=== PATIENT | male | born 1960 | race Caucasian/White ===

== ENCOUNTER 2021-04-06 05:40 | Outpatient (CLI) | payer BC ==
[~2021-04-06] VITALS: Ht 177.8 cm; Wt 104.5 kg
[~2021-04-06 05:40] MED LIST: CTRZ10T PO; FISH OIL OMEGA1 EACH PO; LISI20TA PO; ONDA4TAB11 PO
== END 2021-04-09 14:38 | disposition home or self-care (01) ==
LOC: PREOP 05:40
PROVIDERS: ATTEND Specialist
DX: Z01.818 Encounter for other preprocedural examination (principal)

== ENCOUNTER 2021-04-13 06:51 | Day surgery (SDC) | payer BC ==
[~2021-04-13] VITALS: Ht 177.8 cm; Wt 104.5 kg
[2021-04-13] MEDS: TETRACAINE 0.5% OPHTH SOLN 4 ML BTL (SINGLE DOSE ONLY) OU PRN ×4 (07:12→07:28)
[2021-04-13 07:15] VITALS: BP 146/90
[2021-04-13] MEDS ORDERED: POVIDONE (BETADINE) OPHTH SOLN 5% 30 ML OP ONE (07:15)
[2021-04-13] MEDS ORDERED: LIDOCAINE PF 1% 2 ML VIAL IR PRN (07:15)
[2021-04-13] MEDS ORDERED: MOXIFLOXACIN OPHTH SOLN 5 MG/ML 0.3 ML SYRINGE OP ONE (07:15)
[2021-04-13] MEDS ORDERED: TIMOLOL MALEATE 0.5% 5 ML (TIMOPTIC) BTL OU PRN (07:15)
[2021-04-13] MEDS: TROPICAMIDE 1% OPH SOLN (MYDRIACYL) 15 ML BTL OP SCH ×3 (07:18→07:28)
[2021-04-13] MEDS: PHENYLEPHRINE 10% OPHTH (NEO-SYN) 5 ML BTL OU SCH ×3 (07:18→07:28)
[2021-04-13] MEDS ORDERED: MIDAZOLAM 2 MG/2 ML (VERSED) VIAL ONE (08:01)
--- NOTE | 2021-04-13 08:06 | Ophthalmologist Pre-Op Note ---
Pre-Operative Progress Note H&P Reviewed The H&P was reviewed, patient examined and no changes noted. Date H&P Reviewed: Apr 13, 2021 Time H&P Reviewed: 08:06 Pre-Op Dx Cataract, Left Eye EDIE RHODES MD Apr 13, 2021 08:06
--- NOTE | 2021-04-13 08:29 | Ophthalmology Operative Report ---
Cataract removal/placement IOL PREOPERATIVE DIAGNOSIS: Cataract Left Eye POSTOPERATIVE DIAGNOSIS: Cataract Left Eye PROCEDURE: Cataract removal and placement of posterior chamber implant, left eye SURGEON: Franklin Rhodes ANESTHESIA: Topical with sedation COMPLICATIONS: None ESTIMATED BLOOD LOSS: Minimal DESCRIPTION OF PROCEDURE: After proper informed consent was obtained, the patient, a 60 male, was taken to the Operating Room and the left eye was anesthetized with tetracaine. The left eye was then prepped and draped in the usual manner. A wire lid speculum was placed. A paracentesis was made at the left hand position. Preservative free lidocaine was injected into the anterior chamber followed by viscoelastic. A clear corneal incision was made in the temporal position. A capsulorrhexis was preformed and the central nuclear and cortical material were removed. The posterior capsule was polished and an Mansoor 15.5 [id number] was placed into the capsular bag. The residual viscoelastic was aspirated and balanced saline solution was injected into the anterior chamber. Moxifloxacin was injected into the anterior chamber. The wound was checked and found to be water tight. The patient tolerated the procedure well without complications. FRANKLIN RHODES MD Apr 13, 2021 08:28
[2021-04-13 08:39] VITALS: BP 145/92
[2021-04-13] MEDS ORDERED: acetaZOLAMIDE ER 500 MG CAP (DIAMOX SEQUELS) PO ONE (10:00)
--- NOTE | 2021-04-13 12:47 | Anesthesia-General Post-Op ---
MAC Patient Condition Mental Status/LOC: Same as Preop Cardiovascular: Satisfactory Nausea/Vomiting: Absent Respiratory: Satisfactory Pain: Controlled Complications: Absent Post Op Complications Complications None Follow Up Care/Instructions Patient Instructions None needed. Anesthesiology Discharge Order Discharge Order Patient was doing well this morning after the procedure, no complaints, stable vital signs, no apparent adverse anesthesia problems. OLIMPIA ESTES DO Apr 13, 2021 12:47
== END 2021-04-13 08:42 | disposition home or self-care (01) ==
LOC: SDC 06:51
PROVIDERS: ATTEND Specialist
DX: H25.12 Age-related nuclear cataract, left eye (principal); I10 Essential (primary) hypertension; Z79.899 Other long term (current) drug therapy
CPT/HCPCS: 66984; V2632

== ENCOUNTER 2021-05-01 08:27 | Day surgery (SDC) | payer BC ==
[~2021-05-01] VITALS: Ht 177.8 cm; Wt 104.5 kg
[2021-05-01] MEDS ORDERED: LIDOCAINE PF 1% 2 ML VIAL IR PRN (08:30)
[2021-05-01] MEDS ORDERED: MOXIFLOXACIN OPHTH SOLN 5 MG/ML 0.3 ML SYRINGE OP ONE (08:30)
[2021-05-01] MEDS ORDERED: POVIDONE (BETADINE) OPHTH SOLN 5% 30 ML OP ONE (08:30)
[2021-05-01] MEDS ORDERED: TIMOLOL MALEATE 0.5% 5 ML (TIMOPTIC) BTL OU PRN (08:30)
[2021-05-01] MEDS: TETRACAINE 0.5% OPHTH SOLN 4 ML BTL (SINGLE DOSE ONLY) OU PRN ×4 (08:34→08:50)
[2021-05-01] MEDS: TROPICAMIDE 1% OPH SOLN (MYDRIACYL) 15 ML BTL OP SCH ×3 (08:40→08:50)
[2021-05-01] MEDS ORDERED: MIDAZOLAM 2 MG/2 ML (VERSED) VIAL ONE (08:40)
[2021-05-01] MEDS: PHENYLEPHRINE 10% OPHTH (NEO-SYN) 5 ML BTL OU SCH ×3 (08:40→08:50)
[2021-05-01 08:42] VITALS: BP 162/100
--- NOTE | 2021-05-01 09:14 | Ophthalmologist Pre-Op Note ---
Pre-Operative Progress Note H&P Reviewed The H&P was reviewed, patient examined and no changes noted. Date H&P Reviewed: May 01, 2021 Time H&P Reviewed: 09:14 Pre-Op Dx Cataract, Right Eye EDIE RHODES MD May 01, 2021 09:14
--- NOTE | 2021-05-01 09:37 | Ophthalmology Operative Report ---
Cataract removal/placement IOL PREOPERATIVE DIAGNOSIS: Cataract Right Eye POSTOPERATIVE DIAGNOSIS: Cataract Right Eye PROCEDURE: Cataract removal and placement of posterior chamber implant, right eye SURGEON: Franklin Rhodes ANESTHESIA: Topical with sedation COMPLICATIONS: None ESTIMATED BLOOD LOSS: Minimal DESCRIPTION OF PROCEDURE: After proper informed consent was obtained, the patient, a 60 male, was taken to the Operating Room and the right eye was anesthetized with tetracaine. The right eye was then prepped and draped in the usual manner. A wire lid speculum was placed. A paracentesis was made at the left hand position. Preservative free lidocaine was injected into the anterior chamber followed by viscoelastic. A clear corneal incision was made in the temporal position. A capsulorrhexis was preformed and the central nuclear and cortical material were removed. The posterior capsule was polished and Mansoor 16.0 AU00T0 IOL was placed into the capsular bag. The residual viscoelastic was aspirated and balanced saline solution was injected into the anterior chamber. Moxifloxacin was injected into the anterior chamber. The wound was checked and found to be water tight. The patient tolerated the procedure well without complications. FRANKLNI RHODES MD May 01, 2021 09:37
[2021-05-01 09:39] VITALS: BP 193/114
--- NOTE | 2021-05-01 10:46 | Anesthesia-General Post-Op ---
MAC Patient Condition Mental Status/LOC: Same as Preop Cardiovascular: Satisfactory Nausea/Vomiting: Absent Respiratory: Satisfactory Pain: Controlled Complications: Absent Post Op Complications Complications None Follow Up Care/Instructions Patient Instructions None needed. Anesthesiology Discharge Order Discharge Order Patient is doing well, no complaints, stable vital signs, no apparent adverse anesthesia problems. No complications reported per nursing. DANITZA MOLINA CRNA May 01, 2021 10:46
[2021-05-01] MEDS ORDERED: acetaZOLAMIDE ER 500 MG CAP (DIAMOX SEQUELS) PO ONE (11:00)
== END 2021-05-01 09:41 | disposition home or self-care (01) ==
LOC: SDC 08:27
PROVIDERS: ATTEND Specialist
DX: H25.9 Unspecified age-related cataract (principal); I10 Essential (primary) hypertension; Z79.899 Other long term (current) drug therapy
CPT/HCPCS: 66984; V2632

== ENCOUNTER 2022-01-08 11:51 | Outpatient (CLI) | payer BC ==
[~2022-01-08] VITALS: Ht 177.8 cm; Wt 104.5 kg
== END 2022-01-13 18:25 | disposition home or self-care (01) ==
LOC: PREOP 11:51
PROVIDERS: ATTEND Specialist
DX: Z01.818 Encounter for other preprocedural examination (principal)

== ENCOUNTER 2022-01-15 08:36 | Day surgery (SDC) | payer BC ==
[~2022-01-15] VITALS: Ht 177.8 cm; Wt 104.5 kg
[2022-01-15] MEDS ORDERED: TROPICAMIDE 1% OPH SOLN (MYDRIACYL) 15 ML BTL OU PRN (08:45)
[2022-01-15] MEDS ORDERED: PHENYLEPHRINE 10% OPHTH (NEO-SYN) 5 ML BTL OU PRN (08:45)
[2022-01-15] MEDS: TETRACAINE 0.5% OPHTH SOLN 4 ML BTL (SINGLE DOSE ONLY) OU PRN ×3 (08:50→08:57)
[2022-01-15 08:55] VITALS: BP 142/90
--- NOTE | 2022-01-15 09:14 | Ophthalmologist Pre-Op Note ---
Pre-Operative Progress Note H&P Reviewed The H&P was reviewed, patient examined and no changes noted. Date H&P Reviewed: Jan 15, 2022 Time H&P Reviewed: 09:14 Pre-Op Dx Secondary Cataract, Bilateral Eyes EDIE RHODES MD Jan 15, 2022 09:14
--- NOTE | 2022-01-15 09:29 | Ophthalmology Operative Report ---
YAG Capsulotomy PREOPERATIVE DIAGNOSIS: Secondary Cataract Bilateral POSTOPERATIVE DIAGNOSIS: Secondary Cataract Bilateral PROCEDURE: YAG Capsulotomy, Bilateral SURGEON: Franklin Rhodes ANESTHESIA: Topical anesthesia COMPLICATIONS: None ESTIMATED BLOOD LOSS: Minimal DESCRIPTION OF PROCEDURE: After proper informed consent was obtained, the patient's, a 61 male , received one drop of Tropicamide and one drop of Tetracaine in each eye. The patient was then placed at the YAG laser and using a power of [ 3.5] millijoules and bursts [ 16] right eye and [ 19] left eye were used to fashion a central capsulotomy. The patient tolerated the procedure well without complications. FRANKLIN RHODES MD Jan 15, 2022 09:29
== END 2022-01-15 09:22 | disposition home or self-care (01) ==
LOC: SDC 08:36 → EDSTATUS 11:15
PROVIDERS: ATTEND Specialist
DX: H26.40 Unspecified secondary cataract (principal)

== ENCOUNTER 2022-02-17 05:38 | Outpatient (CLI) | payer BC ==
[~2022-02-17] VITALS: Ht 177.8 cm; Wt 99.5 kg
[2022-02-18] MEDS ORDERED: LISI40TA9 PO (10:16)
[2022-02-18] MEDS ORDERED: AMLO-250 PO (10:16)
== END 2022-02-18 10:32 | disposition home or self-care (01) ==
LOC: PREOP 05:38
PROVIDERS: ATTEND Surgery
DX: Z01.818 Encounter for other preprocedural examination (principal)

== ENCOUNTER 2022-02-24 11:05 | Day surgery (SDC) | payer BC ==
[~2022-02-24] VITALS: Ht 177 cm; Wt 99.5 kg
[~2022-02-24 11:05] MED LIST changes: +AMLO-250 PO; +LISI40TA9 PO
[2022-02-24] MEDS ORDERED: LACTATED RINGERS 1,000 ML IV STA (11:10)
[2022-02-24] MEDS ORDERED: LIDOCAINE JELLY 2% 6 ML SYRINGE MM PRN (11:15)
[2022-02-24 11:25] VITALS: BP 145/93
--- NOTE | 2022-02-24 11:56 | Progress Note-Pre Operative ---
Pre-Operative Progress Note Date of Available H&P: Feb 24, 2022 Date H&P Reviewed: Feb 24, 2022 Time H&P Reviewed: 11:30 History & Physical: No changes noted Pre-Operative Diagnosis: screening, family hx colon cancer SYDNI RIOS MD Feb 24, 2022 11:56
--- NOTE | 2022-02-24 11:58 | Discharge Inst-Surgical ---
D/C Lap Instructions-BLANCA Follow Up Activity as tolerated High Fiber Diet 25g or more per day Avoid Alcohol, Caffeine, Spicy [place] and Acid foods. Drink 64 fluid oz or more of fluids per day. Symptoms to Report: Fever over 101 degree F, Nausea/Vomiting If any problems/questions: Contact your physician or go to Emergency Room SYDNI RIOS MD Feb 24, 2022 11:58
[2022-02-24] MEDS ORDERED: MIDAZOLAM 2 MG/2 ML (VERSED) VIAL ONE (11:59)
[2022-02-24] MEDS ORDERED: PROPOFOL INJECTION 50 ML IV ONE (11:59)
[2022-02-24] MEDS ORDERED: ONDANSETRON 4 MG/2 ML (SDV) Z0FRAN IVP PRN (12:00)
[2022-02-24] MEDS ORDERED: ONDANSETRON 4 MG (ZOFRAN) ORAL DISSOLVE TAB PO PRN (12:00)
[2022-02-24 12:30] VITALS: BP 104/66
[2022-02-24 12:35] VITALS: BP 109/62
--- NOTE | 2022-02-24 12:38 | Progress Note-Post Operative ---
Post-Operative Progess Note Surgeon (s)/Legal Records Clerk (s) Surgeon SYDNI RIOS MD Legal Records Clerk: none Pre-Operative Diagnosis screening, family hx colon cancer Post-Operative Diagnosis chronic stage 2 ext and int hemorrhoids. Procedure & Operative Findings Date of Procedure 02/24/22 Procedure Performed/Findings colonoscopy Anesthesia Type mac Estimated Blood Loss Estimated blood loss (mL): minimal Specimens/Packing Specimens Removed none SYDNI RIOS MD Feb 24, 2022 12:38
--- NOTE | 2022-02-24 12:42 | Anesthesia-General Post-Op ---
MAC Patient Condition Mental Status/LOC: Same as Preop Cardiovascular: Satisfactory Nausea/Vomiting: Absent Respiratory: Satisfactory Pain: Controlled Complications: Absent Post Op Complications Complications None Follow Up Care/Instructions Patient Instructions None needed. Anesthesiology Discharge Order Discharge Order Patient is doing well, no complaints, stable vital signs, no apparent adverse anesthesia problems. No complications reported per nursing. OLIMPIA ESTES DO Feb 24, 2022 12:42
[2022-02-24 12:56] VITALS: BP 109/62
--- NOTE | 2022-02-24 21:04 | OPERATIVE REPORT ---
DATE OF SERVICE: 02/24/2022 ATTENDING PRIMARY CARE PHYSICIAN: Zabrina King DO PREOPERATIVE DIAGNOSES: Screening colonoscopy with family history of colon cancer. POSTOPERATIVE DIAGNOSIS: Chronic stage II external and internal hemorrhoids. PROCEDURE: Colonoscopy. SURGEON:. Sydni Rios MD ANESTHESIA: Monitored anesthesia care. ESTIMATED BLOOD LOSS: Minimal. FINDINGS: Chronic stage II external and internal hemorrhoids. DISPOSITION: The patient tolerated the procedure well. INDICATIONS: The patient is a 61-year-old male known to us. We had seen him in October of 2011 for a colonoscopy. Two small polyps of the rectum were identified, both biopsies with one being a hyperplastic polyp and the other being a tubular adenoma. He is otherwise doing well. Does not report any major issues with diarrhea or constipation as well as no red blood per rectum, nor any dark tarry stools. He does have a significant family history of colon cancer with both his mother and father having the disease. DESCRIPTION OF PROCEDURE: The patient was brought to the endoscopy suite and laid in the left lateral decubitus position. After adequate IV pain and sedative medications and monitored anesthesia care, a digital rectal examination was performed. Chronic stage II, external, internal hemorrhoids were identified with some mild edema, likely secondary to colonic prep. Normal sphincter tone was felt and there were no palpable masses. Prostate gland was palpable and appeared to be normal. The endoscope was then intubated into the anus and rectum gently insufflated. The endoscope was then advanced through the valves of Liu of the rectum with no polyps or any neoplasms identified. The endoscope was then advanced through the sigmoid colon were no diverticulosis was identified. The endoscope was then advanced through the remainder of the descending, transverse and ascending colon to the cecum, which were normal. There were no polyps or neoplasms identified. The endoscope was then slowly withdrawn, while taking a second look and suctioning of residual air with no additional findings. The patient tolerated the procedure well. PLAN: We will recommend continued medical management with a high fiber diet with addition of fiber supplement, which is equal or exceed 30 grams daily as well as significant amounts of water with endpoint being soft consistency stools on a daily basis. Due to his family history of colon cancer, we will recommend a followup colonoscopy in 5 years. Job ID: [id number] DocumentID: [id number] Dictated Date: 02/24/2022 12:33:32 Shower Screen Installer Date: 02/24/2022 21:02:00 Dictated By: SYDNI RIOS MD
== END 2022-02-24 13:08 | disposition home or self-care (01) ==
LOC: ENDO 11:05
PROVIDERS: ATTEND Surgery
DX: Z12.11 Encounter for screening for malignant neoplasm of colon (principal); K64.1 Second degree hemorrhoids; K64.4 Residual hemorrhoidal skin tags; Z80.0 Family history of malignant neoplasm of digestive organs; Z86.010 Personal history of colon polyps; Z87.19 Personal history of other diseases of the digestive system

== ENCOUNTER 2022-08-30 17:22 | Inpatient (IN) | payer BC ==
[~2022-08-30] VITALS: Ht 177 cm; Wt 92.0 kg
--- NOTE | 2022-08-30 17:49 | ED Neurological Problem ---
General Chief Complaint: Neuro-Stroke Like Symptoms Stated Complaint: STROKE LIKE SYMPTOMS Nursing Triage Note: PT ARRIVES TO ER VIA POV. PT HAD HIS PROSTATE REMOVED ON TUESDAY, ARRIVES WITH [facility] CATHETER IN PLACE. REPORTS L SIDED FACIAL DROOP, REPORTS NOTICED YESTERDAY. PT WAS ALSO SEEN AT [facility] YESTERDAY FOR SOB, NO DX MADE. REPORTS FACIAL DROOP NOT PRESENT WHEN HE WAS AT [facility]. PT REPORTS FEELS LIKE HIS SPEECH IS OFF. Source: patient, family Exam Limitations: no limitations (SUDHA REESE MD) History of Present Illness Date Seen by Provider: Aug 30, 2022 Time Seen by Provider: 17:24 Initial Comments 62-year-old male with past medical history most notable for hypertension and recently diagnosed prostate cancer that had a prostatectomy done at [facility] roughly week ago coming in due to concerns for stroke. Last night, at 8 PM his noticed that his left side of his face was drooping. This morning around 8 AM she noticed that he was slurring his speech somewhat, and his left arm he felt like was heavier. They thought it was the medications he was put on recently, and they thought it would get better, so they did not come in right away. He was on chlorpromazine for hiccups, and took a dose of that last night which made him feel "drunk". Denies any prior history of stroke. Denies any prior history of DVT or PE, no cardiac history, no history of A-fib, does not take any blood thinners. Has not taken aspirin since he was 4 years old because of nosebleeds. Otherwise denying any other acute complaints. (SUDHA REESE MD) Allergies and Home Medications Allergies Coded Allergies: aspirin (Unverified Allergy, Unknown, NOSE BLEEDS, 04/09/21) Patient Home Medication List Home Medication List Reviewed: Yes (SUDHA REESE MD) Amlodipine Besylate (Amlodipine Besylate) 5 Mg Tablet, 5 MG PO DAILY, (Reported) Entered as Reported by: VÍCTOR WIN on 02/18/22 1016 Last Action: Reviewed Docusate Sodium (Docusate Sodium) 100 Mg Capsule, 100 MG PO BID, (Reported) Entered as Reported by: VÍCTOR PRITCHETT on 08/31/22 0019 Last Action: Reviewed Lisinopril (Lisinopril) 40 Mg Tablet, 40 MG PO DAILY, (Reported) Entered as Reported by: VÍCTOR WIN on 02/18/22 1016 Last Action: Reviewed Loratadine (Loratadine) 10 Mg Tab.rapdis, 10 MG PO DAILY, (Reported) Entered as Reported by: VÍCTOR PRITCHETT on 08/31/2218 Last Action: Reviewed Multivitamin (Multi-Vitamin Daily) 1 Each Tablet, 1 EACH PO DAILY, (Reported) Entered as Reported by: VÍCTOR PRITCHETT on 08/31/2218 Last Action: Reviewed Oxybutynin Chloride (Oxybutynin Chloride) 5 Mg Tablet, 5 MG PO TID, (Reported) Entered as Reported by: VÍCTOR PRITCHETT on 08/31/2216 Last Action: Reviewed Tramadol HCl (Tramadol HCl) 50 Mg Tablet, 1-2 TAB PO Q6H PRN for PAIN, (Reported) Entered as Reported by: VÍCTOR PRITCHETT on 08/31/2214 Last Action: Reviewed Review of Systems Review of Systems Constitutional: No fever Eyes: No Symptoms Reported Ears, Nose, Mouth, Throat: see HPI Respiratory: no symptoms reported Cardiovascular: no symptoms reported Gastrointestinal: no symptoms reported Genitourinary: no symptoms reported Musculoskeletal: no symptoms reported Skin: no symptoms reported Psychiatric/Neurological: See HPI Endocrine: No Symptoms Reported (SUDHA REESE MD) Past Zruldjl-Lnymop-Kwhkto Hx Patient Social History Tobacco Use?: No Substance use?: No Alcohol Use?: No Pt feels they are or have been: No (SUDHA REESE MD) Immunizations Up To Date First/Initial COVID19 Vaccinat: RECEIVED, UNK WHEN Second COVID19 Vaccination Phan: RECEIVED, UNK WHEN Third COVID19 Vaccination Date: RECEIVED, UNK WHEN COVID19 Vaccine Lapidary Apprentice: PRADIPK (SUDHA REESE MD) Seasonal Allergies Seasonal Allergies: No (SUDHA REESE MD) Past Medical History Surgeries: Yes (L KNEE, L HYDROCELECTOMY, WISDOM TEETH) Adenoidectomy, Orthopedic, Prostatectomy, Tonsillectomy Respiratory: No Cardiac: Yes Hypertension Neurological: No Genitourinary: No Gastrointestinal: No Musculoskeletal: No Endocrine: No HEENT: No Psychosocial: No Integumentary: No Blood Disorders: No (SUDHA REESE MD) Physical Exam Vital Signs Vital Signs - First Documented 08/30/22 17:26 Temp 36.7 Pulse 82 Resp 18 B/P (MAP) 128/78 (95) Pulse Ox 96 O2 Delivery Room Air ([facility]) Vital Signs Capillary Refill : (SUDHA REESE MD) Height, Weight, BMI Height: 5'11.00" Weight: 220lbs. oz. 99.866364wq; 29.00 BMI Method:Stated General Appearance: WD/WN, no apparent distress HEENT: PERRL/EOMI, normal ENT inspection, pharynx normal Neck: non-tender, full range of motion, supple, normal inspection Respiratory: chest non-tender, lungs clear, normal breath sounds, no respiratory distress, no accessory muscle use Cardiovascular: regular rate, rhythm, no edema Gastrointestinal: normal bowel sounds, non tender, soft; No distended, No guarding, No rebound Back: normal inspection, no CVA tenderness, no vertebral tenderness Extremities: normal range of motion, non-tender, normal inspection, no pedal edema, no calf tenderness, normal capillary refill Neurologic/Psychiatric: other (Left-sided facial droop, normal visual patricio and visual acuity, normal lfneab-ne-xypw, normal jrgm-tb-htvf, left arm pronator drift, mild dysarthria) Crainal Nerves: normal hearing, PERRL Coordination/Gait: normal finger to nose, normal gait Motor/Sensory: no sensory deficit Skin: normal color, warm/dry (SUDHA REESE MD) Stroke Onset of Symptoms Date of Onset of Symptoms: Aug 29, 2022 Time of Symptom Onset: 20:00 Onset of Symptoms: Yes (SUDHA REESE MD) NIH Stroke Scale Assessment Level of Consciousness: 0=Alert (0), Level of Consciousness-Questions: 0=Answers both month/age (0), LOC Commands: 0=Performs both tasks (0), Visual Patricio: 0=No visual loss (0), Facial Movement (Facial Paresis): 3=Complete paralysis (3), Motor Function-Arms Right: 0=No drift (0), Motor Function-Arms Left: 1=Drift (1), Motor Function-Legs Right: 0=No drift (0), Motor Function- Legs Left: 0=No drift (0), Limb Ataxia: 0=Absent (0), Sensory: 0=Normal:no loss (0), Best Language: 0=No aphasia (0), Dysarthria: 1=Mild to moderate loss (1), Extinction & Inattention: 0=No abnormality (0), Total: 5 Stroke Thrombolytic Exclusion TPA Contraindication: Yes (more than 4.5 hours) (SUDHA REESE MD) IV - TPa Received IV - TPa Procedure Performed?: No (SUDHA REESE MD) Progress/Results/Core Measures Results/Orders Lab Results Laboratory Tests Test 08/30/22 17:28 08/30/22 18:08 08/30/22 18:10 Range/Units White Blood Count 10.1 4.3-11.0 10^3/uL Red Blood Count 4.97 4.30-5.52 10^6/uL Hemoglobin 14.9 13.3-17.7 g/dL Hematocrit 45 40-54 % Mean Corpuscular Volume 90 80-99 fL Mean Corpuscular Hemoglobin 30 25-34 pg Mean Corpuscular Hemoglobin Concent 33 32-36 g/dL Red Cell Distribution Width 13.2 10.0-14.5 % Platelet Count 229 130-400 10^3/uL Mean Platelet Volume 10.3 9.0-12.2 fL Immature Granulocyte % (Auto) 0 % Neutrophils (%) (Auto) 71 42-75 % Lymphocytes (%) (Auto) 13 12-44 % Monocytes (%) (Auto) 8 0-12 % Eosinophils (%) (Auto) 7 0-10 % Basophils (%) (Auto) 1 0-10 % Neutrophils # (Auto) 7.2 1.8-7.8 10^3/uL Lymphocytes # (Auto) 1.3 1.0-4.0 10^3/uL Monocytes # (Auto) 0.8 0.0-1.0 10^3/uL Eosinophils # (Auto) 0.7 H 0.0-0.3 10^3/uL Basophils # (Auto) 0.1 0.0-0.1 10^3/uL Immature Granulocyte # (Auto) 0.0 0.0-0.1 10^3/uL Prothrombin Time 13.6 12.2-14.7 SEC INR Comment 1.0 0.8-1.4 Activated Partial Thromboplast Time 32 24-35 SEC D-Dimer 1.28 H 0.00-0.49 UG/ML Sodium Level 136 135-145 MMOL/L Potassium Level 3.9 3.6-5.0 MMOL/L Chloride Level 104 98-107 MMOL/L Carbon Dioxide Level 26 21-32 MMOL/L Anion Gap 6 5-14 MMOL/L Blood Urea Nitrogen 13 7-18 MG/DL Creatinine 0.88 0.60-1.30 MG/DL Estimat Glomerular Filtration Rate 97 BUN/Creatinine Ratio 15 Glucose Level 130 H 70-105 MG/DL Calcium Level 9.0 8.5-10.1 MG/DL Corrected Calcium 9.2 8.5-10.1 MG/DL Total Bilirubin 0.8 0.1-1.0 MG/DL Aspartate Amino Transf (AST/SGOT) 11 5-34 U/L Alanine Aminotransferase (ALT/SGPT) 18 0-55 U/L Alkaline Phosphatase 72 40-136 U/L Troponin I < 0.028 <0.028 NG/ML Total Protein 6.4 6.4-8.2 GM/DL Albumin 3.7 3.2-4.5 GM/DL Glucometer 124 H 70-110 MG/DL Urine Color YELLOW Urine Clarity CLEAR Urine pH 8.5 5-9 Urine Specific [place] <=1.005 1.016-1.022 Urine Protein 2+ H NEGATIVE Urine Glucose (UA) NEGATIVE NEGATIVE Urine Ketones NEGATIVE NEGATIVE Urine Nitrite POSITIVE H NEGATIVE Urine Bilirubin 1+ H NEGATIVE Urine Urobilinogen 1.0 < = 1.0 MG/DL Urine Leukocyte Esterase 3+ H NEGATIVE Urine RBC (Auto) 3+ H NEGATIVE Urine RBC 5-10 H /HPF Urine WBC 5-10 H /HPF Urine Squamous Epithelial Cells NONE /HPF Urine Crystals PRESENT H /LPF Urine Triple Phosphate Crystals FEW H /LPF Urine Amorphous Sediment MOD REBA PHOSPHATE H /LPF Urine Bacteria LARGE H /HPF Urine Casts NONE /LPF Urine Mucus NEGATIVE /LPF Urine Culture Indicated YES (KEYONA HILL DO) My Orders Orders - KEYONA HILL DO Ct Angio Head/Neck (08/30/22 18:20) Iohexol Injection (Omnipaque 350 Mg/Ml 1 (08/30/22 18:45) Ns (Ivpb) (Sodium Chloride 0.9% Ivpb Bag (08/30/22 18:45) Ed Admission (Communication) (08/30/22 19:55) (KEYONA HILL DO) Medications Given in ED Current Medications Medications Dose Ordered Sig/Regina Route Start Time Stop Time Status Last Admin Dose Admin Iohexol 100 ml ONCE ONCE IV 08/30/22 18:45 08/30/22 18:46 DC 08/30/22 18:59 100 ML Sodium Chloride 100 ml ONCE ONCE IV 08/30/22 18:45 08/30/22 18:46 DC 08/30/22 18:59 100 ML (KEYONA HILL DO) Vital Signs/I&O 08/30/22 08/30/22 17:26 20:53 Temp 36.7 Pulse 82 80 Resp 18 B/P (MAP) 128/78 (95) 115/74 Pulse Ox 96 96 O2 Delivery Room Air Room Air 08/31/22 00:00 Intake Total 25 ml Balance 25 ml (KEYONA HILL DO) Blood Pressure Mean: 95 Progress Progress Note : Progress Note 62-year-old male with above history coming in due to strokelike symptoms. ABCs were intact and vitals were stable on presentation. Physical exam with left- sided facial droop, left arm pronator drift, and mild dysarthria. NIH is 5 on arrival. Unfortunately, onset of symptoms over 21 hours ago prior to arrival and is not a candidate for tPA. Stroke alert called, patient sent to CT scanner. An IV was placed in typical stroke work-up has been started. Patient will be transitioned over to the oncoming physician for further evaluation. (SUDHA REESE MD) Diagnostic Imaging Diagonstic Imaging: Xray (chest), CT (head) Comments [facility], [place] NAME: MELINDA DORAN Jason [facility] REC#: [id number] PT STATUS: REG ER : 1960 PHYSICIAN: SUDHA REESE MD ADMIT DATE: 08/30/22/ER Signed Date of Exam:08/30/22 CT HEAD WO-R/O STROKE EXAMINATION: CT head without contrast. TECHNIQUE: Multiple contiguous axial images were obtained through the brain without the use of intravenous contrast. All CT scans use one or more of the following dose optimizing techniques: automated exposure control, MA and/or KvP adjustment based on patient size and exam type or iterative reconstruction. HISTORY: Left-sided facial droop. Recent prostatectomy. COMPARISON: None available. FINDINGS: No large acute territorial ischemia, mass, or hemorrhage. No midline shift or mass effect. Decreased attenuation is seen in the periventricular and subcortical white matter. The ventricles and cortical sulci are prominent. The basilar cisterns are patent and unremarkable. The orbits are normal. Paranasal sinuses are normal. Mastoid air cells are clear. No soft tissue abnormality is seen. No osseus lesions or fractures are seen. IMPRESSION: 1. No large acute territorial ischemia, mass, or hemorrhage. 2. Chronic microvascular disease. 3. Generalized parenchymal volume loss. Dictated by: Dictated on workstation # [id number] Dict: 08/30/22 175 Trans: 08/30/221807 [facility] [id number] Interpreted by: WERNER HERNANDEZ DO Electronically signed by: WERNER HERNANDEZ DO 08/30/221807 (SUDHA REESE MD) Critical Care Note Critical Care Total Time (minutes) 60 (KEYONA HILL DO) Departure Communication (Admissions) 1825: Spoke to ANDRIY Mayorga. States go ahead and get CTA head/neck as they can sometimes be candidate for intervention after 24h. Pending at this time. Patient with no evidence of large vessel occlusion. His symptoms have remained stable during his evaluation in the emergency department. He will be admitted to the hospitalist in stable condition. (KEYONA HILL DO) Impression Primary Impression: Stroke Qualified Codes: I63.9 - Cerebral infarction, unspecified Disposition: ADMITTED INPATIENT Condition: Stable Departure-Patient Inst. Referrals: LORRAINE MCDERMOTT DO (PCP/Family) Primary Care Physician SUDHA REESE MD Aug 30, 2022 17:49 KEYONA HILL DO Aug 30, 2022 18:30
[2022-08-30 17:54] LABS: ALBUMIN 3.7 GM/DL (3.2-4.5)
[2022-08-30 17:55] LABS: CHLORIDE 104 MMOL/L (98-107); POTASSIUM 3.9 MMOL/L (3.6-5.0); SODIUM 136 MMOL/L (135-145)
[2022-08-30 17:57] LABS: GLUCOSE 130 MG/DL (70-105); TOTAL PROTEIN 6.4 GM/DL (6.4-8.2)
[2022-08-30 17:58] LABS: BASOPHILS # (AUTO) 0.1 10^3/uL (0.0-0.1); BASOPHILS % (AUTO) 1 % (0-10); CARBON DIOXIDE 26 MMOL/L (21-32); EOSINOPHILS # (AUTO) 0.7 10^3/uL (0.0-0.3); EOSINOPHILS % (AUTO) 7 % (0-10); HEMATOCRIT 45 % (40-54); HEMOGLOBIN 14.9 g/dL (13.3-17.7); LYMPHOCYTES # (AUTO) 1.3 10^3/uL (1.0-4.0); LYMPHOCYTES % (AUTO) 13 % (12-44); MEAN CORPUSCULAR HEMOGLOBIN 30 pg (25-34); MEAN CORPUSCULAR HGB CONC 33 g/dL (32-36); MEAN CORPUSCULAR VOLUME 90 fL (80-99); MEAN PLATELET VOLUME 10.3 fL (9.0-12.2); MONOCYTES # (AUTO) 0.8 10^3/uL (0.0-1.0); MONOCYTES % (AUTO) 8 % (0-12); NEUTROPHILS # (AUTO) 7.2 10^3/uL (1.8-7.8); NEUTROPHILS % (AUTO) 71 % (42-75); PLATELET COUNT 229 10^3/uL (130-400); WHITE BLOOD COUNT 10.1 10^3/uL (4.3-11.0)
[2022-08-30 17:59] LABS: BILIRUBIN,TOTAL 0.8 MG/DL (0.1-1.0); PROTHROMBIN TIME PATIENT 13.6 SEC (12.2-14.7)
[2022-08-30 18:01] LABS: ALKALINE PHOSPHATASE 72 U/L (40-136); CREATININE SERUM 0.88 MG/DL (0.60-1.30); GFR ESTIMATED 97
[2022-08-30 18:02] LABS: BUN/CREATININE RATIO 15; FIBRIN DEGRADATION PRODUCTS 1.28 UG/ML (0.00-0.49)
--- NOTE | 2022-08-30 18:02 | Diagnostic Imaging Report ---
EXAMINATION: CT head without contrast. TECHNIQUE: Multiple contiguous axial images were obtained through the brain without the use of intravenous contrast. All CT scans use one or more of the following dose optimizing techniques: automated exposure control, MA and/or KvP adjustment based on patient size and exam type or iterative reconstruction. HISTORY: Left-sided facial droop. Recent prostatectomy. COMPARISON: None available. FINDINGS: No large acute territorial ischemia, mass, or hemorrhage. No midline shift or mass effect. Decreased attenuation is seen in the periventricular and subcortical white matter. The ventricles and cortical sulci are prominent. The basilar cisterns are patent and unremarkable. The orbits are normal. Paranasal sinuses are normal. Mastoid air cells are clear. No soft tissue abnormality is seen. No osseus lesions or fractures are seen. IMPRESSION: 1. No large acute territorial ischemia, mass, or hemorrhage. 2. Chronic microvascular disease. 3. Generalized parenchymal volume loss. Dictated by: Dictated on workstation # [id number]
[2022-08-30 18:04] LABS: ALANINE AMINOTRANSFERASE 18 U/L (0-55)
--- NOTE | 2022-08-30 18:06 | Diagnostic Imaging Report ---
EXAMINATION: Chest 1 view HISTORY: Left-sided facial droop. Shortness of breath. COMPARISON: None available. FINDINGS: The lung volumes are low. Hazy opacities are seen in the right lung base. No large pleural effusion or pneumothorax is seen. The cardiomediastinal silhouette is normal in size and contour. No acute osseous abnormality is seen. IMPRESSION: 1. Low lung volumes with hazy opacities in the right lung base. Findings may represent atelectasis or infection and follow-up is recommended. Dictated by: Dictated on workstation # [id number]
[2022-08-30 18:21] LABS: CLARITY,URINE CLEAR; COLOR,URINE YELLOW; GLUCOSE, URINE (UA) NEGATIVE (NEGATIVE); KETONES,URINE NEGATIVE (NEGATIVE); LEUKOCYTE ESTERASE ,URINE 3+ (NEGATIVE); NITRITE,URINE POSITIVE (NEGATIVE); PH,URINE 8.5 (5-9); PROTEIN,URINE 2+ (NEGATIVE)
[2022-08-30 18:32] LABS: BILIRUBIN,URINE 1+ (NEGATIVE)
[2022-08-30 18:33] LABS: AMORPHOUS SEDIMENT,UR MOD AMOR PHOSPHATE /LPF; BACTERIA,URINE LARGE /HPF; TRIPLE PHOSPHATE CRYSTAL,UR FEW /LPF
[2022-08-30] MEDS ORDERED: NS 100 ML (IVPB) BAG IV ONE (18:45)
[2022-08-30] MEDS ORDERED: IOHEXOL 350 MG/ML 100 ML (OMNIPAQUE 350) VIAL IV ONE (18:45)
--- NOTE | 2022-08-30 19:06 | Diagnostic Imaging Report ---
PROCEDURE: CT angiography of the head and CT angiography of the neck with and without contrast. TECHNIQUE: Contiguous noncontrast images were obtained from the skull base through the vertex. After intravenous contrast administration, helical CT angiography of the neck was performed. Source data was reformatted into 3D MIP projections. Delayed post contrast acquisition was also obtained. Auto Exposure Controls were utilized during the CT exam to meet ALARA standards for radiation dose reduction. INDICATION: Left-sided weakness. Speech difficulties. Comparison: CT head performed earlier this same date. FINDINGS: CTA Neck: The visualized portions of the aortic arch demonstrate no evidence of aneurysm or dissection. There is conventional branching pattern of the great vessels of the aorta. The brachiocephalic artery is normal in course and caliber. The right and left common carotid origins are unremarkable. The origin of the left subclavian artery is patent. The common carotid arteries and internal carotid arteries demonstrate a normal course. There is calcified atherosclerotic plaque in the bilateral carotid bulbs and proximal internal carotid arteries without flow-limiting stenosis. No evidence of dissection in the carotid systems. The external carotid arteries are patent and unremarkable. The left vertebral artery is dominant. The origin of the right vertebral artery is seen and is unremarkable. The origin of the left vertebral artery is seen and is unremarkable. There is no focal stenosis seen within the neck. There is no dissection. The vertebral arteries are well visualized to up to the level of the basilar artery. The osseous structures of the cervical spine are unremarkable. Included views through the lung apices demonstrate no focal consolidation. CTA brain: Atherosclerotic plaque is seen in the zamarripa of the bilateral terminal internal carotid arteries without significant stenosis. No stenosis is seen in the bilateral anterior, middle, and posterior cerebral arteries. No evidence of aneurysm the [place]. In the posterior circulation, both of the vertebral arteries demonstrate normal opacification. Both the right and left PICA arteries are identified. The basilar artery is normal in course and caliber. The terminal branch vessels including the superior cerebellar arteries unremarkable. IMPRESSION: 1. No stenosis or aneurysm in the [place]. No large vessel occlusion. 2. No stenosis or dissection the bilateral carotid and vertebral arteries. Dictated by: Dictated on workstation # [id number]
[2022-08-30 21:05] VITALS: BP 125/78
[2022-08-30] MEDS ORDERED: MILK OF MAGNESIA 400 MG/5 ML 30 ML UDC PO PRN (21:30)
[2022-08-30] MEDS ORDERED: ALPRAZolam 0.5 MG (XANAX) TAB PO PRN (21:30)
[2022-08-30] MEDS ORDERED: ACETAMINOPHEN 325 MG TABLET PO PRN (21:30)
[2022-08-30] MEDS ORDERED: ONDANSETRON 4 MG (ZOFRAN) ORAL DISSOLVE TAB PO PRN (21:30)
[2022-08-30] MEDS ORDERED: LACTULOSE SYRUP 10GM/15ML (ENULOSE) 30ML UDC PO PRN (21:30)
[2022-08-30] MEDS ORDERED: ONDANSETRON 4 MG/2 ML (SDV) Z0FRAN IV PRN (21:30)
[2022-08-30] MEDS ORDERED: MELATONIN 3 MG TABLET PO PRN (21:30)
[2022-08-30] MEDS ORDERED: diphenhydrAMINE 50 MG/ML INJ (BENADRYL) IVP PRN (21:30)
[2022-08-30] MEDS ORDERED: BISACODYL 10 MG SUPP (DULCOLAX) PR PRN (21:30)
[2022-08-30] MEDS ORDERED: HYDROmorphone 2 MG/ML VIAL (DILAUDID) IV PRN (21:30)
[2022-08-30] MEDS ORDERED: polyethylene glycoL POWDER 17 GM (MIRALAX) PACK PO PRN (21:30)
[2022-08-30] MEDS ORDERED: ANTACID SUSP 30 ML UDC (MYLANTA) PO PRN (21:30)
[2022-08-30] MEDS ORDERED: CALCIUM CARBONATE 500 MG (TUMS) TAB.CHEW PO PRN (21:30)
[2022-08-30] MEDS ORDERED: diphenhydrAMINE 25 MG TAB (BENADRYL) PO PRN (21:30)
[2022-08-30] MEDS ORDERED: NS IV 1000 ML 1,000 ML ONE (21:33)
[2022-08-30] MEDS: NS IV 1000 ML 1,000 ML IV SCH (21:39)
[2022-08-30] MEDS ORDERED: RT-ALBUTEROL SULF 2.5 MG/3 ML PRE-MIX VIAL INH PRN (22:30)
[2022-08-30 23:17] VITALS: BP 129/78
[2022-08-31] MEDS ORDERED: TRAM50TA3 PO (00:15)
[2022-08-31] MEDS ORDERED: OXYB5TAB13 PO (00:17)
[2022-08-31] MEDS ORDERED: MULT-974 PO (00:19)
[2022-08-31] MEDS ORDERED: DOCU100C37 PO (00:19)
[2022-08-31] MEDS ORDERED: LORA-1389 PO (00:19)
[2022-08-31 03:48] VITALS: BP 135/83
[2022-08-31 05:08] LABS: BASOPHILS # (AUTO) 0.1 10^3/uL (0.0-0.1); BASOPHILS % (AUTO) 1 % (0-10); EOSINOPHILS # (AUTO) 0.7 10^3/uL (0.0-0.3); EOSINOPHILS % (AUTO) 6 % (0-10); HEMATOCRIT 41 % (40-54); HEMOGLOBIN 13.7 g/dL (13.3-17.7); LYMPHOCYTES # (AUTO) 1.3 10^3/uL (1.0-4.0); LYMPHOCYTES % (AUTO) 12 % (12-44); MEAN CORPUSCULAR HEMOGLOBIN 30 pg (25-34); MEAN CORPUSCULAR HGB CONC 34 g/dL (32-36); MEAN CORPUSCULAR VOLUME 89 fL (80-99); MEAN PLATELET VOLUME 9.9 fL (9.0-12.2); MONOCYTES # (AUTO) 0.9 10^3/uL (0.0-1.0); MONOCYTES % (AUTO) 8 % (0-12); NEUTROPHILS # (AUTO) 8.1 10^3/uL (1.8-7.8); NEUTROPHILS % (AUTO) 73 % (42-75); PLATELET COUNT 197 10^3/uL (130-400)
[2022-08-31 05:24] LABS: ALBUMIN 3.3 GM/DL (3.2-4.5); POTASSIUM 3.9 MMOL/L (3.6-5.0)
[2022-08-31 05:25] LABS: CALCIUM 8.2 MG/DL (8.5-10.1)
[2022-08-31 05:27] LABS: TOTAL PROTEIN 5.9 GM/DL (6.4-8.2)
[2022-08-31 05:29] LABS: BILIRUBIN,TOTAL 0.6 MG/DL (0.1-1.0)
[2022-08-31 05:30] LABS: CREATININE SERUM 0.78 MG/DL (0.60-1.30)
[2022-08-31 07:23] VITALS: BP 132/80
--- NOTE | 2022-08-31 08:55 | Diagnostic Imaging Report ---
CLINICAL INDICATION: Patient is with recent prostate surgery for prostate cancer. Patient has left-sided weakness and uncontrollable hiccups. EXAM: MRI of the brain performed without IV contrast. Sequences include axial DWI, ADC map, axial T1, axial T2, axial FLAIR, axial gradient echo, and sagittal T1. COMPARISON: CT angiogram of the head/neck dated 08/30/2022. FINDINGS: There is a 6 mm x 11 mm area of diffusion restriction involving the posterior limb of the right internal capsule, consistent with an acute cerebral infarct. There is a small amount of increased T2 signal in the region. There is no intracranial hemorrhage, brain herniation, or midline shift. There are numerous focal areas of low gradient echo signal seen throughout both cerebral hemispheres and brainstem. The brain parenchymal volume appears appropriate for patient's age. There is diffuse focal, patchy, and confluent areas of high T2 signal white matter changes seen throughout both cerebral hemispheres. There is no hydrocephalus. The basal cisterns are unremarkable. The visualized [place] vascular structures are unremarkable. The extracranial soft tissue and skull are unremarkable. There are postop changes to both globes which may be related to lens implants. There is mild mucosal thickening involving the ethmoid sinus, sphenoid sinus, and left maxillary sinus. The mastoid air cells are clear. IMPRESSION: 1: There is a small acute infarct involving the posterior limb of the right internal capsule. There is high T2 signal in the region with no evidence of intra-parenchymal hemorrhage or brain herniation. 2: There are diffuse focal and patchy areas of low-attenuation white matter changes seen throughout both cerebral hemispheres which may be related to chronic small vessel ischemic disease or leukoaraiosis. 3: There are numerous focal areas of low gradient echo signal involving both cerebral hemispheres and blas. These findings may be seen with cerebral amyloid angiopathy or multiple hereditary cavernous malformations. There is no evidence of an acute intraparenchymal hemorrhage. Dictated by: Dictated on workstation # [id number]
--- NOTE | 2022-08-31 09:22 | History & Physical ---
History of Present Illness HPI/Chief Complaint Chief complaint: CVA HPI this is a 62-year-old male clinic patient of Dr. King who presented to the ER after 24 hours of left facial droop and left hand numbness. Patient was assessed to have an NIH score of 5. No tPA given since outside the window. To note patient had a complete prostatectomy robotic assisted treatment by Dr. Barron 1 week ago and still has a catheter in. He has had a complication of severe hiccups following surgery in past. He was taken Thorazine for symptoms he presented with to the ER was from the Thorazine. MRI confirmed CVA right internal capsule. I did update the patient on the results. Echo being performed but patient was assessed to have gallbladder sludge on Echo so we will order the abdominal ultrasound. PT and OT speech therapy will assess the patient very well could be criteria for inpatient rehab considering the recent major surgery and now CVA. He is allergic to aspirin given severe bloody noses and I did go ahead initiate Plavix but will monitor closely. Source: patient Exam Limitations: no limitations Date Seen 08/31/22 Time Seen by a Provider: 10:00 Attending Physician Zabrina King DO PCP Admitting Physician: Maki Staley DO Attending Physician: Maki Staley DO Referring Physician Date of Admission Aug 30, 2022 at 21:01 Home Medications & Allergies Home Medications Reviewed patient Home Medication Reconciliation performed by pharmacy medication reconciliations photographic reproduction technician and/or nursing. Patients Allergies have been reviewed. Allergies Allergies Coded Allergies aspirin (Unverified Allergy, Unknown, NOSE BLEEDS, 04/09/21) Past Uxabkks-Rxhbyx-Jgjugf Hx Past Med/Social Hx: Reviewed Nursing Past Med/Soc Hx, Reviewed and Corrections made Patient Social History Marrital Status: Employed/Student: retired Alcohol Use: Denies Use Smoking Status: Former Smoker Type Used: Smokeless Tobacco 2nd Hand Smoke Exposure: No Recent Hopitalizations: No Immunizations Up To Date Date of Influenza Vaccine: Dec 12, 2010 Seasonal Allergies Seasonal Allergies: No Past Medical History Surgeries: Adenoidectomy, Orthopedic, Prostatectomy, Tonsillectomy Cardiac: Hypertension History of Blood Disorders: No Review of Systems Constitutional: see HPI, malaise, weakness EENTM: no symptoms reported Respiratory: no symptoms reported Cardiovascular: no symptoms reported Gastrointestinal: no symptoms reported Genitourinary: no symptoms reported Musculoskeletal: no symptoms reported Skin: no symptoms reported Psychiatric/Neurological: Anxiety, Depressed, Numbness, Tingling, Weakness All Other Systems Reviewed Negative Unless Noted: Yes Physical Exam Physical Exam Vital Signs Vital Signs - First Documented 08/30/22 08/30/22 17:26 22:24 Temp 36.7 Pulse 82 Resp 18 B/P (MAP) 128/78 (95) Pulse Ox 96 O2 Delivery Room Air FiO2 21 Capillary Refill : Height, Weight, BMI Height: 5'11.00" Weight: 220lbs. oz. 99.161544ws; 29.36 BMI Method:Stated General Appearance: No Apparent Distress, WD/WN, Chronically ill Eyes: Bilateral Eye Normal Inspection, Bilateral Eye PERRL HEENT: PERRL/EOMI, Normal ENT Inspection, Pharynx Normal Neck: Full Range of Motion, Normal Inspection, Non Tender, Supple, Carotid Bruit Respiratory: Chest Non Tender, Lungs Clear, Normal Breath Sounds, No Accessory Muscle Use, No Respiratory Distress Cardiovascular: Regular Rate, Rhythm, No Edema, No Gallop, No JVD, No Murmur, Normal Peripheral Pulses Gastrointestinal: Normal Bowel Sounds, No Organomegaly, No Pulsatile Mass, Non Tender, Soft Back: Normal Inspection, No CVA Tenderness, No Vertebral Tenderness Extremity: Normal Capillary Refill, Normal Inspection, Normal Range of Motion, Non Tender, No Calf Tenderness, No Pedal Edema Neurologic/Psychiatric: Alert, Oriented x3, Normal Mood/Affect, 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 Assessment/Plan Admission Diagnosis Assessment: Subacute CVA not a tPA candidate with left-sided facial droop and left hand weakness with infarct in the right internal capsule Recent complete prostatectomy robotic assisted at [place] still has catheter Proteus UTI placed on cefepime Gallbladder sludge found incidentally on echocardiogram ordered formal ultrasound asymptomatic Hypertension Plan: Plavix Hold aspirin due to intolerance with epistaxis Dr. Gonzalez consult Echo Carotid ultrasound PT and OT Speech therapy Inpatient rehab eval IV antibiotics Admission Status: Inpatient Order (span 2 midnights) Reason for Inpatient Admission: CVA Clinical Quality Measures Stroke: Date of last known well: Aug 29, 2022 Time of last known well: 20:00 MAKI STALEY 20, 2023 09:22
[2022-08-31] MEDS: ENOXAPARIN 40 MG/0.4 ML (LOVENOX) SYR SC SCH (09:27)
[2022-08-31] MEDS: SENNOSIDES 8.6 MG (SENOKOT) TAB PO SCH ×2 (09:28→19:56)
[2022-08-31] MEDS: CLOPIDOGREL 75 MG (PLAVIX) TABLET PO SCH (09:28)
[2022-08-31] MEDS: DOCUSATE SODIUM 100 MG (COLACE) CAP PO SCH ×3 (09:28→21:15)
[2022-08-31] MEDS: BACLOFEN 10 MG (LIORESAL) TAB PO SCH ×4 (09:45→20:01)
[2022-08-31] MEDS: NS IV 1000 ML 1,000 ML IV SCH (09:47)
--- NOTE | 2022-08-31 11:13 | Physical Therapy Evaluation ---
PT Evaluation-General Medical Diagnosis Admission Date Aug 31, 2022 at 09:25 Medical Diagnosis: CVA Onset Date: Aug 31, 2022 Therapy Diagnosis Therapy Diagnosis: generalized weakness/debility Height/Weight Height (Feet): 5 Height (Inches): 11.00 Weight (Pounds): 220 Precautions Precautions/Isolations: Standard Precautions Referral Physician: Jack Reason for Referral: Evaluation/Treatment Medical History Pertinent Medical History: HTN, Prostate CA Additional Medical History prostate removed Current History ER secondary to left facial droop and slurred speech Reviewed History: Yes Social History Home: mobile home Current Living Status: Spouse Entry Into Home: Stairs With Railing PT Steps Into Home: 3 Prior Prior Level of Function SCALE: Activities may be completed with or without assistive devices. 5-Tjiwqwjbfi-smewgsl completes the activity by him/herself with no assistance from a helper. 5-Set-up or Clean-up Assistance-helper sets up or cleans up; patient completes activity. [place] assists only prior to or following the activity. 4-Supervision or Touching Assistance-helper provides verbal cues and/or touc skyla/steadying and/or contact guard assistance as patient completes activity. Assistance may be provided throughout the activity or intermittently. 3-Partial/Moderate Assistance-helper does LESS THAN HALF the effort. [place] lifts, holds or supports trunk or limbs, but provides less than half the effort. 2-Substantial/Maximal Assistance-helper does MORE THAN HALF the effort. [place] lifts or holds trunk or limbs and provides more than half the effort. 3-Dvjjfannu-vyoduq does ALL the effort. Patient does none of the effort to complete the activity. Or, the assistance of 2 or more helpers is required for the patient to complete the activity. If activity was not attempted, code reason: 7-Patient Refused. 9-Not Applicable-not attempted and the patient did not perform the activity before the current illness, exacerbation or injury. 10-Not Attempted due to Environmental Limitations-(lack of equipment, weather restraints, etc.). 88-Not Attempted due to Medical Conditions or Safety Concerns. Bed Mobility: 6 Transfers (B,C,W/C): 6 Gait: 6 Stairs: 6 Indoor Mobility (Ambulation): Independent Stairs: Independent Prior Devices Use: None PT Evaluation-Current Subjective Patient agrees to PT. Objective Patient Orientation: Person, Place, Time, Situation Attachments: Arellano Catheter, IV ROM/Strength ROM Lower Extremities bilateral LE WFL Strength Lower Extremities left knee flexion/extension 3-/5;DF/PF 3-/5;hip flexion 3/5 right knee flexion/extension 4/5;DF/PF 4/5; hip flexion 4/5 Integumentary/Posture Bowel Incontinence: No Bladder Incontinence: Arellano Cath Posture slight trunk flexed posture Neuromuscular (Tone, Coordination, Reflexes) diminished coordination and proprioception left LE Sensory Vision: Wears Glasses Hearing: Functional Transfers Lying to Sitting/Side of Bed(Q: 4 Sit to Stand (QC): 4 Chair/Nfj-pb-Wnmmi Xfer(QC): 4 Toilet Transfer (QC): 4 Gait Mode of Locomotion: Walk Anticipated Mode of Locomotion: Walk Walk 10 feet (QC): 4 Walk 50 ft with 2 Turns(QC): 4 Walk 150 ft (QC): 4 Distance: 275' Gait Assistive Device: FWW Comments/Gait Description slow, steady gait sequence SBA for safety Stairs #of Steps: 4 1 Step (curb) (QC): 4 4 Steps (QC): 4 Balance Sitting Static: Normal Sitting Dynamic: Normal Standing Static: Fair Standing Dynamic: Fair Assessment/Needs Patient will benefit from skilled PT to address functional strength and mobility to improve current LOF to safely return to home with spouse at maximum LOF. Rehab Potential: Fair PT Retirement Goals Retirement Goals PT Manager School Goals Time Frame: Sep 11, 2022 Roll Left & Right (QC): 6 Sit to Lying (QC): 6 Lying-Sitting on Side/Bed(QC): 6 Sit to Stand (QC): 6 Chair/Sdm-nj-Iayuy Xfer(QC): 6 Toilet Transfer (QC): 6 Car Transfer (QC): 6 Walk 10 feet (QC): 6 Walk 50ft with 2 Turns (QC): 6 Walk 150 ft (QC): 6 Walking 10ft on Uneven Surface: 6 1 Step (curb) (QC): 6 4 Steps (QC): 6 PT Plan Problem List Problem List: Functional Strength, Safety, Balance, Gait, Transfer Treatment/Plan Treatment Plan: Continue Plan of Care Treatment Plan: Education, Functional Activity Satinder, Functional Strength, Gait, Safety, Therapeutic Exercise, Transfers Treatment Duration: Sep 11, 2022 Frequency: 6 times per week Estimated Hrs Per Day: .25 hour per day Patient and/or Family Agrees t: Yes Time Time In: 1027 Time Out: 1040 DATE: Aug 31, 2022 Total Billed Treatment Time: 13 Total Billed Treatment 1 visit EVMod 13 min SAYDA QUIJANO PT Aug 31, 2022 11:13
[2022-08-31 11:39] VITALS: BP 136/83
--- NOTE | 2022-08-31 13:06 | Occupational Therapy Eval ---
OT Evaluation-General/PLF Medical Diagnosis Admission Date Aug 31, 2022 at 09:25 Medical Diagnosis: CVA Onset Date: Aug 31, 2022 Therapy Diagnosis Therapy Diagnosis: weakness, visual impairment, impaired problem solving, speech impairment Height/Weight Height (Feet): 5 Height (Inches): 11.00 Weight (Pounds): 220 Precautions Precautions/Isolations: Standard Precautions Weight Bear Status Weight Bearing Restriction: Full Weight Bearing Location Restriction: LE Bilateral Referral Physician: Jack Referral Reason: Activity Tolerance, Self Care, Evaluation/Treatment, Strengthening/ROM Medical History Pertinent Medical History: HTN, Prostate CA Additional Medical History PT ARRIVES TO ER VIA POV. PT HAD HIS PROSTATE REMOVED ON TUESDAY, ARRIVES WITH [facility] CATHETER IN PLACE. REPORTS L SIDED FACIAL DROOP, REPORTS NOTICED YESTERDAY. PT WAS ALSO SEEN AT [place] FOR SOB, NO DX MADE. REPORTS FACIAL DROOP NOT PRESENT WHEN HE WAS AT [place]. PT REPORTS FEELS LIKE HIS SPEECH IS OFF. Current History Family making arrangements for surgery f/u visit in [place] that was scheduled for today Reviewed History: Yes Social History Home: mobile home Current Living Status: Spouse Entry Into Home: Stairs With Railing Steps Into Home: 3 ADL-Prior Level of Function SCALE: Activities may be completed with or without assistive devices. 9-Odrjjhscsp-kvhggwy completes the activity by him/herself with no assistance from a helper. 5-Set-up or Clean-up Assistance-helper sets up or cleans up; patient completes activity. [place] assists only prior to or following the activity. 4-Supervision or Touching Assistance-helper provides verbal cues and/or touching/steadying and/or contact guard assistance as patient completes activity. Assistance may be provided throughout the activity or intermittently. 3-Partial/Moderate Assistance-helper does LESS THAN HALF the effort. [place] lifts, holds or supports trunk or limbs, but provides less than half the effort. 2-Substantial/Maximal Assistance-helper does MORE THAN HALF the effort. [place] lifts or holds trunk or limbs and provides more than half the effort. 6-Qiiltqxnj-muazuc does ALL the effort. Patient does none of the effort to complete the activity. Or, the assistance of 2 or more helpers is required for the patient to complete the activity. If activity was not attempted, code reason: 7-Patient Refused. 9-Not Applicable-not attempted and the patient did not perform the activity before the current illness, exacerbation or injury. 10-Not Attempted due to Environmental Limitations-(lack of equipment, weather restraints, etc.). 88-Not Attempted due to Medical Conditions or Safety Concerns. Self Care: Independent Functional Cognition: Independent DME/Equipment Comments Walk in shower, has access to obtain shower seat/bench, and toilet riser Drive Self: Yes OT Current Status Subjective Patient is tearful throughout session, expression of fear of the unknown. Mental Status/Objective Patient Orientation: Person, Place, Time, Situation Attachments: IV Current Glasses/Contacts: Yes Hand Dominance: Right Upper Extremity ROM AROM LUE shoulder 120 flexion, 90 abduction, elbow WNLs, delayed motor planning of digits. Fair proprioception of extremity noted, RUE WNL Upper Extremity Coordination L FMC IMPAIRED Upper Extremity Sensation touch, hot, cold INTACT Upper Extremity Strength RUE +4/5, LUE 3/5 ADL-Treatment Eating (QC): 5 (see ST recommendation) Oral Hygiene (QC): 5 Shower/Bathe Self (QC): 7 Upper Body Dressing (QC): 4 (extra time required for fasteners.) Lower Body Dressing (QC): 4 On/Off Footwear (QC): 5 Toileting Hygiene (QC): 5 Patient and spouse provided exercise program for FMC/GMC, visual tracking, depth perception training, midline posture correctional strategies and cognitive traininmg for problem solving, and memory. Other Treatments visual tracking deficit noted on right Education OT Patient Education: Correct positioning, Exercise program, Instructions to caregiver, Modified ADL techniques, Progress toward Goal/Update tx plan, Purpose of tx/functional activities, Reviewed precautions, Rehab process, Safety issues, Transfer techniques Teaching Recipient: Patient, Family Teaching Methods: Demonstration, Discussion Response to Teaching: Verbalize Understanding, Reinforcement Needed OT Intermediate Goals Animal Husbandry Worker Goals Eating (QC): 6 Oral Hygiene (QC): 6 Toileting Hygiene (QC): 6 Shower/Bathe Self (QC): 4 Upper Body Dressing (QC): 6 Lower Body Dressing (QC): 6 On/Off Footwear (QC): 6 1=Demonstrate adherence to instructed precautions during ADL tasks. 2=Patient will verbalize/demonstrate understanding of assistive devices/modifications for ADL. 3=Patient will improve strength/tolerance for activity to enable patient to perform ADL's. OT Education/Plan Problem List/Assessment Assessment: Decreased Activ Tolerance, Decreased UE Strength, Impaired Cognition, Impaired Coordination, Impaired Self-Care Skills Discharge Recommendations Plan/Recommendations: Continue POC Therapy Discharge Recommendati: Post Acute OT Treatment Plan/Plan of Care Treatment,Training & Education: Yes Patient would benefit from OT for education, treatment and training to promote independence in ADL's, mobility, safety and/or upper extremity function for ADL's. Plan of Care: ADL Retraining, Cognitive Retraining, Functional Mobility, Group Exercise/Act as Ind, UE Funct Exercise/Act, UE Neuromus Re-Ed/Coord, Visual/Perceptual Retrain Treatment Duration: Sep 04, 2022 Frequency: 3 times per week (3-5 times per week) Estimated Hrs Per Day: .25 hour per day Agreement: Yes Rehab Potential: Good Patient remains in recliner al needs met Time Start Time: 10:35 Stop Time: 11:00 DATE: Aug 31, 2022 Total Time Billed (hr/min): 25 Billed Treatment Time EVM, ADL 25 min MACKENZIE ANGEL OT Aug 31, 2022 13:06
--- NOTE | 2022-08-31 13:25 | Diagnostic Imaging Report ---
PROCEDURE: US carotid duplex, bilateral. TECHNIQUE: Multiple real-time grayscale images were obtained over the carotid arteries in various projections, bilaterally. Additional spectral analysis and color Doppler duplex images were also obtained. INDICATION: CVA, left-sided weakness COMPARISON: None available FINDINGS: Right carotid circulation: The right common carotid artery is normal in caliber, and there is no significant stenosis. Peak systolic velocity in the right common carotid artery is 120 cm/sec. There is no atherosclerotic plaque or narrowing in the carotid bulb or proximal ICA. The peak systolic velocity in the proximal internal carotid artery is 96 cm/sec. Proximal aspect of the external carotid artery is patent with expected high resistance waveforms, and peak systolic velocity of 120 cm/sec. Left carotid circulation: The left common carotid artery is normal in caliber, and there is no significant stenosis. Peak systolic velocity in the left common carotid artery is 140 cm/sec. There is no atherosclerotic plaque or narrowing in the carotid bulb or proximal ICA. The peak systolic velocity in the proximal internal carotid artery is 56 cm/sec. Proximal aspect of the external carotid artery is patent with expected high resistance waveforms, and peak systolic velocity of 100 cm/sec. Vertebral arteries: Flow in the bilateral vertebral arteries is antegrade. IMPRESSION: 1. Normal proximal internal carotid arteries. 2. Patent vertebral arteries with antegrade flow. Parameters based on the consensus panel Jimenez-Scale and Doppler ultrasound criteria published January 2003, Radiology, Volume 229. DOPPLER (peak systolic velocity M/S Right Left CCA 1.2 1.4 ICA Proximal .60 .56 ICA Mid .46 .45 ICA Distal .96 .55 RATIO 1.59 .62 ECA 1.2 1.0 VERT .51 .42 Dictated by: Dictated on workstation # [id number]
--- NOTE | 2022-08-31 13:40 | ST Cognitive Linguistic Eval ---
Speech Evaluation-General Medical Diagnosis CVA Onset Date: Aug 31, 2022 Therapy Diagnosis Therapy Diagnosis: Mild Dysarthria Precautions Precautions: Fall, Aspiration Precautions/Isolations: Aspiration, Fall Prevention, Standard Precautions Referral Referring Physician: Dr. Maki Santiago Reason for Referral: Evaluation/Treatment Medical History Pertinent Medical History: HTN, Prostate CA Reviewed History: Yes Social History Current Living Status: Spouse Speech PLF-Current Status Prior Level of Function The patient denied prior challenges with speech, language, or cognition. Subjective The patient was seated upright in a recliner, awake and alert, upon entrance to the patient's room by the clinician. The patient greeted the clinician appropriately and was agreeable to participation in the cognitive linguistic assessment. The patient's is present and remains at bedside throughout the evaluation. Language Eval: Auditory Comprehends Simple Yes/No Ques: Functional Ident/Pics in Multiple Patricio: Functional Follows 1-Step Commands: Functional Follows General Conversations: Functional Language Eval: Verbal Language Completes Spontaneous Greeting: Functional Produces Auto, Serial Info: Functional Word Finding: Functional Requests Basic Needs: Functional States Basic Personal Info: Functional Objective Oral Motor/Speech Production The patient displays a left facial droop, with reduced left labial retraction and protrusion. Lingual protrusion displays slight left deviation. Reduced articulatory precision and a decreased rate of speech are appreciated. The patient remains with 100% intelligibility in known contexts. Impression The patient displays mild dysarthria characterized by reduced articulatory precision and a decreased rate of speech. Regardless of the present dysarthria, the patient remains 100% intelligible in known contexts. The clinician introduced oral motor exercises on this date including labial retraction and protrusion. Additionally, intelligibility strategies were demonstrated and discussed. At this time, the patient's expressive and receptive language appear to intact. Ongoing cognitive evaluation is recommended. The patient does not display s/s of suspected aspiration with thin liquids, as he sipped thin liquids via straw for medication administration from the RN. Speech Short Term Goals Short Term Goals Short Term Goals 1. The patient will display oral motor exercises with 80% accuracy, independently. 2. The patient will demonstrate intelligibility strategies with 80% accuracy, independently. Time Frame-STG: Three Days. Speech Dressmaking Teacher Goals Long-Term Goals 1. The patient will demonstrate increased intelligibility in unknown contexts for improved communication and safety. Time Frame: One Week. Speech-Plan Treatment Plan Speech Therapy Treatment Plan: Continue Plan of Care Treatment Duration: Sep 03, 2022 Frequency: 3 times per week Estimated Hrs Per Day: .25 hour per day Rehab Potential: Fair Pt/Family Agrees to Plan: Yes Safety Risks/Education Teaching Recipient: Patient, Significant Other Teaching Methods: Demonstration, Discussion Response to Teaching: Verbalize Understanding, Return Demonstration Education Topics Provided: Results, Recommendations, Oral Motor Exercises, Plan of Care Discharge Recommendations Post Acute ST Time Speech Therapy Time In: 11:05 Speech Therapy Time Out: 11:30 DATE: Aug 31, 2022 Total Billed Time: 25 Billed Treatment Time 1, YAN THOMASON [facility] ST Aug 31, 2022 13:40
[2022-08-31] MEDS ORDERED: LORA10TA7 PO (15:40)
[2022-08-31 16:13] VITALS: BP 142/87
--- NOTE | 2022-08-31 16:24 | Diagnostic Imaging Report ---
EXAMINATION: US Abdomen limited. TECHNIQUE: Multiple real-time grayscale images were obtained over the right upper quadrant in various projections. HISTORY: Abdominal pain. COMPARISON: None available. FINDINGS: Liver is enlarged and steatotic. No focal lesions are seen. The portal vein is patent with hepatopedal flow. There is sludge in the gallbladder. No wall thickening or pericholecystic fluid. Sonographic Kohli sign is negative. Common duct is obscured. No intrahepatic biliary ductal dilation. Pancreas is obscured. There are large cysts in the right kidney. IMPRESSION: 1. Enlarged and steatotic liver. 2. Sludge in the gallbladder. Dictated by: Dictated on workstation # [id number]
[2022-08-31] MEDS: CEFEPIME INJECTION 1,000 MG in NS (IVPB) 50 ML IV SCH ×2 (16:45→22:44)
--- NOTE | 2022-08-31 17:26 | Consultation-Cardiology ---
HPI-Cardiology Cardiology Consultation Date of Consultation 08/31/22 Date of Admission Time Seen by Provider: 17:21 Indication: Acute CVA HPI 62-year-old gentleman with past medical history significant for hypertension, prostate cancer, had a prostatectomy. Patient had an episode where he felt numbness on the left side of his face and his left arm. Had slight slurred speech. Stayed at home and came the next day to the emergency room, he was diagnosed with acute CVA. On my evaluation he was laying down in bed, feeling better, eating dinner still having some residual left-sided weakness. Having a hiccup. Home Medications & Allergies Allergies: Coded Allergies: aspirin (Unverified Allergy, Unknown, NOSE BLEEDS, 04/09/21) Home Medication List Reviewed: Yes BUN-Grvwsy-Cdwivg Hx Patient Social History Marital Status: Employed/Student: employed Smoking Status: Former Smoker Type Used: Smokeless Tobacco 2nd Hand Smoke Exposure: No Recent Hopitalizations: No Alcohol Use?: No Immunizations Up To Date Date of Influenza Vaccine: Dec 12, 2010 Past Medical History Discussed below Family Medical History Significant Family History: No Pertinent Family Hx Review of Systems-General Review of Systems Constitutional: No fever EENTM: see HPI, no symptoms reported Respiratory: no symptoms reported Cardiovascular: no symptoms reported Gastrointestinal: no symptoms reported Genitourinary: no symptoms reported Musculoskeletal: no symptoms reported Skin: no symptoms reported Psychiatric/Neurological: No Symptoms Reported, See HPI Reviewed Test Results Reviewed Test Results Lab Laboratory Tests Test 08/30/22 17:28 08/30/22 18:08 08/30/22 18:10 08/31/22 05:00 Range/Units White Blood Count 10.1 11.0 4.3-11.0 10^3/uL Red Blood Count 4.97 4.58 4.30-5.52 10^6/uL Hemoglobin 14.9 13.7 13.3-17.7 g/dL Hematocrit 45 41 40-54 % Mean Corpuscular Volume 90 89 80-99 fL Mean Corpuscular Hemoglobin 30 30 25-34 pg Mean Corpuscular Hemoglobin Concent 33 34 32-36 g/dL Red Cell Distribution Width 13.2 13.1 10.0-14.5 % Platelet Count 229 197 130-400 10^3/uL Mean Platelet Volume 10.3 9.9 9.0-12.2 fL Immature Granulocyte % (Auto) 0 0 % Neutrophils (%) (Auto) 71 73 42-75 % Lymphocytes (%) (Auto) 13 12 12-44 % Monocytes (%) (Auto) 8 8 0-12 % Eosinophils (%) (Auto) 7 6 0-10 % Basophils (%) (Auto) 1 1 0-10 % Neutrophils # (Auto) 7.2 8.1 H 1.8-7.8 10^3/uL Lymphocytes # (Auto) 1.3 1.3 1.0-4.0 10^3/uL Monocytes # (Auto) 0.8 0.9 0.0-1.0 10^3/uL Eosinophils # (Auto) 0.7 H 0.7 H 0.0-0.3 10^3/uL Basophils # (Auto) 0.1 0.1 0.0-0.1 10^3/uL Immature Granulocyte # (Auto) 0.0 0.0 0.0-0.1 10^3/uL Prothrombin Time 13.6 12.2-14.7 SEC INR Comment 1.0 0.8-1.4 Activated Partial Thromboplast Time 32 24-35 SEC D-Dimer 1.28 H 0.00-0.49 UG/ML Sodium Level 136 137 135-145 MMOL/L Potassium Level 3.9 3.9 3.6-5.0 MMOL/L Chloride Level 104 107 98-107 MMOL/L Carbon Dioxide Level 26 23 21-32 MMOL/L Anion Gap 6 7 5-14 MMOL/L Blood Urea Nitrogen 13 12 7-18 MG/DL Creatinine 0.88 0.78 0.60-1.30 MG/DL Estimat Glomerular Filtration Rate 97 100 BUN/Creatinine Ratio 15 15 Glucose Level 130 H 95 70-105 MG/DL Calcium Level 9.0 8.2 L 8.5-10.1 MG/DL Corrected Calcium 9.2 8.8 8.5-10.1 MG/DL Total Bilirubin 0.8 0.6 0.1-1.0 MG/DL Aspartate Amino Transf (AST/SGOT) 11 12 5-34 U/L Alanine Aminotransferase (ALT/SGPT) 18 16 0-55 U/L Alkaline Phosphatase 72 71 40-136 U/L Troponin I < 0.028 <0.028 NG/ML Total Protein 6.4 5.9 L 6.4-8.2 GM/DL Albumin 3.7 3.3 3.2-4.5 GM/DL Glucometer 124 H 70-110 MG/DL Urine Color YELLOW Urine Clarity CLEAR Urine pH 8.5 5-9 Urine Specific [place] <=1.005 1.016-1.022 Urine Protein 2+ H NEGATIVE Urine Glucose (UA) NEGATIVE NEGATIVE Urine Ketones NEGATIVE NEGATIVE Urine Nitrite POSITIVE H NEGATIVE Urine Bilirubin 1+ H NEGATIVE Urine Urobilinogen 1.0 < = 1.0 MG/DL Urine Leukocyte Esterase 3+ H NEGATIVE Urine RBC (Auto) 3+ H NEGATIVE Urine RBC 5-10 H /HPF Urine WBC 5-10 H /HPF Urine Squamous Epithelial Cells NONE /HPF Urine Crystals PRESENT H /LPF Urine Triple Phosphate Crystals FEW H /LPF Urine Amorphous Sediment MOD REBA PHOSPHATE H /LPF Urine Bacteria LARGE H /HPF Urine Casts NONE /LPF Urine Mucus NEGATIVE /LPF Urine Culture Indicated YES Triglycerides Level 51 <150 MG/DL Cholesterol Level 111 < 200 MG/DL LDL Cholesterol Direct 71 1-129 MG/DL VLDL Cholesterol 10 5-40 MG/DL HDL Cholesterol 34 L 40-60 MG/DL Physical Exam Physical Exam Vital Signs Vital Signs - First Documented 08/30/22 08/30/22 17:26 22:24 Temp 36.7 Pulse 82 Resp 18 B/P (MAP) 128/78 (95) Pulse Ox 96 O2 Delivery Room Air FiO2 21 Capillary Refill : Height, Weight, BMI Height: 5'11.00" Weight: 220lbs. oz. 99.131966om; 29.36 BMI Method:Stated General Appearance: No Apparent Distress, WD/WN Eyes: Bilateral Eye Normal Inspection, Bilateral Eye PERRL, Bilateral Eye EOMI HEENT: PERRL/EOMI, TMs Normal, Normal ENT Inspection, Pharynx Normal, Moist Mucous Membranes Neck: Full Range of Motion, Normal Inspection, Non Tender, Supple, Carotid Bruit Respiratory: Chest Non Tender, Normal Breath Sounds, No Accessory Muscle Use, No Respiratory Distress Cardiovascular: Regular Rate, Rhythm, No Edema, No Gallop, No JVD, No Murmur, Normal Peripheral Pulses Gastrointestinal: Normal Bowel Sounds, No Organomegaly, No Pulsatile Mass, Non Tender, Soft Back: Normal Inspection, No CVA Tenderness, No Vertebral Tenderness Extremity: Normal Capillary Refill, Normal Inspection, Normal Range of Motion, Non Tender, No Calf Tenderness, No Pedal Edema Neurologic/Psychiatric: Alert, Oriented x3, Other (Left-sided weakness) Skin: Normal Color, Warm/Dry Lymphatic: No Adenopathy A/P-Cardiology Admission Diagnosis Acute CVA Hypertension Prostate cancer Hyperlipidemia Assessment/Plan Acute CVA, cryptogenic stroke MRI of the brain reported as acute small infarct involving the posterior limb of the right internal capsule. Diffuse focal and patchy area of low attenuation may be secondary to chronic small vessel disease Questionable infiltrative disease such as cerebral amyloid angiopathy or multiple malformation. Started on aspirin and Plavix Evaluate 2D echo, monitor telemetry Hypertension, controlled, monitor blood pressure Prostate cancer, history of prostatectomy. Hyperlipidemia, evaluate lipid profile Clinical Quality Measures Stroke: Date of last known well: Aug 29, 2022 Time of last known well: 20:00 LILIA LUCIANO MD Aug 31, 2022 17:26
[2022-08-31 19:31] VITALS: BP 130/72
[2022-08-31] MEDS ORDERED: LORATADINE (CLARITIN) 10 MG TAB PO PRN (20:30)
[2022-08-31] MEDS ORDERED: OXYBUTYNIN (DITROPAN) 5 MG TAB PO PRN (20:30)
[2022-08-31 23:56] VITALS: BP 153/87
[2022-09-01] MEDS: BACLOFEN 10 MG (LIORESAL) TAB PO SCH ×7 (00:47→23:31)
[2022-09-01] MEDS: NS IV 1000 ML 1,000 ML IV SCH (00:48)
[2022-09-01 03:48] VITALS: BP 142/78
[2022-09-01] MEDS: CEFEPIME INJECTION 1,000 MG in NS (IVPB) 50 ML IV SCH ×4 (05:02→21:14)
[2022-09-01 05:41] LABS: BASOPHILS # (AUTO) 0.1 10^3/uL (0.0-0.1); BASOPHILS % (AUTO) 1 % (0-10); EOSINOPHILS # (AUTO) 0.7 10^3/uL (0.0-0.3); EOSINOPHILS % (AUTO) 6 % (0-10); HEMATOCRIT 41 % (40-54); HEMOGLOBIN 14.1 g/dL (13.3-17.7); LYMPHOCYTES # (AUTO) 1.2 10^3/uL (1.0-4.0); LYMPHOCYTES % (AUTO) 11 % (12-44); MEAN CORPUSCULAR HEMOGLOBIN 31 pg (25-34); MEAN CORPUSCULAR HGB CONC 34 g/dL (32-36); MEAN CORPUSCULAR VOLUME 89 fL (80-99); MEAN PLATELET VOLUME 10.4 fL (9.0-12.2); MONOCYTES # (AUTO) 0.8 10^3/uL (0.0-1.0); MONOCYTES % (AUTO) 7 % (0-12); NEUTROPHILS # (AUTO) 7.9 10^3/uL (1.8-7.8); NEUTROPHILS % (AUTO) 74 % (42-75); PLATELET COUNT 204 10^3/uL (130-400); WHITE BLOOD COUNT 10.7 10^3/uL (4.3-11.0)
[2022-09-01 05:58] LABS: ALBUMIN 3.3 GM/DL (3.2-4.5)
[2022-09-01 05:59] LABS: CALCIUM 8.7 MG/DL (8.5-10.1)
[2022-09-01 06:00] LABS: TOTAL PROTEIN 5.9 GM/DL (6.4-8.2)
[2022-09-01 06:02] LABS: BILIRUBIN,TOTAL 0.9 MG/DL (0.1-1.0)
[2022-09-01 06:04] LABS: CREATININE SERUM 0.74 MG/DL (0.60-1.30)
[2022-09-01 07:40] VITALS: BP 149/91
[2022-09-01] MEDS: amLODIPine 5 MG (NORVASC) TAB PO SCH (08:22)
[2022-09-01] MEDS: lisINopril 40 MG (PRINIVIL) TABLET PO SCH (08:22)
[2022-09-01] MEDS: DOCUSATE SODIUM 100 MG (COLACE) CAP PO SCH ×3 (08:22→19:50)
[2022-09-01] MEDS: MULTIVIT W/MINERALS TAB (THERAGRAN M) PO SCH (08:22)
[2022-09-01] MEDS: CLOPIDOGREL 75 MG (PLAVIX) TABLET PO SCH (08:22)
[2022-09-01] MEDS: SENNOSIDES 8.6 MG (SENOKOT) TAB PO SCH ×2 (08:22→19:50)
[2022-09-01] MEDS: ENOXAPARIN 40 MG/0.4 ML (LOVENOX) SYR SC SCH (08:23)
--- NOTE | 2022-09-01 08:47 | Progress Note ---
Subjective Date Seen by a Provider: Sep 01, 2022 Time Seen by a Provider: 10:00 Subjective/Events-last exam Patient doing a lot better Dr. Boudreaux evaluated him for gallbladder sludge and since he is asymptomatic he will not require cholecystectomy at this time Proteus UTI treated with cefepime empirically awaiting urine culture Left arm and hand weakness and slurred speech still an issue Inpatient rehab candidate Review of Systems General: Fatigue, Malaise Neurological: Weakness, Incoordination Objective Exam Last Set of Vital Signs Vital Signs Date Time Temp Pulse Resp B/P (MAP) Pulse Ox O2 Delivery O2 Flow Rate FiO2 09/01/22 07:40 36.3 84 18 149/91 (110) 95 Room Air 08/30/22 22:24 21 Capillary Refill : I&O Intake and Output 09/01/22 00:00 Intake Total 1495 ml Output Total 1800 ml Balance -305 ml Intake Oral 1495 ml Output Urine Total 1800 ml # Voids 2 General: Alert, Oriented X3, Cooperative, No Acute Distress Lungs: Clear to Auscultation, Normal Air Movement Heart: Regular Rate, Normal S1, Normal S2, No Murmurs Neuro: Other (Slurred speech and left hand weakness and arm) Psych/Mental Status: Mental Status NL, Mood NL Results Lab Laboratory Tests 08/31/22 20:33: Thyroid Stimulating Hormone (TSH) 1.08 09/01/22 05:10: White Blood Count 10.7, Red Blood Count 4.62, Hemoglobin 14.1, Hematocrit 41, Mean Corpuscular Volume 89, Mean Corpuscular Hemoglobin 31, Mean Corpuscular Hemoglobin Concent 34, Red Cell Distribution Width 13.1, Platelet Count 204, Mean Platelet Volume 10.4, Immature Granulocyte % (Auto) 0, Neutrophils (%) (Auto) 74, Lymphocytes (%) (Auto) 11L, Monocytes (%) (Auto) 7, Eosinophils (%) (Auto) 6, Basophils (%) (Auto) 1, Neutrophils # (Auto) 7.9H, Lymphocytes # (Auto) 1.2, Monocytes # (Auto) 0.8, Eosinophils # (Auto) 0.7H, Basophils # (Auto) 0.1, Immature Granulocyte # (Auto) 0.0, Sodium Level 138, Potassium Level 4.0, Chloride Level 108H, Carbon Dioxide Level 23, Anion Gap 7, Blood Urea Nitrogen 12, Creatinine 0.74, Estimat Glomerular Filtration Rate 102, BUN/Creatinine Ratio 16, Glucose Level 94, Calcium Level 8.7, Corrected Calcium 9.3, Total Bilirubin 0.9, Aspartate Amino Transf (AST/SGOT) 13, Alanine Aminotransferase (ALT/SGPT) 13, Alkaline Phosphatase 75, Total Protein 5.9L, Albumin 3.3 Microbiology 08/30/22 Urine Culture - Preliminary, Resulted Proteus species Assessment/Plan Assessment/Plan Assess & Plan/Chief Complaint Assessment: Subacute CVA not a tPA candidate with left-sided facial droop and left hand weakness with infarct in the right internal capsule Recent complete prostatectomy robotic assisted at [facility] still has catheter Proteus UTI placed on cefepime Gallbladder sludge found incidentally on echocardiogram ordered formal ultra sound asymptomatic Hypertension Plan: Plavix Hold aspirin due to intolerance with epistaxis Dr. Ballesteros consult appreciated status post loop recorder on 09/01/2022 Echo Carotid ultrasound PT and OT Speech therapy Inpatient rehab eval IV antibiotics Clinical Quality Measures Stroke: Date of last known well: Aug 29, 2022 Time of last known well: 20:00 ELISABETH STALEY DO Sep 01, 2022 08:47
--- NOTE | 2022-09-01 09:11 | History & Physical-Surgical ---
REINAANAHY 09/01/22 0911: History of Present Illness History of Present Illness Reason for visit/HPI Patient is a 62 yo male who was admitted to inpatient medicine on 08/30 with diagnosis of subacute stroke and was started on Plavix. Of note, the patient had a prostatectomy performed in [place] on 08/23/22. The patient presented to ED on 08/30 with 1 day of left-sided facial droop accompanied by new-onset slurred speech and left arm heaviness on the morning of 08/30. The patient denies any history of similar symptoms or history of DVT, PE, atrial fibrillation, or anticoagulant use. The patient had an echocardiogram performed on 08/31 with incidental finding of gallbladder sludge, prompting consult of general surgery. The patient on evaluation appears comfortable. He endorses mild, constant LLQ abdominal soreness, which he attributes to his recent prostatectomy and healing surgical wounds. He denies any RUQ tenderness, as well as any fever, diarrhea, or vomiting. He notes he has had intermittent episodes of hiccups since his prostatectomy and has accompanying nausea with intense hiccups, but he is otherwise not nauseous. The patient also remarks he has chronic mild constipation, which has been unchanged recently, last had a bowel movement yesterday with normal color and consistency. He has no worsening of pain or nausea with consumption of food. Date of Admission Aug 31, 2022 at 09:25 Date Seen by a Provider: Sep 01, 2022 Time Seen by a Provider: 09:00 I consulted on this patient on 09/01/22 09:08 Attending Physician Zabrina King DO Admitting Physician Admitting Physician: Maki Santiago DO Attending Physician: Maki Santiago DO Consult Allergies and Home Medications Allergies Coded Allergies: aspirin (Unverified Allergy, Unknown, NOSE BLEEDS, 04/09/21) Patient Home Medication List Home Medication List Reviewed: Yes Amlodipine Besylate (Amlodipine Besylate) 5 Mg Tablet, 5 MG PO DAILY, (Reported) Entered as Reported by: VÍCTOR WIN on 02/18/22 1016 Last Action: Continued Docusate Sodium (Docusate Sodium) 100 Mg Capsule, 100 MG PO BID, (Reported) Entered as Reported by: VÍCTOR PRITCHETT on 08/31/22 0019 Last Action: Continued Lisinopril (Lisinopril) 40 Mg Tablet, 40 MG PO DAILY, (Reported) Entered as Reported by: VÍCTOR WIN on 02/18/22 1016 Last Action: Continued Loratadine (Loratadine) 10 Mg Tablet, 10 MG PO DAILY PRN for ALLERGY SYMPTOMS, (Reported) Entered as Reported by: RL GRIDER on 08/31/22 1540 Last Action: Continued Multivitamin (Multi-Vitamin Daily) 1 Each Tablet, 1 EACH PO DAILY, (Reported) Entered as Reported by: VÍCTOR PRITCHETT on 08/31/22 0019 Last Action: Continued Oxybutynin Chloride (Oxybutynin Chloride) 5 Mg Tablet, 5 MG PO TID PRN for URINARY URGENCY, (Reported) Entered as Reported by: VÍCTOR PRITCHETT on 08/31/22 0017 Last Action: Continued Tramadol HCl (Tramadol HCl) 50 Mg Tablet, 50-100 TAB PO Q6H PRN for PAIN- MODERATE (5-7), (Reported) Entered as Reported by: VÍCTOR PRITCHETT on 08/31/22 0015 Last Action: Continued Past Usttauo-Qdszjg-Esvtxl Hx Patient Social History Marrital Status: Employed/Student: retired Tobacco Use?: No Smoking Status: Former Smoker Use of E-Cig and/or Vaping dev: No Substance use?: No Alcohol Use?: No Pt feels they are or have been: No Immunizations Up To Date Date of Influenza Vaccine: Dec 12, 2010 First/Initial COVID19 Vaccinat: RECEIVED, UNK WHEN Second COVID19 Vaccination Phan: RECEIVED, UNK WHEN Seasonal Allergies Seasonal Allergies: No Current Status Advance Directives: No Communicates: Verbally Primary Language: Liberian Preferred Spoken Language: Liberian Is interpretation needed?: No Past Medical History Surgeries: Adenoidectomy, Orthopedic, Prostatectomy, Tonsillectomy Hypertension Blood Disorders: No Review of Systems Constitutional: No chills, No fever Respiratory: other (hiccups) Gastrointestinal: abdominal pain (LLQ); No constipation, No diarrhea Psychiatric/Neurological: Weakness, Other (slurred speech) Physical Exam Vital Signs Vital Signs - First Documented 08/30/22 08/30/22 17:26 22:24 Temp 36.7 Pulse 82 Resp 18 B/P (MAP) 128/78 (95) Pulse Ox 96 O2 Delivery Room Air FiO2 21 Capillary Refill : Height, Weight, BMI Height: 5'11.00" Weight: 220lbs. oz. 99.792252ts; 29.36 BMI Method:Stated General Appearance: No Apparent Distress, WD/WN Eyes: Bilateral Eye PERRL, Bilateral Eye EOMI HEENT: PERRL/EOMI Gastrointestinal: Tenderness (mild, LLQ. RUQ is nontender.), Other (Negative Kohli's sign. Multiple bandages in place along LLQ and RLQ.) Neurologic/Psychiatric: Alert, Oriented x3 Skin: Normal Color, Warm/Dry Data Review Labs Laboratory Tests 08/31/22 20:33: Thyroid Stimulating Hormone (TSH) 1.08 09/01/22 05:10: White Blood Count 10.7, Red Blood Count 4.62, Hemoglobin 14.1, Hematocrit 41, Mean Corpuscular Volume 89, Mean Corpuscular Hemoglobin 31, Mean Corpuscular Hemoglobin Concent 34, Red Cell Distribution Width 13.1, Platelet Count 204, Mean Platelet Volume 10.4, Immature Granulocyte % (Auto) 0, Neutrophils (%) (Auto) 74, Lymphocytes (%) (Auto) 11L, Monocytes (%) (Auto) 7, Eosinophils (%) (Auto) 6, Basophils (%) (Auto) 1, Neutrophils # (Auto) 7.9H, Lymphocytes # (Auto) 1.2, Monocytes # (Auto) 0.8, Eosinophils # (Auto) 0.7H, Basophils # (Auto) 0.1, Immature Granulocyte # (Auto) 0.0, Sodium Level 138, Potassium Level 4.0, Chloride Level 108H, Carbon Dioxide Level 23, Anion Gap 7, Blood Urea Nitrogen 12, Creatinine 0.74, Estimat Glomerular Filtration Rate 102, BUN/Creatinine Ratio 16, Glucose Level 94, Calcium Level 8.7, Corrected Calcium 9.3, Total Bilirubin 0.9, Aspartate Amino Transf (AST/SGOT) 13, Alanine Aminotransferase (ALT/SGPT) 13, Alkaline Phosphatase 75, Total Protein 5.9L, Albumin 3.3 Microbiology 08/30/22 Urine Culture - Preliminary, Resulted Proteus species Radiology US ABDOMEN LIMITED FINDINGS: Liver is enlarged and steatotic. No focal lesions are seen. The portal vein is patent with hepatopedal flow. There is sludge in the gallbladder. No wall thickening or pericholecystic fluid. Sonographic Kohli sign is negative. Common duct is obscured. No intrahepatic biliary ductal dilation. Pancreas is obscured. There are large cysts in the right kidney. IMPRESSION: 1. Enlarged and steatotic liver. 2. Sludge in the gallbladder. Assessment/Plan Assessment/Plan Admission Diagonsis Subacute stroke Admission Status: Inpatient Order (span 2 midnights) Reason for Inpatient Admission: Subacute stroke Assessment/Plan Assessment: Subacute CVA 9 days post prostatectomy Gallbladder sludge UTI HTN Plan: Continue Plavix Continue PT and OT, speech therapy Continue IV antibiotics Patient had incidental finding of gallbladder sludge found on echocardiogram. Official abdominal US on 08/31 revealed only sludge without gallbladder wall thickening or pericholecystic fluid. Abdominal exam today is pertinent only for LLQ and multiple dressed surgical wounds; patient has no RUQ tenderness and negative Kohli's sign. Additionally, patient is currently on Plavix for subacute stroke. Continue observation of patient for potential signs of cholecystitis, no plan for surgical intervention. Clinical Quality Measures Stroke: Date of last known well: Aug 29, 2022 Time of last known well: 20:00 BETTINA POLANCO DO 09/01/22 1901: History of Present Illness History of Present Illness Reason for visit/HPI Consult requested by Dr. Santiago for gallbladder sludge. Patient patient patient is 62-year-old male who had recent stroke with left facial droop and left-sided weakness. Patient had echocardiogram which demonstrated sludge in the gallbladder. Formal ultrasound is demonstrating gallbladder sludge and no evidence of cholecystitis. Patient states has been doing well. He has no symptoms of gallbladder disease. Patient has been starte d on Plavix and is tolerating diet without difficulty. He recently underwent robotic prostatectomy 1 week ago. He currently denies any nausea vomiting fever sweats chills shortness of breath or chest pain. Allergies and Home Medications Allergies Coded Allergies: aspirin (Unverified Allergy, Unknown, NOSE BLEEDS, 04/09/21) Patient Home Medication List Home Medication List Reviewed: Yes Amlodipine Besylate (Amlodipine Besylate) 5 Mg Tablet, 5 MG PO DAILY, (Reported) Entered as Reported by: VÍCTOR WIN on 02/18/22 1016 Last Action: Continued Docusate Sodium (Docusate Sodium) 100 Mg Capsule, 100 MG PO BID, (Reported) Entered as Reported by: VÍCTOR PRITCHETT on 6/2018 Last Action: Continued Lisinopril (Lisinopril) 40 Mg Tablet, 40 MG PO DAILY, (Reported) Entered as Reported by: VÍCTOR WIN on 02/18/22 1016 Last Action: Continued Loratadine (Loratadine) 10 Mg Tablet, 10 MG PO DAILY PRN for ALLERGY SYMPTOMS, (Reported) Entered as Reported by: RL GRIDER on 08/31/22 1540 Last Action: Continued Multivitamin (Multi-Vitamin Daily) 1 Each Tablet, 1 EACH PO DAILY, (Reported) Entered as Reported by: VÍCTOR PRITCHETT on 08/31/2218 Last Action: Continued Oxybutynin Chloride (Oxybutynin Chloride) 5 Mg Tablet, 5 MG PO TID PRN for URINARY URGENCY, (Reported) Entered as Reported by: VÍCTOR PRITCHETT on 08/31/2216 Last Action: Continued Tramadol HCl (Tramadol HCl) 50 Mg Tablet, 50-100 TAB PO Q6H PRN for PAIN- MODERATE (5-7), (Reported) Entered as Reported by: VÍCTOR PRITCHETT on 08/31/2214 Last Action: Continued Past Buzsfme-Ulnogj-Wvefua Hx Family Medical History No Pertinent Family Hx Review of Systems Constitutional: No chills, No fever EENTM: No blurred vision, No double vision Respiratory: No cough, No short of breath; other (hiccups) Gastrointestinal: abdominal pain (LLQ); No constipation, No diarrhea Genitourinary: No decreased output, No discharge Musculoskeletal: No back pain, No joint pain Skin: No change in color, No change in hair/nails Psychiatric/Neurological: Denies Anxiety, Denies Depressed; Weakness, Other (slurred speech, left facial droop) All Other Systems Reviewed Negative Unless Noted: Yes (Negative excepted noted.) Physical Exam General Appearance: No Apparent Distress, WD/WN HEENT: PERRL/EOMI, Other (left facial droop) Neck: Non Tender, Supple Respiratory: Chest Non Tender, No Accessory Muscle Use, No Respiratory Distress Cardiovascular: Regular Rate, Rhythm, No JVD Gastrointestinal: Soft, Tenderness (mild, LLQ. RUQ is nontender.), Other (Negative Kohli's sign. Multiple bandages in place along LLQ and RLQ. incisions c/d/i without signs of infection) Rectal: Deferred Back: Normal Inspection, No CVA Tenderness Extremity: Non Tender, No Calf Tenderness Neurologic/Psychiatric: Alert, Oriented x3 Skin: Normal Color, Warm/Dry Lymphatic: No Adenopathy Assessment/Plan Assessment/Plan Admission Status: Inpatient Order (span 2 midnights) Reason for Inpatient Admission: THIS IS CONSULT NOTE Assessment/Plan Subacute CVA 9 days post prostatectomy Gallbladder sludge UTI HTN Plan: On Plavix Continue PT and OT, speech therapy Continue IV antibiotics Patient had incidental finding of gallbladder sludge found on echocardiogram. Official abdominal US on 08/31 revealed only sludge without gallbladder wall thickening or pericholecystic fluid. Abdominal exam today does not go with gallbladder disease for he has no RUQ tenderness and negative Kohli's sign. Additionally, patient is currently on Plavix for subacute stroke. Continue observation of patient for potential signs of cholecystitis, no plan for surgical intervention unless develops symptoms. Supervisory-Addendum Brief Verification & Attestation Participated in pt care: history, MDM, physical Personally performed: exam, history, MDM, supervision of care Care discussed with: Medical Student Procedures: n/a Results interpretation: Verified all documentation Verification and Attestation of Medical Student E/M Service A medical student performed and documented this service in my presence. I reviewed and verified all information documented by the medical student and made modifications to such information, when appropriate. I personally performed the physical exam and medical decision making. Bettina Polanco, Sep 01, 2022,19:03 ANAHY HUANG Sep 01, 2022 09:11 BETTINA POLANCO DO Sep 01, 2022 19:01
--- NOTE | 2022-09-01 09:39 | Cardiology Progress Note ---
Subjective Date Seen by Provider: Sep 01, 2022 Time Seen by Provider: 08:25 Subjective/Events-last exam Patient sitting up in chair, denies any chest pain. Continues to have left sided weakness Objective-Cardiology Exam Last Set of Vital Signs Vital Signs 08/30/22 09/01/22 09/01/22 22:24 07:40 08:00 Temp 36.3 Pulse 84 Resp 18 B/P (MAP) 149/91 (110) Pulse Ox 95 O2 Delivery Room Air FiO2 21 I&O Intake and Output 09/01/22 00:00 Intake Total 1495 ml Output Total 1800 ml Balance -305 ml Intake Oral 1495 ml Output Urine Total 1800 ml # Voids 2 General: Alert, Oriented X3, Cooperative HEENT: Atraumatic, PERRLA Neck: Supple Lungs: Clear to Auscultation, Normal Air Movement Heart: Regular Rate, Normal S1, Normal S2 Abdomen: Soft, No Tenderness Skin: No Rashes, No Significant Lesion Neuro: Normal Speech, Other (left sided weakness) Psych/Mental Status: Mental Status NL Results Lab Laboratory Tests 09/01/22 05:10 A/P-Cardiology Admission Diagnosis Acute CVA Hypertension Prostate cancer Hyperlipidemia Assessment/Plan Acute CVA, cryptogenic stroke MRI of the brain reported as acute small infarct involving the posterior limb of the right internal capsule. Diffuse focal and patchy area of low attenuation may be secondary to chronic small vessel disease Questionable infiltrative disease such as cerebral amyloid angiopathy or multiple malformation. Carotid US done 08/31/22 showing nonobstructive disease bilaterally 2D Echo done 08/31/22 with EF 55-60%, PA 25-30mmHg. No arrhythmia detected on telemetry, planning to proceed with loop monitor imp lantation for long-term monitoring Adding aspirin to the Plavix and monitor tolerance and response. Hypertension, controlled, monitor blood pressure Prostate cancer, history of recent prostatectomy. Intractable Hiccups postoperatively, was on chlorpromazine, now resolved. UTI, started on antibiotic, management per medical services GB sludge noted incidentally on echo, evaluating US, management per medical services. Hyperlipidemia, evaluate lipid profile Supervisory-Addendum Brief Supervisory Addendum Participated in pt care: history, MDM, physical Personally performed: exam, history, MDM Care discussed with: PACO Results interpretation: Verified all documentation Notes: Patient was seen and evaluated with Yani, examination performed, management plan was discussed, agree with the current scribed note, I made few changes to the note using Italic font Patient was seen at bedside, still having hiccups No arrhythmia detected Visited with the patient and his , discussed the management plan recommended loop monitor implantation Adding aspirin 81 mg to the Plavix and monitor tolerance and response Patient does not recall having any significant allergic reaction other than bleeding. I am still concerned about the possibility of severe allergic reaction we will monitor him closely. YANI GALARZA Sep 01, 2022 09:39 LILIA LUCIANO MD Sep 01, 2022 11:19
--- NOTE | 2022-09-01 10:55 | Physical Therapy Daily Note ---
PT Daily Note-Current Subjective Pt up in chair, agreeable. Denied pain. Pain Numeric Pain Scale: 0-No Pain Location: No Pain Reported Section J - Health Conditions 1. Rarely or not at all 2. Occasionally 3. Frequently 4. Almost constantly 8. Unable to answer Pain Effect on Sleep: 1 Pain Interference with Therapy: 1 Pain Interference w/Day-to-Day: 1 Appearance (L) facial droop, drooling Mental Status Patient Orientation: Person, Place, Time, Situation Attachments: Arellano Catheter Transfers SCALE: Activities may be completed with or without assistive devices. 7-Kxxdwgqvif-hyzgioh completes the activity by him/herself with no assistance from a helper. 5-Set-up or Clean-up Assistance-helper sets up or cleans up; patient completes activity. [place] assists only prior to or following the activity. 4-Supervision or Touching Assistance-helper provides verbal cues and/or touching/steadying and/or contact guard assistance as patient completes activity. Assistance may be provided throughout the activity or intermittently. 3-Partial/Moderate Assistance-helper does LESS THAN HALF the effort. [place] lifts, holds or supports trunk or limbs, but provides less than half the effort. 2-Substantial/Maximal Assistance-helper does MORE THAN HALF the effort. [place] lifts or holds trunk or limbs and provides more than half the effort. 0-Iwklilebt-reixvt does ALL the effort. Patient does none of the effort to complete the activity. Or, the assistance of 2 or more helpers is required for the patient to complete the activity. If activity was not attempted, code reason: 7-Patient Refused. 9-Not Applicable-not attempted and the patient did not perform the activity before the current illness, exacerbation or injury. 10-Not Attempted due to Environmental Limitations-(lack of equipment, weather restraints, etc.). 88-Not Attempted due to Medical Conditions or Safety Concerns. Sit to Stand (QC): 4 Weight Bearing Right Lower Extremity: Right Full Weight Bearing Left Lower Extremity: Left Full Weight Bearing Gait Training Does the Patient Walk?: Yes Distance: 325 Walk 10 feet (QC): 4 Walk 50 ft with 2 Turns(QC): 4 Walk 150 ft (QC): 4 Gait Persons Needed: 1 Gait Assistive Device: FWW Pt ambulated with SBA, occasionally unsteady when turning with FWW but no jaimie LOB. Slight flexed posture. Wheelchair Training Does the Pt Use a Wheelchair?: No Type of Wheelchair: N/A Treatments Gait training with FWW. Pt returned to up in chair with all needs met, in room. Assessment Current Status: Good Progress Pt tolerated well. SBA with gait with FWW but Pt does demonstrate decreased proprioception, coordination in (L) LE and (L) UE. Pt would benefit from skilled PT to improve (L) LE strength and coordination to restore Pt to PLOF of (I) gait at community level. PT Custodial Goals Custodial Goals PT Shine Worker Goals Time Frame: Sep 11, 2022 Roll Left & Right (QC): 6 Sit to Lying (QC): 6 Lying-Sitting on Side/Bed(QC): 6 Sit to Stand (QC): 6 Chair/Ihg-sw-Pvjem Xfer(QC): 6 Toilet Transfer (QC): 6 Car Transfer (QC): 6 Walk 10 feet (QC): 6 Walk 50ft with 2 Turns (QC): 6 Walk 150 ft (QC): 6 Walking 10ft on Uneven Surface: 6 1 Step (curb) (QC): 6 4 Steps (QC): 6 PT Plan Problem List Problem List: Activity Tolerance, Functional Strength, Safety, Balance, Gait, Transfer Treatment/Plan Treatment Plan: Continue Plan of Care Treatment Plan: Education, Functional Activity Satinder, Functional Strength, Gait, Safety, Therapeutic Exercise, Transfers Treatment Duration: Sep 11, 2022 Frequency: 6 times per week Estimated Hrs Per Day: .25 hour per day Patient and/or Family Agrees t: Yes Safety Risks/Education Teaching Recipient: Patient, Family Teaching Methods: Discussion PT POC Discharge Recommendations Therapy Discharge Recommendati: Post Acute PT (Pt would be a good candidate for ARU to restore PLOF of (I) with ADLs/IADLs and functional mobility. ) Time Time In: 0959 Time Out: 1018 DATE: Sep 01, 2022 Total Billed Treatment Time: 19 Total Billed Treatment 1, NICOLE FLORES DPKayla Sep 01, 2022 10:55
[2022-09-01] MEDS ORDERED: LIDOCAINE 1% INJ 20 ML VIAL ONE (11:24)
[2022-09-01 13:00] VITALS: BP 126/74
--- NOTE | 2022-09-01 13:01 | Implantation of Loop Monitor ---
Implant of Loop Monitior IMPLANTATION OF LOOP MONITOR REPORT DATE OF PROCEDURE: 09/01/22 PREOP DIAGNOSIS: Cryptogenic stroke POSTOP DIAGNOSIS: Cryptogenic stroke PROCEDURE DETAILS: The patient is a 62 male with history of cryptogenic stroke requiring long-term surveillance. Therefore implantable loop recorder was discussed and agreed with the patient. Informed consent was taken. All risks and complications were discussed at length. The patient was draped and prepped in the usual sterile fashion. Local anesthesia was lidocaine, which was given in the substernal area close to the 4th intercostal space. Loop monitor Vivo with serial [id number] was implanted according to the protocol. Steri-Strips were placed at the end of the procedure. There were no complications and the patient tolerated the procedure well. ANESTHESIA: Local anesthesia with lidocaine. COMPLICATIONS: None CONTRAST/FLUOROSCOPY: None CONCLUSION: Successful implantation of loop monitor with no complication FINAL DIAGNOSIS: Cryptogenic stroke Hypertension LILIA LUCIANO MD Sep 01, 2022 13:01
[2022-09-01] MEDS: ASPIRIN E.C. 81 MG (ECOTRIN) TAB PO SCH (13:21)
--- NOTE | 2022-09-01 14:26 | Speech Therapy Daily Note ---
Speech Daily Progress Note Subjective Date Seen by Provider: Sep 01, 2022 Time Seen by Provider: 13:45 The patient was seated upright in his recliner, awake and alert, upon entrance to his room by the clinician. The patient greeted the clinician appropriately and was agreeable to participation in the speech and language skilled treatment session. The patient's spouse is at bedside and remained throughout the treatment. Objective The patient and clinician reviewed and discussed prior oral motor exercises and introduced additional oral motor exercises on this date. Currently, the patient is completing labial retraction, labial protrusion, alternating labial retraction and protrusion, lingual protrusion, and lingual lateral range of motion. On this date, the clinician introduced cheek puffing and recording a journal of problematic phonemes or words for continued articulation practice. The patient completes all exercises with increased accuracy and direct clinician modeling. The clinician provided a handout with the exercises and encouraged the patient complete exercises three times per day with ten repetitions of each exercise performed. The patient remains an excellent therapy candidate, displaying high levels of motivation and compliance with recommendations. Assessment Assessment Current Status: Good Progress Treatment Plan Continue Plan of Care Speech Short Term Goals Short Term Goals Short Term Goals 1. The patient will display oral motor exercises with 80% accuracy, independently. 2. The patient will demonstrate intelligibility strategies with 80% accuracy, independently. Time Frame-STG: Three Days. Speech Penitentiary Goals Penitentiary Goals 1. The patient will demonstrate increased intelligibility in unknown contexts for improved communication and safety. Time Frame: One Week. Speech-Plan Treatment Plan Speech Therapy Treatment Plan: Continue Plan of Care Treatment Duration: Sep 03, 2022 Frequency: 3 times per week Estimated Hrs Per Day: .25 hour per day Rehab Potential: Good Safety Risks/Education Teaching Recipient: Patient, Significant Other Teaching Methods: Demonstration, Handout, Discussion Response to Teaching: Verbalize Understanding, Return Demonstration Education Topics Provided: Oral Motor Exercises, Intelligibility Strategies Time Speech Therapy Time In: 13:45 Speech Therapy Time Out: 14:10 DATE: Sep 01, 2022 Total Billed Time: 25 Billed Treatment Time [address] Sep 01, 2022 14:26
[2022-09-01 15:17] VITALS: BP 108/65
[2022-09-01 19:25] VITALS: BP 116/73
[2022-09-02] VITALS: BP 148/84
[2022-09-02] MEDS: CEFEPIME INJECTION 1,000 MG in NS (IVPB) 50 ML IV SCH ×2 (03:16→09:42)
[2022-09-02] MEDS: BACLOFEN 10 MG (LIORESAL) TAB PO SCH ×2 (03:16→07:43)
[2022-09-02 04:00] VITALS: BP 129/85
[2022-09-02] MEDS ORDERED: ENOX40DI8 SC (05:34)
[2022-09-02] MEDS ORDERED: CEFE1FRO IV (05:34)
[2022-09-02] MEDS ORDERED: ATOR80TA76 PO (05:34)
[2022-09-02] MEDS ORDERED: CLOP75TA28 PO (05:34)
[2022-09-02] MEDS ORDERED: ASPI-1238 PO (05:34)
[2022-09-02] MEDS ORDERED: BACL10TA PO (05:34)
[2022-09-02 05:35] LABS: BASOPHILS # (AUTO) 0.1 10^3/uL (0.0-0.1); BASOPHILS % (AUTO) 1 % (0-10); EOSINOPHILS # (AUTO) 0.9 10^3/uL (0.0-0.3); EOSINOPHILS % (AUTO) 9 % (0-10); HEMATOCRIT 44 % (40-54); HEMOGLOBIN 14.6 g/dL (13.3-17.7); LYMPHOCYTES # (AUTO) 1.5 10^3/uL (1.0-4.0); LYMPHOCYTES % (AUTO) 14 % (12-44); MEAN CORPUSCULAR HEMOGLOBIN 30 pg (25-34); MEAN CORPUSCULAR HGB CONC 34 g/dL (32-36); MEAN CORPUSCULAR VOLUME 90 fL (80-99); MEAN PLATELET VOLUME 9.9 fL (9.0-12.2); MONOCYTES # (AUTO) 0.9 10^3/uL (0.0-1.0); MONOCYTES % (AUTO) 9 % (0-12); NEUTROPHILS # (AUTO) 6.9 10^3/uL (1.8-7.8); NEUTROPHILS % (AUTO) 67 % (42-75); PLATELET COUNT 222 10^3/uL (130-400); WHITE BLOOD COUNT 10.3 10^3/uL (4.3-11.0)
--- NOTE | 2022-09-02 05:35 | Discharge Summary ---
Diagnosis/Chief Complaint Date of Admission Aug 31, 2022 at 09:25 Date of Discharge Discharge Date: Sep 02, 2022 Discharge Diagnosis CVA with left arm weakness and expressive aphasia with delayed speech Proteus UTI Arellano catheter in place following prostatectomy for prostate cancer Discharge Summary Discharge Physical Examination Allergies: Coded Allergies: No Known Allergies (Verified Allergy, Unknown, 09/02/22) Vitals & I&Os Vital Signs Date Time Temp Pulse Resp B/P (MAP) Pulse Ox O2 Delivery O2 Flow Rate FiO2 09/02/22 10:23 35.8 79 18 132/88 97 Room Air 08/30/22 22:24 21 General Appearance: Alert, Oriented X3, Cooperative Respiratory: Clear to Auscultation Cardiovascular: Regular Rate Psych/Mental Status: Mental Status NL Hospital Course Was the Problem List Reviewed?: Yes Patient had an uncomplicated hospital course. He was admitted for subacute CVA not a tPA candidate with residual left arm and hand weakness and expressive aphasia with delayed speech and cognitive deficit. Loop recorder was placed by cardiology. Plavix and aspirin and statin blood pressure was well-controlled on home meds. Overall she did very well but he did patient rehab for aggressive to recover from stroke and prostatectomy Proteus UTI maintained on treatment with Keflex since pansensitive. Labs (last 24 hrs) Laboratory Tests 08/30/22 17:28: White Blood Count 10.1, Red Blood Count 4.97, Hemoglobin 14.9, Hematocrit 45, Mean Corpuscular Volume 90, Mean Corpuscular Hemoglobin 30, Mean Corpuscular Hemoglobin Concent 33, Red Cell Distribution Width 13.2, Platelet Count 229, Mean Platelet Volume 10.3, Immature Granulocyte % (Auto) 0, Neutrophils (%) (Auto) 71, Lymphocytes (%) (Auto) 13, Monocytes (%) (Auto) 8, Eosinophils (%) (Auto) 7, Basophils (%) (Auto) 1, Neutrophils # (Auto) 7.2, Lymphocytes # (Auto) 1.3, Monocytes # (Auto) 0.8, Eosinophils # (Auto) 0.7H, Basophils # (Auto) 0.1, Immature Granulocyte # (Auto) 0.0, Prothrombin Time 13.6, INR Comment 1.0, Activated Partial Thromboplast Time 32, D-Dimer 1.28H, Sodium Level 136, Potass ium Level 3.9, Chloride Level 104, Carbon Dioxide Level 26, Anion Gap 6, Blood Urea Nitrogen 13, Creatinine 0.88, Estimat Glomerular Filtration Rate 97, BUN/Creatinine Ratio 15, Glucose Level 130H, Calcium Level 9.0, Corrected Calcium 9.2, Total Bilirubin 0.8, Aspartate Amino Transf (AST/SGOT) 11, Alanine Aminotransferase (ALT/SGPT) 18, Alkaline Phosphatase 72, Troponin I < 0.028, Total Protein 6.4, Albumin 3.7 08/30/22 18:08: Glucometer 124H 08/30/22 18:10: Urine Color YELLOW, Urine Clarity CLEAR, Urine pH 8.5, Urine Specific [place] <=1.005, Urine Protein 2+H, Urine Glucose (UA) NEGATIVE, Urine Ketones NEGATIVE, Urine Nitrite POSITIVEH, Urine Bilirubin 1+H, Urine Urobilinogen 1.0, Urine Leukocyte Esterase 3+H, Urine RBC (Auto) 3+H, Urine RBC 5-10H, Urine WBC 5-10H, Urine Squamous Epithelial Cells NONE, Urine Crystals PRESENTH, Urine Triple Phosphate Crystals FEWH, Urine Amorphous Sediment MOD REBA PHOSPHATEH, Urine Bacteria LARGEH, Urine Casts NONE, Urine Mucus NEGATIVE, Urine Culture Indicated YES 08/31/22 05:00: White Blood Count 11.0, Red Blood Count 4.58, Hemoglobin 13.7, Hematocrit 41, Mean Corpuscular Volume 89, Mean Corpuscular Hemoglobin 30, Mean Corpuscular Hemoglobin Concent 34, Red Cell Distribution Width 13.1, Platelet Count 197, Mean Platelet Volume 9.9, Immature Granulocyte % (Auto) 0, Neutrophils (%) (Auto) 73, Lymphocytes (%) (Auto) 12, Monocytes (%) (Auto) 8, Eosinophils (%) (Auto) 6, Basophils (%) (Auto) 1, Neutrophils # (Auto) 8.1H, Lymphocytes # (Auto) 1.3, Monocytes # (Auto) 0.9, Eosinophils # (Auto) 0.7H, Basophils # (Auto) 0.1, Immature Granulocyte # (Auto) 0.0, Sodium Level 137, Potassium Level 3.9, Chloride Level 107, Carbon Dioxide Level 23, Anion Gap 7, Blood Urea Nitrogen 12, Creatinine 0.78, Estimat Glomerular Filtration Rate 100, BUN/Creatinine Ratio 15, Glucose Level 95, Calcium Level 8.2L, Corrected Calcium 8.8, Total Bilirubin 0.6, Aspartate Amino Transf (AST/SGOT) 12, Alanine Ami notransferase (ALT/SGPT) 16, Alkaline Phosphatase 71, Total Protein 5.9L, Albumin 3.3, Triglycerides Level 51, Cholesterol Level 111, LDL Cholesterol Direct 71, VLDL Cholesterol 10, HDL Cholesterol 34L 08/31/22 20:33: Mean Blood Glucose 88, Hemoglobin A1c 4.7, Thyroid Stimulating Hormone (TSH) 1.08 09/01/22 05:10: White Blood Count 10.7, Red Blood Count 4.62, Hemoglobin 14.1, Hematocrit 41, Mean Corpuscular Volume 89, Mean Corpuscular Hemoglobin 31, Mean Corpuscular Hemoglobin Concent 34, Red Cell Distribution Width 13.1, Platelet Count 204, Mean Platelet Volume 10.4, Immature Granulocyte % (Auto) 0, Neutrophils (%) (Auto) 74, Lymphocytes (%) (Auto) 11L, Monocytes (%) (Auto) 7, Eosinophils (%) (Auto) 6, Basophils (%) (Auto) 1, Neutrophils # (Auto) 7.9H, Lymphocytes # (Auto) 1.2, Monocytes # (Auto) 0.8, Eosinophils # (Auto) 0.7H, Basophils # (Auto) 0.1, Immature Granulocyte # (Auto) 0.0, Sodium Level 138, Potassium Level 4.0, Chloride Level 108H, Carbon Dioxide Level 23, Anion Gap 7, Blood Urea Nitrogen 12, Creatinine 0.74, Estimat Glomerular Filtration Rate 102, BUN/Creatinine Ratio 16, Glucose Level 94, Calcium Level 8.7, Corrected Calcium 9.3, Total Bilirubin 0.9, Aspartate Amino Transf (AST/SGOT) 13, Alanine Aminotransferase (ALT/SGPT) 13, Alkaline Phosphatase 75, Total Protein 5.9L, Albumin 3.3 09/02/22 05:18: White Blood Count 10.3, Red Blood Count 4.84, Hemoglobin 14.6, Hematocrit 44, Mean Corpuscular Volume 90, Mean Corpuscular Hemoglobin 30, Mean Corpuscular Hemoglobin Concent 34, Red Cell Distribution Width 13.1, Platelet Count 222, Mean Platelet Volume 9.9, Immature Granulocyte % (Auto) 0, Neutrophils (%) (Auto) 67, Lymphocytes (%) (Auto) 14, Monocytes (%) (Auto) 9, Eosinophils (%) (Auto) 9, Basophils (%) (Auto) 1, Neutrophils # (Auto) 6.9, Lymphocytes # (Auto) 1.5, Monocytes # (Auto) 0.9, Eosinophils # (Auto) 0.9H, Basophils # (Auto) 0.1, Immature Granulocyte # (Auto) 0.0, Sodium Level 138, Potassium Level 4.1, Chloride Level 107, Carbon Dioxide Level 24, Anion Gap 7, Blood Urea Nitrogen 15, Creatinine 0.79, Estimat Glomerular Filtration Rate 100, BUN/Creatinine Ratio 19, Glucose Level 93, Calcium Level 8.8, Corrected Calcium 9.3, Total Bilirubin 0.7, Aspartate Amino Transf (AST/SGOT) 10, Alanine Aminotransferase (ALT/SGPT) 13, Alkaline Phosphatase 74, Total Protein 6.2L, Albumin 3.4 Microbiology 08/30/22 Urine Culture - Final, Complete Proteus mirabilis Pending Labs Microbiology Date/Time Source Procedure Growth Status 08/30/22 18:10 Urine Arellano Cath Urine Culture - Final Proteus mirabilis Complete Laboratory Tests 08/30/22 17:28: White Blood Count 10.1, Red Blood Count 4.97, Hemoglobin 14.9, Hematocrit 45, Mean Corpuscular Volume 90, Mean Corpuscular Hemoglobin 30, Mean Corpuscular Hemoglobin Concent 33, Red Cell Distribution Width 13.2, Platelet Count 229, Mean Platelet Volume 10.3, Immature Granulocyte % (Auto) 0, Neutrophils (%) (Auto) 71, Lymphocytes (%) (Auto) 13, Monocytes (%) (Auto) 8, Eosinophils (%) (Auto) 7, Basophils (%) (Auto) 1, Neutrophils # (Auto) 7.2, Lymphocytes # (Auto) 1.3, Monocytes # (Auto) 0.8, Eosinophils # (Auto) 0.7, Basophils # (Auto) 0.1, Immature Granulocyte # (Auto) 0.0, Prothrombin Time 13.6, INR Comment 1.0, Activated Partial Thromboplast Time 32, D-Dimer 1.28, Sodium Level 136, Potassium Level 3.9, Chloride Level 104, Carbon Dioxide Level 26, Anion Gap 6, Blood Urea Nitrogen 13, Creatinine 0.88, Estimat Glomerular Filtration Rate 97, BUN/Creatinine Ratio 15, Glucose Level 130, Calcium Level 9.0, Corrected Calcium 9.2, Total Bilirubin 0.8, Aspartate Amino Transf (AST/SGOT) 11, Alanine Aminotransferase (ALT/SGPT) 18, Alkaline Phosphatase 72, Troponin I < 0.028, Total Protein 6.4, Albumin 3.7 08/30/22 18:08: Glucometer 124 08/30/22 18:10: Urine Color YELLOW, Urine Clarity CLEAR, Urine pH 8.5, Urine Specific [place] <=1.005, Urine Protein 2+, Urine Glucose (UA) NEGATIVE, Urine Ketones NEGATIVE, Urine Nitrite POSITIVE, Urine Bilirubin 1+, Urine Urobilinogen 1.0, Urine Leukocyte Esterase 3+, Urine RBC (Auto) 3+, Urine RBC 5-10, Urine WBC 5-10, Urine Squamous Epithelial Cells NONE, Urine Crystals PRESENT, Urine Triple Phosphate Crystals FEW, Urine Amorphous Sediment MOD REBA PHOSPHATE, Urine Bacteria LARGE, Urine Casts NONE, Urine Mucus NEGATIVE, Urine Culture Indicated YES 08/31/22 05:00: White Blood Count 11.0, Red Blood Count 4.58, Hemoglobin 13.7, Hematocrit 41, Mean Corpuscular Volume 89, Mean Corpuscular Hemoglobin 30, Mean Corpuscular Hemoglobin Concent 34, Red Cell Distribution Width 13.1, Platelet Count 197, Mean Platelet Volume 9.9, Immature Granulocyte % (Auto) 0, Neutrophils (%) (Auto) 73, Lymphocytes (%) (Auto) 12, Monocytes (%) (Auto) 8, Eosinophils (%) (Auto) 6, Basophils (%) (Auto) 1, Neutrophils # (Auto) 8.1, Lymphocytes # (Auto) 1.3, Monocytes # (Auto) 0.9, Eosinophils # (Auto) 0.7, Basophils # (Auto) 0.1, Immature Granulocyte # (Auto) 0.0, Sodium Level 137, Potassium Level 3.9, Chloride Level 107, Carbon Dioxide Level 23, Anion Gap 7, Blood Urea Nitrogen 12, Creatinine 0.78, Estimat Glomerular Filtration Rate 100, BUN/Creatinine Ratio 15, Glucose Level 95, Calcium Level 8.2, Corrected Calcium 8.8, Total Bilirubin 0.6, Aspartate Amino Transf (AST/SGOT) 12, Alanine Aminotransferase (A LT/SGPT) 16, Alkaline Phosphatase 71, Total Protein 5.9, Albumin 3.3, Triglycerides Level 51, Cholesterol Level 111, LDL Cholesterol Direct 71, VLDL Cholesterol 10, HDL Cholesterol 34 08/31/22 20:33: Mean Blood Glucose 88, Hemoglobin A1c 4.7, Thyroid Stimulating Hormone (TSH) 1.08 09/01/22 05:10: White Blood Count 10.7, Red Blood Count 4.62, Hemoglobin 14.1, Hematocrit 41, Mean Corpuscular Volume 89, Mean Corpuscular Hemoglobin 31, Mean Corpuscular Hemoglobin Concent 34, Red Cell Distribution Width 13.1, Platelet Count 204, Mean Platelet Volume 10.4, Immature Granulocyte % (Auto) 0, Neutrophils (%) (Auto) 74, Lymphocytes (%) (Auto) 11, Monocytes (%) (Auto) 7, Eosinophils (%) (Auto) 6, Basophils (%) (Auto) 1, Neutrophils # (Auto) 7.9, Lymphocytes # (Auto) 1.2, Monocytes # (Auto) 0.8, Eosinophils # (Auto) 0.7, Basophils # (Auto) 0.1, Immature Granulocyte # (Auto) 0.0, Sodium Level 138, Potassium Level 4.0, Chloride Level 108, Carbon Dioxide Level 23, Anion Gap 7, Blood Urea Nitrogen 12, Creatinine 0.74, Estimat Glomerular Filtration Rate 102, BUN/Creatinine Ratio 16, Glucose Level 94, Calcium Level 8.7, Corrected Calcium 9.3, Total Bilirubin 0.9, Aspartate Amino Transf (AST/SGOT) 13, Alanine Aminotransferase (ALT/SGPT) 13, Alkaline Phosphatase 75, Total Protein 5.9, Albumin 3.3 09/02/22 05:18: White Blood Count 10.3, Red Blood Count 4.84, Hemoglobin 14.6, Hematocrit 44, Mean Corpuscular Volume 90, Mean Corpuscular Hemoglobin 30, Mean Corpuscular Hemoglobin Concent 34, Red Cell Distribution Width 13.1, Platelet Count 222, Mean Platelet Volume 9.9, Immature Granulocyte % (Auto) 0, Neutrophils (%) (Auto) 67, Lymphocytes (%) (Auto) 14, Monocytes (%) (Auto) 9, Eosinophils (%) (Auto) 9, Basophils (%) (Auto) 1, Neutrophils # (Auto) 6.9, Lymphocytes # (Auto) 1.5, Monocytes # (Auto) 0.9, Eosinophils # (Auto) 0.9, Basophils # (Auto) 0.1, Immature Granulocyte # (Auto) 0.0, Sodium Level 138, Potassium Level 4.1, Chloride Level 107, Carbon Dioxide Level 24, Anion Gap 7, Blood Urea Nitrogen 15, Creatinine 0.79, Estimat Glomerular Filtration Rate 100, BUN/Creatinine Ratio 19, Glucose Level 93, Calcium Level 8.8, Corrected Calcium 9.3, Total Bilirubin 0.7, Aspartate Amino Transf (AST/SGOT) 10, Alanine Aminotransferase ( ALT/SGPT) 13, Alkaline Phosphatase 74, Total Protein 6.2, Albumin 3.4 Discharge Home Medications: Active Scripts Active Aspirin EC (Aspirin) 81 Mg Tablet.dr 81 Mg PO DAILY Atorvastatin Calcium 80 Mg Tablet 80 Mg PO DAILY Clopidogrel (Clopidogrel Bisulfate) 75 Mg Tablet 75 Mg PO DAILY Enoxaparin Sodium 40 Mg/0.4 Ml Syringe 40 Mg SC Q24H Baclofen 10 Mg Tablet 5 Mg PO Q4HR 30 Days Cefepime 1 gm Injection (Cefepime HCl/Dextrose, Iso-Osm) 1 Gram/50 Ml Froz.piggy 1 Gm IV BID 4 Days Reported Loratadine 10 Mg Tablet 10 Mg PO DAILY PRN Multi-Vitamin Daily (Multivitamin) 1 Each Tablet 1 Each PO DAILY Docusate Sodium 100 Mg Capsule 100 Mg PO BID Oxybutynin Chloride 5 Mg Tablet 5 Mg PO TID PRN Tramadol HCl 50 Mg Tablet 50-100 Tab PO Q6H PRN Lisinopril 40 Mg Tablet 40 Mg PO DAILY Amlodipine Besylate 5 Mg Tablet 5 Mg PO DAILY Instructions to patient/family Please see electronic discharge instructions given to patient. Clinical Quality Measures Stroke: Date of last known well: Aug 29, 2022 Time of last known well: 20:00 ELISABETH STALEY DO Sep 02, 2022 05:34
[2022-09-02 05:45] LABS: ALBUMIN 3.4 GM/DL (3.2-4.5); POTASSIUM 4.1 MMOL/L (3.6-5.0)
[2022-09-02 05:46] LABS: CALCIUM 8.8 MG/DL (8.5-10.1)
[2022-09-02 05:48] LABS: TOTAL PROTEIN 6.2 GM/DL (6.4-8.2)
[2022-09-02 05:50] LABS: BILIRUBIN,TOTAL 0.7 MG/DL (0.1-1.0)
[2022-09-02 05:51] LABS: CREATININE SERUM 0.79 MG/DL (0.60-1.30)
[2022-09-02] MEDS: lisINopril 40 MG (PRINIVIL) TABLET PO SCH (07:43)
[2022-09-02] MEDS: MULTIVIT W/MINERALS TAB (THERAGRAN M) PO SCH (07:43)
[2022-09-02] MEDS: ENOXAPARIN 40 MG/0.4 ML (LOVENOX) SYR SC SCH (07:43)
[2022-09-02] MEDS: DOCUSATE SODIUM 100 MG (COLACE) CAP PO SCH (07:43)
[2022-09-02] MEDS: CLOPIDOGREL 75 MG (PLAVIX) TABLET PO SCH (07:43)
[2022-09-02] MEDS: amLODIPine 5 MG (NORVASC) TAB PO SCH (07:43)
[2022-09-02] MEDS: SENNOSIDES 8.6 MG (SENOKOT) TAB PO SCH (07:43)
[2022-09-02] MEDS: ASPIRIN E.C. 81 MG (ECOTRIN) TAB PO SCH (07:44)
[2022-09-02 08:13] VITALS: BP 132/88
--- NOTE | 2022-09-02 08:28 | Cardiology Progress Note ---
Subjective Date Seen by Provider: Sep 02, 2022 Time Seen by Provider: 08:27 Subjective/Events-last exam Patient is sitting up in chair, eating breakfast. Denies any chest pain Objective-Cardiology Exam Last Set of Vital Signs Vital Signs 08/30/22 09/02/22 22:24 08:13 Temp 35.8 Pulse 79 Resp 18 B/P (MAP) 132/88 (103) Pulse Ox 97 O2 Delivery Room Air FiO2 21 I&O Intake and Output 09/02/22 00:00 Intake Total 3235 ml Output Total 3300 ml Balance -65 ml Intake Oral 2135 ml IV Total 1100 ml Output Urine Total 3300 ml General: Alert, Oriented X3, Cooperative, No Acute Distress HEENT: Atraumatic, PERRLA Neck: Supple Lungs: Clear to Auscultation, Normal Air Movement Heart: Regular Rate, Normal S1, Normal S2, No Murmurs Abdomen: Soft, No Tenderness Skin: No Rashes, No Significant Lesion Neuro: Other (Slurred speech and left hand weakness and arm) Psych/Mental Status: Mental Status NL, Mood NL Results Lab Laboratory Tests 09/02/22 05:18 A/P-Cardiology Admission Diagnosis Acute CVA Hypertension Prostate cancer Hyperlipidemia Assessment/Plan Acute CVA, cryptogenic stroke MRI of the brain reported as acute small infarct involving the posterior limb of the right internal capsule. Diffuse focal and patchy area of low attenuation may be secondary to chronic small vessel disease Questionable infiltrative disease such as cerebral amyloid angiopathy or multiple malformation. Carotid US done 08/31/22 showing nonobstructive disease bilaterally 2D Echo done 08/31/22 with EF 55-60%, PA 25-30mmHg. No arrhythmia detected on telemetry. S/P LINq implantation on September 01, 2022 for further monitoring. Site with C/D/I dressing Aspirin added to the Plavix and monitor tolerance and response. Hypertension, controlled, monitor blood pressure Prostate cancer, history of recent prostatectomy. Intractable Hiccups postoperatively, was on chlorpromazine, now resolved. UTI, started on antibiotic, management per medical services GB sludge noted incidentally on echo, evaluating US, management per medical services. Hyperlipidemia, evaluate lipid profile Supervisory-Addendum Brief Supervisory Addendum Participated in pt care: history, MDM, physical Personally performed: exam, history, MDM Care discussed with: PACO Results interpretation: Verified all documentation Notes: Patient was seen and evaluated with Yani, examination performed, management plan was discussed, agree with the current scribed note, I made few changes to the note using Italic font Patient was seen at bedside, sitting comfortably, site of the loop monitor is clear No arrhythmia detected, continue on aspirin and Plavix and monitor Arrange for follow-up as an outpatient YANI GALARZA Sep 02, 2022 08:28 LILIA LUCIANO MD Sep 02, 2022 08:30
[2022-09-02 10:23] VITALS: BP 132/88
--- NOTE | 2022-09-02 10:26 | Occupational Ther Daily Note ---
OT Current Status-Daily Note Subjective Met with family to discuss updates and plan for DC. Family report desire to have pet brought into facility, OT provided some protocols for the process. Mental Status/Objective Patient Orientation: Person, Place, Time, Situation ADL-Treatment Therapy Code Descriptions/Definitions Functional [place] Measure: 0=Not Assessed/NA 4=Minimal Assistance 1=Total Assistance 5=Supervision or Setup 2=Maximal Assistance 6=Modified [place] 3=Moderate Assistance 7=Complete IndependenceSCALE: Activities may be completed with or without assistive devices. 6-Iacvimxxdu-zpanbws completes the activity by him/herself with no assistance from a helper. 5-Set-up or Clean-up Assistance-helper sets up or cleans up; patient completes activity. [place] assists only prior to or following the activity. 4-Supervision or Touching Assistance-helper provides verbal cues and/or touching/steadying and/or contact guard assistance as patient completes activity. Assistance may be provided throughout the activity or intermittently. 3-Partial/Moderate Assistance-helper does LESS THAN HALF the effort. [place] lifts, holds or supports trunk or limbs, but provides less than half the effort. 2-Substantial/Maximal Assistance-helper does MORE THAN HALF the effort. [place] lifts or holds trunk or limbs and provides more than half the effort. 1-Nyulvfyny-pbbcot does ALL the effort. Patient does none of the effort to complete the activity. Or, the assistance of 2 or more helpers is required for the patient to complete the activity. If activity was not attempted, code reason: 7-Patient Refused. 9-Not Applicable-not attempted and the patient did not perform the activity before the current illness, exacerbation or injury. 10-Not Attempted due to Environmental Limitations-(lack of equipment, weather restraints, etc.). 88-Not Attempted due to Medical Conditions or Safety Concerns. Other Treatment Functional activity and education performed, Education OT Patient Education: Correct positioning, Exercise program, Modified ADL techniques, Progress toward Goal/Update tx plan, Purpose of tx/functional activities, Reviewed precautions, Rehab process, Safety issues Teaching Recipient: Patient, Family Teaching Methods: Discussion Response to Teaching: Verbalize Understanding OT Penitentiary Goals Penitentiary Goals Eating (QC): 6 Oral Hygiene (QC): 6 Toileting Hygiene (QC): 6 Shower/Bathe Self (QC): 4 Upper Body Dressing (QC): 6 Lower Body Dressing (QC): 6 On/Off Footwear (QC): 6 1=Demonstrate adherence to instructed precautions during ADL tasks. 2=Patient will verbalize/demonstrate understanding of assistive devices/modifications for ADL. 3=Patient will improve strength/tolerance for activity to enable patient to perform ADL's. OT Education/Plan Discharge Recommendations Plan/Recommendations: Discontinue OT (DC to ARU) Treatment Plan/Plan of Care Treatment,Training & Education: Yes Patient would benefit from OT for education, treatment and training to promote independence in ADL's, mobility, safety and/or upper extremity function for ADL's. Plan of Care: ADL Retraining, Cognitive Retraining, Functional Mobility, Group Exercise/Act as Ind, UE Funct Exercise/Act, UE Neuromus Re-Ed/Coord, Visual/Perceptual Retrain Treatment Duration: Sep 04, 2022 Frequency: 3 times per week (3-5 times per week) Estimated Hrs Per Day: .25 hour per day Agreement: Yes Rehab Potential: Good Time Start Time: 09:00 Stop Time: 09:10 DATE: Sep 02, 2022 Total Time Billed (hr/min): 10 Billed Treatment Time FA 10 MACKENZIE ANGEL OT Sep 02, 2022 10:26
== END 2022-09-02 10:24 | DRG 41 ==
LOC: EDUNIT# 17:22 → ER 17:24 → 4TH 21:01 → OBSVTOIN 08-31 09:25
PROVIDERS: ADMIT Internal Medicine; ATTEND Internal Medicine
PROC: 0JH632Z Insertion of Monitoring Device into Chest Subcutaneous Tissue and Fascia, Percutaneous Approach (ICD-10-PCS; principal; 2022-09-01)
DX: I63.9 Cerebral infarction, unspecified (principal); N39.0 Urinary tract infection, site not specified; G83.24 Monoplegia of upper limb affecting left nondominant side; R29.810 Facial weakness; R47.01 Aphasia; R41.89 Other symptoms and signs involving cognitive functions and awareness; R29.705 NIHSS score 5; I10 Essential (primary) hypertension; K82.8 Other specified diseases of gallbladder; K59.00 Constipation, unspecified; E78.5 Hyperlipidemia, unspecified; Z85.46 Personal history of malignant neoplasm of prostate; Z87.891 Personal history of nicotine dependence; Z90.79 Acquired absence of other genital organ(s); Z79.899 Other long term (current) drug therapy; Z88.6 Allergy status to analgesic agent
CPT/HCPCS: 33285; 36415; 70450; 70496; 70498; 70551; 71045; 76705; 80053; 80061; 81000; 82947; 83036; 84443; 84484; 85025; 85379; 85610; 85730; 87077; 87088; 87186; 93005; 93041; 93306; 93880; G0378

== ENCOUNTER 2022-09-02 09:47 | Inpatient (IN) | payer BC ==
[~2022-09-02] VITALS: Ht 177.8 cm; Wt 88.7 kg
[~2022-09-02 09:47] MED LIST changes: +ASPI-1238 PO; +ATOR80TA76 PO; +BACL10TA PO; +CEFE1FRO IV; +CLOP75TA28 PO; +DOCU100C37 PO; +ENOX40DI8 SC; +LORA-1389 PO; +LORA10TA7 PO; +MULT-974 PO; +OXYB5TAB13 PO; +TRAM50TA3 PO
[2022-09-02 09:50] VITALS: BP 121/80
--- NOTE | 2022-09-02 11:27 | Occupational Therapy Eval ---
OT Evaluation-General/PLF Medical Diagnosis Admission Date Sep 02, 2022 at 09:47 Medical Diagnosis: L CVA Onset Date: Aug 30, 2022 Therapy Diagnosis Therapy Diagnosis: Left weakness, vision impairement Height/Weight Height (Feet): 5 Height (Inches): 11.00 Weight (Pounds): 220 Precautions Precautions/Isolations: Fall Prevention, Standard Precautions Weight Bear Status Weight Bearing Restriction: Weight Bearing/Tolerated Location Restriction: LE Bilateral, UE Bilateral Referral Physician: LUÍS Referral Reason: Activity Tolerance, Self Care, Evaluation/Treatment, Strengthening/ROM Medical History Pertinent Medical History: HTN, Prostate CA (Physician in [place]) Additional Medical History Left knee injury , Heart monitor placed 09/02/22, monitor not to be wet avoid water w/ bathing Current History Patient presented to [facility] ER 08/30/22 admitted and transferred to ARU this date Social History Home: Single Level Current Living Status: Spouse Entry Into Home: Stairs With Railing Steps Into Home: 3 ADL-Prior Level of Function SCALE: Activities may be completed with or without assistive devices. 0-Uvfmanwfmg-cbaxqpw completes the activity by him/herself with no assistance from a helper. 5-Set-up or Clean-up Assistance-helper sets up or cleans up; patient completes activity. [place] assists only prior to or following the activity. 4-Supervision or Touching Assistance-helper provides verbal cues and/or touching/steadying and/or contact guard assistance as patient completes activity. Assistance may be provided throughout the activity or intermittently. 3-Partial/Moderate Assistance-helper does LESS THAN HALF the effort. [place] lifts, holds or supports trunk or limbs, but provides less than half the effort. 2-Substantial/Maximal Assistance-helper does MORE THAN HALF the effort. [place] lifts or holds trunk or limbs and provides more than half the effort. 5-Msmcxadtv-uuwusx does ALL the effort. Patient does none of the effort to complete the activity. Or, the assistance of 2 or more helpers is required for the patient to complete the activity. If activity was not attempted, code reason: 7-Patient Refused. 9-Not Applicable-not attempted and the patient did not perform the activity before the current illness, exacerbation or injury. 10-Not Attempted due to Environmental Limitations-(lack of equipment, weather restraints, etc.). 88-Not Attempted due to Medical Conditions or Safety Concerns. Self Care: Independent Functional Cognition: Independent DME/Equipment Comments walk in shower, raised toilet, lavatory next toilet, no AD for ambulation Drive Self: Yes OT Current Status Subjective Patient resting peacefully in recliner, spouse present, Asking for protocol for PET PASS Pain Numeric Pain Scale: 0-No Pain Mental Status/Objective Patient Orientation: Person, Place ([facility]), Time, Situation Attachments: Cam Catheter Current Glasses/Contacts: Yes Hearing Aids: No (slight hard of hearing vs delayed response) Hand Dominance: Right Upper Extremity ROM BUE ROM WFLs, LUE slow to performance of ROM and requires extra time and mirrored assistance Upper Extremity Coordination IMPAIRED Left FMC with object manipulation, tip to touch and opposition. Lacking accurate proprioception to left UE Upper Extremity Strength RUE 4/5 grossly, LUE shoulder 3/5, elbow +3/5, wrist +3/5, composite coupon clerk -4/5 Visual tracking initiated w/ head turning to right side ADL-Treatment ADL-Current Currently in hospital gown, prepared small selection of garments Eating (QC): 5 (demonstrates abilty to open, hold and cut food. Required VCs to initiate LUE and extra time) Oral Hygiene (QC): 4 (standing at sink, VC for leaning on sink CGA) Shower/Bathe Self (QC): 4 (Safety cues, SBA) Upper Body Dressing (QC): 5 Lower Body Dressing (QC): 4 On/Off Footwear (QC): 5 Toileting Hygiene (QC): 4 Requires assist w/ threading cam through pant leg holes, FWW for balance and stability Education OT Patient Education: Correct positioning, Exercise program, Instructions to caregiver, Modified ADL techniques, Progress toward Goal/Update tx plan, Purpose of tx/functional activities, Reviewed precautions, Rehab process, Safety issues, Transfer techniques, Use of adapted equipment Teaching Recipient: Patient, Family Teaching Methods: Demonstration, Discussion Response to Teaching: Verbalize Understanding, Return Demonstration, Reinforcement Needed BIMS CAM BIMS Expression of Ideas and Wants: Without Difficulty Understanding Verbal Content: Understands Brief Interview/Mental Status: No IRF SPARKLE BIMS: IRF SPARKLE BIMS Response (Comments) Value Repitition of Three Words Three 3 Recalls Socks No, Could Not Recall 0 Recalls Blue Yes, After Cueing (Color) 1 Recalls Bed No, Could Not Recall 0 Year Correct 3 Month Accurate Within 5 Days 2 Day Correct 1 Total 10 Patient Normally Able to Recal: Current Session, That he/she in a hsp Should Staff Asses. Mental St.: No CAM Mental Status Change/Baseline: 1 Inattention: 0 Disorganized thinkin Altered level of consciousness: 0 OT Short Term Goals Short Term Goals Time Frame: Sep 11, 2022 Eatin Oral hygiene: 6 Toileting hygiene: 6 OT Engine Emission Technician Goals Engine Emission Technician Goals Eating (QC): 6 Oral Hygiene (QC): 6 Toileting Hygiene (QC): 6 Shower/Bathe Self (QC): 6 Upper Body Dressing (QC): 6 Lower Body Dressing (QC): 6 On/Off Footwear (QC): 6 1=Demonstrate adherence to instructed precautions during ADL tasks. 2=Patient will verbalize/demonstrate understanding of assistive devices/modifications for ADL. 3=Patient will improve strength/tolerance for activity to enable patient to perform ADL's. OT Education/Plan Problem List/Assessment Assessment: Decreased Activ Tolerance, Decreased UE Strength, Impaired Co ordination, Impaired Funct Balance, Impaired Self-Care Skills Discharge Recommendations Plan/Recommendations: Continue POC Treatment Plan/Plan of Care Treatment,Training & Education: Yes Patient would benefit from OT for education, treatment and training to promote independence in ADL's, mobility, safety and/or upper extremity function for ADL's. Plan of Care: ADL Retraining, Caregiver Training, Cognitive Retraining, C oncurrent Therapy, Functional Mobility, Group Exercise/Act as Ind, UE Funct Exercise/Act, Visual/Perceptual Retrain Treatment Duration: Sep 17, 2022 Frequency: At least 5 of 7 days/Wk (IRF) Estimated Hrs Per Day: 1.5 hours per day Agreement: Yes Rehab Potential: Good Time Start Time: 11:03 Stop Time: 11:18 DATE: Sep 02, 2022 Total Time Billed (hr/min): 15 Billed Treatment Time EVM 15 min MACKENZIE ANGEL OT Sep 02, 2022 11:27
--- NOTE | 2022-09-02 11:49 | Physical Therapy Evaluation ---
PT Evaluation-General Medical Diagnosis Admission Date Sep 02, 2022 at 09:47 Medical Diagnosis: CVA Onset Date: Aug 30, 2022 Therapy Diagnosis Therapy Diagnosis: Weakness; Decreased functional mobility Height/Weight Height (Feet): 5 Height (Inches): 11.00 Weight (Pounds): 220 Precautions Precautions/Isolations: Fall Prevention, Standard Precautions Weight Bear Status Right Lower Extremity: Right Full Weight Bearing Left Lower Extremity: Left Full Weight Bearing Referral Physician: Jack Reason for Referral: Evaluation/Treatment Medical History Pertinent Medical History: HTN, Prostate CA (Physician in [place]) Additional Medical History HTN, Anxiety, Depression, Weakness, Prostate CA, Adenoidectomy, Orthopedic surgery, Prostatectomy, Tonsillectomy Current History ER on 08/30/2022 secondary to L facial droop and slurred speech; ARU on 09/02/2022 Reviewed History: Yes Social History Home: Single Level Current Living Status: Spouse Entry Into Home: Stairs With Railing PT Steps Into Home: 3 (B HR that are wide ) Pt lives in a single level mobile home with 3 steps to enter with B HR that are about 6ft apart. Walk-in shower; no SC, no GB, tall toilet Prior Prior Level of Function SCALE: Activities may be completed with or without assistive devices. 4-Bjjbisgllc-daijqzd completes the activity by him/herself with no assistance from a helper. 5-Set-up or Clean-up Assistance-helper sets up or cleans up; patient completes activity. [place] assists only prior to or following the activity. 4-Supervision or Touching Assistance-helper provides verbal cues and/or touch ing/steadying and/or contact guard assistance as patient completes activity. Assistance may be provided throughout the activity or intermittently. 3-Partial/Moderate Assistance-helper does LESS THAN HALF the effort. [place] lifts, holds or supports trunk or limbs, but provides less than half the effort. 2-Substantial/Maximal Assistance-helper does MORE THAN HALF the effort. [place] lifts or holds trunk or limbs and provides more than half the effort. 1-Wrfaabrav-uejlef does ALL the effort. Patient does none of the effort to complete the activity. Or, the assistance of 2 or more helpers is required for the patient to complete the activity. If activity was not attempted, code reason: 7-Patient Refused. 9-Not Applicable-not attempted and the patient did not perform the activity before the current illness, exacerbation or injury. 10-Not Attempted due to Environmental Limitations-(lack of equipment, weather restraints, etc.). 88-Not Attempted due to Medical Conditions or Safety Concerns. Bed Mobility: 6 Transfers (B,C,W/C): 6 Gait: 6 Stairs: 6 Wheelchair Mobility: 9 Indoor Mobility (Ambulation): Independent Stairs: Independent Prior Devices Use: None At [facility], pt was Ind with no AD and driving; pt does not own any AD PT Evaluation-Current Subjective Pt is agreeable to PT; denies pain Pain Numeric Pain Scale: 0-No Pain Location: No Pain Reported Section J - Health Conditions 1. Rarely or not at all 2. Occasionally 3. Frequently 4. Almost constantly 8. Unable to answer Pain Effect on Sleep: 1 Pain Interference with Therapy: 1 Pain Interference w/Day-to-Day: 1 Pt/Family Goals Safely return home Objective Patient Orientation: Person, Place, Time, Situation Attachments: Arellano Catheter Heart monitor ROM/Strength ROM Upper Extremities WFL ROM Lower Extremities WFL Strength Upper Extremities WFL Strength Lower Extremities B LE MMT = 4/5 grossly Integumentary/Posture Integumentary see nurses note Bowel Incontinence: No Bladder Incontinence: Arellano Cath Sensory Vision: Wears Glasses Hearing: Functional Hand Dominance: Right Sensation Right Upper Extremit: Intact Sensation Left Upper Extremity: Intact Sensation Right Lower Extremit: Intact Sensation Left Lower Extremity: Intact Transfers Roll Left & Right (QC): 4 (SBA) Sit to Lying (QC): 4 (SBA) Lying to Sitting/Side of Bed(Q: 4 (SBA) Sit to Stand (QC): 4 (SBA) Chair/Kiy-gj-Spisu Xfer(QC): 4 (SBA) Toilet Transfer (QC): 4 (SBA) Car Transfer (QC): 4 (CGA ) Gait Does the Patient Walk?: Yes Mode of Locomotion: Walk Anticipated Mode of Locomotion: Walk Walk 10 feet (QC): 4 (CGA) Walk 50 ft with 2 Turns(QC): 4 (CGA) Walk 150 ft (QC): 4 (CGA) Walking 10ft/uneven surface-QC: 4 (CGA) Distance: 150ft Gait Assistive Device: FWW Wheelchair Training Does the Pt Use a Wheelchair?: No Wheel 50 ft with 2 turns (QC): 9 Wheel 150 ft (QC): 9 Type of Wheelchair: N/A Stairs #of Steps: 12 1 Step (curb) (QC): 4 (CGA) 4 Steps (QC): 4 (CGA) 12 Steps (QC): 4 (CGA) Walking Assistive Device: Walker Balance Sitting Static: Normal Sitting Dynamic: Normal Standing Static: Good Standing Dynamic: Good Picking up an Object (QC): 4 (SBA ) Special Test Comments KU standing balance test = 4/5 (goal = 5/5) Treatment PT eval complete. Pt/spouse edu. Pt is SBA for bed mobility and functional transfers. Pt is CGA for walking of 150ft with the FWW and 12 stairs with B HR. Pt left in care of nurse, as he was having N/V. Assessment/Needs Pt tolerated PT well with good effort. Pt would benefit from skilled PT to progress towards PLOF and safe d/c home with spouse. Rehab Potential: Good Post Rehab Potential-Barriers: Weakness Equipment Needs FWW/SPC/SC? PT Sales Center Manager Goals Chcf Goals PT Chcf Goals Time Frame: Sep 10, 2022 Roll Left to Right (QC): 6 (Pt will be Mod I with all aspects of functional mobility, with the least restrictive AD, to be at PLOF. ) Sit to Lying (QC): 6 (Pt will be Mod I with all aspects of functional mobility, with the least restrictive AD, to be at PLOF. ) Lying-Sitting on Side/Bed(QC): 6 (Pt will be Mod I with all aspects of f unctional mobility, with the least restrictive AD, to be at PLOF. ) Sit to Stand (QC): 6 (Pt will be Mod I with all aspects of functional mobility, with the least restrictive AD, to be at PLOF. ) Chair/Kiw-oe-Huhsf Xfer(QC): 6 (Pt will be Mod I with all aspects of functional mobility, with the least restrictive AD, to be at PLOF. ) Toilet/Commode Transfer (QC): 6 (Pt will be Mod I with all aspects of functional mobility, with the least restrictive AD, to be at PLOF. ) Car Transfer (QC): 6 (Pt will be Mod I with all aspects of functional mobility, with the least restrictive AD, to be at PLOF. ) Does the Patient Walk: Yes Walk 10 feet (QC): 6 (Pt will be Mod I with all aspects of functional mobility, with the least restrictive AD, to be at PLOF. ) Walk 10ft-Uneven Surface(QC): 6 (Pt will be Mod I with all aspects of functional mobility, with the least restrictive AD, to be at PLOF. ) Walk 50ft with 2 Turns (QC): 6 (Pt will be Mod I with all aspects of functional mobility, with the least restrictive AD, to be at PLOF. ) Walk 150 ft (QC): 6 (Pt will be Mod I with all aspects of functional mobility, with the least restrictive AD, to be at PLOF. ) Does the Pt use WC or Scooter?: No Wheel 50 feet with 2 turns (QC: 9 Type: N/A Wheel 150 feet: 9 Type: N/A 1 Step (curb) (QC): 6 (Pt will be Mod I with all aspects of functional mobility, with the least restrictive AD, to be at PLOF. ) 4 Steps (QC): 6 (Pt will be Mod I with all aspects of functional mobility, with the least restrictive AD, to be at PLOF. ) 12 Steps (QC): 6 (Pt will be Mod I with all aspects of functional mobility, with the least restrictive AD, to be at PLOF. ) Picking up an Object (QC): 6 (Pt will be Mod I with all aspects of functional mobility, with the least restrictive AD, to be at PLOF. ) KU standing balance scale goal = 5/5 PT Plan Problem List Problem List: Activity Tolerance, Functional Strength, Safety, Balance, Gait, Transfer, Bed Mobility Treatment/Plan Treatment Plan: Continue Plan of Care Treatment Plan: Bed Mobility, Concurrent Therapy, Education, Functional Activity Satinder, Functional Strength, Group Therapy, Gait, Safety, Therapeutic Exercise, Transfers Treatment Duration: Sep 10, 2022 Frequency: At least 5 of 7 days/Wk (IRF) Estimated Hrs Per Day: 1.5 hours per day Patient and/or Family Agrees t: Yes Safety Risks/Education Patient Education: Gait Training, Transfer Techniques, Steps, Correct Positioning, Safety Issues Teaching Recipient: Patient, Significant Other Teaching Methods: Demonstration, Discussion Response to Teaching: Verbalize Understanding, Return Demonstration, Reinforcement Needed Discharge Recommendations Therapy Discharge Recommendati: Home & Family Equpiment Recommendations-D/C: Straight Cane, Front Wheeled Walker, Shower Chair Discharge Status/Home Program Cont per POC Barriers to Progress Weakness Target Placement Home with spouse Time Time In: 1135 Time Out: 1215 DATE: Sep 02, 2022 Total Billed Treatment Time: 40 Total Billed Treatment 40 min ([id number]) EVM (30 min from [id number]) FA (10 min from [id number]) IMELDA TRIVEDI PT Sep 02, 2022 11:49
--- NOTE | 2022-09-02 11:53 | PM&R Post Admission Assessment ---
PM&R Date of Visit: Sep 02, 2022 Time of Visit: 12:00 History of Present Illness Chief complaint: CVA with left arm weakness and expressive aphasia with confusion HPI: This is a 62-year-old male presenting with a subacute CVA confirmed on MRI with residual left arm and hand weakness with expressive aphasia and slowed speech and cognitive deficit. His hospital course on MedSurg was complicated with UTI while maintaining Arellano catheter placed following prostatectomy 12 days ago. Cardiology evaluated him and placed a loop recorder. Plavix and aspirin maintained along with statin therapy per protocol. Bowels are moving. He is participating in therapy seems to be improving. Gallbladder sludge noted on ultrasound and Dr. Boudreaux did consult with him and since he is asymptomatic and no evidence of any cholecystitis we will monitor that closely and managing conservatively. Past Msrmkcu-Aamplq-Aknmqo Hx Past Med/Social Hx: Reviewed Nursing Past Med/Soc Hx, Reviewed and Corrections made Patient Social History Marrital Status: Employed/Student: retired Alcohol Use: Denies Use Smoking Status: Never a Smoker Type Used: Smokeless Tobacco 2nd Hand Smoke Exposure: No Recent Hopitalizations: No Immunizations Up To Date Date of Influenza Vaccine: Dec 12, 2010 Seasonal Allergies Seasonal Allergies: No Past Medical History Surgeries: Adenoidectomy, Orthopedic, Prostatectomy, Tonsillectomy Cardiac: Hypertension Neurological: Stroke Gastrointestinal: Gall Bladder Disease History of Blood Disorders: No Self Care: Independent Functional Cognition: Independent Drive Self: Yes Eatin (demonstrates abilty to open, hold and cut food. Required VCs to initiate LUE and extra time) PM&R Allergy/Meds/Data Review Allergies Coded Allergies: No Known Allergies (Verified Allergy, Unknown, 09/02/22) Home Medications Scheduled Amlodipine Besylate (Amlodipine Besylate), 5 MG PO DAILY, (Reported) Aspirin (Aspirin EC), 81 MG PO DAILY Atorvastatin Calcium (Atorvastatin Calcium), 80 MG PO DAILY Baclofen (Baclofen), 5 MG PO Q4HR Cefepime HCl/Dextrose, Iso-Osm (Cefepime 1 gm Injection), 1 GM IV BID Clopidogrel Bisulfate (Clopidogrel), 75 MG PO DAILY Docusate Sodium (Docusate Sodium), 100 MG PO BID, (Reported) Enoxaparin Sodium (Enoxaparin Sodium), 40 MG SC Q24H Lisinopril (Lisinopril), 40 MG PO DAILY, (Reported) Multivitamin (Multi-Vitamin Daily), 1 EACH PO DAILY, (Reported) Scheduled PRN Loratadine (Loratadine), 10 MG PO DAILY PRN for ALLERGY SYMPTOMS, (Reported) Oxybutynin Chloride (Oxybutynin Chloride), 5 MG PO TID PRN for URINARY URGENCY, (Reported) Tramadol HCl (Tramadol HCl), 50-100 TAB PO Q6H PRN for PAIN-MODERATE (5-7), (Reported) Current Medications Current Medications Reviewed Review of Systems Constitutional: see HPI, malaise, weakness EENTM: no symptoms reported Respiratory: no symptoms reported Cardiovascular: no symptoms reported Gastrointestinal: no symptoms reported Genitourinary: other (Arellano catheter) Musculoskeletal: no symptoms reported Skin: no symptoms reported Psychiatric/Neurological: Depressed, Numbness, Paresthesia, Tingling, Tremors, Weakness All Other Systems Reviewed Negative Unless Noted: Yes Physical Exam Physical Exam Vital Signs Vital Signs - First Documented 09/02/22 09:50 Temp 36.1 Pulse 74 Resp 18 B/P (MAP) 121/80 (94) Pulse Ox 96 O2 Delivery OxyMask Capillary Refill : Height, Weight, BMI Height: 5'11.00" Weight: 220lbs. oz. 99.345039pi; 29.10 BMI Method:Stated General Appearance: No Apparent Distress, WD/WN, Chronically ill, Obese Eyes: Bilateral Eye Normal Inspection, Bilateral Eye PERRL HEENT: PERRL/EOMI, Normal ENT Inspection, Pharynx Normal Neck: Full Range of Motion, Normal Inspection, Non Tender, Supple, Carotid Bruit Respiratory: Chest Non Tender, Lungs Clear, Normal Breath Sounds, No Accessory Muscle Use, No Respiratory Distress Cardiovascular: Regular Rate, Rhythm, No Edema, No Gallop, No JVD, No Murmur, Normal Peripheral Pulses Gastrointestinal: Normal Bowel Sounds, No Organomegaly, No Pulsatile Mass, Non Tender, Soft Back: Normal Inspection, No CVA Tenderness, No Vertebral Tenderness Extremity: Normal Capillary Refill, Normal Inspection, Normal Range of Motion, Non Tender, No Calf Tenderness, No Pedal Edema Neurologic/Psychiatric: Alert, Oriented x3, Normal Mood/Affect, Abnormal Gait, Depressed Affect, Facial Droop ( left side), Motor Weakness ( left arm 3/5 and left hand 2/5) Skin: Normal Color, Warm/Dry Lymphatic: No Adenopathy PM&R Medical Assessment & Plan REHAB/MEDICAL ASSESSMENT AND PLAN: REHAB IMPAIRMENT GROUP: CVA ETIOLOGIC DIAGNOSIS: CVA The comorbidities that impact the patients function and/or functional outcome by: Proteus UTI, Arellano catheter status post prostatectomy, hypertension, Left facial droop, Delayed speech REHAB PLAN: The patient is being admitted to our comprehensive inpatient rehabilitation facility and can tolerate the intensity of service consisting of at least: 180 minutes of therapy a day, 5 out of 7 days a week Rehab treatment will consist of: PT and OT will focus on regaining function with use of assistive devices in order to increase independence in ADLs and stamina with ambulation The patient/family has a good understanding of our discharge process and will benefit from an interdisciplinary inpatient rehabilitation program. The patient has potential to make improvement and is in need of at least two of the following multidisciplinary therapies including but not limited to physical, occupational, speech, and prosthetics and orthotics. Additionally the patient will need services from respiratory, nutritional services, wound care, psychology, etc. (Customize this to each patient). Given the patients complex condition and risk of further medical complications, rehabilitation services cannot be safely or effectively provided at a lower level of care such as a half-way facility. BARRIERS TO DISCHARGE: Delayed speech with expressive aphasia and left arm weakness ESTIMATED LOS: 7 days DISPOSITION: Home RELEVANT CHANGES SINCE PREADMISSION SCREENING: I have compared the patients medical and functional status at the time of the preadmission screening and there are: no changes PROGNOSIS: good REHABILITATION GOALS: 1. PT and OT will focus on regaining function with use of assistive devices in order to increase independence in ADLs and stamina with ambulation All the above goals were reviewed with the patient and he/she is in agreement. By signing this document, I acknowledge that I have personally performed a full physical examination on this patient within 24 hours of admission to this inpatient rehabilitation facility and have determined the patient to be able to tolerate the above course of treatment at an intensive level for a reasonable period of time. I will be completing a detailed individualized Plan of Care for this patient by day #4 of the patients stay based upon the Preadmission Screen, the Post-Admission Evaluation, and the therapy evaluations. Admission Dx/Comorbidities: (1) Stroke Status: Acute ICD Codes: I63.9 - Cerebral infarction, unspecified Assessment/Plan Assessment and Plan Assess & Plan/Chief Complaint Assessment: Subacute CVA not a tPA candidate with left-sided facial droop and left hand weakness with infarct in the right internal capsule confirmed on MRI placed on Plavix and aspirin and statin therapy and loop recorder placed Recent complete prostatectomy robotic assisted at [place] still has catheter Proteus UTI placed on cefepime then switched to Keflex since pansensitive Gallbladder sludge found incidentally on echocardiogram ordered formal ultrasound asymptomatic Dr. Boudreaux consulted and will manage conservatively Hypertension Hyperlipidemia Fatty liver Plan: Aggressive rehab Speech therapy Plavix aspirin statin PT and OT ELISABETH STALEY DO Sep 02, 2022 11:53
[2022-09-02] MEDS ORDERED: diphenhydrAMINE 25 MG TAB (BENADRYL) PO PRN ×2 (12:00)
[2022-09-02] MEDS ORDERED: LORATADINE (CLARITIN) 10 MG TAB PO PRN (12:00)
[2022-09-02] MEDS ORDERED: guaiFENesin/CODEINE (ROBITUSSIN AC) 10ML UDC PO PRN (12:00)
[2022-09-02] MEDS ORDERED: RT-ALBUTEROL SULF 2.5 MG/3 ML PRE-MIX VIAL INH PRN (12:00)
[2022-09-02] MEDS ORDERED: MELATONIN 3 MG TABLET PO PRN ×2 (12:00)
[2022-09-02] MEDS ORDERED: ALPRAZolam 0.5 MG (XANAX) TAB PO PRN (12:00)
[2022-09-02] MEDS ORDERED: ALPRAZolam 0.25 MG (XANAX) TAB PO PRN (12:00)
[2022-09-02] MEDS ORDERED: ONDANSETRON 4 MG (ZOFRAN) ORAL DISSOLVE TAB PO PRN ×2 (12:00)
[2022-09-02] MEDS ORDERED: polyethylene glycoL POWDER 17 GM (MIRALAX) PACK PO PRN (12:00)
[2022-09-02] MEDS ORDERED: DOCUSATE SODIUM 100 MG (COLACE) CAP PO PRN (12:00)
[2022-09-02] MEDS ORDERED: FLEET ENEMA ADULT 1 EA BTL PR PRN (12:00)
[2022-09-02] MEDS ORDERED: diphenhydrAMINE 50 MG/ML INJ (BENADRYL) IVP PRN (12:00)
[2022-09-02] MEDS ORDERED: ONDANSETRON 4 MG/2 ML (SDV) Z0FRAN IV PRN (12:00)
[2022-09-02] MEDS ORDERED: ANTACID SUSP 30 ML UDC (MYLANTA) PO PRN (12:00)
[2022-09-02] MEDS ORDERED: BISACODYL 10 MG SUPP (DULCOLAX) PR PRN ×2 (12:00)
[2022-09-02] MEDS ORDERED: LACTULOSE SYRUP 10GM/15ML (ENULOSE) 30ML UDC PO PRN ×2 (12:00)
[2022-09-02] MEDS ORDERED: ACETAMINOPHEN 325 MG TABLET PO PRN ×2 (12:00)
[2022-09-02] MEDS ORDERED: MILK OF MAGNESIA 400 MG/5 ML 30 ML UDC PO PRN (12:00)
[2022-09-02] MEDS ORDERED: LOPERAMIDE 2 MG (IMODIUM) TABLET PO PRN (12:00)
[2022-09-02] MEDS ORDERED: CALCIUM CARBONATE 500 MG (TUMS) TAB.CHEW PO PRN ×2 (12:00)
[2022-09-02 12:31] VITALS: BP 121/80
[2022-09-02] MEDS ORDERED: RT-ALBUTEROL/IPRATROPIUM 3 ML (DUONEB) VIAL INH PRN (12:45)
--- NOTE | 2022-09-02 14:33 | ST Cognitive Linguistic Eval ---
Speech Evaluation-General Medical Diagnosis CVA Onset Date: Aug 30, 2022 Therapy Diagnosis Therapy Diagnosis: Dysarthria, Impaired Cognition Precautions Precautions: Fall Precautions/Isolations: Fall Prevention, Standard Precautions Referral Referring Physician: Dr. Maki Santiago Reason for Referral: Evaluation/Treatment Medical History Pertinent Medical History: HTN, Prostate CA (Physician in [place]) Reviewed History: Yes Social History Current Living Status: Spouse Speech PLF-Current Status Prior Level of Function Prior to the patient's recent stroke, the patient denied challenges or concerns with his speech, language, or cognition. The patient and shared bill management responisibilities and he recently began organizing his medications into a pill box his purchased for him. Subjective The patient was seated upright in his chair, awake and alert, upon entrance to his room by the clinician. The patient greeted the clinician appropriately and was agreeable to participation in the cognitive linguistic assessment. The patient's spouse was present at bedside and remained throughout the evaluation. Language Eval: Auditory Comprehends Simple Yes/No Ques: Functional Indent/Objects Multiple Patricio: Functional Ident/Pics in Multiple Patricio: Functional Follows 1-Step Commands: Functional Follows General Conversations: Functional Language Eval: Verbal Language Completes Spontaneous Greeting: Functional Imitates Simple Words/Phrases: Functional Word Finding: Moderate Requests Basic Needs: Functional States Basic Personal Info: Functional Cognitive Patient Orientation The patient was independently oriented to self, location, month, day of the week, and year. Objective Cognitive Domain Attention: WNL Memory: Moderate Problem Solving: Moderate Executive Functions: Moderate Clock Drawing Severity Rating: Mild Objective Formal/Standardized Tests [facility] Mental Status Exam (UMS) Results The patient demonstrated a result of +14/30 on the SLUMS correlating to a score of "dementia" per SLUMS scoring scale. Oral Motor/Speech Production The patient displays a left facial droop, with reduced left labial retraction and protrusion. Lingual protrusion displays slight left deviation. Reduced articulatory precision and a decreased rate of speech are appreciated. The patient remains with 100% intelligibility in known contexts. Impression The patient displays mild dysarthria characterized by reduced articulatory precision and a decreased rate of speech. Regardless of the present dysarthria, the patient remains 100% intelligible in known contexts. The clinician previ ously introduced oral motor exercises and intelligibility strategies throughout his acute hospitalization. Additionally, the patient displays a mild to moderate cognitive linguistic impairment with difficulties appreciated in the areas of orientation, problem solving, sequencing, executive functioning, and delayed recall. Speech Short Term Goals Short Term Goals Short Term Goals 1. The patient will demonstrate oral motor exercises with 90% accuracy, independently. Speech No Bake Molder Goals No Bake Molder Goals 1. The patient will demonstrate improved cognitive communication for safe discharge to the least restrictive environment. Time Frame: Ten Days. Speech-Plan Treatment Plan Speech Therapy Treatment Plan: Continue Plan of Care Treatment Duration: Sep 10, 2022 Frequency: Modified Program (IRF) (Four to five times per week.) Estimated Hrs Per Day: .5 hour per day Rehab Potential: Good Pt/Family Agrees to Plan: Yes Safety Risks/Education Teaching Recipient: Patient, Significant Other Teaching Methods: Discussion Response to Teaching: Verbalize Understanding Education Topics Provided: Results, Recommendations, Plan of Care Time Speech Therapy Time In: 10:10 Speech Therapy Time Out: 10:40 DATE: Sep 02, 2022 Total Billed Time: 30 Billed Treatment Time 1, YAN THOMASON ELIZ[facility] ST Sep 02, 2022 14:33
--- NOTE | 2022-09-02 14:58 | Occupational Ther Daily Note ---
OT Current Status-Daily Note Subjective Pt alert, sitting in recliner. Pt agrees to therapy. No c/o pain. Mental Status/Objective Patient Orientation: Person, Place, Time, Situation Attachments: IV, Other-See Comments (Loop recorder) ADL-Treatment Pt agrees to shower. Pt is slightly impulsive during shower requiring verbal cues and SBA for safety. Pt ambulates to bathroom using FWW, SBA. Pt transfers to shower, SBA. SBA for shower while standing to cleanse buttocks/ana laura area stabilizing with grabbar rest of time sitting on shower bench. Pt utilizes B hands to bathe though decreased column precaster strength noted in L hand. Set up for UBD. Min A for LBD due to threading catheter. Set up for footwear. CGA for oral care while standing at sink. SBA for toileting. Therapy Code Descriptions/Definitions Functional [place] Measure: 0=Not Assessed/NA 4=Minimal Assistance 1=Total Assistance 5=Supervision or Setup 2=Maximal Assistance 6=Modified [place] 3=Moderate Assistance 7=Complete IndependenceSCALE: Activities may be completed with or without assistive devices. 8-Usiknlohen-sqsmqbe completes the activity by him/herself with no assistance from a helper. 5-Set-up or Clean-up Assistance-helper sets up or cleans up; patient completes activity. [place] assists only prior to or following the activity. 4-Supervision or Touching Assistance-helper provides verbal cues and/or touching/steadying and/or contact guard assistance as patient completes activity. Assistance may be provided throughout the activity or intermittently. 3-Partial/Moderate Assistance-helper does LESS THAN HALF the effort. [place] lifts, holds or supports trunk or limbs, but provides less than half the effort. 2-Substantial/Maximal Assistance-helper does MORE THAN HALF the effort. [place] lifts or holds trunk or limbs and provides more than half the effort. 9-Dlrzbdntx-ytlhma does ALL the effort. Patient does none of the effort to complete the activity. Or, the assistance of 2 or more helpers is required for the patient to complete the activity. If activity was not attempted, code reason: 7-Patient Refused. 9-Not Applicable-not attempted and the patient did not perform the activity before the current illness, exacerbation or injury. 10-Not Attempted due to Environmental Limitations-(lack of equipment, weather restraints, etc.). 88-Not Attempted due to Medical Conditions or Safety Concerns. Eating (QC): 5 Oral Hygiene (QC): 4 Shower/Bathe Self (QC): 4 Upper Body Dressing (QC): 5 Lower Body Dressing (QC): 4 On/Off Footwear: 5 Toileting Hygiene (QC): 4 Toilet Transfer (QC): 4 Other Treatment Pt given medium/heavy therapy sponge and theraputty given to pt for work in room to strengthen pinch/column precaster and increase fine motor dexterity/coordination. Pt demonstrated understanding of exercises given. After therapy, pt sitting in recliner with call light/phone in reach. All needs met in room. OT Short Term Goals Short Term Goals Time Frame: Sep 11, 2022 Eatin Oral hygiene: 6 Toileting hygiene: 6 OT Coordinator Of Health Services Goals Skilled Nursing Goals Acute change in mental status: 1 Inattention: 0 Disorganized thinkin Altered level of consciousness: 0 Eating (QC): 6 Oral Hygiene (QC): 6 Toileting Hygiene (QC): 6 Shower/Bathe Self (QC): 6 Upper Body Dressing (QC): 6 Lower Body Dressing (QC): 6 On/Off Footwear (QC): 6 1=Demonstrate adherence to instructed precautions during ADL tasks. 2=Patient will verbalize/demonstrate understanding of assistive devices/modifications for ADL. 3=Patient will improve strength/tolerance for activity to enable patient to perform ADL's. OT Education/Plan Problem List/Assessment Assessment: Decreased Activ Tolerance, Decreased Safety Aware, Decreased UE Strength, Impaired Bed Mobility, Impaired Cognition, Impaired Coordination, Impaired Funct Balance, Impaired Self-Care Skills, Restricted Funct UE ROM, Visual-Perceptual Deficit Discharge Recommendations Plan/Recommendations: Continue POC Treatment Plan/Plan of Care Patient would benefit from OT for education, treatment and training to promote independence in ADL's, mobility, safety and/or upper extremity function for ADL's. Plan of Care: ADL Retraining, Caregiver Training, Cognitive Retraining, Co ncurrent Therapy, Functional Mobility, Group Exercise/Act as Ind, UE Funct Exercise/Act, Visual/Perceptual Retrain Treatment Duration: Sep 17, 2022 Frequency: At least 5 of 7 days/Wk (IRF) Estimated Hrs Per Day: 1.5 hours per day Agreement: Yes Rehab Potential: Good Time Start Time: 13:00 Stop Time: 14:35 DATE: Sep 02, 2022 Total Time Billed (hr/min): 95 Billed Treatment Time 1 visit-ADL 5 (80 min) EX 1 (15 min) NATALIO GOMEZ Sep 02, 2022 14:58
[2022-09-02] MEDS: BACLOFEN 10 MG (LIORESAL) TAB PO SCH ×3 (16:11→21:19)
[2022-09-02 19:23] VITALS: BP 140/82
[2022-09-02] MEDS ORDERED: DOCUSATE SODIUM 100 MG (COLACE) CAP PO SCH (21:00)
[2022-09-02] MEDS ORDERED: SENNA W/DOCUSATE (SENOKOT S) TABLET PO SCH (21:00)
[2022-09-02] MEDS ORDERED: RT-ALBUTEROL/IPRATROPIUM 3 ML (DUONEB) VIAL INH SCH (21:00)
[2022-09-02] MEDS: DOCUSATE SODIUM 100 MG (COLACE) CAP PO SCH (21:19)
[2022-09-02] MEDS: polyethylene glycoL POWDER 17 GM (MIRALAX) PACK PO SCH (21:19)
[2022-09-02] MEDS: SENNOSIDES 8.6 MG (SENOKOT) TAB PO SCH (21:19)
[2022-09-03] MEDS: BACLOFEN 10 MG (LIORESAL) TAB PO SCH ×6 (00:49→21:00)
[2022-09-03 06:18] LABS: BASOPHILS # (AUTO) 0.1 10^3/uL (0.0-0.1); BASOPHILS % (AUTO) 1 % (0-10); EOSINOPHILS % (AUTO) 10 % (0-10); HEMATOCRIT 44 % (40-54); HEMOGLOBIN 14.8 g/dL (13.3-17.7); LYMPHOCYTES # (AUTO) 1.7 10^3/uL (1.0-4.0); LYMPHOCYTES % (AUTO) 17 % (12-44); MEAN CORPUSCULAR HEMOGLOBIN 30 pg (25-34); MEAN CORPUSCULAR HGB CONC 34 g/dL (32-36); MEAN CORPUSCULAR VOLUME 90 fL (80-99); MEAN PLATELET VOLUME 10.5 fL (9.0-12.2); MONOCYTES # (AUTO) 0.8 10^3/uL (0.0-1.0); MONOCYTES % (AUTO) 8 % (0-12); NEUTROPHILS # (AUTO) 6.6 10^3/uL (1.8-7.8); NEUTROPHILS % (AUTO) 64 % (42-75); PLATELET COUNT 242 10^3/uL (130-400); WHITE BLOOD COUNT 10.2 10^3/uL (4.3-11.0)
[2022-09-03 06:32] LABS: ALBUMIN 3.5 GM/DL (3.2-4.5)
[2022-09-03 06:33] LABS: CALCIUM 8.9 MG/DL (8.5-10.1)
[2022-09-03 06:35] LABS: TOTAL PROTEIN 6.3 GM/DL (6.4-8.2)
[2022-09-03 06:36] LABS: BILIRUBIN,TOTAL 0.7 MG/DL (0.1-1.0)
[2022-09-03 06:38] LABS: CREATININE SERUM 0.79 MG/DL (0.60-1.30)
[2022-09-03] MEDS: MULTIVIT W/MINERALS TAB (THERAGRAN M) PO SCH (06:53)
[2022-09-03 08:00] VITALS: BP 120/77
[2022-09-03] MEDS: ASPIRIN E.C. 81 MG (ECOTRIN) TAB PO SCH (08:16)
[2022-09-03] MEDS: CEPHALEXIN 250 MG (KEFLEX) CAP PO SCH ×3 (08:16→20:59)
[2022-09-03] MEDS: SENNOSIDES 8.6 MG (SENOKOT) TAB PO SCH ×3 (08:16→21:12)
[2022-09-03] MEDS: polyethylene glycoL POWDER 17 GM (MIRALAX) PACK PO SCH ×2 (08:16→21:12)
[2022-09-03] MEDS: lisINopril 40 MG (PRINIVIL) TABLET PO SCH (08:16)
[2022-09-03] MEDS: amLODIPine 5 MG (NORVASC) TAB PO SCH (08:16)
[2022-09-03] MEDS: CLOPIDOGREL 75 MG (PLAVIX) TABLET PO SCH (08:16)
[2022-09-03] MEDS: DOCUSATE SODIUM 100 MG (COLACE) CAP PO SCH ×3 (08:17→21:00)
[2022-09-03] MEDS: ENOXAPARIN 40 MG/0.4 ML (LOVENOX) SYR SC SCH (08:17)
--- NOTE | 2022-09-03 11:04 | Occupational Ther Daily Note ---
OT Current Status-Daily Note Subjective Pt alert, sitting in recliner. present during session. Pt agrees to therapy. No c/o pain at this time. Mental Status/Objective Patient Orientation: Person, Place, Time, Situation Attachments: Cam Catheter, Other-See Comments (loop recorder) ADL-Treatment Pt agrees to sponge bath. Pt takes increased time to complete tasks. Set up with bath pack, pt able to complete sponge bath with only SBA when standing to cleanse buttocks. Set up and positioning shirt then pt able to don shirt by self. Assist to thread cam then pt able to thread feet by self then SBA while pt stood to hike pants over hips. Set up for footwear. SBA while standing at sink to complete oral care. Therapy Code Descriptions/Definitions Functional [place] Measure: 0=Not Assessed/NA 4=Minimal Assistance 1=Total Assistance 5=Supervision or Setup 2=Maximal Assistance 6=Modified [place] 3=Moderate Assistance 7=Complete IndependenceSCALE: Activities may be completed with or without assistive devices. 3-Anczpczyns-bsvmifh completes the activity by him/herself with no assistance from a helper. 5-Set-up or Clean-up Assistance-helper sets up or cleans up; patient completes activity. [place] assists only prior to or following the activity. 4-Supervision or Touching Assistance-helper provides verbal cues and/or touching/steadying and/or contact guard assistance as patient completes activity. Assistance may be provided throughout the activity or intermittently. 3-Partial/Moderate Assistance-helper does LESS THAN HALF the effort. [place] lifts, holds or supports trunk or limbs, but provides less than half the effort. 2-Substantial/Maximal Assistance-helper does MORE THAN HALF the effort. [place] lifts or holds trunk or limbs and provides more than half the effort. 1-Arqoupqmo-niylym does ALL the effort. Patient does none of the effort to complete the activity. Or, the assistance of 2 or more helpers is required for the patient to complete the activity. If activity was not attempted, code reason: 7-Patient Refused. 9-Not Applicable-not attempted and the patient did not perform the activity before the current illness, exacerbation or injury. 10-Not Attempted due to Environmental Limitations-(lack of equipment, weather restraints, etc.). 88-Not Attempted due to Medical Conditions or Safety Concerns. Eating (QC): 5 Oral Hygiene (QC): 4 Shower/Bathe Self (QC): 4 Upper Body Dressing (QC): 5 Lower Body Dressing (QC): 3 On/Off Footwear: 5 Other Treatment Pt given theraband B UE exercise HEP and medium resistance thera-tubing for use in room and at home. Skilled instruction to pt and for correct technique and modifications when needed. Pt demonstrated understanding of 5 exercises, 1 set 10 reps. Pt and instructed that all exercises were alternating R/L UE due to weakness of L UE, instructed to stabilize with opposite UE while the other completed movement of exercises to increase strength. Pt given nut/bolt task in room to work on throughout weekend or when not in therapy for B UE tasks and fine motor strengthening. Pt working on eye/hand coordination with small objects placing near/far while reaching L/R with each hand. Pt demonstrates eye movement in all planes. 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 Pt has good AROM through L UE though weakness and decreased coordination noted. After session, pt sitting in recliner with call light/phone in reach. All needs met in room. Education OT Patient Education: Exercise program Teaching Recipient: Patient, Family Teaching Methods: Demonstration, Handout, Discussion Response to Teaching: Verbalize Understanding, Return Demonstration OT Short Term Goals Short Term Goals Time Frame: Sep 11, 2022 Eatin Oral hygiene: 6 Toileting hygiene: 6 OT Care Home Goals Childcare Administrator Goals Acute change in mental status: 1 Inattention: 0 Disorganized thinkin Altered level of consciousness: 0 Eating (QC): 6 Oral Hygiene (QC): 6 Toileting Hygiene (QC): 6 Shower/Bathe Self (QC): 6 Upper Body Dressing (QC): 6 Lower Body Dressing (QC): 6 On/Off Footwear (QC): 6 1=Demonstrate adherence to instructed precautions during ADL tasks. 2=Patient will verbalize/demonstrate understanding of assistive devices/modifications for ADL. 3=Patient will improve strength/tolerance for activity to enable patient to perform ADL's. OT Education/Plan Problem List/Assessment Assessment: Decreased Activ Tolerance, Decreased Safety Aware, Decreased UE Strength, Impaired Coordination, Impaired Funct Balance, Impaired Self-Care Skills, Visual-Perceptual Deficit Discharge Recommendations Plan/Recommendations: Continue POC Treatment Plan/Plan of Care Patient would benefit from OT for education, treatment and training to promote independence in ADL's, mobility, safety and/or upper extremity function for ADL's. Plan of Care: ADL Retraining, Caregiver Training, Cognitive Retraining, Concurrent Therapy, Functional Mobility, Group Exercise/Act as Ind, UE Funct Exercise/Act, Visual/Perceptual Retrain Treatment Duration: Sep 17, 2022 Frequency: At least 5 of 7 days/Wk (IRF) Estimated Hrs Per Day: 1.5 hours per day Agreement: Yes Rehab Potential: Good Time Start Time: 09:15 Stop Time: 10:25 DATE: Sep 03, 2022 Total Time Billed (hr/min): 70 Billed Treatment Time 1 visit-ADL 3 (40 min) EX 2 (30 min) NATALIO GOMEZ Sep 03, 2022 11:04
--- NOTE | 2022-09-03 11:52 | Physical Therapy Daily Note ---
PT Daily Note-Current Subjective Pt reports he is doing well today, denies pain, and is agreeable to PT. Pain Numeric Pain Scale: 0-No Pain Location: No Pain Reported Section J - Health Conditions 1. Rarely or not at all 2. Occasionally 3. Frequently 4. Almost constantly 8. Unable to answer Pain Effect on Sleep: 1 Pain Interference with Therapy: 1 Pain Interference w/Day-to-Day: 1 Mental Status Attachments: Arellano Catheter Transfers SCALE: Activities may be completed with or without assistive devices. 7-Ihjvjyspsq-ytuxtdi completes the activity by him/herself with no assistance from a helper. 5-Set-up or Clean-up Assistance-helper sets up or cleans up; patient completes activity. [place] assists only prior to or following the activity. 4-Supervision or Touching Assistance-helper provides verbal cues and/or touching/steadying and/or contact guard assistance as patient completes activity. Assistance may be provided throughout the activity or intermittently. 3-Partial/Moderate Assistance-helper does LESS THAN HALF the effort. [place] lifts, holds or supports trunk or limbs, but provides less than half the effort. 2-Substantial/Maximal Assistance-helper does MORE THAN HALF the effort. [place] lifts or holds trunk or limbs and provides more than half the effort. 2-Zcshxknwl-xhmkdw does ALL the effort. Patient does none of the effort to complete the activity. Or, the assistance of 2 or more helpers is required for the patient to complete the activity. If activity was not attempted, code reason: 7-Patient Refused. 9-Not Applicable-not attempted and the patient did not perform the activity before the current illness, exacerbation or injury. 10-Not Attempted due to Environmental Limitations-(lack of equipment, weather restraints, etc.). 88-Not Attempted due to Medical Conditions or Safety Concerns. Sit to Stand (QC): 4 Chair/Zci-nd-Gqxmf Xfer(QC): 4 Weight Bearing Right Lower Extremity: Right Full Weight Bearing Left Lower Extremity: Left Full Weight Bearing Gait Training Does the Patient Walk?: Yes Distance: 300ft x 2 Walk 10 feet (QC): 4 Walk 50 ft with 2 Turns(QC): 4 Walk 150 ft (QC): 4 Gait Persons Needed: 1 Gait Assistive Device: FWW Wheelchair Training Does the Pt Use a Wheelchair?: No Treatments Pt completed functional transfers with SBA. Pt ambulated 300ft x 2 with the FWW and CGA. Pt completed seated B LE Ther Ex x 15 reps each with the red Tband. Pt completed 15 min on the nu-step on level 2. Pt and spouse edu on HEP, with handouts provided. Assessment Current Status: Good Progress Pt tolerated PT well with good effort PT Detention Goals Detention Goals PT Sourcing Assistant Goals Time Frame: Sep 10, 2022 Roll Left & Right (QC): 6 (Pt will be Mod I with all aspects of functional mobility, with the least restrictive AD, to be at PLOF. ) Sit to Lying (QC): 6 (Pt will be Mod I with all aspects of functional mobility, with the least restrictive AD, to be at PLOF. ) Lying-Sitting on Side/Bed(QC): 6 (Pt will be Mod I with all aspects of functional mobility, with the least restrictive AD, to be at PLOF. ) Sit to Stand (QC): 6 (Pt will be Mod I with all aspects of functional mobility, with the least restrictive AD, to be at PLOF. ) Chair/Ein-ke-Cwseq Xfer(QC): 6 (Pt will be Mod I with all aspects of functional mobility, with the least restrictive AD, to be at PLOF. ) Toilet Transfer (QC): 6 (Pt will be Mod I with all aspects of functional mobility, with the least restrictive AD, to be at PLOF. ) Car Transfer (QC): 6 (Pt will be Mod I with all aspects of functional mobility, with the least restrictive AD, to be at PLOF. ) Does the Patient Walk: Yes Walk 10 feet (QC): 6 (Pt will be Mod I with all aspects of functional mobility, with the least restrictive AD, to be at PLOF. ) Walk 50ft with 2 Turns (QC): 6 (Pt will be Mod I with all aspects of functional mobility, with the least restrictive AD, to be at PLOF. ) Walk 150 ft (QC): 6 (Pt will be Mod I with all aspects of functional mobility, with the least restrictive AD, to be at PLOF. ) Walking 10ft on Uneven Surface: 6 (Pt will be Mod I with all aspects of functional mobility, with the least restrictive AD, to be at PLOF. ) 1 Step (curb) (QC): 6 (Pt will be Mod I with all aspects of functional mobility, with the least restrictive AD, to be at PLOF. ) 4 Steps (QC): 6 (Pt will be Mod I with all aspects of functional mobility, with the least restrictive AD, to be at PLOF. ) 12 Steps (QC): 6 (Pt will be Mod I with all aspects of functional mobility, with the least restrictive AD, to be at PLOF. ) Picking up an Object (QC): 6 (Pt will be Mod I with all aspects of functional mobility, with the least restrictive AD, to be at PLOF. ) Does the Pt use WC or Scooter?: No Wheel 50 feet with 2 turns (QC: 9 Type: N/A Wheel 150 feet: 9 Type: N/A PT Plan Problem List Problem List: Activity Tolerance, Functional Strength, Safety, Balance, Gait, T ransfer, Bed Mobility Treatment/Plan Treatment Plan: Continue Plan of Care Treatment Plan: Bed Mobility, Concurrent Therapy, Education, Functional Activity Satinder, Functional Strength, Group Therapy, Gait, Safety, Therapeutic Exercise, Transfers Treatment Duration: Sep 10, 2022 Frequency: At least 5 of 7 days/Wk (IRF) Estimated Hrs Per Day: 1.5 hours per day Patient and/or Family Agrees t: Yes Safety Risks/Education Patient Education: Gait Training, Transfer Techniques, Issued Written HEP, Safety Issues Teaching Recipient: Patient, Significant Other Teaching Methods: Demonstration, Discussion Response to Teaching: Verbalize Understanding, Return Demonstration, Reinforcement Needed Discharge Recommendations Therapy Discharge Recommendati: Home & Family Equpiment Recommendations-D/C: Straight Cane, Front Wheeled Walker, Shower Chair Discharge Status/Home Program Cont per POC Barriers to Progress Weakness Target Placement Home with spouse Time Time In: 1045 Time Out: 1145 DATE: Sep 03, 2022 Total Billed Treatment Time: 60 Total Billed Treatment 60 min 1 visit EX x 1 FA x 1 GT x 2 IMELDA TRIVEDI PT Sep 03, 2022 11:52
--- NOTE | 2022-09-03 12:31 | Individualized Plan of Care ---
Individualized Plan of Care Rehab Nursing IPOC Order Admission Date Sep 02, 2022 at 09:47 Current Orders Orders Admission Arrival Bed Request (09/02/22 09:47) General/Regular (09/02/22 Lunch) Code/Resuscitation (09/02/22 10:35) Admission Order(Inpt,Obs,Sdc) (09/02/22 11:50) Vital Signs: Per Unit Policy ( (09/02/22 11:50) Inder Hose (09/02/22 11:50) Sequential Compression Device (09/02/22 11:50) Degreaser Operator-Inpt Rehab Con (09/02/22 11:50) Rehab Nursing Orders-Ipoc (09/02/22 11:50) Physical Therapy Rehab Orders (09/02/22 11:50) Occupational Therapy Rehab Ord (09/02/22 11:50) Speech Therapy Rehab Orders (09/02/22 11:50) Cbc With Automated Diff (09/03/22 06:00) Comprehensive Metabolic Panel (09/03/22 06:00) Precautions (Aru) (09/02/22 11:50) Weekly Weight WEEK (09/02/22 11:50) Rehab-Intensity Of Therapy (09/02/22 11:50) Initiate Admission Nursing Pro .admission (09/02/22 11:50) Alprazolam Tablet (Xanax Tablet) (09/02/22 12:00) Calcium Carbonate Chew Tablet (Antacid C (09/02/22 12:00) Diphenhydramine Tablet (Benadryl Tablet) (09/02/22 12:00) Docusate Sodium Capsule (Colace Capsule) (09/02/22 21:00) Docusate Sodium Capsule (Colace Capsule) (09/02/22 12:00) Bisacodyl Suppository (Dulcolax Supposit (09/02/22 12:00) Lactulose Oral Solution (Enulose Oral So (09/02/22 12:00) Na Phos/Na Biphos Enema (Fleet Enema Narayan (09/02/22 12:00) Guaifenesin/Codeine Syrup (Robitussin Ac (09/02/22 12:00) Loperamide Tablet (Imodium Tablet) (09/02/22 12:00) Melatonin Tablet (Melatonin Tablet) (09/02/22 12:00) Polyethylene Glycol Powder Pkt (Miralax (09/02/22 21:00) Ondansetron Oral Dissolve Tab (Zofran (09/02/22 12:00) Senna S Tablet (Senokot S Tablet) (09/02/22 21:00) Acetaminophen Tablet/Caplet (Tylenol T (09/02/22 12:00) Initiate Admission Nursing Pro .admission (09/02/22 11:50) Pet Pass (09/02/22 11:50) Code/Resuscitation (09/02/22 11:53) Incentive Spirometry (Nursing) Q2H (09/02/22 11:53) Alprazolam Tablet (Xanax Tablet) (09/02/22 12:00) Albuterol Pre-Mix Nebs (Rt) (Proventil (09/02/22 12:00) Aspirin Enteric Coated Tablet (Ecotrin T (09/03/22 09:00) Atorvastatin Tablet (Lipitor Tablet) (09/03/22 09:00) Baclofen Tablet (Lioresal Tablet) (09/02/22 12:00) Diphenhydramine Injection (Benadryl Inje (09/02/22 12:00) Diphenhydramine Tablet (Benadryl Tablet) (09/02/22 12:00) Docusate Sodium Capsule (Colace Capsule) (09/02/22 21:00) Bisacodyl Suppository (Dulcolax Supposit (09/02/22 12:00) Lactulose Oral Solution (Enulose Oral So (09/02/22 12:00) Loratadine Tablet (Claritin Tablet) (09/02/22 12:00) Melatonin Tablet (Melatonin Tablet) (09/02/22 12:00) Magnesium Hydroxide Oral Susp (Mom Oral (09/02/22 12:00) Polyethylene Glycol Powder Pkt (Miralax (09/02/22 12:00) Antacid Suspension (Mylanta Suspension (09/02/22 12:00) Oxybutynin Tablet (Ditropan Tablet) (09/02/22 12:00) Clopidogrel Tablet (Plavix Tablet) (09/03/22 09:00) Sennosides Tablet (Senokot Tablet) (09/02/22 21:00) Therapeutic Multivitamin Tab (Vitamins, (09/03/22 07:00) Calcium Carbonate Chew Tablet (Antacid C (09/02/22 12:00) Acetaminophen Tablet/Caplet (Tylenol T (09/02/22 12:00) Ondansetron Injection (Zofran Injectio (09/02/22 12:00) Ondansetron Oral Dissolve Tab (Zofran (09/02/22 12:00) Amlodipine Tablet (Norvasc Tablet) (09/03/22 09:00) Lisinopril Tablet (Zestril Tablet) (09/03/22 09:00) Oxycodone Immediate Rel Tablet (Oxyir Ta (09/02/22 12:00) Tramadol Tablet (Ultram Tablet) (09/02/22 12:00) Consult Cardiology (09/02/22 11:53) Incentive Spirometry Initial (09/02/22 11:53) Mat Initiate Protocol (09/02/22 11:53) Follow-Up Appointment (09/02/22 11:53) Svn Small Volume Nebulizer (09/02/22 11:53) Incentive Spirometry (Nursing) Q2H (09/02/22 11:53) Enoxaparin Injection (Lovenox Injection) (09/03/22 09:00) Albuterol/Ipra Inhalation Soln (Duoneb I (09/02/22 21:00) Albuterol/Ipra Inhalation Soln (Duoneb I (09/02/22 12:45) Svn Small Volume Nebulizer (09/02/22 12:33) Svn Small Volume Nebulizer (09/02/22 12:33) Communication For Respiratory (09/02/22 12:33) Patient Visit (09/02/22 ) Pt Eval Moderate Complexity (09/02/22 ) Functional Activities, Ea 15 (09/02/22 ) Patient Visit (09/02/22 ) Speech Sound Lang Comp (09/02/22 ) Treat. Speech/Lang/Voice (09/02/22 ) Cephalexin Capsule (Keflex Capsule) (09/03/22 09:00) Patient Visit (09/03/22 ) Exercise Therap, Ea 15 Min (09/03/22 ) Functional Activities, Ea 15 (09/03/22 ) Gait Training, Ea 15 Min (09/03/22 ) Rehab Nursing Orders: Ongoing Assess. of Cognitive Status, Ongoing Assess. of Function Status, Bladder Management, Bladder Scan, Bladder Training, Bowel Management, Bowel Training, Disease Management & Educaiton, DVT Prophylaxis, Fall Prevention, Fluid/Electrolyte/Nutrition Mgmt, Infection Prevention, Medication Management & Education, Management of Risks & Complications, Management of Skin Intergrity, Nutrition Management, Pain Management, Patient/Family Support, Safety Management Intensity of Therapy to be met Patient to be seen: Min.3h per day/5 of 7d PT IPOC Problem List: Activity Tolerance, Functional Strength, Safety, Balance, Gait, Transfer, Bed Mobility Treatment Plan: Continue Plan of Care Bed Mobility, Concurrent Therapy, Education, Functional Activity Satinder, Functional Strength, Group Therapy, Gait, Safety, Therapeutic Exercise, Transfers Treatment Duration: Sep 10, 2022 Frequency: At least 5 of 7 days/Wk (IRF) Estimated Hrs Per Day: 1.5 hours per day OT IPOC Problems: Decreased Activ Tolerance, Decreased Safety Aware, Decreased UE Str ength, Impaired Coordination, Impaired Funct Balance, Impaired Self-Care Skills, Visual-Perceptual Deficit OT Treatment, Training and Edu: Yes Plan of Care: ADL Retraining, Caregiver Training, Cognitive Retraining, Concurrent Therapy, Functional Mobility, Group Exercise/Act as Ind, UE Funct Exercise/Act, Visual/Perceptual Retrain Treatment Duration: Sep 17, 2022 Frequency: At least 5 of 7 days/Wk (IRF) Estimated Hrs Per Day: 1.[address] IPOC Speech Therapy Treatment Plan: Continue Plan of Care Treatment Duration: Sep 10, 2022 Frequency: Modified Program (IRF) (Four to five times per week.) Estimated Hrs Per Day: .5 hour per day Degreaser Operator/Case Mgmt Degreaser Operator/Case Managemen: Discharge Planning Dietitian/Scientific Publications Editor Dietitian/Scientific Publications Editor to monitor nutritional status and make changes and/or recommendations as needed and work with speech pathology on dietary upgrades as the occur. 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 expressive aphasia with slurred speech status post loop recorder maintained on Plavix and aspirin statin and home blood pressure medicine along with Proteus UTI with indwelling Arellano since prostatectomy for prostate cancer we will need close monitoring for high risk for decompensation Medical Issues: Bowel/Bladder Function, DVT Prophylaxis, Falls Precautions, Fluid/Electrolyte/Nutrition Balance, Wound Care Brief Synthesis of Preadmission Screen, Post-Admission Evaluation, and Therapy Evaluations: PT and OT will focus on higher level of functioning with aggressive rehab in order to regain function with use of assistive devices and aggressive speech therapy to help thought processes Medical Prognosis: Good Anticipated Length of Stay: 10 days ELISABETH STALEY DO Sep 03, 2022 12:31
--- NOTE | 2022-09-03 12:31 | PM&R Progress Note ---
Subjective HPI/CC On Admission Date Seen by Provider: Sep 03, 2022 Time Seen by Provider: 12:30 Subjective/Events-last exam 09/03/2022: Patient doing really well Participating in all therapy Gaining strength Arellano catheter will remain in place until Dr. Barron makes decision on Tuesday Maintain on antibiotics for UTI Review of Systems General: Fatigue, Malaise Objective Exam Vital Signs Vital Signs Date Time Temp Pulse Resp B/P (MAP) Pulse Ox O2 Delivery O2 Flow Rate FiO2 09/03/22 09:00 Room Air 09/03/22 08:00 35.7 76 18 120/77 (91) 97 09/02/22 21:43 0.00 21 Capillary Refill : General Appearance: No Apparent Distress, WD/WN, Chronically ill, Obese HEENT: PERRL/EOMI, Normal ENT Inspection, Pharynx Normal Neck: Full Range of Motion, Normal Inspection, Non Tender, Supple, Carotid Bruit Respiratory: Chest Non Tender, Lungs Clear, Normal Breath Sounds, No Accessory Muscle Use, No Respiratory Distress Cardiovascular: Regular Rate, Rhythm, No Edema, No Gallop, No JVD, No Murmur, Normal Peripheral Pulses Gastrointestinal: Normal Bowel Sounds, No Organomegaly, No Pulsatile Mass, Non Tender, Soft Back: Normal Inspection, No CVA Tenderness, No Vertebral Tenderness Extremity: Normal Capillary Refill, Normal Inspection, Normal Range of Motion, Non Tender, No Calf Tenderness, No Pedal Edema Neurologic/Psychiatric: Alert, Oriented x3, Normal Mood/Affect, Abnormal Gait, Depressed Affect, Facial Droop ( left side), Motor Weakness ( left arm 3/5 and left hand 2/5) Skin: Normal Color, Warm/Dry Lymphatic: No Adenopathy Results/Procedures Lab Laboratory Tests 09/03/22 05:10 Patient resulted labs reviewed. FIM Transfers Therapy Code Descriptions/Definitions Functional [place] Measure: 0=Not Assessed/NA 4=Minimal Assistance 1=Total Assistance 5=Supervision or Setup 2=Maximal Assistance 6=Modified [place] 3=Moderate Assistance 7=Complete IndependenceSCALE: Activities may be completed with or without assistive devices. 3-Yxttcydwkf-vvhloct completes the activity by him/herself with no assistance from a helper. 5-Set-up or Clean-up Assistance-helper sets up or cleans up; patient completes activity. [place] assists only prior to or following the activity. 4-Supervision or Touching Assistance-helper provides verbal cues and/or touching/steadying and/or contact guard assistance as patient completes activity. Assistance may be provided throughout the activity or intermittently. 3-Partial/Moderate Assistance-helper does LESS THAN HALF the effort. [place] lifts, holds or supports trunk or limbs, but provides less than half the effort. 2-Substantial/Maximal Assistance-helper does MORE THAN HALF the effort. [place] lifts or holds trunk or limbs and provides more than half the effort. 2-Ohsojsuuk-vpuqvi does ALL the effort. Patient does none of the effort to complete the activity. Or, the assistance of 2 or more helpers is required for the patient to complete the activity. If activity was not attempted, code reason: 7-Patient Refused. 9-Not Applicable-not attempted and the patient did not perform the activity before the current illness, exacerbation or injury. 10-Not Attempted due to Environmental Limitations-(lack of equipment, weather restraints, etc.). 88-Not Attempted due to Medical Conditions or Safety Concerns. Roll Left to Right (QC): 4 (SBA) Sit to Lying (QC): 4 (SBA) Sit to Stand (QC): 4 Chair/Svj-gk-Btbwa Xfer(QC): 4 Car Transfer (QC): 4 (CGA ) Gait Training Does the Patient Walk?: Yes Distance: 300ft x 2 Walk 10 feet (QC): 4 Walk 50 ft with 2 Turns(QC): 4 Walk 150 ft (QC): 4 Walking 10ft/uneven surface-QC: 4 (CGA) Gait Persons Needed: 1 Gait Assistive Device: FWW Wheelchair Training Does the Pt Use a Wheelchair?: No Wheel 50 ft with 2 turns (QC): 9 Wheel 150 ft (QC): 9 Type of Wheelchair: N/A Stair Training #of Steps: 12 1 Step (curb) (QC): 4 (CGA) 4 Steps (QC): 4 (CGA) 12 Steps (QC): 4 (CGA) Balance Picking up an Object (QC): 4 (SBA ) ADL-Treatment Eating (QC): 5 Oral Hygiene (QC): 4 Shower/Bathe Self (QC): 4 Upper Body Dressing (QC): 5 Lower Body Dressing (QC): 3 On/Off Footwear (QC): 5 Toileting Hygiene (QC): 4 Toilet Transfer (QC): 4 Assessment/Plan Assessment and Plan Assess & Plan/Chief Complaint Assessment: 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 Boudreaux consulted and will manage conservatively Hypertension Hyperlipidemia Fatty liver Plan: Aggressive rehab Speech therapy Plavix aspirin statin PT and OT 09/03/2022: Supportive care Aggressive rehab (1) Stroke Status: Acute ELISABETH STALEY DO Sep 03, 2022 12:31
--- NOTE | 2022-09-03 12:32 | Speech Therapy Daily Note ---
Speech Daily Progress Note Subjective Date Seen by Provider: Sep 03, 2022 Time Seen by Provider: 08:45 The patient was seated upright in recliner, awake and alert, upon entrance to the patient's room by the clinician. The patient greeted the clinician appropriately and was agreeable to participation in the skilled speech, language and cognitive treatment session. Objective - Orientation: With the use of the in-room white board, the patient displayed 100% accuracy with orientation information. The patient states, "Since retiring, I don't keep track of that stuff much anymore." - Oral Motor Exercises: The previously presented oral motor exercises were reviewed and the clinician introduced lingual resistance exercises with a tongue depressor on this date. The patient performed the oral motor exercises with fair accuracy while continuing to require direct modeling for completion. - Check Writing: The patient was presented with fake checks and information regarding fake bills to use to fill in the checks. The patient completed the exercise with 100% accuracy with mild clinician verbal cueing and increased processing time. Assessment Assessment Current Status: Good Progress Treatment Plan Continue Plan of Care Speech Short Term Goals Short Term Goals Short Term Goals 1. The patient will demonstrate oral motor exercises with 90% accuracy, independently. Speech Nursing Home Goals Nursing Home Goals 1. The patient will demonstrate improved cognitive communication for safe discharge to the least restrictive environment. Time Frame: Ten Days. Speech-Plan Treatment Plan Speech Therapy Treatment Plan: Continue Plan of Care Treatment Duration: Sep 10, 2022 Frequency: Modified Program (IRF) (Four to five times per week.) Estimated Hrs Per Day: .5 hour per day Rehab Potential: Good Safety Risks/Education Teaching Recipient: Patient Teaching Methods: Demonstration, Handout, Discussion Response to Teaching: Return Demonstration, Reinforcement Needed Education Topics Provided: Oral Motor Exercises, Orientation Strategies Time Speech Therapy Time In: 08:45 Speech Therapy Time Out: 09:15 DATE: Sep 03, 2022 Total Billed Time: 30 Billed Treatment Time 1YAN EL[address] ST Sep 03, 2022 12:32
--- NOTE | 2022-09-03 14:25 | Therapy Group Daily Note ---
Therapy Daily Group Note Patient Education Topic Home Safety Exercises LE Seated Exercise, UE Exercise Session Ratio (pt:therapist): 3:1 Goal of Session: Education on ARU Expectations, Home Safety Strategies, UE/LE Strengthing, Use of Adaptive Equipment Goal Met for this Session: Yes Pt Benefit of Group: Contributions to Others, F/U Use of Strategies @Home, Increased Functional Safety, Increased Functional Strength, Improved Cognition, Recognition of Peers, Socialization Other/Notes Pt ambulated to therapy gym for OT group. Group consisted of introductions (name, place living, favorite restaurant), socialization, B UE/LE seated exercises and educational topic on home safety/AE. Pt introduced self appropriately and actively listened to peers. Pt was able to verbalize understanding of educational topic by answering trivia questions on topic and give personal strategies used at home. Pt able to complete B UE/LE exercises with modifications due to R shldr/scapular precautions. After session, pt sitting EOB with call light/phone in reach. All needs met in room. Start Time: 13:00 Stop Time: 14:00 Total Billed Treatment Time: 60 Total Billed Treatment 1 visit-GRP NATALIO GOMEZ Sep 03, 2022 14:25
[2022-09-03 21:00] VITALS: BP 128/81
[2022-09-04] MEDS: BACLOFEN 10 MG (LIORESAL) TAB PO SCH ×6 (00:11→20:30)
--- NOTE | 2022-09-04 06:42 | PM&R Progress Note ---
Subjective HPI/CC On Admission Date Seen by Provider: Sep 04, 2022 Time Seen by Provider: 12:00 Subjective/Events-last exam 09/04/2022: Doing really well No pain reported Participating in therapy No falls 09/03/2022: Patient doing really well Participating in all therapy Gaining strength Arellano catheter will remain in place until Dr. Barron makes decision on Tuesday Maintain on antibiotics for UTI Review of Systems General: Fatigue, Malaise Objective Exam Vital Signs Vital Signs Date Time Temp Pulse Resp B/P (MAP) Pulse Ox O2 Delivery O2 Flow Rate FiO2 09/04/22 09:00 Room Air 09/04/22 07:52 36.1 68 16 123/76 (92) 96 0.00 0.00 09/02/22 21:43 21 Capillary Refill : General Appearance: No Apparent Distress, WD/WN, Chronically ill, Obese HEENT: PERRL/EOMI, Normal ENT Inspection, Pharynx Normal Neck: Full Range of Motion, Normal Inspection, Non Tender, Supple, Carotid Bruit Respiratory: Chest Non Tender, Lungs Clear, Normal Breath Sounds, No Accessory Muscle Use, No Respiratory Distress Cardiovascular: Regular Rate, Rhythm, No Edema, No Gallop, No JVD, No Murmur, Normal Peripheral Pulses Gastrointestinal: Normal Bowel Sounds, No Organomegaly, No Pulsatile Mass, Non Tender, Soft Back: Normal Inspection, No CVA Tenderness, No Vertebral Tenderness Extremity: Normal Capillary Refill, Normal Inspection, Normal Range of Motion, Non Tender, No Calf Tenderness, No Pedal Edema Neurologic/Psychiatric: Alert, Oriented x3, Normal Mood/Affect, Abnormal Gait, Depressed Affect, Facial Droop ( left side), Motor Weakness ( left arm 3/5 and left hand 2/5) Skin: Normal Color, Warm/Dry Lymphatic: No Adenopathy Results/Procedures Lab Patient resulted labs reviewed. FIM Transfers Therapy Code Descriptions/Definitions Functional [place] Measure: 0=Not Assessed/NA 4=Minimal Assistance 1=Total Assistance 5=Supervision or Setup 2=Maximal Assistance 6=Modified [place] 3=Moderate Assistance 7=Complete IndependenceSCALE: Activities may be completed with or without assistive devices. 9-Bnsswgtyhz-ltgyzez completes the activity by him/herself with no assistance fr om a helper. 5-Set-up or Clean-up Assistance-helper sets up or cleans up; patient completes activity. [place] assists only prior to or following the activity. 4-Supervision or Touching Assistance-helper provides verbal cues and/or touching/steadying and/or contact guard assistance as patient completes activity. Assistance may be provided throughout the activity or intermittently. 3-Partial/Moderate Assistance-helper does LESS THAN HALF the effort. [place] lifts, holds or supports trunk or limbs, but provides less than half the effort. 2-Substantial/Maximal Assistance-helper does MORE THAN HALF the effort. [place] lifts or holds trunk or limbs and provides more than half the effort. 1-Nhcwwpnqt-solzhc does ALL the effort. Patient does none of the effort to complete the activity. Or, the assistance of 2 or more helpers is required for the patient to complete the activity. If activity was not attempted, code reason: 7-Patient Refused. 9-Not Applicable-not attempted and the patient did not perform the activity before the current illness, exacerbation or injury. 10-Not Attempted due to Environmental Limitations-(lack of equipment, weather restraints, etc.). 88-Not Attempted due to Medical Conditions or Safety Concerns. Roll Left to Right (QC): 4 (SBA) Sit to Lying (QC): 4 (SBA) Sit to Stand (QC): 4 Chair/Evl-un-Puxpi Xfer(QC): 4 Car Transfer (QC): 4 (CGA ) Gait Training Does the Patient Walk?: Yes Distance: 300ft x 2 Walk 10 feet (QC): 4 Walk 50 ft with 2 Turns(QC): 4 Walk 150 ft (QC): 4 Walking 10ft/uneven surface-QC: 4 (CGA) Gait Persons Needed: 1 Gait Assistive Device: FWW Wheelchair Training Does the Pt Use a Wheelchair?: No Wheel 50 ft with 2 turns (QC): 9 Wheel 150 ft (QC): 9 Type of Wheelchair: N/A Stair Training #of Steps: 12 1 Step (curb) (QC): 4 (CGA) 4 Steps (QC): 4 (CGA) 12 Steps (QC): 4 (CGA) Balance Picking up an Object (QC): 4 (SBA ) ADL-Treatment Eating (QC): 5 Oral Hygiene (QC): 4 Shower/Bathe Self (QC): 4 Upper Body Dressing (QC): 5 Lower Body Dressing (QC): 3 On/Off Footwear (QC): 5 Toileting Hygiene (QC): 4 Toilet Transfer (QC): 4 Assessment/Plan Assessment and Plan Assess & Plan/Chief Complaint Assessment: 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 Boudreaux consulted and will manage conservatively Hypertension Hyperlipidemia Fatty liver Plan: Aggressive rehab Speech therapy Plavix aspirin statin PT and OT 09/03/2022: Supportive care Aggressive rehab 09/04/2022: Continue aggressive rehab (1) Stroke Status: Acute ELISABETH STALEY DO Sep 04, 2022 06:42
[2022-09-04] MEDS: MULTIVIT W/MINERALS TAB (THERAGRAN M) PO SCH (06:56)
[2022-09-04 07:52] VITALS: BP 123/76
[2022-09-04] MEDS: polyethylene glycoL POWDER 17 GM (MIRALAX) PACK PO SCH ×2 (08:22→20:30)
[2022-09-04] MEDS: SENNOSIDES 8.6 MG (SENOKOT) TAB PO SCH ×2 (08:22→20:30)
[2022-09-04] MEDS: DOCUSATE SODIUM 100 MG (COLACE) CAP PO SCH ×2 (08:22→20:30)
[2022-09-04] MEDS: CLOPIDOGREL 75 MG (PLAVIX) TABLET PO SCH (08:22)
[2022-09-04] MEDS: CEPHALEXIN 250 MG (KEFLEX) CAP PO SCH ×3 (08:23→20:30)
[2022-09-04] MEDS: ASPIRIN E.C. 81 MG (ECOTRIN) TAB PO SCH (08:23)
[2022-09-04] MEDS: amLODIPine 5 MG (NORVASC) TAB PO SCH (08:23)
[2022-09-04] MEDS: ENOXAPARIN 40 MG/0.4 ML (LOVENOX) SYR SC SCH (08:24)
[2022-09-04] MEDS: lisINopril 40 MG (PRINIVIL) TABLET PO SCH (08:24)
[2022-09-04 19:29] VITALS: BP 120/73
[2022-09-05] MEDS: BACLOFEN 10 MG (LIORESAL) TAB PO SCH ×7 (00:10→23:59)
[2022-09-05] MEDS: MULTIVIT W/MINERALS TAB (THERAGRAN M) PO SCH (06:45)
--- NOTE | 2022-09-05 06:56 | PM&R Progress Note ---
Subjective HPI/CC On Admission Date Seen by Provider: Sep 05, 2022 Time Seen by Provider: 12:00 Subjective/Events-last exam 09/05/2022: Patient doing a lot better Took a shower today Moving around better Dr. Barron will be contacted regarding the Arellano catheter tomorrow 09/04/2022: Doing really well No pain reported Participating in therapy No falls 09/03/2022: Patient doing really well Participating in all therapy Gaining strength Arellano catheter will remain in place until Dr. Barron makes decision on Tuesday Maintain on antibiotics for UTI Review of Systems General: Fatigue, Malaise Objective Exam Vital Signs Vital Signs Date Time Temp Pulse Resp B/P (MAP) Pulse Ox O2 Delivery O2 Flow Rate FiO2 09/05/22 09:29 Room Air 09/05/22 08:00 36.5 85 16 124/87 (99) 97 09/04/22 07:52 0.00 0.00 09/02/22 21:43 21 Capillary Refill : General Appearance: No Apparent Distress, WD/WN, Chronically ill, Obese HEENT: PERRL/EOMI, Normal ENT Inspection, Pharynx Normal Neck: Full Range of Motion, Normal Inspection, Non Tender, Supple, Carotid Bruit Respiratory: Chest Non Tender, Lungs Clear, Normal Breath Sounds, No Accessory Muscle Use, No Respiratory Distress Cardiovascular: Regular Rate, Rhythm, No Edema, No Gallop, No JVD, No Murmur, Normal Peripheral Pulses Gastrointestinal: Normal Bowel Sounds, No Organomegaly, No Pulsatile Mass, Non Tender, Soft Back: Normal Inspection, No CVA Tenderness, No Vertebral Tenderness Extremity: Normal Capillary Refill, Normal Inspection, Normal Range of Motion, Non Tender, No Calf Tenderness, No Pedal Edema Neurologic/Psychiatric: Alert, Oriented x3, Normal Mood/Affect, Abnormal Gait, Depressed Affect, Facial Droop ( left side), Motor Weakness ( left arm 3/5 and left hand 2/5) Skin: Normal Color, Warm/Dry Lymphatic: No Adenopathy Results/Procedures Lab Patient resulted labs reviewed. FIM Transfers Therapy Code Descriptions/Definitions Functional [place] Measure: 0=Not Assessed/NA 4=Minimal Assistance 1=Total Assistance 5=Supervision or Setup 2=Maximal Assistance 6=Modified [place] 3=Moderate Assistance 7=Complete IndependenceSCALE: Activities may be completed with or without assistive devices. 4-Aidkqcswcf-sgmzzvk completes the activity by him/herself with no assistance from a helper. 5-Set-up or Clean-up Assistance-helper sets up or cleans up; patient completes activity. [place] assists only prior to or following the activity. 4-Supervision or Touching Assistance-helper provides verbal cues and/or touching/steadying and/or contact guard assistance as patient completes activity. Assistance may be provided throughout the activity or intermittently. 3-Partial/Moderate Assistance-helper does LESS THAN HALF the effort. [place] lifts, holds or supports trunk or limbs, but provides less than half the effort. 2-Substantial/Maximal Assistance-helper does MORE THAN HALF the effort. [place] lifts or holds trunk or limbs and provides more than half the effort. 9-Fekptnbgg-lrolmm does ALL the effort. Patient does none of the effort to complete the activity. Or, the assistance of 2 or more helpers is required for the patient to complete the activity. If activity was not attempted, code reason: 7-Patient Refused. 9-Not Applicable-not attempted and the patient did not perform the activity before the current illness, exacerbation or injury. 10-Not Attempted due to Environmental Limitations-(lack of equipment, weather restraints, etc.). 88-Not Attempted due to Medical Conditions or Safety Concerns. Roll Left to Right (QC): 4 (SBA) Sit to Lying (QC): 4 (SBA) Sit to Stand (QC): 4 Chair/Eux-nl-Jfkau Xfer(QC): 4 Car Transfer (QC): 4 (CGA ) Gait Training Does the Patient Walk?: Yes Distance: 300ft x 2 Walk 10 feet (QC): 4 Walk 50 ft with 2 Turns(QC): 4 Walk 150 ft (QC): 4 Walking 10ft/uneven surface-QC: 4 (CGA) Gait Persons Needed: 1 Gait Assistive Device: FWW Wheelchair Training Does the Pt Use a Wheelchair?: No Wheel 50 ft with 2 turns (QC): 9 Wheel 150 ft (QC): 9 Type of Wheelchair: N/A Stair Training #of Steps: 12 1 Step (curb) (QC): 4 (CGA) 4 Steps (QC): 4 (CGA) 12 Steps (QC): 4 (CGA) Balance Picking up an Object (QC): 4 (SBA ) ADL-Treatment Eating (QC): 5 Oral Hygiene (QC): 4 Shower/Bathe Self (QC): 4 Upper Body Dressing (QC): 5 Lower Body Dressing (QC): 3 On/Off Footwear (QC): 5 Toileting Hygiene (QC): 4 Toilet Transfer (QC): 4 Assessment/Plan Assessment and Plan Assess & Plan/Chief Complaint Assessment: 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 Boudreaux consulted and will manage conservatively Hypertension Hyperlipidemia Fatty liver Plan: Aggressive rehab Speech therapy Plavix aspirin statin PT and OT 09/03/2022: Supportive care Aggressive rehab 09/04/2022: Continue aggressive rehab 09/05/2022: Bowels moving Continue aggressive rehab (1) Stroke Status: Acute ELISABETH STALEY DO Sep 05, 2022 06:56
[2022-09-05 08:00] VITALS: BP 124/87
[2022-09-05] MEDS: lisINopril 40 MG (PRINIVIL) TABLET PO SCH (09:15)
[2022-09-05] MEDS: CEPHALEXIN 250 MG (KEFLEX) CAP PO SCH ×3 (09:15→20:14)
[2022-09-05] MEDS: CLOPIDOGREL 75 MG (PLAVIX) TABLET PO SCH (09:15)
[2022-09-05] MEDS: amLODIPine 5 MG (NORVASC) TAB PO SCH (09:15)
[2022-09-05] MEDS: ASPIRIN E.C. 81 MG (ECOTRIN) TAB PO SCH (09:15)
[2022-09-05] MEDS: DOCUSATE SODIUM 100 MG (COLACE) CAP PO SCH ×2 (09:16→20:15)
[2022-09-05] MEDS: SENNOSIDES 8.6 MG (SENOKOT) TAB PO SCH ×2 (09:17→20:15)
[2022-09-05] MEDS: polyethylene glycoL POWDER 17 GM (MIRALAX) PACK PO SCH ×2 (09:17→20:15)
[2022-09-05] MEDS: ENOXAPARIN 40 MG/0.4 ML (LOVENOX) SYR SC SCH (09:18)
[2022-09-05] MEDS ORDERED: APIXABAN 5 MG (ELIQUIS) TABLET PO SCH (18:45)
[2022-09-05 19:42] VITALS: BP 124/74
[2022-09-06] MEDS: BACLOFEN 10 MG (LIORESAL) TAB PO SCH ×5 (04:27→20:35)
--- NOTE | 2022-09-06 06:01 | PM&R Progress Note ---
Subjective HPI/CC On Admission Date Seen by Provider: Sep 06, 2022 Time Seen by Provider: 10:00 Subjective/Events-last exam 09/06/2022: Patient doing well Arranging appointment with Dr. Barron since cystoscopy must be completed when Arellano catheter removed No falls No pain 09/05/2022: Patient doing a lot better Took a shower today Moving around better Dr. Barron will be contacted regarding the Arellano catheter tomorrow 09/04/2022: Doing really well No pain reported Participating in therapy No falls 09/03/2022: Patient doing really well Participating in all therapy Gaining strength Arellano catheter will remain in place until Dr. Barron makes decision on Tuesday Maintain on antibiotics for UTI Review of Systems General: Fatigue, Malaise Objective Exam Vital Signs Vital Signs Date Time Temp Pulse Resp B/P (MAP) Pulse Ox O2 Delivery O2 Flow Rate FiO2 09/06/22 20:25 100 Room Air 09/06/22 19:38 36.5 71 16 124/79 (94) 09/04/22 07:52 0.00 0.00 09/02/22 21:43 21 Capillary Refill : General Appearance: No Apparent Distress, WD/WN, Chronically ill, Obese HEENT: PERRL/EOMI, Normal ENT Inspection, Pharynx Normal Neck: Full Range of Motion, Normal Inspection, Non Tender, Supple, Carotid Bruit Respiratory: Chest Non Tender, Lungs Clear, Normal Breath Sounds, No Accessory Muscle Use, No Respiratory Distress Cardiovascular: Regular Rate, Rhythm, No Edema, No Gallop, No JVD, No Murmur, Normal Peripheral Pulses Gastrointestinal: Normal Bowel Sounds, No Organomegaly, No Pulsatile Mass, Non Tender, Soft Back: Normal Inspection, No CVA Tenderness, No Vertebral Tenderness Extremity: Normal Capillary Refill, Normal Inspection, Normal Range of Motion, Non Tender, No Calf Tenderness, No Pedal Edema Neurologic/Psychiatric: Alert, Oriented x3, Normal Mood/Affect, Abnormal Gait, Depressed Affect, Facial Droop ( left side), Motor Weakness ( left arm 3/5 and left hand 2/5) Skin: Normal Color, Warm/Dry Lymphatic: No Adenopathy Results/Procedures Lab Laboratory Tests 09/06/22 05:27 Patient resulted labs reviewed. FIM Transfers Therapy Code Descriptions/Definitions Functional [place] Measure: 0=Not Assessed/NA 4=Minimal Assistance 1=Total Assistance 5=Supervision or Setup 2=Maximal Assistance 6=Modified [place] 3=Moderate Assistance 7=Complete IndependenceSCALE: Activities may be completed with or without assistive devices. 4-Ciikpwapih-obwcjxw completes the activity by him/herself with no assistance from a helper. 5-Set-up or Clean-up Assistance-helper sets up or cleans up; patient completes activity. [place] assists only prior to or following the activity. 4-Supervision or Touching Assistance-helper provides verbal cues and/or touchi ng/steadying and/or contact guard assistance as patient completes activity. Assistance may be provided throughout the activity or intermittently. 3-Partial/Moderate Assistance-helper does LESS THAN HALF the effort. [place] lifts, holds or supports trunk or limbs, but provides less than half the effort. 2-Substantial/Maximal Assistance-helper does MORE THAN HALF the effort. [place] lifts or holds trunk or limbs and provides more than half the effort. 1-Qsamxrmbr-rmpseo does ALL the effort. Patient does none of the effort to complete the activity. Or, the assistance of 2 or more helpers is required for the patient to complete the activity. If activity was not attempted, code reason: 7-Patient Refused. 9-Not Applicable-not attempted and the patient did not perform the activity befo re the current illness, exacerbation or injury. 10-Not Attempted due to Environmental Limitations-(lack of equipment, weather restraints, etc.). 88-Not Attempted due to Medical Conditions or Safety Concerns. Roll Left to Right (QC): 4 (SBA) Sit to Lying (QC): 4 (SBA) Sit to Stand (QC): 4 Chair/Jbz-tb-Bnwap Xfer(QC): 4 Car Transfer (QC): 4 (CGA ) Gait Training Does the Patient Walk?: Yes Distance: 300ft x 2 Walk 10 feet (QC): 4 Walk 50 ft with 2 Turns(QC): 4 Walk 150 ft (QC): 4 Walking 10ft/uneven surface-QC: 4 (CGA) Gait Persons Needed: 1 Gait Assistive Device: FWW Wheelchair Training Does the Pt Use a Wheelchair?: No Wheel 50 ft with 2 turns (QC): 9 Wheel 150 ft (QC): 9 Type of Wheelchair: N/A Stair Training #of Steps: 12 1 Step (curb) (QC): 4 (CGA) 4 Steps (QC): 4 (CGA) 12 Steps (QC): 4 (CGA) Balance Picking up an Object (QC): 4 (SBA ) ADL-Treatment Eating (QC): 5 Oral Hygiene (QC): 4 Shower/Bathe Self (QC): 4 Upper Body Dressing (QC): 5 Lower Body Dressing (QC): 3 On/Off Footwear (QC): 5 Toileting Hygiene (QC): 4 Toilet Transfer (QC): 4 Assessment/Plan Assessment and Plan Assess & Plan/Chief Complaint Assessment: 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 Boudreaux consulted and will manage conservatively Hypertension Hyperlipidemia Fatty liver Plan: Aggressive rehab Speech therapy Plavix aspirin statin PT and OT 09/03/2022: Supportive care Aggressive rehab 09/04/2022: Continue aggressive rehab 09/05/2022: Bowels moving Continue aggressive rehab 09/06/2022: Supportive care Dr. Barron appointment to remove catheter after cystoscopy performed (1) Stroke Status: Acute ELISABETH STALEY DO Sep 06, 2022 06:01
[2022-09-06 06:02] LABS: BASOPHILS # (AUTO) 0.1 10^3/uL (0.0-0.1); BASOPHILS % (AUTO) 1 % (0-10); EOSINOPHILS # (AUTO) 0.9 10^3/uL (0.0-0.3); EOSINOPHILS % (AUTO) 10 % (0-10); HEMATOCRIT 43 % (40-54); HEMOGLOBIN 14.7 g/dL (13.3-17.7); LYMPHOCYTES % (AUTO) 21 % (12-44); MEAN CORPUSCULAR HEMOGLOBIN 30 pg (25-34); MEAN CORPUSCULAR HGB CONC 34 g/dL (32-36); MEAN CORPUSCULAR VOLUME 90 fL (80-99); MEAN PLATELET VOLUME 10.2 fL (9.0-12.2); MONOCYTES # (AUTO) 0.7 10^3/uL (0.0-1.0); MONOCYTES % (AUTO) 7 % (0-12); NEUTROPHILS # (AUTO) 5.7 10^3/uL (1.8-7.8); NEUTROPHILS % (AUTO) 61 % (42-75); PLATELET COUNT 248 10^3/uL (130-400); WHITE BLOOD COUNT 9.5 10^3/uL (4.3-11.0)
[2022-09-06 06:20] LABS: ALBUMIN 3.5 GM/DL (3.2-4.5); BILIRUBIN,TOTAL 0.7 MG/DL (0.1-1.0); CALCIUM 8.8 MG/DL (8.5-10.1); CREATININE SERUM 0.78 MG/DL (0.60-1.30); POTASSIUM 3.9 MMOL/L (3.6-5.0); TOTAL PROTEIN 6.1 GM/DL (6.4-8.2)
[2022-09-06] MEDS: MULTIVIT W/MINERALS TAB (THERAGRAN M) PO SCH (06:48)
[2022-09-06 07:51] VITALS: BP 129/73
[2022-09-06] MEDS: lisINopril 40 MG (PRINIVIL) TABLET PO SCH (08:19)
[2022-09-06] MEDS: amLODIPine 5 MG (NORVASC) TAB PO SCH (08:19)
[2022-09-06] MEDS: ASPIRIN E.C. 81 MG (ECOTRIN) TAB PO SCH (08:19)
[2022-09-06] MEDS: CEPHALEXIN 250 MG (KEFLEX) CAP PO SCH (08:20)
[2022-09-06] MEDS: SENNOSIDES 8.6 MG (SENOKOT) TAB PO SCH ×2 (08:20→20:35)
[2022-09-06] MEDS: polyethylene glycoL POWDER 17 GM (MIRALAX) PACK PO SCH ×2 (08:20→20:35)
[2022-09-06] MEDS: DOCUSATE SODIUM 100 MG (COLACE) CAP PO SCH ×2 (08:20→20:35)
[2022-09-06] MEDS: ENOXAPARIN 40 MG/0.4 ML (LOVENOX) SYR SC SCH (08:20)
[2022-09-06] MEDS: CLOPIDOGREL 75 MG (PLAVIX) TABLET PO SCH (08:21)
--- NOTE | 2022-09-06 08:31 | Occupational Ther Daily Note ---
OT Current Status-Daily Note Subjective Pt alert, sitting in recliner. Pt agrees to therapy. No c/o pain. Nrsg looking at loop recorder site. Mental Status/Objective Patient Orientation: Person, Place, Time, Situation Attachments: Cam Catheter, IV ADL-Treatment Pt agrees to shower. Pt ambulates to bathroom using FWW with SBA. Transfer into shower with supervision. Sitting on shower bench 85% of the time, pt cleanses all areas using grabbars and hand held shower with supervision. Set up to doff/don shirt. SBA and vc(to thread cam), completed all other steps by self. Set up for footwear. Supervision while standing at sink to complete oral care by self. Pt independent with eating. Therapy Code Descriptions/Definitions Functional [place] Measure: 0=Not Assessed/NA 4=Minimal Assistance 1=Total Assistance 5=Supervision or Setup 2=Maximal Assistance 6=Modified [place] 3=Moderate Assistance 7=Complete IndependenceSCALE: Activities may be completed with or without assistive devices. 6-Hliyqkanrc-vcpnufv completes the activity by him/herself with no assistance from a helper. 5-Set-up or Clean-up Assistance-helper sets up or cleans up; patient completes activity. [place] assists only prior to or following the activity. 4-Supervision or Touching Assistance-helper provides verbal cues and/or touching/steadying and/or contact guard assistance as patient completes activity. Assistance may be provided throughout the activity or intermittently. 3-Partial/Moderate Assistance-helper does LESS THAN HALF the effort. [place] lifts, holds or supports trunk or limbs, but provides less than half the effort. 2-Substantial/Maximal Assistance-helper does MORE THAN HALF the effort. [place] lifts or holds trunk or limbs and provides more than half the effort. 9-Iapptjsib-rpnacb does ALL the effort. Patient does none of the effort to complete the activity. Or, the assistance of 2 or more helpers is required for the patient to complete the activity. If activity was not attempted, code reason: 7-Patient Refused. 9-Not Applicable-not attempted and the patient did not perform the activity before the current illness, exacerbation or injury. 10-Not Attempted due to Environmental Limitations-(lack of equipment, weather restraints, etc.). 88-Not Attempted due to Medical Conditions or Safety Concerns. Eating (QC): 6 Oral Hygiene (QC): 4 Shower/Bathe Self (QC): 4 Upper Body Dressing (QC): 5 Lower Body Dressing (QC): 4 On/Off Footwear: 5 Toileting Hygiene (QC): 4 (Pt demonstrates ability to complete task with supervision.) Other Treatment Pt working on catch/throw with soft ball, 10x's. Initially pt has difficulty with releasing ball to throw then after 2 attempts is able to throw to designated area. Verbal cues to watch ball when catching then throwing, pt had difficulty with this. After session, pt sitting in recliner with call light/phone in reach. Nrsg and in room. All needs met. OT Short Term Goals Short Term Goals Time Frame: Sep 11, 2022 Eatin Oral hygiene: 6 Toileting hygiene: 6 OT Acquisition Associate Goals Acquisition Associate Goals Acute change in mental status: 1 Inattention: 0 Disorganized thinkin Altered level of consciousness: 0 Eating (QC): 6 Oral Hygiene (QC): 6 Toileting Hygiene (QC): 6 Shower/Bathe Self (QC): 6 Upper Body Dressing (QC): 6 Lower Body Dressing (QC): 6 On/Off Footwear (QC): 6 1=Demonstrate adherence to instructed precautions during ADL tasks. 2=Patient will verbalize/demonstrate understanding of assistive devices/modifications for ADL. 3=Patient will improve strength/tolerance for activity to enable patient to perform ADL's. OT Education/Plan Problem List/Assessment Assessment: Decreased UE Strength, Impaired Coordination, Impaired Funct Balance, Impaired Self-Care Skills Discharge Recommendations Plan/Recommendations: Continue POC Treatment Plan/Plan of Care Patient would benefit from OT for education, treatment and training to promote independence in ADL's, mobility, safety and/or upper extremity function for ADL's. Plan of Care: ADL Retraining, Caregiver Training, Cognitive Retraining, Concurrent Therapy, Functional Mobility, Group Exercise/Act as Ind, UE Funct Exercise/Act, Visual/Perceptual Retrain Treatment Duration: Sep 17, 2022 Frequency: At least 5 of 7 days/Wk (IRF) Estimated Hrs Per Day: 1.5 hours per day Agreement: Yes Rehab Potential: Good Time Start Time: 07:15 Stop Time: 08:30 DATE: Sep 06, 2022 Total Time Billed (hr/min): 75 Billed Treatment Time 1 visit-ADL 4 (60 min) NM 1 (15 min) NATALIO GOMEZ Sep 06, 2022 08:31
--- NOTE | 2022-09-06 09:56 | Speech Therapy Daily Note ---
Speech Daily Progress Note Subjective Date Seen by Provider: Sep 06, 2022 Time Seen by Provider: 08:45 The patient was seated upright in his recliner, resting, upon entrance to his room by the clinician. The patient greeted the clinician appropriately and was agreeable to participation in the skilled cognitive, speech, and language treatment session. The patient's was present during the initiation of the treatment however was not present in the room for the completion. Objective Oral Motor Exercises: The patient and clinician discussed, reviewed, and practiced the oral motor exercises previously introduced. The patient (and spouse) report high compliance of the oral motor exercises throughout the weekend. The patient complete lingual range of motion, lingual resistance, and lingual strengthening as well as labial range of motion, labial resistance, and labial strengthening. The patient continues to require direct modeling for increased accuracy however is able to complete the exercises with five repetitions of each. The patient was encouraged to increase his repetitions to ten repetitions per practice cycle. The patient denied questions or concerns for the clinician at this time. Assessment Assessment Current Status: Good Progress Treatment Plan Continue Plan of Care Speech Short Term Goals Short Term Goals Short Term Goals 1. The patient will demonstrate oral motor exercises with 90% accuracy, independently. Speech Correction Goals Building Pressure Washer Goals 1. The patient will demonstrate improved cognitive communication for safe discha rge to the least restrictive environment. Time Frame: Ten Days. Speech-Plan Treatment Plan Speech Therapy Treatment Plan: Continue Plan of Care Treatment Duration: Sep 10, 2022 Frequency: Modified Program (IRF) (Four to five times per week.) Estimated Hrs Per Day: .5 hour per day Rehab Potential: Good Pt/Family Agrees to Plan: Yes Safety Risks/Education Teaching Recipient: Patient, Significant Other Teaching Methods: Demonstration, Handout, Discussion Response to Teaching: Return Demonstration, Reinforcement Needed Education Topics Provided: Oral Motor Exercises, Plan of Care, Recommendations Time Speech Therapy Time In: 08:45 Speech Therapy Time Out: 09:15 DATE: Sep 06, 2022 Total Billed Time: 30 Billed Treatment Time ShrutiYAN ELIZABETH ST Sep 06, 2022 09:56
--- NOTE | 2022-09-06 10:56 | Physical Therapy Daily Note ---
PT Daily Note-Current Subjective Pt reports he is doing well today and is agreeable to PT. Pt denies any pain. Pain Numeric Pain Scale: 0-No Pain Location: No Pain Reported Section J - Health Conditions 1. Rarely or not at all 2. Occasionally 3. Frequently 4. Almost constantly 8. Unable to answer Pain Effect on Sleep: 1 Pain Interference with Therapy: 1 Pain Interference w/Day-to-Day: 1 Mental Status Attachments: Arellano Catheter Transfers SCALE: Activities may be completed with or without assistive devices. 3-Qqzyyrlueg-kzqgpna completes the activity by him/herself with no assistance from a helper. 5-Set-up or Clean-up Assistance-helper sets up or cleans up; patient completes activity. [place] assists only prior to or following the activity. 4-Supervision or Touching Assistance-helper provides verbal cues and/or touching/steadying and/or contact guard assistance as patient completes activity. Assistance may be provided throughout the activity or intermittently. 3-Partial/Moderate Assistance-helper does LESS THAN HALF the effort. [place] lifts, holds or supports trunk or limbs, but provides less than half the effort. 2-Substantial/Maximal Assistance-helper does MORE THAN HALF the effort. [place] lifts or holds trunk or limbs and provides more than half the effort. 0-Rdkjyttnl-glaxod does ALL the effort. Patient does none of the effort to complete the activity. Or, the assistance of 2 or more helpers is required for the patient to complete the activity. If activity was not attempted, code reason: 7-Patient Refused. 9-Not Applicable-not attempted and the patient did not perform the activity before the current illness, exacerbation or injury. 10-Not Attempted due to Environmental Limitations-(lack of equipment, weather restraints, etc.). 88-Not Attempted due to Medical Conditions or Safety Concerns. Sit to Stand (QC): 4 Chair/Diu-zs-Hitkb Xfer(QC): 4 Weight Bearing Right Lower Extremity: Right Full Weight Bearing Left Lower Extremity: Left Full Weight Bearing Gait Training Does the Patient Walk?: Yes Distance: 300ft x 2 Walk 10 feet (QC): 4 Walk 50 ft with 2 Turns(QC): 4 Walk 150 ft (QC): 4 Gait Persons Needed: 1 Gait Assistive Device: FWW Wheelchair Training Does the Pt Use a Wheelchair?: No Stair Training 1 Step (curb) (QC): 4 Treatments Pt completed functional transfers with SBA and Min v/c for correct hand placement and posture. Pt ambulated 300ft x 2 with the FWW and SBA/CGA. Pt completed seated B LE Ther Ex x 20 reps each with the red Tband. Pt completed sit to stand x 10 reps with SBA and good carry over for hand placement. Pt completed step-ups x 10 reps each with B LE. Pt completed standing B LE Ther Ex x 10 reps each with B UE support and SBA. Pt required 1 short seated rest break during standing Ther Ex. Pt completed 15 min on the nu-step on level 3. Pt sitting in recliner with call light in reach and all needs met, post-tx. Assessment Current Status: Good Progress Pt tolerated PT well with good effort PT Senior Living Goals Senior Living Goals PT Document Management Analyst Goals Time Frame: Sep 10, 2022 Roll Left & Right (QC): 6 (Pt will be Mod I with all aspects of functional mobility, with the least restrictive AD, to be at PLOF. ) Sit to Lying (QC): 6 (Pt will be Mod I with all aspects of functional mobility, with the least restrictive AD, to be at PLOF. ) Lying-Sitting on Side/Bed(QC): 6 (Pt will be Mod I with all aspects of functional mobility, with the least restrictive AD, to be at PLOF. ) Sit to Stand (QC): 6 (Pt will be Mod I with all aspects of functional mobility, with the least restrictive AD, to be at PLOF. ) Chair/Fde-gq-Pbmvz Xfer(QC): 6 (Pt will be Mod I with all aspects of functional mobility, with the least restrictive AD, to be at PLOF. ) Toilet Transfer (QC): 6 (Pt will be Mod I with all aspects of functional mob ility, with the least restrictive AD, to be at PLOF. ) Car Transfer (QC): 6 (Pt will be Mod I with all aspects of functional mobility, with the least restrictive AD, to be at PLOF. ) Does the Patient Walk: Yes Walk 10 feet (QC): 6 (Pt will be Mod I with all aspects of functional mobility, with the least restrictive AD, to be at PLOF. ) Walk 50ft with 2 Turns (QC): 6 (Pt will be Mod I with all aspects of functional mobility, with the least restrictive AD, to be at PLOF. ) Walk 150 ft (QC): 6 (Pt will be Mod I with all aspects of functional mobility, with the least restrictive AD, to be at PLOF. ) Walking 10ft on Uneven Surface: 6 (Pt will be Mod I with all aspects of functional mobility, with the least restrictive AD, to be at PLOF. ) 1 Step (curb) (QC): 6 (Pt will be Mod I with all aspects of functional mobility, with the least restrictive AD, to be at PLOF. ) 4 Steps (QC): 6 (Pt will be Mod I with all aspects of functional mobility, with the least restrictive AD, to be at PLOF. ) 12 Steps (QC): 6 (Pt will be Mod I with all aspects of functional mobility, with the least restrictive AD, to be at PLOF. ) Picking up an Object (QC): 6 (Pt will be Mod I with all aspects of functional mobility, with the least restrictive AD, to be at PLOF. ) Does the Pt use WC or Scooter?: No Wheel 50 feet with 2 turns (QC: 9 Type: N/A Wheel 150 feet: 9 Type: N/A PT Plan Problem List Problem List: Activity Tolerance, Functional Strength, Safety, Balance, Gait, Transfer, Bed Mobility Treatment/Plan Treatment Plan: Continue Plan of Care Treatment Plan: Bed Mobility, Concurrent Therapy, Education, Functional Activi ty Satinder, Functional Strength, Group Therapy, Gait, Safety, Therapeutic Exercise, Transfers Treatment Duration: Sep 10, 2022 Frequency: At least 5 of 7 days/Wk (IRF) Estimated Hrs Per Day: 1.5 hours per day Patient and/or Family Agrees t: Yes Safety Risks/Education Patient Education: Gait Training, Transfer Techniques, Steps, Issued Written HEP, Safety Issues Teaching Recipient: Patient Teaching Methods: Demonstration, Discussion Response to Teaching: Return Demonstration, Reinforcement Needed Discharge Recommendations Therapy Discharge Recommendati: Home & Family Equpiment Recommendations-D/C: Straight Cane, Front Wheeled Walker, Shower Chair Discharge Status/Home Program Cont per POC Barriers to Progress L sided weakness Target Placement Home with spouse Time Time In: 930 Time Out: 1100 DATE: Sep 06, 2022 Total Billed Treatment Time: 90 Total Billed Treatment 90 min 1 visit EX x 2 FA x 2 GT x 2 IMELDA TRIVEDI PT Sep 06, 2022 10:56
[2022-09-06 19:38] VITALS: BP 124/79
[2022-09-07] MEDS: BACLOFEN 10 MG (LIORESAL) TAB PO SCH ×6 (00:17→20:00)
[2022-09-07] MEDS: MULTIVIT W/MINERALS TAB (THERAGRAN M) PO SCH (06:48)
[2022-09-07 08:00] VITALS: BP 122/79
--- NOTE | 2022-09-07 08:33 | Occupational Ther Daily Note ---
OT Current Status-Daily Note Subjective Pt alert, sitting in recliner. Pt agrees to therapy. No c/o pain, only fatigue. Mental Status/Objective Patient Orientation: Person, Place, Time, Situation Attachments: IV ADL-Treatment Independent with eating. Pt declines showering. Pt requested to change shirt. Set up for UBD. Pt stood at sink to complete oral care with supervision for safety. Pt able to don/doff shoes by self, set up. Therapy Code Descriptions/Definitions Functional [place] Measure: 0=Not Assessed/NA 4=Minimal Assistance 1=Total Assistance 5=Supervision or Setup 2=Maximal Assistance 6=Modified [place] 3=Moderate Assistance 7=Complete IndependenceSCALE: Activities may be completed with or without assistive devices. 3-Xnpizzlies-ryxaoob completes the activity by him/herself with no assistance from a helper. 5-Set-up or Clean-up Assistance-helper sets up or cleans up; patient completes activity. [place] assists only prior to or following the activity. 4-Supervision or Touching Assistance-helper provides verbal cues and/or touc skyla/steadying and/or contact guard assistance as patient completes activity. Assistance may be provided throughout the activity or intermittently. 3-Partial/Moderate Assistance-helper does LESS THAN HALF the effort. [place] lifts, holds or supports trunk or limbs, but provides less than half the effort. 2-Substantial/Maximal Assistance-helper does MORE THAN HALF the effort. [place] lifts or holds trunk or limbs and provides more than half the effort. 3-Nzwbfcipc-aorwuk does ALL the effort. Patient does none of the effort to complete the activity. Or, the assistance of 2 or more helpers is required for the patient to complete the activity. If activity was not attempted, code reason: 7-Patient Refused. 9-Not Applicable-not attempted and the patient did not perform the activity before the current illness, exacerbation or injury. 10-Not Attempted due to Environmental Limitations-(lack of equipment, weather restraints, etc.). 88-Not Attempted due to Medical Conditions or Safety Concerns. Eating (QC): 6 Oral Hygiene (QC): 4 Upper Body Dressing (QC): 5 On/Off Footwear: 5 Other Treatment Pt ambulated to therapy gym using FWW with SBA. Pt demonstrates fatigue by placing head in hands when sitting and slower than normal movements throughout session. LUNDY placed walker basket while working on transporting items with FWW and placing in designated areas using L hand to place/retrieve, no LOB though. After session, pt lying in bed with call light/phone in reach. All needs met in room. OT Short Term Goals Short Term Goals Time Frame: Sep 11, 2022 Eatin Oral hygiene: 6 Toileting hygiene: 6 OT Underwriting Clerk Goals Underwriting Clerk Goals Acute change in mental status: 1 Inattention: 0 Disorganized thinkin Altered level of consciousness: 0 Eating (QC): 6 Oral Hygiene (QC): 6 Toileting Hygiene (QC): 6 Shower/Bathe Self (QC): 6 Upper Body Dressing (QC): 6 Lower Body Dressing (QC): 6 On/Off Footwear (QC): 6 1=Demonstrate adherence to instructed precautions during ADL tasks. 2=Patient will verbalize/demonstrate understanding of assistive devices/mo difications for ADL. 3=Patient will improve strength/tolerance for activity to enable patient to perform ADL's. OT Education/Plan Problem List/Assessment Assessment: Decreased Activ Tolerance, Decreased UE Strength, Impaired Self- Care Skills Discharge Recommendations Plan/Recommendations: Continue POC Treatment Plan/Plan of Care Patient would benefit from OT for education, treatment and training to promote independence in ADL's, mobility, safety and/or upper extremity function for ADL's. Plan of Care: ADL Retraining, Caregiver Training, Cognitive Retraining, Concurrent Therapy, Functional Mobility, Group Exercise/Act as Ind, UE Funct Ex ercise/Act, Visual/Perceptual Retrain Treatment Duration: Sep 17, 2022 Frequency: At least 5 of 7 days/Wk (IRF) Estimated Hrs Per Day: 1.5 hours per day Agreement: Yes Rehab Potential: Good Time Start Time: 07:15 Stop Time: 08:30 DATE: Sep 07, 2022 Total Time Billed (hr/min): 75 Billed Treatment Time 1 visit-ADL 3 (45 min) NM2 (30 min) NATALIO GOMEZ Sep 07, 2022 08:33
[2022-09-07] MEDS: SENNOSIDES 8.6 MG (SENOKOT) TAB PO SCH ×2 (09:36→20:00)
[2022-09-07] MEDS: ENOXAPARIN 40 MG/0.4 ML (LOVENOX) SYR SC SCH (09:36)
[2022-09-07] MEDS: amLODIPine 5 MG (NORVASC) TAB PO SCH (09:36)
[2022-09-07] MEDS: lisINopril 40 MG (PRINIVIL) TABLET PO SCH (09:36)
[2022-09-07] MEDS: CLOPIDOGREL 75 MG (PLAVIX) TABLET PO SCH (09:36)
[2022-09-07] MEDS: ASPIRIN E.C. 81 MG (ECOTRIN) TAB PO SCH (09:36)
[2022-09-07] MEDS: DOCUSATE SODIUM 100 MG (COLACE) CAP PO SCH ×2 (09:36→20:00)
[2022-09-07] MEDS: polyethylene glycoL POWDER 17 GM (MIRALAX) PACK PO SCH ×2 (09:37→20:00)
--- NOTE | 2022-09-07 10:30 | Speech Therapy Daily Note ---
Speech Daily Progress Note Subjective Date Seen by Provider: Sep 07, 2022 Time Seen by Provider: 08:45 Pt reclined back in bed. Pt states he did not sleep well last night. Pt is soft spoken. He is able to recall most of the exercises he has been completing with speech therapy. Pt pleasant and cooperative. Pain Location: No Pain Reported Objective Pt is able to recall exercises. Pt completes the following exercises with min verbal cues and a model: lateral lingual movements against a tongue depressor: x20 lingual protrusion against a tongue depressor: x10 lingual up and down against a tongue depressor: x10 lingual retraction: x10 lingual protrusion: x20 labial protrusion and retraction x20 - increased difficulty with protrusion. Pt appears to move his entire head forward instead of just puckering his lips. cheek puffs maintaining labial closure: x10 swishing air in cheeks maintaining labial closure: x10 lingual sweeps maintaining labial closure: x10 Assessment Assessment Current Status: Good Progress Pt increases number of reps of exercises. Treatment Plan Continue Plan of Care Speech Short Term Goals Short Term Goals Short Term Goals 1. The patient will demonstrate oral motor exercises with 90% accuracy, independently. Speech Gas Line Servicer Goals Gas Line Servicer Goals 1. The patient will demonstrate improved cognitive communication for safe discharge to the least restrictive environment. Time Frame: Ten Days. Speech-Plan Patient/Family Goals Patient/Family Goals: Pt's plan is to go home following d/c from IRU. Treatment Plan Speech Therapy Treatment Plan: Continue Plan of Care Treatment Duration: Sep 10, 2022 Frequency: Modified Program (IRF) (Four to five times per week.) Estimated Hrs Per Day: .5 hour per day Rehab Potential: Good Pt/Family Agrees to Plan: Yes Safety Risks/Education Teaching Recipient: Patient Teaching Methods: Discussion Response to Teaching: Verbalize Understanding Education Topics Provided: Pt educated on purpose of therapy tasks. Pt is encouraged to increase number of repetitions of exercises. Pt receptive and verbalized understanding. Time Speech Therapy Time In: 08:45 Speech Therapy Time Out: 09:15 DATE: Sep 07, 2022 Total Billed Time: 30 Billed Treatment Time DYS Maday Restrepo Speech Therapy Sep 07, 2022 10:30
--- NOTE | 2022-09-07 11:56 | Physical Therapy Daily Note ---
PT Daily Note-Current Subjective Pt reports he is doing well this morning and agreeable to PT. Pt denies any pain, but reports just being tired. His catheter had to be flushed last night, and he did not get much sleep. Pain Numeric Pain Scale: 0-No Pain Location: No Pain Reported Section J - Health Conditions 1. Rarely or not at all 2. Occasionally 3. Frequently 4. Almost constantly 8. Unable to answer Pain Effect on Sleep: 1 Pain Interference with Therapy: 1 Pain Interference w/Day-to-Day: 1 Mental Status Attachments: Arellano Catheter Transfers SCALE: Activities may be completed with or without assistive devices. 2-Cblrqqwwbp-ndjopyu completes the activity by him/herself with no assistance from a helper. 5-Set-up or Clean-up Assistance-helper sets up or cleans up; patient completes activity. [place] assists only prior to or following the activity. 4-Supervision or Touching Assistance-helper provides verbal cues and/or touching/steadying and/or contact guard assistance as patient completes activity. Assistance may be provided throughout the activity or intermittently. 3-Partial/Moderate Assistance-helper does LESS THAN HALF the effort. [place] lifts, holds or supports trunk or limbs, but provides less than half the effort. 2-Substantial/Maximal Assistance-helper does MORE THAN HALF the effort. [place] lifts or holds trunk or limbs and provides more than half the effort. 8-Spfclmmii-nrwdvi does ALL the effort. Patient does none of the effort to complete the activity. Or, the assistance of 2 or more helpers is required for the patient to complete the activity. If activity was not attempted, code reason: 7-Patient Refused. 9-Not Applicable-not attempted and the patient did not perform the activity before the current illness, exacerbation or injury. 10-Not Attempted due to Environmental Limitations-(lack of equipment, weather restraints, etc.). 88-Not Attempted due to Medical Conditions or Safety Concerns. Roll Left & Right (QC): 6 Sit to Lying (QC): 6 Lying to Sitting/Side of Bed(Q: 6 Sit to Stand (QC): 4 Chair/Vza-bx-Zfxtc Xfer(QC): 4 Weight Bearing Right Lower Extremity: Right Full Weight Bearing Left Lower Extremity: Left Full Weight Bearing Gait Training Does the Patient Walk?: Yes Distance: 350ft x 2 Walk 10 feet (QC): 4 Walk 50 ft with 2 Turns(QC): 4 Walk 150 ft (QC): 4 Gait Persons Needed: 1 Gait Assistive Device: FWW Wheelchair Training Does the Pt Use a Wheelchair?: No Stair Training Stair Training: Handrails/: 1 handrail #of Steps: 12 1 Step (curb) (QC): 4 4 Steps (QC): 4 12 Steps (QC): 4 Stairs: Pattern: Reciprocal Treatments Pt completed bed mobility tasks with Mod I. Pt completed functional transfers with SBA. Pt ambulated 350ft with the FWW and SBA/CGA. Pt negotiated 12 steps with 1 HR, CGA, and Min v/c for sequencing. Pt completed seated B LE Ther Ex x 15 reps each with 1 lb ankle weights and red Tband. Pt completed nu-step x 15 min on level 4. Pt lying in bed upon completion of PT, with call light in reach, all needs met, and present. Assessment Current Status: Good Progress Pt tolerated PT well with good effort. Upon d/c from ARU, pt would benefit from a FWW. Pt has balance and strength limitations that significantly impairs his ability to participate in functional mobility tasks and ADLs. These mobility limitations decrease the pts ability to complete ADLs and walking/functional mobility safely, due to decreased balance and strength. Pt is safely able to use the FWW for walking, ADLs, and functional mobility. With the FWW, the pts functional mobility deficit can be sufficiently resolved to complete walking and ADLs. PT Fdc Goals Crop Picker Goals PT Fdc Goals Time Frame: Sep 10, 2022 Roll Left & Right (QC): 6 (Pt will be Mod I with all aspects of functional mobility, with the least restrictive AD, to be at PLOF. ) Sit to Lying (QC): 6 (Pt will be Mod I with all aspects of functional mobility, with the least restrictive AD, to be at PLOF. ) Lying-Sitting on Side/Bed(QC): 6 (Pt will be Mod I with all aspects of functional mobility, with the least restrictive AD, to be at PLOF. ) Sit to Stand (QC): 6 (Pt will be Mod I with all aspects of functional mobility, with the least restrictive AD, to be at PLOF. ) Chair/Adc-tk-Nzwvm Xfer(QC): 6 (Pt will be Mod I with all aspects of functional mobility, with the least restrictive AD, to be at PLOF. ) Toilet Transfer (QC): 6 (Pt will be Mod I with all aspects of functional mobility, with the least restrictive AD, to be at PLOF. ) Car Transfer (QC): 6 (Pt will be Mod I with all aspects of functional mobility, with the least restrictive AD, to be at PLOF. ) Does the Patient Walk: Yes Walk 10 feet (QC): 6 (Pt will be Mod I with all aspects of functional mobility, with the least restrictive AD, to be at PLOF. ) Walk 50ft with 2 Turns (QC): 6 (Pt will be Mod I with all aspects of functional mobility, with the least restrictive AD, to be at PLOF. ) Walk 150 ft (QC): 6 (Pt will be Mod I with all aspects of functional mobility, with the least restrictive AD, to be at PLOF. ) Walking 10ft on Uneven Surface: 6 (Pt will be Mod I with all aspects of functional mobility, with the least restrictive AD, to be at PLOF. ) 1 Step (curb) (QC): 6 (Pt will be Mod I with all aspects of functional mobilit y, with the least restrictive AD, to be at PLOF. ) 4 Steps (QC): 6 (Pt will be Mod I with all aspects of functional mobility, with the least restrictive AD, to be at PLOF. ) 12 Steps (QC): 6 (Pt will be Mod I with all aspects of functional mobility, with the least restrictive AD, to be at PLOF. ) Picking up an Object (QC): 6 (Pt will be Mod I with all aspects of functional mobility, with the least restrictive AD, to be at PLOF. ) Does the Pt use WC or Scooter?: No Wheel 50 feet with 2 turns (QC: 9 Type: N/A Wheel 150 feet: 9 Type: N/A PT Plan Problem List Problem List: Activity Tolerance, Functional Strength, Safety, Balance, Gait, Transfer, Bed Mobility Treatment/Plan Treatment Plan: Continue Plan of Care Treatment Plan: Bed Mobility, Concurrent Therapy, Education, Functional Activity Satinder, Functional Strength, Group Therapy, Gait, Safety, Therapeutic Exercise, Transfers Treatment Duration: Sep 10, 2022 Frequency: At least 5 of 7 days/Wk (IRF) Estimated Hrs Per Day: 1.5 hours per day Patient and/or Family Agrees t: Yes Safety Risks/Education Patient Education: Gait Training, Transfer Techniques, Steps, Safety Issues Teaching Recipient: Patient Teaching Methods: Demonstration, Discussion Response to Teaching: Verbalize Understanding, Return Demonstration, Reinforcement Needed Discharge Recommendations Therapy Discharge Recommendati: Home & Family Equpiment Recommendations-D/C: Front Wheeled Walker Discharge Status/Home Program Cont per POC Barriers to Progress Weakness Target Placement Home with spouse Time Time In: 930 Time Out: 1050 DATE: Sep 07, 2022 Total Billed Treatment Time: 80 Total Billed Treatment 80 min 1 visit EX x 1 FA x 2 GT x 2 IMELDA TRIVEDI PT Sep 07, 2022 11:56
--- NOTE | 2022-09-07 12:55 | PM&R Progress Note ---
Subjective HPI/CC On Admission Date Seen by Provider: Sep 07, 2022 Time Seen by Provider: 11:00 Subjective/Events-last exam 09/07/2022: Patient doing really well Arellano catheter will be removed by Dr. Barron after cystoscopy performed mid September No major concerns otherwise No falls 09/06/2022: Patient doing well Arranging appointment with Dr. Barron since cystoscopy must be completed when Arellano catheter removed No falls No pain 09/05/2022: Patient doing a lot better Took a shower today Moving around better Dr. Barron will be contacted regarding the Arellano catheter tomorrow 09/04/2022: Doing really well No pain reported Participating in therapy No falls 09/03/2022: Patient doing really well Participating in all therapy Gaining strength Arellano catheter will remain in place until Dr. Barron makes decision on Tuesday Maintain on antibiotics for UTI Review of Systems General: Fatigue, Malaise Objective Exam Vital Signs Vital Signs Date Time Temp Pulse Resp B/P (MAP) Pulse Ox O2 Delivery O2 Flow Rate FiO2 09/07/22 19:19 36.8 80 18 106/64 (78) 94 Room Air 09/04/22 07:52 0.00 0.00 09/02/22 21:43 21 Capillary Refill : General Appearance: No Apparent Distress, WD/WN, Chronically ill, Obese HEENT: PERRL/EOMI, Normal ENT Inspection, Pharynx Normal Neck: Full Range of Motion, Normal Inspection, Non Tender, Supple, Carotid Bruit Respiratory: Chest Non Tender, Lungs Clear, Normal Breath Sounds, No Accessory Muscle Use, No Respiratory Distress Cardiovascular: Regular Rate, Rhythm, No Edema, No Gallop, No JVD, No Murmur, Normal Peripheral Pulses Gastrointestinal: Normal Bowel Sounds, No Organomegaly, No Pulsatile Mass, Non Tender, Soft Back: Normal Inspection, No CVA Tenderness, No Vertebral Tenderness Extremity: Normal Capillary Refill, Normal Inspection, Normal Range of Motion, Non Tender, No Calf Tenderness, No Pedal Edema Neurologic/Psychiatric: Alert, Oriented x3, Normal Mood/Affect, Abnormal Gait, Depressed Affect, Facial Droop ( left side), Motor Weakness ( left arm 3/5 and left hand 2/5) Skin: Normal Color, Warm/Dry Lymphatic: No Adenopathy Results/Procedures Lab Patient resulted labs reviewed. FIM Transfers Therapy Code Descriptions/Definitions Functional [place] Measure: 0=Not Assessed/NA 4=Minimal Assistance 1=Total Assistance 5=Supervision or Setup 2=Maximal Assistance 6=Modified [place] 3=Moderate Assistance 7=Complete IndependenceSCALE: Activities may be completed with or without assistive devices. 9-Sbdilbtemk-yoajmzx completes the activity by him/herself with no assistance from a helper. 5-Set-up or Clean-up Assistance-helper sets up or cleans up; patient completes activity. [place] assists only prior to or following the activity. 4-Supervision or Touching Assistance-helper provides verbal cues and/or touching/steadying and/or contact guard assistance as patient completes activity. Assistance may be provided throughout the activity or intermittently. 3-Partial/Moderate Assistance-helper does LESS THAN HALF the effort. [place] lifts, holds or supports trunk or limbs, but provides less than half the effort. 2-Substantial/Maximal Assistance-helper does MORE THAN HALF the effort. [place] lifts or holds trunk or limbs and provides more than half the effort. 8-Bicfvvdyg-wjgrht does ALL the effort. Patient does none of the effort to complete the activity. Or, the assistance of 2 or more helpers is required for the patient to complete the activity. If activity was not attempted, code reason: 7-Patient Refused. 9-Not Applicable-not attempted and the patient did not perform the activity before the current illness, exacerbation or injury. 10-Not Attempted due to Environmental Limitations-(lack of equipment, weather restraints, etc.). 88-Not Attempted due to Medical Conditions or Safety Concerns. Roll Left to Right (QC): 6 Sit to Lying (QC): 6 Sit to Stand (QC): 4 Chair/Cgw-ge-Ligpk Xfer(QC): 4 Car Transfer (QC): 4 (CGA ) Gait Training Does the Patient Walk?: Yes Distance: 350ft x 2 Walk 10 feet (QC): 4 Walk 50 ft with 2 Turns(QC): 4 Walk 150 ft (QC): 4 Walking 10ft/uneven surface-QC: 4 (CGA) Gait Persons Needed: 1 Gait Assistive Device: FWW Wheelchair Training Does the Pt Use a Wheelchair?: No Wheel 50 ft with 2 turns (QC): 9 Wheel 150 ft (QC): 9 Type of Wheelchair: N/A Stair Training Stair Training: Handrails/: 1 handrail #of Steps: 12 1 Step (curb) (QC): 4 4 Steps (QC): 4 12 Steps (QC): 4 Stairs: Pattern: Reciprocal Balance Picking up an Object (QC): 4 (SBA ) ADL-Treatment Eating (QC): 6 Oral Hygiene (QC): 4 Shower/Bathe Self (QC): 4 Upper Body Dressing (QC): 5 Lower Body Dressing (QC): 4 On/Off Footwear (QC): 5 Toileting Hygiene (QC): 4 (Pt demonstrates ability to complete task with supervision.) Toilet Transfer (QC): 4 Assessment/Plan Assessment and Plan Assess & Plan/Chief Complaint Assessment: 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 Boudreaux consulted and will manage conservatively Hypertension Hyperlipidemia Fatty liver Plan: Aggressive rehab Speech therapy Plavix aspirin statin PT and OT 09/03/2022: Supportive care Aggressive rehab 09/04/2022: Continue aggressive rehab 09/05/2022: Bowels moving Continue aggressive rehab 09/06/2022: Supportive care Dr. Barron appointment to remove catheter after cystoscopy performed 09/07/2022: Continue treatment (1) Stroke Status: Acute ELISABETH STALEY DO Sep 07, 2022 12:55
[2022-09-07 19:19] VITALS: BP 106/64
[2022-09-08] MEDS: BACLOFEN 10 MG (LIORESAL) TAB PO SCH ×6 (00:56→20:35)
--- NOTE | 2022-09-08 06:00 | PM&R Progress Note ---
Subjective HPI/CC On Admission Date Seen by Provider: Sep 08, 2022 Time Seen by Provider: 12:30 Subjective/Events-last exam 09/08/2022: Patient doing really well Having some angst about Arellano catheter since it needs to be flushed at times because of blood clots Stopping Lovenox that should help that should help We will delay discharge until Tuesday due to Arellano catheter issues 09/07/2022: Patient doing really well Arellano catheter will be removed by Dr. Barron after cystoscopy performed september No major concerns otherwise No falls 09/06/2022: Patient doing well Arranging appointment with Dr. Barron since cystoscopy must be completed when Arellano catheter removed No falls No pain 09/05/2022: Patient doing a lot better Took a shower today Moving around better Dr. Barron will be contacted regarding the Arellano catheter tomorrow 09/04/2022: Doing really well No pain reported Participating in therapy No falls 09/03/2022: Patient doing really well Participating in all therapy Gaining strength Arellano catheter will remain in place until Dr. Barron makes decision on Tuesday Maintain on antibiotics for UTI Review of Systems General: Fatigue, Malaise Objective Exam Vital Signs Vital Signs Date Time Temp Pulse Resp B/P (MAP) Pulse Ox O2 Delivery O2 Flow Rate FiO2 09/08/22 19:05 36.4 80 20 102/60 (74) 93 Room Air 09/08/22 08:00 0.00 0.00 09/02/22 21:43 21 Capillary Refill : General Appearance: No Apparent Distress, WD/WN, Chronically ill, Obese HEENT: PERRL/EOMI, Normal ENT Inspection, Pharynx Normal Neck: Full Range of Motion, Normal Inspection, Non Tender, Supple, Carotid Bruit Respiratory: Chest Non Tender, Lungs Clear, Normal Breath Sounds, No Accessory Muscle Use, No Respiratory Distress Cardiovascular: Regular Rate, Rhythm, No Edema, No Gallop, No JVD, No Murmur, Normal Peripheral Pulses Gastrointestinal: Normal Bowel Sounds, No Organomegaly, No Pulsatile Mass, Non Tender, Soft Back: Normal Inspection, No CVA Tenderness, No Vertebral Tenderness Extremity: Normal Capillary Refill, Normal Inspection, Normal Range of Motion, Non Tender, No Calf Tenderness, No Pedal Edema Neurologic/Psychiatric: Alert, Oriented x3, Normal Mood/Affect, Abnormal Gait, Depressed Affect, Facial Droop ( left side), Motor Weakness ( left arm 3/5 and left hand 2/5) Skin: Normal Color, Warm/Dry Lymphatic: No Adenopathy Results/Procedures Lab Patient resulted labs reviewed. FIM Transfers Therapy Code Descriptions/Definitions Functional [place] Measure: 0=Not Assessed/NA 4=Minimal Assistance 1=Total Assistance 5=Supervision or Setup 2=Maximal Assistance 6=Modified [place] 3=Moderate Assistance 7=Complete IndependenceSCALE: Activities may be completed with or without assistive devices. 6-Qlcqntuofs-krkamrs completes the activity by him/herself with no assistance from a helper. 5-Set-up or Clean-up Assistance-helper sets up or cleans up; patient completes activity. [place] assists only prior to or following the activity. 4-Supervision or Touching Assistance-helper provides verbal cues and/or touching/steadying and/or contact guard assistance as patient completes activity. Assistance may be provided throughout the activity or intermittently. 3-Partial/Moderate Assistance-helper does LESS THAN HALF the effort. [place] lifts, holds or supports trunk or limbs, but provides less than half the effort. 2-Substantial/Maximal Assistance-helper does MORE THAN HALF the effort. [place] lifts or holds trunk or limbs and provides more than half the effort. 4-Hxicjwuwc-itzyhs does ALL the effort. Patient does none of the effort to complete the activity. Or, the assistance of 2 or more helpers is required for the patient to complete the activity. If activity was not attempted, code reason: 7-Patient Refused. 9-Not Applicable-not attempted and the patient did not perform the activity before the current illness, exacerbation or injury. 10-Not Attempted due to Environmental Limitations-(lack of equipment, weather restraints, etc.). 88-Not Attempted due to Medical Conditions or Safety Concerns. Roll Left to Right (QC): 6 Sit to Lying (QC): 6 Sit to Stand (QC): 4 Chair/Rsj-bu-Cgous Xfer(QC): 4 Car Transfer (QC): 4 (CGA ) Gait Training Does the Patient Walk?: Yes Distance: 350ft x 2 Walk 10 feet (QC): 4 Walk 50 ft with 2 Turns(QC): 4 Walk 150 ft (QC): 4 Walking 10ft/uneven surface-QC: 4 (CGA) Gait Persons Needed: 1 Gait Assistive Device: FWW Wheelchair Training Does the Pt Use a Wheelchair?: No Wheel 50 ft with 2 turns (QC): 9 Wheel 150 ft (QC): 9 Type of Wheelchair: N/A Stair Training Stair Training: Handrails/: 1 handrail #of Steps: 12 1 Step (curb) (QC): 4 4 Steps (QC): 4 12 Steps (QC): 4 Stairs: Pattern: Reciprocal Balance Picking up an Object (QC): 4 (SBA ) ADL-Treatment Eating (QC): 6 Oral Hygiene (QC): 4 Shower/Bathe Self (QC): 4 Upper Body Dressing (QC): 5 Lower Body Dressing (QC): 4 On/Off Footwear (QC): 5 Toileting Hygiene (QC): 4 (Pt demonstrates ability to complete task with supervision.) Toilet Transfer (QC): 4 Assessment/Plan Assessment and Plan Assess & Plan/Chief Complaint Assessment: 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 Boudreaux consulted and will manage conservatively Hypertension Hyperlipidemia Fatty liver Indwelling Arellano catheter status post complete prostatectomy robotic assisted will remain until follow-up with Dr. Barron Hematuria with clots and catheter Plan: Aggressive rehab Speech therapy Plavix aspirin statin PT and OT 09/03/2022: Supportive care Aggressive rehab 09/04/2022: Continue aggressive rehab 09/05/2022: Bowels moving Continue aggressive rehab 09/06/2022: Supportive care Dr. Barron appointment to remove catheter after cystoscopy performed 09/07/2022: Continue treatment 09/08/2022: DC Lovenox due to hematuria and clots in catheter (1) Stroke Status: Acute ELISABETH STALEY DO Sep 08, 2022 06:00
[2022-09-08] MEDS: MULTIVIT W/MINERALS TAB (THERAGRAN M) PO SCH (06:37)
[2022-09-08 08:00] VITALS: BP 106/64
[2022-09-08] MEDS: CLOPIDOGREL 75 MG (PLAVIX) TABLET PO SCH (08:00)
[2022-09-08] MEDS: ASPIRIN E.C. 81 MG (ECOTRIN) TAB PO SCH (08:00)
[2022-09-08] MEDS: amLODIPine 5 MG (NORVASC) TAB PO SCH (08:00)
[2022-09-08] MEDS: DOCUSATE SODIUM 100 MG (COLACE) CAP PO SCH ×2 (08:00→20:36)
[2022-09-08] MEDS: ENOXAPARIN 40 MG/0.4 ML (LOVENOX) SYR SC SCH (08:00)
[2022-09-08] MEDS: SENNOSIDES 8.6 MG (SENOKOT) TAB PO SCH ×2 (08:01→21:27)
[2022-09-08] MEDS: lisINopril 40 MG (PRINIVIL) TABLET PO SCH (08:01)
[2022-09-08] MEDS: polyethylene glycoL POWDER 17 GM (MIRALAX) PACK PO SCH ×2 (08:10→21:27)
--- NOTE | 2022-09-08 11:17 | Speech Therapy Daily Note ---
Speech Daily Progress Note Subjective Date Seen by Provider: Sep 08, 2022 Time Seen by Provider: 08:30 Pt's at bedside when SMOG TECHNICIAN enters the room. states they had to flush the pt's catheter again last night and he did not sleep well. Pt did not eat any of his breakfast and only drank his juice. states pt has not been hungry or thirsty this morning. Pt appears lethargic throughout session. reports concerns about pt going home with catheter issues. SMOG TECHNICIAN passed this info on the social work coordinator. SMOG TECHNICIAN also notified nursing staff pt did not eat breakfast. Pt was pleasant and cooperative throughout session. Pain Numeric Pain Scale: 2 Location: Right Pain Description: Ache Comment: pointed to groin area Objective Pt completes oral motor exercises for range of motion and strengthening this date. Pt able to complete exercises with 100% accuracy with min verbal cues. Lingual protrusion x10 Lingual retraction x10 Lingual in cheek x10 Labial retraction x10 Labial protrusion x10 - still challenging for pt Cheek puffs x10 Assessment Assessment Current Status: Fair Progress Treatment Plan Continue Plan of Care Speech Short Term Goals Short Term Goals Short Term Goals 1. The patient will demonstrate oral motor exercises with 90% accuracy, independently. Speech Usp Goals Unemployment Insurance Director Goals 1. The patient will demonstrate improved cognitive communication for safe discharge to the least restrictive environment. Time Frame: Ten Days. Speech-Plan Patient/Family Goals Patient/Family Goals: Pt's goal is to return home with . Treatment Plan Speech Therapy Treatment Plan: Continue Plan of Care Treatment Duration: Sep 10, 2022 Frequency: Modified Program (IRF) (Four to five times per week.) Estimated Hrs Per Day: .5 hour per day Rehab Potential: Good Pt/Family Agrees to Plan: Yes Safety Risks/Education Teaching Recipient: Patient, Family Teaching Methods: Discussion Response to Teaching: Verbalize Understanding Education Topics Provided: SMOG TECHNICIAN educated pt and on importance of exercises. Pt encouraged to complete the rest of the exercises later today. Pt and receptive and verbalized understanding. Time Speech Therapy Time In: 08:30 Speech Therapy Time Out: 09:00 DATE: Sep 08, 2022 Total Billed Time: 30 Billed Treatment Time S/L Maday Restrepo Speech Therapy Sep 08, 2022 11:17
[2022-09-08] MEDS: OXYBUTYNIN (DITROPAN) 5 MG TAB PO PRN ×2 (12:47→20:35)
--- NOTE | 2022-09-08 12:49 | Occupational Ther Daily Note ---
OT Current Status-Daily Note Subjective Pt sleeping in bed, woke to name. Pt reports that he is very tired today and does not feel well. Requested to complete therapy in room. Mental Status/Objective Patient Orientation: Person, Place, Time, Situation Attachments: Arellano Catheter, IV ADL-Treatment Pt declines all ADLs this date due to not feeling well and fatigue. At end of session, pt requires assistance to change brief and cleanse ana laura area. Pt washed hands and face when washcloth handed to pt. Therapy Code Descriptions/Definitions Functional [place] Measure: 0=Not Assessed/NA 4=Minimal Assistance 1=Total Assistance 5=Supervision or Setup 2=Maximal Assistance 6=Modified [place] 3=Moderate Assistance 7=Complete IndependenceSCALE: Activities may be completed with or without assistive devices. 1-Zeraechccz-siydhjf completes the activity by him/herself with no assistance from a helper. 5-Set-up or Clean-up Assistance-helper sets up or cleans up; patient completes activity. [place] assists only prior to or following the activity. 4-Supervision or Touching Assistance-helper provides verbal cues and/or touching/steadying and/or contact guard assistance as patient completes activity. Assistance may be provided throughout the activity or intermittently. 3-Partial/Moderate Assistance-helper does LESS THAN HALF the effort. [place] lifts, holds or supports trunk or limbs, but provides less than half the effort. 2-Substantial/Maximal Assistance-helper does MORE THAN HALF the effort. [place] lifts or holds trunk or limbs and provides more than half the effort. 4-Ezopkxojz-ewpnxx does ALL the effort. Patient does none of the effort to complete the activity. Or, the assistance of 2 or more helpers is required for the patient to complete the activity. If activity was not attempted, code reason: 7-Patient Refused. 9-Not Applicable-not attempted and the patient did not perform the activity before the current illness, exacerbation or injury. 10-Not Attempted due to Environmental Limitations-(lack of equipment, weather restraints, etc.). 88-Not Attempted due to Medical Conditions or Safety Concerns. Eating (QC): 5 Other Treatment Pt completed B UE strengthening, fine motor coordination/dexterity and muscle retraining throughout treatment with skilled instruction and modifications when needed. Pt's L UE has full AROM though is weak and requires verbal cues for pt to focus on L UE during full AROM. Pt completed fine motor dexterity with reach, pinch and release in designated areas. Pt continues to have difficulty with palmar translation though is progressing with finger opposition. Pt able to complete B UE coordination tasks for catching and throwing with minimal lag when using L UE. After session, pt lying in bed with call light/phone in reach. All needs met in room. OT Short Term Goals Short Term Goals Time Frame: Sep 11, 2022 Eatin Oral hygiene: 6 Toileting hygiene: 6 OT Pourer Buggy Ladle Goals Pourer Buggy Ladle Goals Acute change in mental status: 1 Inattention: 0 Disorganized thinkin Altered level of consciousness: 0 Eating (QC): 6 Oral Hygiene (QC): 6 Toileting Hygiene (QC): 6 Shower/Bathe Self (QC): 6 Upper Body Dressing (QC): 6 Lower Body Dressing (QC): 6 On/Off Footwear (QC): 6 1=Demonstrate adherence to instructed precautions during ADL tasks. 2=Patient will verbalize/demonstrate understanding of assistive devices/modifications for ADL. 3=Patient will improve strength/tolerance for activity to enable patient to perform ADL's. OT Education/Plan Problem List/Assessment Assessment: Decreased Activ Tolerance, Decreased UE Strength, Impaired Coordination, Impaired Self-Care Skills, Restricted Funct UE ROM, Visual- Perceptual Deficit Discharge Recommendations Plan/Recommendations: Continue POC Treatment Plan/Plan of Care Patient would benefit from OT for education, treatment and training to promote independence in ADL's, mobility, safety and/or upper extremity function for ADL's. Plan of Care: ADL Retraining, Caregiver Training, Cognitive Retraining, Concurrent Therapy, Functional Mobility, Group Exercise/Act as Ind, UE Funct Exercise/Act, Visual/Perceptual Retrain Treatment Duration: Sep 17, 2022 Frequency: At least 5 of 7 days/Wk (IRF) Estimated Hrs Per Day: 1.5 hours per day Agreement: Yes Rehab Potential: Good Time Start Time: 11:00 Stop Time: 12:15 DATE: Sep 08, 2022 Total Time Billed (hr/min): 75 Billed Treatment Time 1 visit-ADL 1 (15 min) EX 4 (60 min) NATALIO GOMEZ Sep 08, 2022 12:49
--- NOTE | 2022-09-08 13:55 | Physical Therapy Daily Note ---
PT Daily Note-Current Subjective Pt reports he is doing well today and agreeable to PT. Pt denies pain, but reports he is very tired, as he has not been getting any sleep, secondary to catheter issues. Pain Numeric Pain Scale: 0-No Pain Location: No Pain Reported Section J - Health Conditions 1. Rarely or not at all 2. Occasionally 3. Frequently 4. Almost constantly 8. Unable to answer Pain Effect on Sleep: 1 Pain Interference with Therapy: 1 Pain Interference w/Day-to-Day: 1 Mental Status Attachments: Arellano Catheter Transfers SCALE: Activities may be completed with or without assistive devices. 3-Inaleegnkp-gtsyzqp completes the activity by him/herself with no assistance from a helper. 5-Set-up or Clean-up Assistance-helper sets up or cleans up; patient completes activity. [place] assists only prior to or following the activity. 4-Supervision or Touching Assistance-helper provides verbal cues and/or touching/steadying and/or contact guard assistance as patient completes activity. Assistance may be provided throughout the activity or intermittently. 3-Partial/Moderate Assistance-helper does LESS THAN HALF the effort. [place] lifts, holds or supports trunk or limbs, but provides less than half the effort. 2-Substantial/Maximal Assistance-helper does MORE THAN HALF the effort. [place] lifts or holds trunk or limbs and provides more than half the effort. 6-Wuhxxqesn-bfvbfv does ALL the effort. Patient does none of the effort to complete the activity. Or, the assistance of 2 or more helpers is required for the patient to complete the activity. If activity was not attempted, code reason: 7-Patient Refused. 9-Not Applicable-not attempted and the patient did not perform the activity before the current illness, exacerbation or injury. 10-Not Attempted due to Environmental Limitations-(lack of equipment, weather restraints, etc.). 88-Not Attempted due to Medical Conditions or Safety Concerns. Roll Left & Right (QC): 6 Sit to Lying (QC): 6 Lying to Sitting/Side of Bed(Q: 6 Sit to Stand (QC): 4 Chair/Hrw-ya-Ocfwh Xfer(QC): 4 Weight Bearing Right Lower Extremity: Right Full Weight Bearing Left Lower Extremity: Left Full Weight Bearing Gait Training Does the Patient Walk?: Yes Distance: 400ft x 2 Walk 10 feet (QC): 4 Walk 50 ft with 2 Turns(QC): 4 Walk 150 ft (QC): 4 Gait Persons Needed: 1 Gait Assistive Device: FWW Wheelchair Training Does the Pt Use a Wheelchair?: No Wheel 50 ft with 2 turns (QC): 88 Wheel 150 ft (QC): 88 Type of Wheelchair: N/A Treatments Pt completed bed mobility tasks with Mod I. Pt completed functional transfers with SBA, for improved safety. Pt ambulated 400ft x 2 with the FWW and SBA. Pt completed seated B LE Ther Ex x 20 reps each with 1 lb ankle weights and red Tband. Pt completed 20 min on the nu-step on level 4. Pt supine in bed, after treatment, with call light in reach and all needs met. Assessment Current Status: Good Progress Pt tolerated PT well with good effort PT Long-Term Goals Business Management Consultant Goals PT Long-Term Goals Time Frame: Sep 10, 2022 Roll Left & Right (QC): 6 (Pt will be Mod I with all aspects of functional mobility, with the least restrictive AD, to be at PLOF. ) Sit to Lying (QC): 6 (Pt will be Mod I with all aspects of functional mobility, with the least restrictive AD, to be at PLOF. ) Lying-Sitting on Side/Bed(QC): 6 (Pt will be Mod I with all aspects of functional mobility, with the least restrictive AD, to be at PLOF. ) Sit to Stand (QC): 6 (Pt will be Mod I with all aspects of functional mobility, with the least restrictive AD, to be at PLOF. ) Chair/Vzo-xq-Bqkbv Xfer(QC): 6 (Pt will be Mod I with all aspects of functional mobility, with the least restrictive AD, to be at PLOF. ) Toilet Transfer (QC): 6 (Pt will be Mod I with all aspects of functional mobility, with the least restrictive AD, to be at PLOF. ) Car Transfer (QC): 6 (Pt will be Mod I with all aspects of functional mobility, with the least restrictive AD, to be at PLOF. ) Does the Patient Walk: Yes Walk 10 feet (QC): 6 (Pt will be Mod I with all aspects of functional mobility, with the least restrictive AD, to be at PLOF. ) Walk 50ft with 2 Turns (QC): 6 (Pt will be Mod I with all aspects of functional mobility, with the least restrictive AD, to be at PLOF. ) Walk 150 ft (QC): 6 (Pt will be Mod I with all aspects of functional mobility, with the least restrictive AD, to be at PLOF. ) Walking 10ft on Uneven Surface: 6 (Pt will be Mod I with all aspects of functional mobility, with the least restrictive AD, to be at PLOF. ) 1 Step (curb) (QC): 6 (Pt will be Mod I with all aspects of functional mobility, with the least restrictive AD, to be at PLOF. ) 4 Steps (QC): 6 (Pt will be Mod I with all aspects of functional mobility, with the least restrictive AD, to be at PLOF. ) 12 Steps (QC): 6 (Pt will be Mod I with all aspects of functional mobility, with the least restrictive AD, to be at PLOF. ) Picking up an Object (QC): 6 (Pt will be Mod I with all aspects of functional mobility, with the least restrictive AD, to be at PLOF. ) Does the Pt use WC or Scooter?: No Wheel 50 feet with 2 turns (QC: 9 Type: N/A Wheel 150 feet: 9 Type: N/A PT Plan Problem List Problem List: Activity Tolerance, Functional Strength, Safety, Balance, Gait, Transfer Treatment/Plan Treatment Plan: Continue Plan of Care Treatment Plan: Bed Mobility, Concurrent Therapy, Education, Functional Activity Satinder, Functional Strength, Group Therapy, Gait, Safety, Therapeutic Exercise, Transfers Treatment Duration: Sep 10, 2022 Frequency: At least 5 of 7 days/Wk (IRF) Estimated Hrs Per Day: 1.5 hours per day Patient and/or Family Agrees t: Yes Safety Risks/Education Patient Education: Gait Training, Transfer Techniques, Safety Issues Teaching Recipient: Patient Teaching Methods: Demonstration, Discussion Response to Teaching: Verbalize Understanding, Return Demonstration Discharge Recommendations Therapy Discharge Recommendati: Home & Family Equpiment Recommendations-D/C: Front Wheeled Walker, Shower Chair Discharge Status/Home Program Cont per POC Barriers to Progress L sided weakness Target Placement Home with spouse Time Time In: 915 Time Out: 1030 DATE: Sep 08, 2022 Total Billed Treatment Time: 75 Total Billed Treatment 75 min 1 visit FA x 2 GT x 2 EX x 1 IMELDA TRIVEDI PT Sep 08, 2022 13:55
[2022-09-08 19:05] VITALS: BP 102/60
[2022-09-09] MEDS: BACLOFEN 10 MG (LIORESAL) TAB PO SCH ×6 (04:00→20:03)
--- NOTE | 2022-09-09 06:14 | PM&R Progress Note ---
Subjective HPI/CC On Admission Date Seen by Provider: Sep 09, 2022 Time Seen by Provider: 12:00 Subjective/Events-last exam 09/09/2022: Patient doing really well No pain is reported No falls Checked meds and labs Hematuria is better 09/08/2022: Patient doing really well Having some angst about Arellano catheter since it needs to be flushed at times because of blood clots Stopping Lovenox that should help that should help We will delay discharge until Tuesday due to Arellano catheter issues 09/07/2022: Patient doing really well Arellano catheter will be removed by Dr. Barron after cystoscopy performed mid September No major concerns otherwise No falls 09/06/2022: Patient doing well Arranging appointment with Dr. Barron since cystoscopy must be completed when Arellano catheter removed No falls No pain 09/05/2022: Patient doing a lot better Took a shower today Moving around better Dr. Barron will be contacted regarding the Arellano catheter tomorrow 09/04/2022: Doing really well No pain reported Participating in therapy No falls 09/03/2022: Patient doing really well Participating in all therapy Gaining strength Arellano catheter will remain in place until Dr. Barron makes decision on Tuesday Maintain on antibiotics for UTI Review of Systems General: Fatigue, Malaise Objective Exam Vital Signs Vital Signs Date Time Temp Pulse Resp B/P (MAP) Pulse Ox O2 Delivery O2 Flow Rate FiO2 09/09/22 19:50 36.2 73 20 111/69 (83) 97 Room Air 09/08/22 08:00 0.00 0.00 Capillary Refill : General Appearance: No Apparent Distress, WD/WN, Chronically ill, Obese HEENT: PERRL/EOMI, Normal ENT Inspection, Pharynx Normal Neck: Full Range of Motion, Normal Inspection, Non Tender, Supple, Carotid Bruit Respiratory: Chest Non Tender, Lungs Clear, Normal Breath Sounds, No Accessory Muscle Use, No Respiratory Distress Cardiovascular: Regular Rate, Rhythm, No Edema, No Gallop, No JVD, No Murmur, Normal Peripheral Pulses Gastrointestinal: Normal Bowel Sounds, No Organomegaly, No Pulsatile Mass, Non Tender, Soft Back: Normal Inspection, No CVA Tenderness, No Vertebral Tenderness Extremity: Normal Capillary Refill, Normal Inspection, Normal Range of Motion, Non Tender, No Calf Tenderness, No Pedal Edema Neurologic/Psychiatric: Alert, Oriented x3, Normal Mood/Affect, Abnormal Gait, Depressed Affect, Facial Droop ( left side), Motor Weakness ( left arm 3/5 and left hand 2/5) Skin: Normal Color, Warm/Dry Lymphatic: No Adenopathy Results/Procedures Lab Patient resulted labs reviewed. FIM Transfers Therapy Code Descriptions/Definitions Functional [place] Measure: 0=Not Assessed/NA 4=Minimal Assistance 1=Total Assistance 5=Supervision or Setup 2=Maximal Assistance 6=Modified [place] 3=Moderate Assistance 7=Complete IndependenceSCALE: Activities may be completed with or without assistive devices. 3-Oaijtinelm-ufoijxh completes the activity by him/herself with no assistance from a helper. 5-Set-up or Clean-up Assistance-helper sets up or cleans up; patient completes activity. [place] assists only prior to or following the activity. 4-Supervision or Touching Assistance-helper provides verbal cues and/or touching/steadying and/or contact guard assistance as patient completes activity. Assistance may be provided throughout the activity or intermittently. 3-Partial/Moderate Assistance-helper does LESS THAN HALF the effort. [place] lifts, holds or supports trunk or limbs, but provides less than half the effort. 2-Substantial/Maximal Assistance-helper does MORE THAN HALF the effort. [place] lifts or holds trunk or limbs and provides more than half the effort. 3-Dxhatmzqp-gldsiy does ALL the effort. Patient does none of the effort to complete the activity. Or, the assistance of 2 or more helpers is required for the patient to complete the activity. If activity was not attempted, code reason: 7-Patient Refused. 9-Not Applicable-not attempted and the patient did not perform the activity before the current illness, exacerbation or injury. 10-Not Attempted due to Environmental Limitations-(lack of equipment, weather restraints, etc.). 88-Not Attempted due to Medical Conditions or Safety Concerns. Roll Left to Right (QC): 6 Sit to Lying (QC): 6 Sit to Stand (QC): 4 Chair/Vth-go-Mwomt Xfer(QC): 4 Car Transfer (QC): 4 (CGA ) Gait Training Does the Patient Walk?: Yes Distance: 400ft x 2 Walk 10 feet (QC): 4 Walk 50 ft with 2 Turns(QC): 4 Walk 150 ft (QC): 4 Walking 10ft/uneven surface-QC: 4 (CGA) Gait Persons Needed: 1 Gait Assistive Device: FWW Wheelchair Training Does the Pt Use a Wheelchair?: No Wheel 50 ft with 2 turns (QC): 88 Wheel 150 ft (QC): 88 Type of Wheelchair: N/A Stair Training Stair Training: Handrails/: 1 handrail #of Steps: 12 1 Step (curb) (QC): 4 4 Steps (QC): 4 12 Steps (QC): 4 Stairs: Pattern: Reciprocal Balance Picking up an Object (QC): 4 (SBA ) ADL-Treatment Eating (QC): 5 Oral Hygiene (QC): 4 Shower/Bathe Self (QC): 4 Upper Body Dressing (QC): 5 Lower Body Dressing (QC): 4 On/Off Footwear (QC): 5 Toileting Hygiene (QC): 4 (Pt demonstrates ability to complete task with supervision.) Toilet Transfer (QC): 4 Assessment/Plan Assessment and Plan Assess & Plan/Chief Complaint Assessment: 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 Boudreaux consulted and will manage conservatively Hypertension Hyperlipidemia Fatty liver Indwelling Arellano catheter status post complete prostatectomy robotic assisted will remain until follow-up with Dr. Barron Hematuria with clots and catheter Improved with Lovenox DC Plan: Aggressive rehab Speech therapy Plavix aspirin statin PT and OT 09/03/2022: Supportive care Aggressive rehab 09/04/2022: Continue aggressive rehab 09/05/2022: Bowels moving Continue aggressive rehab 09/06/2022: Supportive care Dr. Barron appointment to remove catheter after cystoscopy performed 09/07/2022: Continue treatment 09/08/2022: DC Lovenox due to hematuria and clots in catheter 09/09/2022: Monitor hematuria and clots in Arellano catheter (1) Stroke Status: Acute ELISABETH STALEY DO Sep 09, 2022 06:14
[2022-09-09] MEDS: OXYBUTYNIN (DITROPAN) 5 MG TAB PO PRN ×2 (06:22→18:41)
[2022-09-09] MEDS: MULTIVIT W/MINERALS TAB (THERAGRAN M) PO SCH (06:22)
[2022-09-09 07:58] VITALS: BP 118/69
[2022-09-09] MEDS: ASPIRIN E.C. 81 MG (ECOTRIN) TAB PO SCH (08:32)
[2022-09-09] MEDS: amLODIPine 5 MG (NORVASC) TAB PO SCH (08:32)
[2022-09-09] MEDS: lisINopril 40 MG (PRINIVIL) TABLET PO SCH (08:32)
[2022-09-09] MEDS: polyethylene glycoL POWDER 17 GM (MIRALAX) PACK PO SCH ×2 (08:33→19:45)
[2022-09-09] MEDS: SENNOSIDES 8.6 MG (SENOKOT) TAB PO SCH ×2 (08:33→20:03)
[2022-09-09] MEDS: DOCUSATE SODIUM 100 MG (COLACE) CAP PO SCH ×2 (08:33→20:03)
[2022-09-09] MEDS: CLOPIDOGREL 75 MG (PLAVIX) TABLET PO SCH (08:33)
--- NOTE | 2022-09-09 11:30 | Physical Therapy Daily Note ---
PT Daily Note-Current Subjective Pt reports he is doing well today and is agreeable to PT. Pt denies pain and reports he slept much better last night. Pain Numeric Pain Scale: 0-No Pain Location: No Pain Reported Section J - Health Conditions 1. Rarely or not at all 2. Occasionally 3. Frequently 4. Almost constantly 8. Unable to answer Pain Effect on Sleep: 1 Pain Interference with Therapy: 1 Pain Interference w/Day-to-Day: 1 Mental Status Attachments: Arellano Catheter Transfers SCALE: Activities may be completed with or without assistive devices. 9-Qexybcvcax-mrrlnwc completes the activity by him/herself with no assistance from a helper. 5-Set-up or Clean-up Assistance-helper sets up or cleans up; patient completes activity. [place] assists only prior to or following the activity. 4-Supervision or Touching Assistance-helper provides verbal cues and/or touching/steadying and/or contact guard assistance as patient completes activity. Assistance may be provided throughout the activity or intermittently. 3-Partial/Moderate Assistance-helper does LESS THAN HALF the effort. [place] lifts, holds or supports trunk or limbs, but provides less than half the effort. 2-Substantial/Maximal Assistance-helper does MORE THAN HALF the effort. [place] lifts or holds trunk or limbs and provides more than half the effort. 2-Tyspuaqki-exhkvh does ALL the effort. Patient does none of the effort to complete the activity. Or, the assistance of 2 or more helpers is required for the patient to complete the activity. If activity was not attempted, code reason: 7-Patient Refused. 9-Not Applicable-not attempted and the patient did not perform the activity before the current illness, exacerbation or injury. 10-Not Attempted due to Environmental Limitations-(lack of equipment, weather restraints, etc.). 88-Not Attempted due to Medical Conditions or Safety Concerns. Sit to Stand (QC): 6 Chair/Hbe-zy-Urkgz Xfer(QC): 6 Weight Bearing Right Lower Extremity: Right Full Weight Bearing Left Lower Extremity: Left Full Weight Bearing Gait Training Does the Patient Walk?: Yes Walk 10 feet (QC): 4 Walk 50 ft with 2 Turns(QC): 4 Walk 150 ft (QC): 4 Gait Assistive Device: FWW Wheelchair Training Does the Pt Use a Wheelchair?: No Treatments Pt completed functional transfers with Mod I. Pt ambulated 400ft x 2 with the FWW and SBA/Mod I. Pt completed seated B LE Ther Ex x 15 reps each with 2lb ankle weights and red Tband. Pt completed step-ups x 10 each on the blue airex pad and small step. Pt completed 15 min on the nu-step on level 4. Pt left sitting in his recliner with call light in reach and all needs met. Assessment Current Status: Good Progress Pt tolerated PT well, with good effort PT Usp Goals Piano Stringer Goals PT Piano Stringer Goals Time Frame: Sep 10, 2022 Roll Left & Right (QC): 6 (Pt will be Mod I with all aspects of functional mobility, with the least restrictive AD, to be at PLOF. ) Sit to Lying (QC): 6 (Pt will be Mod I with all aspects of functional mobility, with the least restrictive AD, to be at PLOF. ) Lying-Sitting on Side/Bed(QC): 6 (Pt will be Mod I with all aspects of functional mobility, with the least restrictive AD, to be at PLOF. ) Sit to Stand (QC): 6 (Pt will be Mod I with all aspects of functional mobility, with the least restrictive AD, to be at PLOF. ) Chair/Crf-lk-Gossn Xfer(QC): 6 (Pt will be Mod I with all aspects of functional mobility, with the least restrictive AD, to be at PLOF. ) Toilet Transfer (QC): 6 (Pt will be Mod I with all aspects of functional mobility, with the least restrictive AD, to be at PLOF. ) Car Transfer (QC): 6 (Pt will be Mod I with all aspects of functional mobility, with the least restrictive AD, to be at PLOF. ) Does the Patient Walk: Yes Walk 10 feet (QC): 6 (Pt will be Mod I with all aspects of functional mobility, with the least restrictive AD, to be at PLOF. ) Walk 50ft with 2 Turns (QC): 6 (Pt will be Mod I with all aspects of functional mobility, with the least restrictive AD, to be at PLOF. ) Walk 150 ft (QC): 6 (Pt will be Mod I with all aspects of functional mobility, with the least restrictive AD, to be at PLOF. ) Walking 10ft on Uneven Surface: 6 (Pt will be Mod I with all aspects of functional mobility, with the least restrictive AD, to be at PLOF. ) 1 Step (curb) (QC): 6 (Pt will be Mod I with all aspects of functional mobility, with the least restrictive AD, to be at PLOF. ) 4 Steps (QC): 6 (Pt will be Mod I with all aspects of functional mobility, with the least restrictive AD, to be at PLOF. ) 12 Steps (QC): 6 (Pt will be Mod I with all aspects of functional mobility, with the least restrictive AD, to be at PLOF. ) Picking up an Object (QC): 6 (Pt will be Mod I with all aspects of functional mobility, with the least restrictive AD, to be at PLOF. ) Does the Pt use WC or Scooter?: No Wheel 50 feet with 2 turns (QC: 9 Type: N/A Wheel 150 feet: 9 Type: N/A PT Plan Problem List Problem List: Activity Tolerance, Functional Strength, Safety, Balance, Gait, Transfer, Bed Mobility Treatment/Plan Treatment Plan: Continue Plan of Care Treatment Plan: Bed Mobility, Concurrent Therapy, Education, Functional Activity Satinder, Functional Strength, Group Therapy, Gait, Safety, Therapeutic Exercise, Transfers Treatment Duration: Sep 10, 2022 Frequency: At least 5 of 7 days/Wk (IRF) Estimated Hrs Per Day: 1.5 hours per day Patient and/or Family Agrees t: Yes Safety Risks/Education Patient Education: Gait Training, Transfer Techniques, Steps, Safety Issues Teaching Recipient: Patient Teaching Methods: Demonstration, Discussion Response to Teaching: Verbalize Understanding, Return Demonstration, Reinforcement Needed Discharge Recommendations Therapy Discharge Recommendati: Home & Family Equpiment Recommendations-D/C: Front Wheeled Walker, Shower Chair Discharge Status/Home Program Cont per POC Barriers to Progress L side weakness Target Placement Home with spouse Time Time In: 900 Time Out: 1000 DATE: Sep 09, 2022 Total Billed Treatment Time: 60 Total Billed Treatment 60 min 1 visit EX x 1 FA x 1 GT x 2 IMELDA TRIVEDI PT Sep 09, 2022 11:30
--- NOTE | 2022-09-09 11:46 | Speech Therapy Daily Note ---
Speech Daily Progress Note Subjective Date Seen by Provider: Sep 09, 2022 Time Seen by Provider: 08:00 Pt sitting up in recliner when INBOUND CALL CENTER REPRESENTATIVE enters room. Pt ate all of his breakfast this morning and reports he slept better last night. comes in with about 5 minutes left in the session. Pt pleasant and cooperative throughout the session this date. Pain Numeric Pain Scale: 0-No Pain Objective Pt completes oral motor exercises with 100% accuracy with min verbal cues. Pt completes the following swallow exercises: Lingual strengthening: lateral against tongue depressor, elevation against tongue depressor, pressing down against tongue depressor, and protrusion against tongue depressor (10 each) Lingual ROM: protrusion (deviating left), retraction, lateral movement (10 each) Labial strengthening: cheek puffs 10 Labial ROM: retraction, pucker (10 each) Assessment Assessment Current Status: Good Progress Treatment Plan Continue Plan of Care Speech Short Term Goals Short Term Goals Short Term Goals 1. The patient will demonstrate oral motor exercises with 90% accuracy, independently. Speech [facility] Goals Fire Supervisor Goals 1. The patient will demonstrate improved cognitive communication for safe discharge to the least restrictive environment. Time Frame: Ten Days. Speech-Plan Patient/Family Goals Patient/Family Goals: Pt's goal is to return home with . Treatment Plan Speech Therapy Treatment Plan: Continue Plan of Care Treatment Duration: Sep 10, 2022 Frequency: Modified Program (IRF) (Four to five times per week.) Estimated Hrs Per Day: .5 hour per day Rehab Potential: Good Safety Risks/Education Teaching Recipient: Patient, Family () Teaching Methods: Discussion Response to Teaching: Verbalize Understanding Education Topics Provided: Pt and educated on purpose of therapy exercises. Pt and receptive and verbalized understanding. Time Speech Therapy Time In: 08:00 Speech Therapy Time Out: 08:30 DATE: Sep 09, 2022 Total Billed Time: 30 Billed Treatment Time S/L Maday Restrepo Speech Therapy Sep 09, 2022 11:46
--- NOTE | 2022-09-09 12:00 | Occupational Ther Daily Note ---
OT Current Status-Daily Note Subjective Pt alert, sitting in recliner. Pt agrees to therapy. Pt states he feels better than yesterday. Mental Status/Objective Patient Orientation: Person, Place, Time, Situation Attachments: IV, Other-See Comments (loop recorder) ADL-Treatment Agrees to shower. Pt completed shower using grabbars, hand held shower and shower bench independently. Set up for UBD. SBA for LBD and pt threaded own catheter. Set up for footwear. Independent for oral care. After therapy, pt sitting in recliner with call light/phone in reach. All needs met in room. Therapy Code Descriptions/Definitions Functional [place] Measure: 0=Not Assessed/NA 4=Minimal Assistance 1=Total Assistance 5=Supervision or Setup 2=Maximal Assistance 6=Modified [place] 3=Moderate Assistance 7=Complete IndependenceSCALE: Activities may be completed with or without assistive devices. 5-Forrqovdvb-gmkrepy completes the activity by him/herself with no assistance from a helper. 5-Set-up or Clean-up Assistance-helper sets up or cleans up; patient completes activity. [place] assists only prior to or following the activity. 4-Supervision or Touching Assistance-helper provides verbal cues and/or touching/steadying and/or contact guard assistance as patient completes activity. Assistance may be provided throughout the activity or intermittently. 3-Partial/Moderate Assistance-helper does LESS THAN HALF the effort. [place] li fts, holds or supports trunk or limbs, but provides less than half the effort. 2-Substantial/Maximal Assistance-helper does MORE THAN HALF the effort. [place] lifts or holds trunk or limbs and provides more than half the effort. 7-Igpppevvg-zyojxi does ALL the effort. Patient does none of the effort to complete the activity. Or, the assistance of 2 or more helpers is required for the patient to complete the activity. If activity was not attempted, code reason: 7-Patient Refused. 9-Not Applicable-not attempted and the patient did not perform the activity before the current illness, exacerbation or injury. 10-Not Attempted due to Environmental Limitations-(lack of equipment, weather restraints, etc.). 88-Not Attempted due to Medical Conditions or Safety Concerns. Oral Hygiene (QC): 6 Shower/Bathe Self (QC): 6 Upper Body Dressing (QC): 5 Lower Body Dressing (QC): 4 On/Off Footwear: 5 OT Short Term Goals Short Term Goals Time Frame: Sep 11, 2022 Eatin Oral hygiene: 6 Toileting hygiene: 6 OT Steel Crane Operator Goals Steel Crane Operator Goals Acute change in mental status: 1 Inattention: 0 Disorganized thinkin Altered level of consciousness: 0 Eating (QC): 6 Oral Hygiene (QC): 6 Toileting Hygiene (QC): 6 Shower/Bathe Self (QC): 6 Upper Body Dressing (QC): 6 Lower Body Dressing (QC): 6 On/Off Footwear (QC): 6 1=Demonstrate adherence to instructed precautions during ADL tasks. 2=Patient will verbalize/demonstrate understanding of assistive devices/modifications for ADL. 3=Patient will improve strength/tolerance for activity to enable patient to perf orm ADL's. OT Education/Plan Discharge Recommendations Plan/Recommendations: Continue POC Treatment Plan/Plan of Care Patient would benefit from OT for education, treatment and training to promote independence in ADL's, mobility, safety and/or upper extremity function for ADL's. Plan of Care: ADL Retraining, Caregiver Training, Cognitive Retraining, Concurrent Therapy, Functional Mobility, Group Exercise/Act as Ind, UE Funct Exercise/Act, Visual/Perceptual Retrain Treatment Duration: Sep 17, 2022 Frequency: At least 5 of 7 days/Wk (IRF) Estimated Hrs Per Day: 1.5 hours per day Agreement: Yes Rehab Potential: Good Time Start Time: 11:00 Stop Time: 12:00 DATE: Sep 09, 2022 Total Time Billed (hr/min): 60 Billed Treatment Time 1 visit-ADL 4 (60 min) NATALIO GOMEZ Sep 09, 2022 12:00
--- NOTE | 2022-09-09 14:41 | Therapy Group Daily Note ---
Therapy Daily Group Note Patient Education Topic Exercises Exercises LE Seated Exercise, UE Exercise Session Ratio (pt:therapist): 3:1 Goal of Session: Memory Strategies, UE/LE Strengthing Goal Met for this Session: Yes Pt Benefit of Group: Contributions to Others, F/U Use of Strategies @Home, Increased Functional Safety, Increased Functional Strength, Improved Cognition, Recognition of Peers, Socialization Other/Notes pt ambulated to PT/OT group. group consisted of exercises and trivia activity. activity was to improve understand of HEP for release to home. pt met 3/4 trivia questions. pt activity participated in seated in UE and LE exercises and then ambulated back to room and was left in recliner with call light and all needs met. Start Time: 13:00 Stop Time: 14:00 Total Billed Treatment Time: 60 Total Billed Treatment 1 GRP Natasha Tejada CANDLES POURER Sep 09, 2022 14:41
[2022-09-09 19:50] VITALS: BP 111/69
[2022-09-10] MEDS: BACLOFEN 10 MG (LIORESAL) TAB PO SCH ×7 (00:30→23:55)
[2022-09-10] MEDS: MULTIVIT W/MINERALS TAB (THERAGRAN M) PO SCH (04:50)
[2022-09-10 08:00] VITALS: BP 116/67
[2022-09-10] MEDS: DOCUSATE SODIUM 100 MG (COLACE) CAP PO SCH ×2 (08:28→20:56)
[2022-09-10] MEDS: lisINopril 40 MG (PRINIVIL) TABLET PO SCH (08:29)
[2022-09-10] MEDS: SENNOSIDES 8.6 MG (SENOKOT) TAB PO SCH ×2 (08:29→20:56)
[2022-09-10] MEDS: CLOPIDOGREL 75 MG (PLAVIX) TABLET PO SCH (08:29)
[2022-09-10] MEDS: amLODIPine 5 MG (NORVASC) TAB PO SCH (08:29)
[2022-09-10] MEDS: OXYBUTYNIN (DITROPAN) 5 MG TAB PO PRN (08:29)
[2022-09-10] MEDS: ASPIRIN E.C. 81 MG (ECOTRIN) TAB PO SCH (08:29)
[2022-09-10] MEDS: polyethylene glycoL POWDER 17 GM (MIRALAX) PACK PO SCH ×2 (08:30→21:12)
--- NOTE | 2022-09-10 09:24 | Speech Therapy Daily Note ---
Speech Daily Progress Note Subjective Date Seen by Provider: Sep 10, 2022 Time Seen by Provider: 08:00 Pt sitting up in bed with present. Pt ate some of his breakfast. Pt reports he got more sleep last night. Pt appears more energized this morning. Pt pleasant and cooperative throughout session. Pain Location: No Pain Reported Objective Pt completes the following therapy exercises for labial and lingual strengthening and ROM with min verbal cues: Lingual strengthening: lateral, elevation, down, protrusion (20 reps each) Lingual ROM: lateral, protrusion, retraction (20 reps each) Labial ROM: retraction, protrusion (20 reps each) Labial strengthening: cheek puffs (20 reps) Assessment Assessment Current Status: Good Progress Increases from 10 reps of each exercises to 20 reps. Treatment Plan Continue Plan of Care Speech Short Term Goals Short Term Goals Short Term Goals 1. The patient will demonstrate oral motor exercises with 90% accuracy, independently. Speech Detention Goals Almond Paste Mixer Goals 1. The patient will demonstrate improved cognitive communication for safe discharge to the least restrictive environment. Time Frame: Ten Days. Speech-Plan Patient/Family Goals Patient/Family Goals: Pt's goal is to return home with . Treatment Plan Speech Therapy Treatment Plan: Continue Plan of Care Treatment Duration: Sep 10, 2022 Frequency: Modified Program (IRF) (Four to five times per week.) Estimated Hrs Per Day: .5 hour per day Rehab Potential: Good Pt/Family Agrees to Plan: Yes Safety Risks/Education Teaching Recipient: Patient Teaching Methods: Handout, Discussion Response to Teaching: Verbalize Understanding Education Topics Provided: Pt educated on purpose of therapy activities. Pt provided multiple handouts of page with exercises and how to perfrom them. Pt receptive and verbalized understanding. Discharge Recommendations Post Acute ST Time Speech Therapy Time In: 08:00 Speech Therapy Time Out: 08:30 DATE: Sep 10, 2022 Total Billed Time: 30 Billed Treatment Time S/L Maday Restrepo Speech Therapy Sep 10, 2022 09:24
--- NOTE | 2022-09-10 09:46 | Physical Therapy Daily Note ---
PT Daily Note-Current Subjective Pt in bed upon arrival and agrees to PT. Says he was able to sleep better last night. Pain Section J - Health Conditions 1. Rarely or not at all 2. Occasionally 3. Frequently 4. Almost constantly 8. Unable to answer Pain Effect on Sleep: 1 Pain Interference with Therapy: 1 Pain Interference w/Day-to-Day: 1 Mental Status Patient Orientation: Person, Place, Time Attachments: Arellano Catheter Transfers SCALE: Activities may be completed with or without assistive devices. 2-Kccntdqhyv-oziqxab completes the activity by him/herself with no assistance from a helper. 5-Set-up or Clean-up Assistance-helper sets up or cleans up; patient completes activity. [place] assists only prior to or following the activity. 4-Supervision or Touching Assistance-helper provides verbal cues and/or touching/steadying and/or contact guard assistance as patient completes activity. Assistance may be provided throughout the activity or intermittently. 3-Partial/Moderate Assistance-helper does LESS THAN HALF the effort. [place] lifts, holds or supports trunk or limbs, but provides less than half the effort. 2-Substantial/Maximal Assistance-helper does MORE THAN HALF the effort. [place] lifts or holds trunk or limbs and provides more than half the effort. 7-Eiuzxwlmd-ltjyqm does ALL the effort. Patient does none of the effort to complete the activity. Or, the assistance of 2 or more helpers is required for the patient to complete the activity. If activity was not attempted, code reason: 7-Patient Refused. 9-Not Applicable-not attempted and the patient did not perform the activity before the current illness, exacerbation or injury. 10-Not Attempted due to Environmental Limitations-(lack of equipment, weather restraints, etc.). 88-Not Attempted due to Medical Conditions or Safety Concerns. Lying to Sitting/Side of Bed(Q: 4 Sit to Stand (QC): 5 Weight Bearing Right Lower Extremity: Right Full Weight Bearing Left Lower Extremity: Left Full Weight Bearing Gait Training Does the Patient Walk?: Yes Distance: 400' x 2 Walk 10 feet (QC): 5 Walk 50 ft with 2 Turns(QC): 5 Walk 150 ft (QC): 5 Gait Persons Needed: 1 Gait Assistive Device: FWW Exercises Seated Therapy Exercises: Sit to stand, Long arc quads, Hip flexion, Hamstring Curls, Hip abd/add Seated Reps: [address] Ex=Flex, Abd, Ext, Marching, Mini squats, Side steps, Step-ups Standing Reps: 20 NuStep Minutes: 12 NuStep Workload: 4 Treatments Pt performed all standing exs in parallel bars w/ 2# ankle weights and seated exs w/ red theraband. Pt amb back to room and TRFs back to bed w/ all needs met and call light nearby. Assessment Current Status: Good Progress Pt required verbal cues for hand and foot placement while performing TRFs and in order to perform exs correctly. Pt tolerated overall treatment well. PT Mcfp Goals Sales Attendant Goals PT Sales Attendant Goals Time Frame: Sep 10, 2022 Roll Left & Right (QC): 6 (Pt will be Mod I with all aspects of functional mobility, with the least restrictive AD, to be at PLOF. ) Sit to Lying (QC): 6 (Pt will be Mod I with all aspects of functional mobility, with the least restrictive AD, to be at PLOF. ) Lying-Sitting on Side/Bed(QC): 6 (Pt will be Mod I with all aspects of functional mobility, with the least restrictive AD, to be at PLOF. ) Sit to Stand (QC): 6 (Pt will be Mod I with all aspects of functional mobility, with the least restrictive AD, to be at PLOF. ) Chair/Dch-cs-Qpqlc Xfer(QC): 6 (Pt will be Mod I with all aspects of functional mobility, with the least restrictive AD, to be at PLOF. ) Toilet Transfer (QC): 6 (Pt will be Mod I with all aspects of functional mobility, with the least restrictive AD, to be at PLOF. ) Car Transfer (QC): 6 (Pt will be Mod I with all aspects of functional mobility, with the least restrictive AD, to be at PLOF. ) Does the Patient Walk: Yes Walk 10 feet (QC): 6 (Pt will be Mod I with all aspects of functional mobility, with the least restrictive AD, to be at PLOF. ) Walk 50ft with 2 Turns (QC): 6 (Pt will be Mod I with all aspects of functional mobility, with the least restrictive AD, to be at PLOF. ) Walk 150 ft (QC): 6 (Pt will be Mod I with all aspects of functional mobility, with the least restrictive AD, to be at PLOF. ) Walking 10ft on Uneven Surface: 6 (Pt will be Mod I with all aspects of functional mobility, with the least restrictive AD, to be at PLOF. ) 1 Step (curb) (QC): 6 (Pt will be Mod I with all aspects of functional mobility, with the least restrictive AD, to be at PLOF. ) 4 Steps (QC): 6 (Pt will be Mod I with all aspects of functional mobility, with the least restrictive AD, to be at PLOF. ) 12 Steps (QC): 6 (Pt will be Mod I with all aspects of functional mobility, with the least restrictive AD, to be at PLOF. ) Picking up an Object (QC): 6 (Pt will be Mod I with all aspects of functional mobility, with the least restrictive AD, to be at PLOF. ) Does the Pt use WC or Scooter?: No Wheel 50 feet with 2 turns (QC: 9 Type: N/A Wheel 150 feet: 9 Type: N/A PT Plan Problem List Problem List: Activity Tolerance, Functional Strength Treatment/Plan Treatment Plan: Continue Plan of Care Treatment Plan: Bed Mobility, Concurrent Therapy, Education, Functional Activity Satinder, Functional Strength, Group Therapy, Gait, Safety, Therapeutic Exercise, Transfers Treatment Duration: Sep 10, 2022 Frequency: At least 5 of 7 days/Wk (IRF) Estimated Hrs Per Day: 1.5 hours per day Patient and/or Family Agrees t: Yes Safety Risks/Education Patient Education: Correct Positioning Teaching Recipient: Patient Teaching Methods: Discussion Response to Teaching: Return Demonstration Time Time In: 0900 Time Out: 1000 DATE: Sep 10, 2022 Total Billed Treatment Time: 60 Total Billed Treatment 1, Ex x 3 (45min) , GT x 1 (15min) LIDIA GARNER BOLT HEADER Sep 10, 2022 09:46
--- NOTE | 2022-09-10 10:35 | Occupational Ther Daily Note ---
OT Current Status-Daily Note Subjective Pt alert, lying in bed. Pt agrees to therapy. No c/o pain at this time. Mental Status/Objective Patient Orientation: Person, Place, Time, Situation Attachments: Arellano Catheter, Other-See Comments (loop recorder) ADL-Treatment Pt gathered clothing using FWW independently. Pt completed toilet transfer independently using FWW. Pt continues to have Arellano catheter though pt is able to manipulate clothing and cleanse buttocks after BM by self. Using shower bench, grabbar and hand held shower pt completes shower independently. Pt requires 1 verbal cue to decide which he wanted to do first, dress or oral care. Pt then completed dressing by self. Standing at sink, pt complete oral care independently. Therapy Code Descriptions/Definitions Functional [place] Measure: 0=Not Assessed/NA 4=Minimal Assistance 1=Total Assistance 5=Supervision or Setup 2=Maximal Assistance 6=Modified [place] 3=Moderate Assistance 7=Complete IndependenceSCALE: Activities may be completed with or without assistive devices. 8-Migmkghqqe-abssuwb completes the activity by him/herself with no assistance from a helper. 5-Set-up or Clean-up Assistance-helper sets up or cleans up; patient completes activity. [place] assists only prior to or following the activity. 4-Supervision or Touching Assistance-helper provides verbal cues and/or touching/steadying and/or contact guard assistance as patient completes acti vity. Assistance may be provided throughout the activity or intermittently. 3-Partial/Moderate Assistance-helper does LESS THAN HALF the effort. [place] lifts, holds or supports trunk or limbs, but provides less than half the effort. 2-Substantial/Maximal Assistance-helper does MORE THAN HALF the effort. [place] lifts or holds trunk or limbs and provides more than half the effort. 5-Casopjohc-fumtay does ALL the effort. Patient does none of the effort to complete the activity. Or, the assistance of 2 or more helpers is required for the patient to complete the activity. If activity was not attempted, code reason: 7-Patient Refused. 9-Not Applicable-not attempted and the patient did not perform the activity before the current illness, exacerbation or injury. 10-Not Attempted due to Environmental Limitations-(lack of equipment, weather restraints, etc.). 88-Not Attempted due to Medical Conditions or Safety Concerns. Oral Hygiene (QC): 6 Shower/Bathe Self (QC): 6 Upper Body Dressing (QC): 6 Lower Body Dressing (QC): 6 (including threading own Arellano catheter in lower body clothing) On/Off Footwear: 6 Toileting Hygiene (QC): 3 (Due to Arellano cather. Able to complete all other by self.) Toilet Transfer (QC): 6 OT Short Term Goals Short Term Goals Time Frame: Sep 11, 2022 Eatin Oral hygiene: 6 Toileting hygiene: 6 OT Seismograph Supervisor Goals Seismograph Supervisor Goals Acute change in mental status: 1 Inattention: 0 Disorganized thinkin Altered level of consciousness: 0 Eating (QC): 6 Oral Hygiene (QC): 6 Toileting Hygiene (QC): 6 Shower/Bathe Self (QC): 6 Upper Body Dressing (QC): 6 Lower Body Dressing (QC): 6 On/Off Footwear (QC): 6 1=Demonstrate adherence to instructed precautions during ADL tasks. 2=Patient will verbalize/demonstrate understanding of assistive devices/modifications for ADL. 3=Patient will improve strength/tolerance for activity to enable patient to perform ADL's. OT Education/Plan Problem List/Assessment Assessment: Decreased Activ Tolerance, Decreased UE Strength, Impaired Self- Care Skills Discharge Recommendations Plan/Recommendations: Continue POC Treatment Plan/Plan of Care Patient would benefit from OT for education, treatment and training to promote independence in ADL's, mobility, safety and/or upper extremity function for ADL's. Plan of Care: ADL Retraining, Caregiver Training, Cognitive Retraining, Concurrent Therapy, Functional Mobility, Group Exercise/Act as Ind, UE Funct Exercise/Act, Visual/Perceptual Retrain Treatment Duration: Sep 17, 2022 Frequency: At least 5 of 7 days/Wk (IRF) Estimated Hrs Per Day: 1.5 hours per day Agreement: Yes Rehab Potential: Good Time Start Time: 10:00 Stop Time: 11:00 DATE: Sep 10, 2022 Total Time Billed (hr/min): 60 Billed Treatment Time 1 visit-ADL 4 (60 min) NATALIO GOMEZ Sep 10, 2022 10:35
--- NOTE | 2022-09-10 10:48 | PM&R Progress Note ---
Subjective HPI/CC On Admission Date Seen by Provider: Sep 10, 2022 Time Seen by Provider: 11:00 Subjective/Events-last exam 09/10/2022: Patient doing really well Urine is clearing up Stop Lovenox and he is walking well Discharge plan for tomorrow 09/09/2022: Patient doing really well No pain is reported No falls Checked meds and labs Hematuria is better 09/08/2022: Patient doing really well Having some angst about Arellano catheter since it needs to be flushed at times because of blood clots Stopping Lovenox that should help that should help We will delay discharge until Tuesday due to Arellano catheter issues 09/07/2022: Patient doing really well Arellano catheter will be removed by Dr. Barron after cystoscopy performed mid September No major concerns otherwise No falls 09/06/2022: Patient doing well Arranging appointment with Dr. Barron since cystoscopy must be completed when Arellano catheter removed No falls No pain 09/05/2022: Patient doing a lot better Took a shower today Moving around better Dr. Barron will be contacted regarding the Arellano catheter tomorrow 09/04/2022: Doing really well No pain reported Participating in therapy No falls 09/03/2022: Patient doing really well Participating in all therapy Gaining strength Arellano catheter will remain in place until Dr. Barron makes decision on Tuesday Maintain on antibiotics for UTI Review of Systems General: Fatigue, Malaise Objective Exam Vital Signs Vital Signs Date Time Temp Pulse Resp B/P (MAP) Pulse Ox O2 Delivery O2 Flow Rate FiO2 09/10/22 20:01 36.5 84 95 09/10/22 19:45 16 140/86 (104) Room Air 09/08/22 08:00 0.00 0.00 Capillary Refill : General Appearance: No Apparent Distress, WD/WN, Chronically ill, Obese HEENT: PERRL/EOMI, Normal ENT Inspection, Pharynx Normal Neck: Full Range of Motion, Normal Inspection, Non Tender, Supple, Carotid Bruit Respiratory: Chest Non Tender, Lungs Clear, Normal Breath Sounds, No Accessory Muscle Use, No Respiratory Distress Cardiovascular: Regular Rate, Rhythm, No Edema, No Gallop, No JVD, No Murmur, Normal Peripheral Pulses Gastrointestinal: Normal Bowel Sounds, No Organomegaly, No Pulsatile Mass, Non Tender, Soft Back: Normal Inspection, No CVA Tenderness, No Vertebral Tenderness Extremity: Normal Capillary Refill, Normal Inspection, Normal Range of Motion, Non Tender, No Calf Tenderness, No Pedal Edema Neurologic/Psychiatric: Alert, Oriented x3, Normal Mood/Affect, Abnormal Gait, Depressed Affect, Facial Droop ( left side), Motor Weakness ( left arm 3/5 and left hand 2/5) Skin: Normal Color, Warm/Dry Lymphatic: No Adenopathy Results/Procedures Lab Patient resulted labs reviewed. FIM Transfers Therapy Code Descriptions/Definitions Functional [place] Measure: 0=Not Assessed/NA 4=Minimal Assistance 1=Total Assistance 5=Supervision or Setup 2=Maximal Assistance 6=Modified [place] 3=Moderate Assistance 7=Complete IndependenceSCALE: Activities may be completed with or without assistive devices. 1-Mjtvepotxb-zrpprdu completes the activity by him/herself with no assistance from a helper. 5-Set-up or Clean-up Assistance-helper sets up or cleans up; patient completes activity. [place] assists only prior to or following the activity. 4-Supervision or Touching Assistance-helper provides verbal cues and/or touching/steadying and/or contact guard assistance as patient completes activity. Assistance may be provided throughout the activity or intermittently. 3-Partial/Moderate Assistance-helper does LESS THAN HALF the effort. [place] lifts, holds or supports trunk or limbs, but provides less than half the effort. 2-Substantial/Maximal Assistance-helper does MORE THAN HALF the effort. [place] lifts or holds trunk or limbs and provides more than half the effort. 5-Hlgjofaqs-ozwrkv does ALL the effort. Patient does none of the effort to complete the activity. Or, the assistance of 2 or more helpers is required for the patient to complete the activity. If activity was not attempted, code reason: 7-Patient Refused. 9-Not Applicable-not attempted and the patient did not perform the activity before the current illness, exacerbation or injury. 10-Not Attempted due to Environmental Limitations-(lack of equipment, weather restraints, etc.). 88-Not Attempted due to Medical Conditions or Safety Concerns. Roll Left to Right (QC): 6 Sit to Lying (QC): 6 Sit to Stand (QC): 5 Chair/Pcv-rh-Pggmi Xfer(QC): 6 Car Transfer (QC): 4 (CGA ) Gait Training Does the Patient Walk?: Yes Distance: 400' x 2 Walk 10 feet (QC): 5 Walk 50 ft with 2 Turns(QC): 5 Walk 150 ft (QC): 5 Walking 10ft/uneven surface-QC: 4 (CGA) Gait Persons Needed: 1 Gait Assistive Device: FWW Wheelchair Training Does the Pt Use a Wheelchair?: No Wheel 50 ft with 2 turns (QC): 88 Wheel 150 ft (QC): 88 Type of Wheelchair: N/A Stair Training Stair Training: Handrails/: 1 handrail #of Steps: 12 1 Step (curb) (QC): 4 4 Steps (QC): 4 12 Steps (QC): 4 Stairs: Pattern: Reciprocal Balance Picking up an Object (QC): 4 (SBA ) ADL-Treatment Eating (QC): 5 Oral Hygiene (QC): 6 Shower/Bathe Self (QC): 6 Upper Body Dressing (QC): 5 Lower Body Dressing (QC): 4 On/Off Footwear (QC): 5 Toileting Hygiene (QC): 4 (Pt demonstrates ability to complete task with supervision.) Toilet Transfer (QC): 4 Assessment/Plan Assessment and Plan Assess & Plan/Chief Complaint Assessment: 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 Boudreaux consulted and will manage conservatively Hypertension Hyperlipidemia Fatty liver Indwelling Arellano catheter status post complete prostatectomy robotic assisted will remain until follow-up with Dr. Barron Hematuria with clots and catheter Improved with Lovenox DC Plan: Aggressive rehab Speech therapy Plavix aspirin statin PT and OT 09/03/2022: Supportive care Aggressive rehab 09/04/2022: Continue aggressive rehab 09/05/2022: Bowels moving Continue aggressive rehab 09/06/2022: Supportive care Dr. Barron appointment to remove catheter after cystoscopy performed 09/07/2022: Continue treatment 09/08/2022: DC Lovenox due to hematuria and clots in catheter 09/09/2022: Monitor hematuria and clots in Arellano catheter 09/10/2022: Hold Lovenox Supportive care (1) Stroke Status: Acute ELISABETH STALEY DO Sep 10, 2022 10:48
--- NOTE | 2022-09-10 12:09 | Physical Therapy Daily Note ---
PT Daily Note-Current Subjective Pt in bed upon arrival and agrees to PT. Says he will take a nap afterwards. Pain Section J - Health Conditions 1. Rarely or not at all 2. Occasionally 3. Frequently 4. Almost constantly 8. Unable to answer Pain Effect on Sleep: 1 Pain Interference with Therapy: 1 Pain Interference w/Day-to-Day: 1 Mental Status Patient Orientation: Person, Place, Time, Situation Attachments: Arellano Catheter Transfers SCALE: Activities may be completed with or without assistive devices. 1-Vnfagvhpyu-gofdnvf completes the activity by him/herself with no assistance from a helper. 5-Set-up or Clean-up Assistance-helper sets up or cleans up; patient completes activity. [place] assists only prior to or following the activity. 4-Supervision or Touching Assistance-helper provides verbal cues and/or touching/steadying and/or contact guard assistance as patient completes activity. Assistance may be provided throughout the activity or intermittently. 3-Partial/Moderate Assistance-helper does LESS THAN HALF the effort. [place] lifts, holds or supports trunk or limbs, but provides less than half the effort. 2-Substantial/Maximal Assistance-helper does MORE THAN HALF the effort. [place] lifts or holds trunk or limbs and provides more than half the effort. 2-Iqsglqlzl-purkoi does ALL the effort. Patient does none of the effort to complete the activity. Or, the assistance of 2 or more helpers is required for the patient to complete the activity. If activity was not attempted, code reason: 7-Patient Refused. 9-Not Applicable-not attempted and the patient did not perform the activity before the current illness, exacerbation or injury. 10-Not Attempted due to Environmental Limitations-(lack of equipment, weather restraints, etc.). 88-Not Attempted due to Medical Conditions or Safety Concerns. Lying to Sitting/Side of Bed(Q: 5 Sit to Stand (QC): 5 Weight Bearing Right Lower Extremity: Right Full Weight Bearing Left Lower Extremity: Left Full Weight Bearing Gait Training Does the Patient Walk?: Yes Distance: 500' Walk 10 feet (QC): 5 Walk 50 ft with 2 Turns(QC): 5 Walk 150 ft (QC): 5 Gait Persons Needed: 1 Gait Assistive Device: FWW Exercises Seated Therapy Exercises: Ankle pumps, Sit to stand (x 6), Long arc quads, Hip flexion, Hamstring Curls, Hip abd/add, Glut set Seated Reps: 20 Standing: Heel/toe raises, 3 way Ex=Flex, Abd, Ext, Marching, Side steps Standing Reps: 20 Treatments Pt performed all standing exs at windowsill and also amb w/o FWW and one hand on windowsill x 4. Pt TRFs back to bed post treatment w/ all needs met and call light nearby. Assessment Current Status: Good Progress Pt tolerated treatment and amb w/o FWW well w/ one hand support. Pt required verbal cues to not push legs against chair while performing sit to stands. PT [facility] Goals Nutrition Assistant Goals PT [facility] Goals Time Frame: Sep 10, 2022 Roll Left & Right (QC): 6 (Pt will be Mod I with all aspects of functional mobility, with the least restrictive AD, to be at PLOF. ) Sit to Lying (QC): 6 (Pt will be Mod I with all aspects of functional mobility, with the least restrictive AD, to be at PLOF. ) Lying-Sitting on Side/Bed(QC): 6 (Pt will be Mod I with all aspects of functional mobility, with the least restrictive AD, to be at PLOF. ) Sit to Stand (QC): 6 (Pt will be Mod I with all aspects of functional mobility, with the least restrictive AD, to be at PLOF. ) Chair/Jwj-ne-Regog Xfer(QC): 6 (Pt will be Mod I with all aspects of functional mobility, with the least restrictive AD, to be at PLOF. ) Toilet Transfer (QC): 6 (Pt will be Mod I with all aspects of functional mobility, with the least restrictive AD, to be at PLOF. ) Car Transfer (QC): 6 (Pt will be Mod I with all aspects of functional mobility, with the least restrictive AD, to be at PLOF. ) Does the Patient Walk: Yes Walk 10 feet (QC): 6 (Pt will be Mod I with all aspects of functional mobility, with the least restrictive AD, to be at PLOF. ) Walk 50ft with 2 Turns (QC): 6 (Pt will be Mod I with all aspects of functional mobility, with the least restrictive AD, to be at PLOF. ) Walk 150 ft (QC): 6 (Pt will be Mod I with all aspects of functional mobility, with the least restrictive AD, to be at PLOF. ) Walking 10ft on Uneven Surface: 6 (Pt will be Mod I with all aspects of functio nal mobility, with the least restrictive AD, to be at PLOF. ) 1 Step (curb) (QC): 6 (Pt will be Mod I with all aspects of functional mobility, with the least restrictive AD, to be at PLOF. ) 4 Steps (QC): 6 (Pt will be Mod I with all aspects of functional mobility, with the least restrictive AD, to be at PLOF. ) 12 Steps (QC): 6 (Pt will be Mod I with all aspects of functional mobility, with the least restrictive AD, to be at PLOF. ) Picking up an Object (QC): 6 (Pt will be Mod I with all aspects of functional mobility, with the least restrictive AD, to be at PLOF. ) Does the Pt use WC or Scooter?: No Wheel 50 feet with 2 turns (QC: 9 Type: N/A Wheel 150 feet: 9 Type: N/A PT Plan Problem List Problem List: Activity Tolerance, Functional Strength Treatment/Plan Treatment Plan: Continue Plan of Care Treatment Plan: Bed Mobility, Concurrent Therapy, Education, Functional Activity Satinder, Functional Strength, Group Therapy, Gait, Safety, Therapeutic Exercise, Transfers Treatment Duration: Sep 10, 2022 Frequency: At least 5 of 7 days/Wk (IRF) Estimated Hrs Per Day: 1.5 hours per day Patient and/or Family Agrees t: Yes Safety Risks/Education Patient Education: Correct Positioning Teaching Recipient: Patient Teaching Methods: Discussion Response to Teaching: Return Demonstration Time Time In: 1100 Time Out: 1130 DATE: Sep 10, 2022 Total Billed Treatment Time: 30 Total Billed Treatment 1, Ex, GT LIDIA GARNER PTA Sep 10, 2022 12:09
[2022-09-10 19:45] VITALS: BP 140/86
[2022-09-10 20:01] VITALS: BP 116/67
[2022-09-11] MEDS: BACLOFEN 10 MG (LIORESAL) TAB PO SCH ×5 (04:36→20:29)
[2022-09-11] MEDS: MULTIVIT W/MINERALS TAB (THERAGRAN M) PO SCH (04:37)
--- NOTE | 2022-09-11 06:49 | PM&R Progress Note ---
Subjective HPI/CC On Admission Date Seen by Provider: Sep 11, 2022 Time Seen by Provider: 12:30 Subjective/Events-last exam 09/11/2022: Patient doing a lot better Appears to be mildly depressed but he is encouraged No blood in the urine anymore Arellano catheter maintained 09/10/2022: Patient doing really well Urine is clearing up Stop Lovenox and he is walking well Discharge plan for tomorrow 09/09/2022: Patient doing really well No pain is reported No falls Checked meds and labs Hematuria is better 09/08/2022: Patient doing really well Having some angst about Arellano catheter since it needs to be flushed at times because of blood clots Stopping Lovenox that should help that should help We will delay discharge until Tuesday due to Arellano catheter issues 09/07/2022: Patient doing really well Arellano catheter will be removed by Dr. Barron after cystoscopy performed september No major concerns otherwise No falls 09/06/2022: Patient doing well Arranging appointment with Dr. Barron since cystoscopy must be completed when Arellano catheter removed No falls No pain 09/05/2022: Patient doing a lot better Took a shower today Moving around better Dr. Barron will be contacted regarding the Arellano catheter tomorrow 09/04/2022: Doing really well No pain reported Participating in therapy No falls 09/03/2022: Patient doing really well Participating in all therapy Gaining strength Arellano catheter will remain in place until Dr. Barron makes decision on Tuesday Maintain on antibiotics for UTI Review of Systems General: Fatigue, Malaise Objective Exam Vital Signs Vital Signs Date Time Temp Pulse Resp B/P (MAP) Pulse Ox O2 Delivery O2 Flow Rate FiO2 09/11/22 15:18 96 Room Air 09/11/22 08:00 36.5 70 16 118/69 (85) 09/08/22 08:00 0.00 0.00 Capillary Refill : General Appearance: No Apparent Distress, WD/WN, Chronically ill, Obese HEENT: PERRL/EOMI, Normal ENT Inspection, Pharynx Normal Neck: Full Range of Motion, Normal Inspection, Non Tender, Supple, Carotid Bruit Respiratory: Chest Non Tender, Lungs Clear, Normal Breath Sounds, No Accessory Muscle Use, No Respiratory Distress Cardiovascular: Regular Rate, Rhythm, No Edema, No Gallop, No JVD, No Murmur, Normal Peripheral Pulses Gastrointestinal: Normal Bowel Sounds, No Organomegaly, No Pulsatile Mass, Non Tender, Soft Back: Normal Inspection, No CVA Tenderness, No Vertebral Tenderness Extremity: Normal Capillary Refill, Normal Inspection, Normal Range of Motion, Non Tender, No Calf Tenderness, No Pedal Edema Neurologic/Psychiatric: Alert, Oriented x3, Normal Mood/Affect, Abnormal Gait, Depressed Affect, Facial Droop ( left side), Motor Weakness ( left arm 3/5 and left hand 2/5) Skin: Normal Color, Warm/Dry Lymphatic: No Adenopathy Results/Procedures Lab Patient resulted labs reviewed. FIM Transfers Therapy Code Descriptions/Definitions Functional [place] Measure: 0=Not Assessed/NA 4=Minimal Assistance 1=Total Assistance 5=Supervision or Setup 2=Maximal Assistance 6=Modified [place] 3=Moderate Assistance 7=Complete IndependenceSCALE: Activities may be completed with or without assistive devices. 5-Kqjzwqobar-mlakbpe completes the activity by him/herself with no assistance from a helper. 5-Set-up or Clean-up Assistance-helper sets up or cleans up; patient completes activity. [place] assists only prior to or following the activity. 4-Supervision or Touching Assistance-helper provides verbal cues and/or touching/steadying and/or contact guard assistance as patient completes activit y. Assistance may be provided throughout the activity or intermittently. 3-Partial/Moderate Assistance-helper does LESS THAN HALF the effort. [place] lifts, holds or supports trunk or limbs, but provides less than half the effort. 2-Substantial/Maximal Assistance-helper does MORE THAN HALF the effort. [place] lifts or holds trunk or limbs and provides more than half the effort. 6-Mislpajue-kmcizu does ALL the effort. Patient does none of the effort to complete the activity. Or, the assistance of 2 or more helpers is required for the patient to complete the activity. If activity was not attempted, code reason: 7-Patient Refused. 9-Not Applicable-not attempted and the patient did not perform the activity before the current illness, exacerbation or injury. 10-Not Attempted due to Environmental Limitations-(lack of equipment, weather restraints, etc.). 88-Not Attempted due to Medical Conditions or Safety Concerns. Roll Left to Right (QC): 6 Sit to Lying (QC): 6 Sit to Stand (QC): 5 Chair/Ftg-nj-Fvgdt Xfer(QC): 6 Car Transfer (QC): 4 (CGA ) Gait Training Does the Patient Walk?: Yes Distance: 500' Walk 10 feet (QC): 5 Walk 50 ft with 2 Turns(QC): 5 Walk 150 ft (QC): 5 Walking 10ft/uneven surface-QC: 4 (CGA) Gait Persons Needed: 1 Gait Assistive Device: FWW Wheelchair Training Does the Pt Use a Wheelchair?: No Wheel 50 ft with 2 turns (QC): 88 Wheel 150 ft (QC): 88 Type of Wheelchair: N/A Stair Training Stair Training: Handrails/: 1 handrail #of Steps: 12 1 Step (curb) (QC): 4 4 Steps (QC): 4 12 Steps (QC): 4 Stairs: Pattern: Reciprocal Balance Picking up an Object (QC): 4 (SBA ) ADL-Treatment Eating (QC): 5 Oral Hygiene (QC): 6 Shower/Bathe Self (QC): 6 Upper Body Dressing (QC): 6 Lower Body Dressing (QC): 6 (including threading own Arellano catheter in lower body clothing) On/Off Footwear (QC): 6 Toileting Hygiene (QC): 3 (Due to Arellano cather. 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 Boudreaux consulted and will manage conservatively Hypertension Hyperlipidemia Fatty liver Indwelling Arellano catheter status post complete prostatectomy robotic assisted will remain until follow-up with Dr. Barron Hematuria with clots and catheter Improved with Lovenox DC Plan: Aggressive rehab Speech therapy Plavix aspirin statin PT and OT 09/03/2022: Supportive care Aggressive rehab 09/04/2022: Continue aggressive rehab 09/05/2022: Bowels moving Continue aggressive rehab 09/06/2022: Supportive care Dr. Barron appointment to remove catheter after cystoscopy performed 09/07/2022: Continue treatment 09/08/2022: DC Lovenox due to hematuria and clots in catheter 09/09/2022: Monitor hematuria and clots in Arellano catheter 09/10/2022: Hold Lovenox Supportive care 09/11/2022: Supportive care No more hematuria noted (1) Stroke Status: Acute ELISABETH STALEY DO Sep 11, 2022 06:49
[2022-09-11 08:00] VITALS: BP 118/69
[2022-09-11] MEDS: amLODIPine 5 MG (NORVASC) TAB PO SCH (08:42)
[2022-09-11] MEDS: lisINopril 40 MG (PRINIVIL) TABLET PO SCH (08:42)
[2022-09-11] MEDS: DOCUSATE SODIUM 100 MG (COLACE) CAP PO SCH ×2 (08:42→20:29)
[2022-09-11] MEDS: SENNOSIDES 8.6 MG (SENOKOT) TAB PO SCH ×2 (08:42→20:29)
[2022-09-11] MEDS: ASPIRIN E.C. 81 MG (ECOTRIN) TAB PO SCH (08:42)
[2022-09-11] MEDS: polyethylene glycoL POWDER 17 GM (MIRALAX) PACK PO SCH ×2 (08:42→20:26)
[2022-09-11] MEDS: CLOPIDOGREL 75 MG (PLAVIX) TABLET PO SCH (08:42)
[2022-09-11 20:32] VITALS: BP 112/70
[2022-09-12] MEDS: BACLOFEN 10 MG (LIORESAL) TAB PO SCH ×6 (00:14→21:07)
[2022-09-12] MEDS: MULTIVIT W/MINERALS TAB (THERAGRAN M) PO SCH ×2 (06:04→07:38)
--- NOTE | 2022-09-12 07:34 | PM&R Progress Note ---
Subjective HPI/CC On Admission Date Seen by Provider: Sep 12, 2022 Time Seen by Provider: 12:00 Subjective/Events-last exam 09/12/2022: Patient doing well Labs reviewed Urine is clearing up No falls 09/11/2022: Patient doing a lot better Appears to be mildly depressed but he is encouraged No blood in the urine anymore Arellano catheter maintained 09/10/2022: Patient doing really well Urine is clearing up Stop Lovenox and he is walking well Discharge plan for tomorrow 09/09/2022: Patient doing really well No pain is reported No falls Checked meds and labs Hematuria is better 09/08/2022: Patient doing really well Having some angst about Arellano catheter since it needs to be flushed at times because of blood clots Stopping Lovenox that should help that should help We will delay discharge until Tuesday due to Arellano catheter issues 09/07/2022: Patient doing really well Arellano catheter will be removed by Dr. Barron after cystoscopy performed mid September No major concerns otherwise No falls 09/06/2022: Patient doing well Arranging appointment with Dr. Barron since cystoscopy must be completed when Arellano catheter removed No falls No pain 09/05/2022: Patient doing a lot better Took a shower today Moving around better Dr. Barron will be contacted regarding the Arellano catheter tomorrow 09/04/2022: Doing really well No pain reported Participating in therapy No falls 09/03/2022: Patient doing really well Participating in all therapy Gaining strength Arellano catheter will remain in place until Dr. Barron makes decision on Tuesday Maintain on antibiotics for UTI Review of Systems General: Fatigue, Malaise Objective Exam Vital Signs Vital Signs Date Time Temp Pulse Resp B/P (MAP) Pulse Ox O2 Delivery O2 Flow Rate FiO2 09/12/22 08:00 36.5 67 16 119/73 (88) 95 Room Air 09/08/22 08:00 0.00 0.00 Capillary Refill : General Appearance: No Apparent Distress, WD/WN, Chronically ill, Obese HEENT: PERRL/EOMI, Normal ENT Inspection, Pharynx Normal Neck: Full Range of Motion, Normal Inspection, Non Tender, Supple, Carotid Bruit Respiratory: Chest Non Tender, Lungs Clear, Normal Breath Sounds, No Accessory Muscle Use, No Respiratory Distress Cardiovascular: Regular Rate, Rhythm, No Edema, No Gallop, No JVD, No Murmur, Normal Peripheral Pulses Gastrointestinal: Normal Bowel Sounds, No Organomegaly, No Pulsatile Mass, Non Tender, Soft Back: Normal Inspection, No CVA Tenderness, No Vertebral Tenderness Extremity: Normal Capillary Refill, Normal Inspection, Normal Range of Motion, Non Tender, No Calf Tenderness, No Pedal Edema Neurologic/Psychiatric: Alert, Oriented x3, Normal Mood/Affect, Abnormal Gait, Depressed Affect, Facial Droop ( left side), Motor Weakness ( left arm 3/5 and left hand 2/5) Skin: Normal Color, Warm/Dry Lymphatic: No Adenopathy Results/Procedures Lab Laboratory Tests 09/12/22 07:45 Patient resulted labs reviewed. FIM Transfers Therapy Code Descriptions/Definitions Functional [place] Measure: 0=Not Assessed/NA 4=Minimal Assistance 1=Total Assistance 5=Supervision or Setup 2=Maximal Assistance 6=Modified [place] 3=Moderate Assistance 7=Complete IndependenceSCALE: Activities may be completed with or without assistive devices. 8-Tikbgfulol-jxderle completes the activity by him/herself with no assistance from a helper. 5-Set-up or Clean-up Assistance-helper sets up or cleans up; patient completes activity. [place] assists only prior to or following the activity. 4-Supervision or Touching Assistance-helper provides verbal cues and/or touching/steadying and/or contact guard assistance as patient completes activity. Assistance may be provided throughout the activity or intermittently. 3-Partial/Moderate Assistance-helper does LESS THAN HALF the effort. [place] lifts, holds or supports trunk or limbs, but provides less than half the effort. 2-Substantial/Maximal Assistance-helper does MORE THAN HALF the effort. [place] lifts or holds trunk or limbs and provides more than half the effort. 9-Dwkfftcct-rjrioy does ALL the effort. Patient does none of the effort to complete the activity. Or, the assistance of 2 or more helpers is required for the patient to complete the activity. If activity was not attempted, code reason: 7-Patient Refused. 9-Not Applicable-not attempted and the patient did not perform the activity before the current illness, exacerbation or injury. 10-Not Attempted due to Environmental Limitations-(lack of equipment, weather restraints, etc.). 88-Not Attempted due to Medical Conditions or Safety Concerns. Roll Left to Right (QC): 6 Sit to Lying (QC): 6 Sit to Stand (QC): 5 Chair/Bss-zp-Aqsza Xfer(QC): 6 Car Transfer (QC): 4 (CGA ) Gait Training Does the Patient Walk?: Yes Distance: 500' Walk 10 feet (QC): 5 Walk 50 ft with 2 Turns(QC): 5 Walk 150 ft (QC): 5 Walking 10ft/uneven surface-QC: 4 (CGA) Gait Persons Needed: 1 Gait Assistive Device: FWW Wheelchair Training Does the Pt Use a Wheelchair?: No Wheel 50 ft with 2 turns (QC): 88 Wheel 150 ft (QC): 88 Type of Wheelchair: N/A Stair Training Stair Training: Handrails/: 1 handrail #of Steps: 12 1 Step (curb) (QC): 4 4 Steps (QC): 4 12 Steps (QC): 4 Stairs: Pattern: Reciprocal Balance Picking up an Object (QC): 4 (SBA ) ADL-Treatment Eating (QC): 5 Oral Hygiene (QC): 6 Shower/Bathe Self (QC): 6 Upper Body Dressing (QC): 6 Lower Body Dressing (QC): 6 (including threading own Arellano catheter in lower body clothing) On/Off Footwear (QC): 6 Toileting Hygiene (QC): 3 (Due to Arellano cather. 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 Boudreaux consulted and will manage conservatively Hypertension Hyperlipidemia Fatty liver Indwelling Arellano catheter status post complete prostatectomy robotic assisted will remain until follow-up with Dr. Barron Hematuria with clots and catheter Improved with Lovenox DC Plan: Aggressive rehab Speech therapy Plavix aspirin statin PT and OT 09/03/2022: Supportive care Aggressive rehab 09/04/2022: Continue aggressive rehab 09/05/2022: Bowels moving Continue aggressive rehab 09/06/2022: Supportive care Dr. Barron appointment to remove catheter after cystoscopy performed 09/07/2022: Continue treatment 09/08/2022: DC Lovenox due to hematuria and clots in catheter 09/09/2022: Monitor hematuria and clots in Arellano catheter 09/10/2022: Hold Lovenox Supportive care 09/11/2022: Supportive care No more hematuria noted 09/12/2022: Supportive care (1) Stroke Status: Acute ELISABETH STALEY DO Sep 12, 2022 07:34
[2022-09-12] MEDS: ASPIRIN E.C. 81 MG (ECOTRIN) TAB PO SCH (07:38)
[2022-09-12] MEDS: CLOPIDOGREL 75 MG (PLAVIX) TABLET PO SCH (07:38)
[2022-09-12] MEDS: amLODIPine 5 MG (NORVASC) TAB PO SCH (07:38)
[2022-09-12] MEDS: DOCUSATE SODIUM 100 MG (COLACE) CAP PO SCH ×2 (07:39→21:08)
[2022-09-12] MEDS: SENNOSIDES 8.6 MG (SENOKOT) TAB PO SCH ×2 (07:39→21:08)
[2022-09-12] MEDS: lisINopril 40 MG (PRINIVIL) TABLET PO SCH (07:39)
[2022-09-12] MEDS: polyethylene glycoL POWDER 17 GM (MIRALAX) PACK PO SCH ×2 (07:39→21:08)
[2022-09-12 08:00] VITALS: BP 119/73
[2022-09-12 08:04] LABS: BASOPHILS # (AUTO) 0.1 10^3/uL (0.0-0.1); BASOPHILS % (AUTO) 1 % (0-10); EOSINOPHILS # (AUTO) 0.8 10^3/uL (0.0-0.3); EOSINOPHILS % (AUTO) 8 % (0-10); HEMATOCRIT 38 % (40-54); HEMOGLOBIN 12.7 g/dL (13.3-17.7); LYMPHOCYTES # (AUTO) 2.1 10^3/uL (1.0-4.0); LYMPHOCYTES % (AUTO) 21 % (12-44); MEAN CORPUSCULAR HEMOGLOBIN 31 pg (25-34); MEAN CORPUSCULAR HGB CONC 34 g/dL (32-36); MEAN CORPUSCULAR VOLUME 91 fL (80-99); MEAN PLATELET VOLUME 10.3 fL (9.0-12.2); MONOCYTES # (AUTO) 0.6 10^3/uL (0.0-1.0); MONOCYTES % (AUTO) 6 % (0-12); NEUTROPHILS # (AUTO) 6.3 10^3/uL (1.8-7.8); NEUTROPHILS % (AUTO) 64 % (42-75); PLATELET COUNT 249 10^3/uL (130-400); WHITE BLOOD COUNT 9.9 10^3/uL (4.3-11.0)
[2022-09-12 08:12] LABS: ALBUMIN 3.4 GM/DL (3.2-4.5); POTASSIUM 3.9 MMOL/L (3.6-5.0)
[2022-09-12 08:13] LABS: CALCIUM 8.7 MG/DL (8.5-10.1)
[2022-09-12 08:14] LABS: TOTAL PROTEIN 5.9 GM/DL (6.4-8.2)
[2022-09-12 08:16] LABS: BILIRUBIN,TOTAL 0.5 MG/DL (0.1-1.0)
[2022-09-12 08:18] LABS: CREATININE SERUM 0.79 MG/DL (0.60-1.30)
[2022-09-12] MEDS ORDERED: polyethylene glycoL POWDER 17 GM (MIRALAX) PACK PO SCH (12:45)
[2022-09-12 20:00] VITALS: BP 102/66
[2022-09-12] MEDS ORDERED: LISI40TA9 PO (21:09)
[2022-09-12] MEDS ORDERED: ATOR80TA76 PO (21:09)
[2022-09-12] MEDS ORDERED: CLOP75TA28 PO (21:09)
[2022-09-12] MEDS ORDERED: BACL10TA PO (21:09)
[2022-09-12] MEDS ORDERED: ASPI-1238 PO (21:09)
[2022-09-12] MEDS ORDERED: TRAM50TA3 PO (21:09)
[2022-09-12] MEDS ORDERED: AMLO-250 PO (21:09)
--- NOTE | 2022-09-12 21:11 | D/C HH Face to Face Order ---
D/C HH Face to Face Orders Reconcile Patient Problems Problems Reviewed?: Yes Instructions for Patient HH Patient Instructions/FollowUp: Dr Santiago as scheduled Physician to follow Patient: Jack Discharge Diet for Home: No Restrictions Patient Problems: CVA Patient Data-Allergies,Ht & Wt Patient Allergies: Coded Allergies: No Known Allergies (Verified Allergy, Unknown, 09/02/22) Height (Feet): 5 Height (Inches): 11.00 Weight (Pounds): 220 Home Health Need/Face to Face Date of Face to Face: Sep 12, 2022 Clinical Findings: Generalized weakness and fatigue, Instability, Muscle weakness, Other-list in note (catheter) I have seen Pt [id number]: Yes Discharged To: Home Diagnosis/Conditions: CVA Patient is Homebound due to: Cedric fall risk due to instabilty, Muscle weakness Homebound Status Due to the above stated illness, injury or surgical procedure (medical condition or diagnosis) and associated clinical findings, the patient is homebound because of his/her inability to leave home except with aid of a supportive device and/or person AND leaving the home requires a considerable and taxing effort or is medically contraindicated. Pt req the following assistanc: Walker Home Health Nursing Orders Home Health Services Order: Nursing Services, Elementary Spanish Teacher-Evaluate & Treat, Physical Therapy-Evaluate & Treat Certify Stmt I certify that this patient is under my care and that I, a nurse practitioner or a physician; a golf player assistant working with me, had a face to face encounter that - meets the physician face to face encounter requirements with this patient as dated. ELISABETH SANTIAGO DO Sep 12, 2022 21:11
[2022-09-13] MEDS: BACLOFEN 10 MG (LIORESAL) TAB PO SCH ×4 (00:10→12:39)
[2022-09-13] MEDS: MULTIVIT W/MINERALS TAB (THERAGRAN M) PO SCH (06:33)
--- NOTE | 2022-09-13 07:33 | Discharge Summary ---
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 Boudreaux consulted and will manage conservatively Hypertension Hyperlipidemia Fatty liver Indwelling Arellano catheter status post complete prostatectomy robotic assisted will remain until follow-up with Dr. Barron Hematuria with clots and catheter Improved with Lovenox DC Plan: Aggressive rehab Speech therapy Plavix aspirin statin PT and OT 09/03/2022: Supportive care Aggressive rehab 09/04/2022: Continue aggressive rehab 09/05/2022: Bowels moving Continue aggressive rehab 09/06/2022: Supportive care Dr. Barron appointment to remove catheter after cystoscopy performed 09/07/2022: Continue treatment 09/08/2022: DC Lovenox due to hematuria and clots in catheter 09/09/2022: Monitor hematuria and clots in Arellano catheter 09/10/2022: Hold Lovenox Supportive care 09/11/2022: Supportive care No more hematuria noted 09/12/2022: Supportive care (1) Stroke Status: Acute Discharge Summary Discharge Physical Examination Allergies: Coded Allergies: No Known Allergies (Verified Allergy, Unknown, 09/02/22) Vitals & I&Os Vital Signs Date Time Temp Pulse Resp B/P (MAP) Pulse Ox O2 Delivery O2 Flow Rate FiO2 09/13/22 12:50 36.2 75 14 109/67 96 Room Air 0.00 General Appearance: Alert, Oriented X3, Cooperative Respiratory: Clear to Auscultation Cardiovascular: Regular Rate Psych/Mental Status: Mental Status NL Hospital Course Was the Problem List Reviewed?: Yes Hospital course: Patient had an uneventful hospital course after he sustained a stroke status post 1 week after the prostatectomy for cancer. Patient was placed on Plavix aspirin and statin. Loop recorder placed by cardiology. He did have hematuria in the Arellano catheter he is to have in place until follow- up with urology mid September. Lovenox was stopped and hematuria stopped. Overall he did very well he regain function and was able to be discharged in improved condition with home health. Labs (last 24 hrs) Laboratory Tests 09/03/22 05:10: White Blood Count 10.2, Red Blood Count 4.88, Hemoglobin 14.8, Hematocrit 44, Mean Corpuscular Volume 90, Mean Corpuscular Hemoglobin 30, Mean Corpuscular Hemoglobin Concent 34, Red Cell Distribution Width 13.1, Platelet Count 242, Mean Platelet Volume 10.5, Immature Granulocyte % (Auto) 1, Neutrophils (%) (Auto) 64, Lymphocytes (%) (Auto) 17, Monocytes (%) (Auto) 8, Eosinophils (%) (Auto) 10, Basophils (%) (Auto) 1, Neutrophils # (Auto) 6.6, Lymphocytes # (Auto) 1.7, Monocytes # (Auto) 0.8, Eosinophils # (Auto) 1.0H, Basophils # (Auto) 0.1, Immature Granulocyte # (Auto) 0.1, Sodium Level 140, Potassium Level 4.0, Chloride Level 107, Carbon Dioxide Level 24, Anion Gap 9, Blood Urea Nitrogen 16, Creatinine 0.79, Estimat Glomerular Filtration Rate 100, BUN/Creatinine Ratio 20, Glucose Level 88, Calcium Level 8.9, Corrected Calcium 9.3, Total Bilirubin 0.7, Aspartate Amino Transf (AST/SGOT) 15, Alanine Aminotransferase (ALT/SGPT) 19, Alkaline Phosphatase 78, Total Protein 6.3L, Albumin 3.5 09/06/22 05:27: White Blood Count 9.5, Red Blood Count 4.83, Hemoglobin 14.7, Hematocrit 43, Mean Corpuscular Volume 90, Mean Corpuscular Hemoglobin 30, Mean Corpuscular Hemoglobin Concent 34, Red Cell Distribution Width 12.9, Platelet Count 248, Mean Platelet Volume 10.2, Immature Granulocyte % (Auto) 1, Neutrophils (%) (Auto) 61, Lymphocytes (%) (Auto) 21, Monocytes (%) (Auto) 7, Eosinophils (%) (Auto) 10, Basophils (%) (Auto) 1, Neutrophils # (Auto) 5.7, Lymphocytes # (Auto) 2.0, Monocytes # (Auto) 0.7, Eosinophils # (Auto) 0.9H, Basophils # (Auto) 0.1, Immature Granulocyte # (Auto) 0.1, Sodium Level 139, Potassium Level 3.9, Chloride Level 106, Carbon Dioxide Level 24, Anion Gap 9, Blood Urea Nitrogen 17, Creatinine 0.78, Estimat Glomerular Filtration Rate 100, BUN/Creatinine Ratio 22, Glucose Level 86, Calcium Level 8.8, Corrected Calcium 9.2, Total Bilirubin 0.7, Aspartate Amino Transf (AST/SGOT) 34, Alanine Aminotransferase (ALT/SGPT) 48, Alkaline Phosphatase 78, Total Protein 6.1L, Albumin 3.5 09/12/22 07:45: White Blood Count 9.9, Red Blood Count 4.14L, Hemoglobin 12.7L, Hematocrit 38L, Mean Corpuscular Volume 91, Mean Corpuscular Hemoglobin 31, Mean Corpuscular Hemoglobin Concent 34, Red Cell Distribution Width 13.4, Platelet Count 249, Mean Platelet Volume 10.3, Immature Granulocyte % (Auto) 0, Neutrophils (%) (Auto) 64, Lymphocytes (%) (Auto) 21, Monocytes (%) (Auto) 6, Eosinophils (%) (Auto) 8, Basophils (%) (Auto) 1, Neutrophils # (Auto) 6.3, Lymphocytes # (Auto) 2.1, Monocytes # (Auto) 0.6, Eosinophils # (Auto) 0.8H, Basophils # (Auto) 0.1, Immature Granulocyte # (Auto) 0.0, Sodium Level 139, Potassium Level 3.9, Chloride Level 107, Carbon Dioxide Level 23, Anion Gap 9, Blood Urea Nitrogen 16, Creatinine 0.79, Estimat Glomerular Filtration Rate 100, BUN/Creatinine Ratio 20, Glucose Level 89, Calcium Level 8.7, Corrected Calcium 9.2, Total Bilirubin 0.5, Aspartate Amino Transf (AST/SGOT) 22, Alanine Aminotransferase (ALT/SGPT) 52, Alkaline Phosphatase 75, Total Protein 5.9L, Albumin 3.4 Pending Labs Laboratory Tests 09/03/22 05:10: White Blood Count 10.2, Red Blood Count 4.88, Hemoglobin 14.8, Hematocrit 44, Mean Corpuscular Volume 90, Mean Corpuscular Hemoglobin 30, Mean Corpuscular Hemoglobin Concent 34, Red Cell Distribution Width 13.1, Platelet Count 242, Mean Platelet Volume 10.5, Immature Granulocyte % (Auto) 1, Neutrophils (%) (Auto) 64, Lymphocytes (%) (Auto) 17, Monocytes (%) (Auto) 8, Eosinophils (%) (Auto) 10, Basophils (%) (Auto) 1, Neutrophils # (Auto) 6.6, Lymphocytes # (Auto) 1.7, Monocytes # (Auto) 0.8, Eosinophils # (Auto) 1.0, Basophils # (Auto) 0.1, Immature Granulocyte # (Auto) 0.1, Sodium Level 140, Potassium Level 4.0, Chloride Level 107, Carbon Dioxide Level 24, Anion Gap 9, Blood Urea Nitrogen 16, Creatinine 0.79, Estimat Glomerular Filtration Rate 100, BUN/Creatinine Ratio 20, Glucose Level 88, Calcium Level 8.9, Corrected Calcium 9.3, Total Bilirubin 0.7, Aspartate Amino Transf (AST/SGOT) 15, Alanine Aminotransferase (ALT/SGPT) 19, Alkaline Phosphatase 78, Total Protein 6.3, Albumin 3.5 09/06/22 05:27: White Blood Count 9.5, Red Blood Count 4.83, Hemoglobin 14.7, Hematocrit 43, Mean Corpuscular Volume 90, Mean Corpuscular Hemoglobin 30, Mean Corpuscular Hemoglobin Concent 34, Red Cell Distribution Width 12.9, Platelet Count 248, Mean Platelet Volume 10.2, Immature Granulocyte % (Auto) 1, Neutrophils (%) (Auto) 61, Lymphocytes (%) (Auto) 21, Monocytes (%) (Auto) 7, Eosinophils (%) (Auto) 10, Basophils (%) (Auto) 1, Neutrophils # (Auto) 5.7, Lymphocytes # (Auto) 2.0, Monocytes # (Auto) 0.7, Eosinophils # (Auto) 0.9, Basophils # (Auto) 0.1, Immature Granulocyte # (Auto) 0.1, Sodium Level 139, Potassium Level 3.9, Chloride Level 106, Carbon Dioxide Level 24, Anion Gap 9, Blood Urea Nitrogen 17, Creatinine 0.78, Estimat Glomerular Filtration Rate 100, BUN/Creatinine Rat io 22, Glucose Level 86, Calcium Level 8.8, Corrected Calcium 9.2, Total Bilirubin 0.7, Aspartate Amino Transf (AST/SGOT) 34, Alanine Aminotransferase (ALT/SGPT) 48, Alkaline Phosphatase 78, Total Protein 6.1, Albumin 3.5 09/12/22 07:45: White Blood Count 9.9, Red Blood Count 4.14, Hemoglobin 12.7, Hematocrit 38, Mean Corpuscular Volume 91, Mean Corpuscular Hemoglobin 31, Mean Corpuscular Hemoglobin Concent 34, Red Cell Distribution Width 13.4, Platelet Count 249, Mean Platelet Volume 10.3, Immature Granulocyte % (Auto) 0, Neutrophils (%) (Auto) 64, Lymphocytes (%) (Auto) 21, Monocytes (%) (Auto) 6, Eosinophils (%) (Auto) 8, Basophils (%) (Auto) 1, Neutrophils # (Auto) 6.3, Lymphocytes # (Auto) 2.1, Monocytes # (Auto) 0.6, Eosinophils # (Auto) 0.8, Basophils # (Auto) 0.1, Immature Granulocyte # (Auto) 0.0, Sodium Level 139, Potassium Level 3.9, Chloride Level 107, Carbon Dioxide Level 23, Anion Gap 9, Blood Urea Nitrogen 16, Creatinine 0.79, Estimat Glomerular Filtration Rate 100, BUN/Creatinine Ratio 20, Glucose Level 89, Calcium Level 8.7, Corrected Calcium 9.2, Total Bilirubin 0.5, Aspartate Amino Transf (AST/SGOT) 22, Alanine Aminotransferase (ALT/SGPT) 52, Alkaline Phosphatase 75, Total Protein 5.9, Albumin 3.4 Discharge Home Medications: Active Scripts Active Baclofen 10 Mg Tablet 5 Mg PO Q4HR Aspirin EC (Aspirin) 81 Mg Tablet.dr 81 Mg PO DAILY Atorvastatin Calcium 80 Mg Tablet 80 Mg PO DAILY Clopidogrel (Clopidogrel Bisulfate) 75 Mg Tablet 75 Mg PO DAILY Tramadol HCl 50 Mg Tablet 50-100 Tab PO Q6H PRN Lisinopril 40 Mg Tablet 40 Mg PO DAILY Amlodipine Besylate 5 Mg Tablet 5 Mg PO DAILY Reported Loratadine 10 Mg Tablet 10 Mg PO DAILY PRN Multi-Vitamin Daily (Multivitamin) 1 Each Tablet 1 Each PO DAILY Docusate Sodium 100 Mg Capsule 100 Mg PO BID Oxybutynin Chloride 5 Mg Tablet 5 Mg PO TID PRN Instructions to patient/family Please see electronic discharge instructions given to patient. Diagnosis/Problems Diagnosis/Problems (1) Stroke Status: Acute ELISABETH STALEY DO Sep 13, 2022 07:33
[2022-09-13 08:00] VITALS: BP 109/67
[2022-09-13] MEDS: polyethylene glycoL POWDER 17 GM (MIRALAX) PACK PO SCH (08:26)
[2022-09-13] MEDS: lisINopril 40 MG (PRINIVIL) TABLET PO SCH (08:27)
[2022-09-13] MEDS: amLODIPine 5 MG (NORVASC) TAB PO SCH (08:27)
[2022-09-13] MEDS: ASPIRIN E.C. 81 MG (ECOTRIN) TAB PO SCH (08:27)
[2022-09-13] MEDS: DOCUSATE SODIUM 100 MG (COLACE) CAP PO SCH (08:27)
[2022-09-13] MEDS: CLOPIDOGREL 75 MG (PLAVIX) TABLET PO SCH (08:27)
[2022-09-13] MEDS: SENNOSIDES 8.6 MG (SENOKOT) TAB PO SCH (08:27)
--- NOTE | 2022-09-13 09:07 | Occupational Ther Daily Note ---
OT Current Status-Daily Note Subjective Pt alert, lying in bed. Pt agrees to therapy. No c/o pain. QC's gathered today, discharge today. Mental Status/Objective Patient Orientation: Person, Place, Time, Situation Attachments: Arellano Catheter, Other-See Comments (loop recorder) ADL-Treatment Pt gathered clothing using FWW independently. Pt completed shower using grabbars, hand held shower and shower bench independent. Pt completed UBD, LBD and footwear independently. Pt threads own Arellano throughout lower body clothing. Standing at sink, pt completes oral care independently. Independent for eating. Pt able to manipulate clothing and cleanse self after BM, assist to manage Arellano. After session, pt lying in bed with call light/phone in reach. All needs met in room. Therapy Code Descriptions/Definitions Functional [place] Measure: 0=Not Assessed/NA 4=Minimal Assistance 1=Total Assistance 5=Supervision or Setup 2=Maximal Assistance 6=Modified [place] 3=Moderate Assistance 7=Complete IndependenceSCALE: Activities may be completed with or without assistive devices. 4-Jjrgkdwpoy-kpteueg completes the activity by him/herself with no assistance from a helper. 5-Set-up or Clean-up Assistance-helper sets up or cleans up; patient completes activity. [place] assists only prior to or following the activity. 4-Supervision or Touching Assistance-helper provides verbal cues and/or touching/steadying and/or contact guard assistance as patient completes activity. Assistance may be provided throughout the activity or intermittently. 3-Partial/Moderate Assistance-helper does LESS THAN HALF the effort. [place] lifts, holds or supports trunk or limbs, but provides less than half the effort. 2-Substantial/Maximal Assistance-helper does MORE THAN HALF the effort. [place] lifts or holds trunk or limbs and provides more than half the effort. 8-Glunqujgo-nsrtqx does ALL the effort. Patient does none of the effort to complete the activity. Or, the assistance of 2 or more helpers is required for the patient to complete the activity. If activity was not attempted, code reason: 7-Patient Refused. 9-Not Applicable-not attempted and the patient did not perform the activity before the current illness, exacerbation or injury. 10-Not Attempted due to Environmental Limitations-(lack of equipment, weather restraints, etc.). 88-Not Attempted due to Medical Conditions or Safety Concerns. Eating (QC): 6 Oral Hygiene (QC): 6 Shower/Bathe Self (QC): 6 Upper Body Dressing (QC): 6 Lower Body Dressing (QC): 6 On/Off Footwear: 6 Toileting Hygiene (QC): 3 (completes all toileting except Arellano management) Toilet Transfer (QC): 6 BIMS CAM BIMS Expression of Ideas and Wants: Without Difficulty Understanding Verbal Content: Understands Brief Interview/Mental Status: Yes IRF SPARKLE BIMS: IRF SPARKLE BIMS Response (Comments) Value Repitition of Three Words Three 3 Recalls Socks Yes, No Cue Required 2 Recalls Blue Yes, No Cue Required 2 Recalls Bed Yes, No Cue Required 2 Year Correct 3 Month Accurate Within 5 Days 2 Day Correct 1 Total 15 Patient Normally Able to Recal: Current Session, Location of own room, Staff Names and faces, That he/she in a hsp Should Staff Asses. Mental St.: No CAM Mental Status Change/Baseline: 1 Inattention: 0 Disorganized thinkin Altered level of consciousness: 0 OT Short Term Goals Short Term Goals Time Frame: Sep 11, 2022 Eatin Oral hygiene: 6 Toileting hygiene: 6 OT Car Worker Helper Goals Residential Goals Acute change in mental status: 1 Inattention: 0 Disorganized thinkin Altered level of consciousness: 0 Eating (QC): 6 (met) Oral Hygiene (QC): 6 (met) Toileting Hygiene (QC): 6 (not met) Shower/Bathe Self (QC): 6 (met) Upper Body Dressing (QC): 6 (met) Lower Body Dressing (QC): 6 (met) On/Off Footwear (QC): 6 (met) 1=Demonstrate adherence to instructed precautions during ADL tasks. 2=Patient will verbalize/demonstrate understanding of assistive dev ices/modifications for ADL. 3=Patient will improve strength/tolerance for activity to enable patient to perform ADL's. OT Education/Plan Problem List/Assessment Assessment: Decreased Activ Tolerance, Decreased UE Strength, Impaired Self- Care Skills Discharge Recommendations Plan/Recommendations: Discharge/Goals Met (discharging to home today) Therapy Discharge Recommendati: Home & Family Treatment Plan/Plan of Care Patient would benefit from OT for education, treatment and training to promote independence in ADL's, mobility, safety and/or upper extremity function for ADL's. Plan of Care: ADL Retraining, Caregiver Training, Cognitive Retraining, Concurrent Therapy, Functional Mobility, Group Exercise/Act as Ind, UE Funct Exercise/Act, Visual/Perceptual Retrain Treatment Duration: Sep 17, 2022 Frequency: At least 5 of 7 days/Wk (IRF) Estimated Hrs Per Day: 1.5 hours per day Agreement: Yes Rehab Potential: Good Time Start Time: 08:30 Stop Time: 09:30 DATE: Sep 13, 2022 Total Time Billed (hr/min): 60 Billed Treatment Time 1 visit-ADL 4 (60 min) NATALIO GOMEZ Sep 13, 2022 09:07
--- NOTE | 2022-09-13 09:34 | Physical Therapy Daily Note ---
PT Daily Note-Current Subjective Pt sitting at EOB w/Sp present awaiting PT for QC scoring for d/c today. Pt agrees to PT. Pain Location: No Pain Reported Section J - Health Conditions 1. Rarely or not at all 2. Occasionally 3. Frequently 4. Almost constantly 8. Unable to answer Pain Effect on Sleep: 1 Pain Interference with Therapy: 1 Pain Interference w/Day-to-Day: 1 Mental Status Patient Orientation: Person, Place, Time, Situation Attachments: Arellano Catheter Transfers SCALE: Activities may be completed with or without assistive devices. 9-Sajbbsbyra-jewnxle completes the activity by him/herself with no assistance from a helper. 5-Set-up or Clean-up Assistance-helper sets up or cleans up; patient completes activity. [place] assists only prior to or following the activity. 4-Supervision or Touching Assistance-helper provides verbal cues and/or touching/steadying and/or contact guard assistance as patient completes activity. Assistance may be provided throughout the activity or intermittently. 3-Partial/Moderate Assistance-helper does LESS THAN HALF the effort. [place] lifts, holds or supports trunk or limbs, but provides less than half the effort. 2-Substantial/Maximal Assistance-helper does MORE THAN HALF the effort. [place] lifts or holds trunk or limbs and provides more than half the effort. 8-Ablyvfqky-dqareu does ALL the effort. Patient does none of the effort to complete the activity. Or, the assistance of 2 or more helpers is required for the patient to complete the activity. If activity was not attempted, code reason: 7-Patient Refused. 9-Not Applicable-not attempted and the patient did not perform the activity before the current illness, exacerbation or injury. 10-Not Attempted due to Environmental Limitations-(lack of equipment, weather restraints, etc.). 88-Not Attempted due to Medical Conditions or Safety Concerns. Roll Left & Right (QC): 6 Sit to Lying (QC): 6 Lying to Sitting/Side of Bed(Q: 6 Sit to Stand (QC): 6 Chair/Gzh-yt-Bjkaq Xfer(QC): 6 Toilet Transfer (QC): 6 Car Transfer (QC): 6 Weight Bearing Right Lower Extremity: Right Full Weight Bearing Left Lower Extremity: Left Full Weight Bearing Gait Training Does the Patient Walk?: Yes Distance: 287' Walk 10 feet (QC): 6 Walk 50 ft with 2 Turns(QC): 6 Walk 150 ft (QC): 6 Walking 10ft/uneven surface-QC: 6 Gait Persons Needed: 0 Gait Assistive Device: FWW Wheelchair Training Does the Pt Use a Wheelchair?: No Stair Training Stair Training: Handrails/: 1 handrail #of Steps: 12 1 Step (curb) (QC): 6 4 Steps (QC): 6 12 Steps (QC): 6 Stairs: Pattern: Step to Balance Picking up an Object (QC): 6 Special Test Comments Pt uses inventory control specialist and will have one at home. Treatments Pt completes QC scoring items listed above for anticipated d/c today. Pt retruns to room to rest at EOB awaiting OT. Sp present & all needs met, call light next to pt. Assessment Current Status: Good Progress Pt arlet. tx well. PT Senior Living Goals User Experience Developer Goals PT User Experience Developer Goals Time Frame: Sep 10, 2022 Roll Left & Right (QC): 6 (Pt will be Mod I with all aspects of functional mobility, with the least restrictive AD, to be at PLOF. ) Sit to Lying (QC): 6 (Pt will be Mod I with all aspects of functional mobility, with the least restrictive AD, to be at PLOF. ) Lying-Sitting on Side/Bed(QC): 6 (Pt will be Mod I with all aspects of functional mobility, with the least restrictive AD, to be at PLOF. ) Sit to Stand (QC): 6 (Pt will be Mod I with all aspects of functional mobility, with the least restrictive AD, to be at PLOF. ) Chair/Oxo-xd-Lybro Xfer(QC): 6 (Pt will be Mod I with all aspects of functional mobility, with the least restrictive AD, to be at PLOF. ) Toilet Transfer (QC): 6 (Pt will be Mod I with all aspects of functional mobility, with the least restrictive AD, to be at PLOF. ) Car Transfer (QC): 6 (Pt will be Mod I with all aspects of functional mobility, with the least restrictive AD, to be at PLOF. ) Does the Patient Walk: Yes Walk 10 feet (QC): 6 (Pt will be Mod I with all aspects of functional mobility, with the least restrictive AD, to be at PLOF. ) Walk 50ft with 2 Turns (QC): 6 (Pt will be Mod I with all aspects of functional mobility, with the least restrictive AD, to be at PLOF. ) Walk 150 ft (QC): 6 (Pt will be Mod I with all aspects of functional mobility, with the least restrictive AD, to be at PLOF. ) Walking 10ft on Uneven Surface: 6 (Pt will be Mod I with all aspects of functional mobility, with the least restrictive AD, to be at PLOF. ) 1 Step (curb) (QC): 6 (Pt will be Mod I with all aspects of functional mobility, with the least restrictive AD, to be at PLOF. ) 4 Steps (QC): 6 (Pt will be Mod I with all aspects of functional mobility, with the least restrictive AD, to be at PLOF. ) 12 Steps (QC): 6 (Pt will be Mod I with all aspects of functional mobility, with the least restrictive AD, to be at PLOF. ) Picking up an Object (QC): 6 (Pt will be Mod I with all aspects of functional mobility, with the least restrictive AD, to be at PLOF. ) Does the Pt use WC or Scooter?: No Wheel 50 feet with 2 turns (QC: 9 Type: N/A Wheel 150 feet: 9 Type: N/A PT Plan Treatment/Plan Treatment Plan: Continue Plan of Care Treatment Plan: Bed Mobility, Concurrent Therapy, Education, Functional Activity Satinder, Functional Strength, Group Therapy, Gait, Safety, Therapeutic Exercise, Transfers Treatment Duration: Sep 10, 2022 Frequency: At least 5 of 7 days/Wk (IRF) Estimated Hrs Per Day: 1.5 hours per day Patient and/or Family Agrees t: Yes Time Time In: 800 Time Out: 830 DATE: Sep 13, 2022 Total Billed Treatment Time: 30 Total Billed Treatment 1, FA x2 (30m) EMERITA S[facility]H [facility] SALES DEVELOPER Sep 13, 2022 09:34
[2022-09-13 12:50] VITALS: BP 109/67
--- NOTE | 2022-09-15 15:22 | Therapy Team Discharge Summary ---
Therapy Discharge Summary Discharge Recommendations Date of Discharge Sep 13, 2022 at 12:57 Physical Therapy Pt went to the ER on 08/30/2022 secondary to L facial droop and slurred speech; A RU on 09/02/2022 with CVA. At [facility], pt was Ind with no AD and driving. Upon PT eval, pt was SBA for all aspects of functional mobility. PT worked on B LE strengthening, balance, walking, transfers, Ind, safety, and endurance. PT progressed well with PT and met all set goals. Pt is Mod I with all aspects of functional mobility with the FWW. Pt d/c from ARU on 09/13/2022 to home with sp ouse and no other services; D/C from PT. Roll Left to Right (QC): 6 Sit to Lying (QC): 6 Lying to Sitting/Side of Bed(Q: 6 Sit to Stand (QC): 6 Chair/Rua-hr-Usozm Xfer(QC): 6 Toilet Transfer (QC): 6 Car Transfer (QC): 6 Does the Patient Walk: Yes Mode of Locomotion: Walk Anticipated Mode of Locomotion: Walk Walk 10 feet (QC): 6 Walk 50 ft with 2 Turns(QC): 6 Walk 150 ft (QC): 6 Walking 10ft on uneven surface: 6 Distance: 350ft Gait Assistive Device: FWW Does the Pt Use a Wheelchair: No Wheel 50 ft with 2 turns (QC): 88 Wheel 150 ft (QC): 88 Type of Wheelchair: N/A #of Steps: 12 1 Step (curb) (QC): 6 4 Steps (QC): 6 12 Steps (QC): 6 Walking Assistive Device: Walker Balance Sitting Static: Normal Balance Sitting Dynamic: Normal Balance-Standing Static: Good Picking up an Object (QC): 6 Occupational Therapy Decreased Activ Tolerance, Decreased UE Strength, Impaired Self-Care Skills Eating (QC): 6 Oral Hygiene (QC): 6 Shower/Bathe Self (QC): 6 Upper Body Dressing (QC): 6 Lower Body Dressing (QC): 6 On/Off Footwear (QC): 6 Toileting Hygiene (QC): 3 (completes all toileting except Arellano management) PT Skilled Nursing Goals Literature Teacher Goals PT Literature Teacher Goals Time Frame: Sep 10, 2022 Roll Left to Right (QC): 6 (Pt will be Mod I with all aspects of functional mobility, with the least restrictive AD, to be at PLOF. ) Sit to Lying (QC): 6 (Pt will be Mod I with all aspects of functional mobility, with the least restrictive AD, to be at PLOF. ) Lying-Sitting on Side/Bed(QC): 6 (Pt will be Mod I with all aspects of functional mobility, with the least restrictive AD, to be at PLOF. ) Sit to Stand (QC): 6 (Pt will be Mod I with all aspects of functional mobility, with the least restrictive AD, to be at PLOF. ) Chair/Pbm-yu-Qhnek Xfer(QC): 6 (Pt will be Mod I with all aspects of functional mobility, with the least restrictive AD, to be at PLOF. ) Toilet/Commode Transfer (QC): 6 (Pt will be Mod I with all aspects of functional mobility, with the least restrictive AD, to be at PLOF. ) Car Transfer (QC): 6 (Pt will be Mod I with all aspects of functional mobility, with the least restrictive AD, to be at PLOF. ) Does the Patient Walk: Yes Walk 10 feet (QC): 6 (Pt will be Mod I with all aspects of functional mobility, with the least restrictive AD, to be at PLOF. ) Walk 10ft-Uneven Surface(QC): 6 (Pt will be Mod I with all aspects of functional mobility, with the least restrictive AD, to be at PLOF. ) Walk 50ft with 2 Turns (QC): 6 (Pt will be Mod I with all aspects of functional mobility, with the least restrictive AD, to be at PLOF. ) Walk 150 ft (QC): 6 (Pt will be Mod I with all aspects of functional mobility, with the least restrictive AD, to be at PLOF. ) Does the Pt use WC or Scooter?: No Wheel 50 feet with 2 turns (QC: 9 Type: N/A Wheel 150 feet: 9 Type: N/A 1 Step (curb) (QC): 6 (Pt will be Mod I with all aspects of functional mobility, with the least restrictive AD, to be at PLOF. ) 4 Steps (QC): 6 (Pt will be Mod I with all aspects of functional mobility, with the least restrictive AD, to be at PLOF. ) 12 Steps (QC): 6 (Pt will be Mod I with all aspects of functional mobility, with the least restrictive AD, to be at PLOF. ) Picking up an Object (QC): 6 (Pt will be Mod I with all aspects of functional mobility, with the least restrictive AD, to be at PLOF. ) OT Skilled Nursing Goals Skilled Nursing Goals Acute change in mental status: 1 Inattention: 0 Disorganized thinkin Altered level of consciousness: 0 Eating (QC): 6 (met) Oral Hygiene (QC): 6 (met) Toileting Hygiene (QC): 6 (not met) Shower/Bathe Self (QC): 6 (met) Upper Body Dressing (QC): 6 (met) Lower Body Dressing (QC): 6 (met) On/Off Footwear (QC): 6 (met) 1=Demonstrate adherence to instructed precautions during ADL tasks. 2=Patient will verbalize/demonstrate understanding of assistive devices/modifications for ADL. 3=Patient will improve strength/tolerance for activity to enable patient to perform ADL's. Speech Literature Teacher Goals Literature Teacher Goals 1. The patient will demonstrate improved cognitive communication for safe discharge to the least restrictive environment. Time Frame: Ten Days. IMELDA TRIVEDI PT Sep 15, 2022 15:22
--- NOTE | 2022-09-15 15:52 | Therapy Team Discharge Summary ---
Therapy Discharge Summary Discharge Recommendations Date of Discharge Sep 13, 2022 at 12:57 Physical Therapy Roll Left to Right (QC): 6 Sit to Lying (QC): 6 Lying to Sitting/Side of Bed(Q: 6 Sit to Stand (QC): 6 Chair/Ori-gu-Dipxx Xfer(QC): 6 Toilet Transfer (QC): 6 Car Transfer (QC): 6 Does the Patient Walk: Yes Mode of Locomotion: Walk Anticipated Mode of Locomotion: Walk Walk 10 feet (QC): 6 Walk 50 ft with 2 Turns(QC): 6 Walk 150 ft (QC): 6 Walking 10ft on uneven surface: 6 Distance: 350ft Gait Assistive Device: FWW Does the Pt Use a Wheelchair: No Wheel 50 ft with 2 turns (QC): 88 Wheel 150 ft (QC): 88 Type of Wheelchair: N/A #of Steps: 12 1 Step (curb) (QC): 6 4 Steps (QC): 6 12 Steps (QC): 6 Walking Assistive Device: Walker Balance Sitting Static: Normal Balance Sitting Dynamic: Normal Balance-Standing Static: Good Picking up an Object (QC): 6 Occupational Therapy Pt went to the ER on 08/30/2022 secondary to L facial droop and slurred speech; ARU on 09/02/2022 with CVA. At [facility], pt was Ind with no AD and driving. Upon OT eval, pt was SBA for all aspects of functional mobility. OT worked on B JEAN-PAUL, strengthening, balance, transfers, Phillips, safety, and endurance. Patient progressed well with OT and met all set goals with the exception of Arellano management. Pt is Mod I with all aspects of functional mobility with the FWW. Pt d/c from ARU on 09/13/2022 to home with spouse and no other services; D/C from OT. Decreased Activ Tolerance, Decreased UE Strength, Impaired Self-Care Skills Eating (QC): 6 Oral Hygiene (QC): 6 Shower/Bathe Self (QC): 6 Upper Body Dressing (QC): 6 Lower Body Dressing (QC): 6 On/Off Footwear (QC): 6 Toileting Hygiene (QC): 3 (completes all toileting except Arellano management) PT Fpc Goals Fpc Goals PT Status Controller Goals Time Frame: Sep 10, 2022 Roll Left to Right (QC): 6 (Pt will be Mod I with all aspects of functional mobility, with the least restrictive AD, to be at PLOF. ) Sit to Lying (QC): 6 (Pt will be Mod I with all aspects of functional mobility, with the least restrictive AD, to be at PLOF. ) Lying-Sitting on Side/Bed(QC): 6 (Pt will be Mod I with all aspects of functional mobility, with the least restrictive AD, to be at PLOF. ) Sit to Stand (QC): 6 (Pt will be Mod I with all aspects of functional mobility, with the least restrictive AD, to be at PLOF. ) Chair/Vvq-wj-Ooygd Xfer(QC): 6 (Pt will be Mod I with all aspects of functional mobility, with the least restrictive AD, to be at PLOF. ) Toilet/Commode Transfer (QC): 6 (Pt will be Mod I with all aspects of functional mobility, with the least restrictive AD, to be at PLOF. ) Car Transfer (QC): 6 (Pt will be Mod I with all aspects of functional mobility, with the least restrictive AD, to be at PLOF. ) Does the Patient Walk: Yes Walk 10 feet (QC): 6 (Pt will be Mod I with all aspects of functional mobility, with the least restrictive AD, to be at PLOF. ) Walk 10ft-Uneven Surface(QC): 6 (Pt will be Mod I with all aspects of functional mobility, with the least restrictive AD, to be at PLOF. ) Walk 50ft with 2 Turns (QC): 6 (Pt will be Mod I with all aspects of functional mobility, with the least restrictive AD, to be at PLOF. ) Walk 150 ft (QC): 6 (Pt will be Mod I with all aspects of functional mobility, with the least restrictive AD, to be at PLOF. ) Does the Pt use WC or Scooter?: No Wheel 50 feet with 2 turns (QC: 9 Type: N/A Wheel 150 feet: 9 Type: N/A 1 Step (curb) (QC): 6 (Pt will be Mod I with all aspects of functional mobility, with the least restrictive AD, to be at PLOF. ) 4 Steps (QC): 6 (Pt will be Mod I with all aspects of functional mobility, with the least restrictive AD, to be at PLOF. ) 12 Steps (QC): 6 (Pt will be Mod I with all aspects of functional mobility, with the least restrictive AD, to be at PLOF. ) Picking up an Object (QC): 6 (Pt will be Mod I with all aspects of functional mobility, with the least restrictive AD, to be at PLOF. ) OT Fpc Goals Fpc Goals Acute change in mental status: 1 Inattention: 0 Disorganized thinkin Altered level of consciousness: 0 Eating (QC): 6 (met) Oral Hygiene (QC): 6 (met) Toileting Hygiene (QC): 6 (not met) Shower/Bathe Self (QC): 6 (met) Upper Body Dressing (QC): 6 (met) Lower Body Dressing (QC): 6 (met) On/Off Footwear (QC): 6 (met) 1=Demonstrate adherence to instructed precautions during ADL tasks. 2=Patient will verbalize/demonstrate understanding of assistive devices/modifications for ADL. 3=Patient will improve strength/tolerance for activity to enable patient to perform ADL's. Speech Status Controller Goals Status Controller Goals 1. The patient will demonstrate improved cognitive communication for safe discharge to the least restrictive environment. Time Frame: Ten Days. MACKENZIE ANGEL OT Sep 15, 2022 15:52
--- NOTE | 2022-09-17 15:46 | Therapy Team Discharge Summary ---
Therapy Discharge Summary Discharge Recommendations Date of Discharge Sep 13, 2022 at 12:57 Physical Therapy Roll Left to Right (QC): 6 Sit to Lying (QC): 6 Lying to Sitting/Side of Bed(Q: 6 Sit to Stand (QC): 6 Chair/Eae-ix-Bsbsy Xfer(QC): 6 Toilet Transfer (QC): 6 Car Transfer (QC): 6 Does the Patient Walk: Yes Mode of Locomotion: Walk Anticipated Mode of Locomotion: Walk Walk 10 feet (QC): 6 Walk 50 ft with 2 Turns(QC): 6 Walk 150 ft (QC): 6 Walking 10ft on uneven surface: 6 Distance: 350ft Gait Assistive Device: FWW Does the Pt Use a Wheelchair: No Wheel 50 ft with 2 turns (QC): 88 Wheel 150 ft (QC): 88 Type of Wheelchair: N/A #of Steps: 12 1 Step (curb) (QC): 6 4 Steps (QC): 6 12 Steps (QC): 6 Walking Assistive Device: Walker Balance Sitting Static: Normal Balance Sitting Dynamic: Normal Balance-Standing Static: Good Picking up an Object (QC): 6 Occupational Therapy Decreased Activ Tolerance, Decreased UE Strength, Impaired Self-Care Skills Eating (QC): 6 Oral Hygiene (QC): 6 Shower/Bathe Self (QC): 6 Upper Body Dressing (QC): 6 Lower Body Dressing (QC): 6 On/Off Footwear (QC): 6 Toileting Hygiene (QC): 3 (completes all toileting except Arellano management) Speech-Language Pathology Pt seen by ST 1x/day 5 days a week to target lingual and labial weakness through [facility]. Pt able to perform exercises with 100% accuracy with min cues. A written out list was provided to pt and his to complete outside of therapy. Pt demonstrates most difficulty with labial protrusion often moving his head anteriorly instead of protruding his lips. Pt d/c from IRU on 09/13 home with . Pt to benefit from continued ST services. D/C pt from ST. PT Table Games Supervisor Goals Penitentiary Goals PT Penitentiary Goals Time Frame: Sep 10, 2022 Roll Left to Right (QC): 6 (Pt will be Mod I with all aspects of functional mobility, with the least restrictive AD, to be at PLOF. ) Sit to Lying (QC): 6 (Pt will be Mod I with all aspects of functional mobility, with the least restrictive AD, to be at PLOF. ) Lying-Sitting on Side/Bed(QC): 6 (Pt will be Mod I with all aspects of fun ctional mobility, with the least restrictive AD, to be at PLOF. ) Sit to Stand (QC): 6 (Pt will be Mod I with all aspects of functional mobility, with the least restrictive AD, to be at PLOF. ) Chair/Zmb-om-Cjhpb Xfer(QC): 6 (Pt will be Mod I with all aspects of functional mobility, with the least restrictive AD, to be at PLOF. ) Toilet/Commode Transfer (QC): 6 (Pt will be Mod I with all aspects of functional mobility, with the least restrictive AD, to be at PLOF. ) Car Transfer (QC): 6 (Pt will be Mod I with all aspects of functional mobility, with the least restrictive AD, to be at PLOF. ) Does the Patient Walk: Yes Walk 10 feet (QC): 6 (Pt will be Mod I with all aspects of functional mobility, with the least restrictive AD, to be at PLOF. ) Walk 10ft-Uneven Surface(QC): 6 (Pt will be Mod I with all aspects of functional mobility, with the least restrictive AD, to be at PLOF. ) Walk 50ft with 2 Turns (QC): 6 (Pt will be Mod I with all aspects of functional mobility, with the least restrictive AD, to be at PLOF. ) Walk 150 ft (QC): 6 (Pt will be Mod I with all aspects of functional mobility, with the least restrictive AD, to be at PLOF. ) Does the Pt use WC or Scooter?: No Wheel 50 feet with 2 turns (QC: 9 Type: N/A Wheel 150 feet: 9 Type: N/A 1 Step (curb) (QC): 6 (Pt will be Mod I with all aspects of functional mobility, with the least restrictive AD, to be at PLOF. ) 4 Steps (QC): 6 (Pt will be Mod I with all aspects of functional mobility, with the least restrictive AD, to be at PLOF. ) 12 Steps (QC): 6 (Pt will be Mod I with all aspects of functional mobility, with the least restrictive AD, to be at PLOF. ) Picking up an Object (QC): 6 (Pt will be Mod I with all aspects of functional mobility, with the least restrictive AD, to be at PLOF. ) OT Penitentiary Goals Table Games Supervisor Goals Acute change in mental status: 1 Inattention: 0 Disorganized thinkin Altered level of consciousness: 0 Eating (QC): 6 (met) Oral Hygiene (QC): 6 (met) Toileting Hygiene (QC): 6 (not met) Shower/Bathe Self (QC): 6 (met) Upper Body Dressing (QC): 6 (met) Lower Body Dressing (QC): 6 (met) On/Off Footwear (QC): 6 (met) 1=Demonstrate adherence to instructed precautions during ADL tasks. 2=Patient will verbalize/demonstrate understanding of assistive devices/modifications for ADL. 3=Patient will improve strength/tolerance for activity to enable patient to perform ADL's. Speech Table Games Supervisor Goals Penitentiary Goals 1. The patient will demonstrate improved cognitive communication for safe disc harge to the least restrictive environment. Time Frame: Ten Days. Maday Dillard Speech Therapy Sep 17, 2022 15:46
== END 2022-09-13 12:57 | disposition other institution (70) | DRG 57 ==
PROVIDERS: ADMIT Internal Medicine; ATTEND Internal Medicine
DX: I69.354 Hemiplegia and hemiparesis following cerebral infarction affecting left non-dominant side (principal); N39.0 Urinary tract infection, site not specified; D68.32 Hemorrhagic disorder due to extrinsic circulating anticoagulants; I69.320 Aphasia following cerebral infarction; I69.392 Facial weakness following cerebral infarction; I69.319 Unspecified symptoms and signs involving cognitive functions following cerebral infarction; R31.9 Hematuria, unspecified; I10 Essential (primary) hypertension; K82.8 Other specified diseases of gallbladder; K76.0 Fatty (change of) liver, not elsewhere classified; E78.5 Hyperlipidemia, unspecified; B96.4 Proteus (mirabilis) (morganii) as the cause of diseases classified elsewhere; Z79.82 Long term (current) use of aspirin; Z90.79 Acquired absence of other genital organ(s); T45.525A Adverse effect of antithrombotic drugs, initial encounter
CPT/HCPCS: 36415; 80053; 85025; 94640; 94664; 94760

== ENCOUNTER 2022-09-18 09:59 | Emergency (ER) | payer BC ==
[~2022-09-18] VITALS: Ht 177.8 cm; Wt 100.0 kg
--- NOTE | 2022-09-18 10:23 | ED GU-Male ---
General Chief Complaint: - Reproductive Stated Complaint: NEEDS HELP FLUSHING CATETER Nursing Triage Note: PT STATES HE CANNOT FLUSH HIS AVITIA CATHETER THIS AM. STATES IT HAS BEEN LEAKING FOR SEVERAL DAYS BUT HAS HAD NORMAL OUTPUT AND HAS BEEN ABLE TO FLUSH UNTIL THIS MORNING. STATES HE HAD HIS PROSTATE REMOVED ON 08/23 AND HE HAS HAD THE CATHETER SINCE THEN Source: patient, family () Exam Limitations: no limitations History of Present Illness Date Seen by Provider: Sep 18, 2022 Time Seen by Provider: 10:15 Initial Comments Patient is a 62-year-old male who presents to the emergency room with a chief complaint of Avitia catheter not draining. We had placed shortly after prostate surgery about a month ago. He subsequently had a CVA in the middle of August and was unable to have the catheter removed. His states that he was not having much difficulty last evening but in the middle of the night it quit draining. She states she attempted to flush it multiple times and has not been able to get it to drain. He is not really having too much abdominal discomfort right now. He states when it does feel like it is draining however it feels "like glass" and hurts. No nausea or vomiting. No fevers or chills. He does have scheduled follow-up for the catheter at the end of this month. Was just released from post CVA rehab last Tuesday Timing/Duration: other (during the night) Severity/Quality: mild Location: suprapubic Activities at Onset: sleep Prior Genitourinary Problems: similar symptoms Associated Symptoms: denies symptoms Allergies and Home Medications Allergies Coded Allergies: No Known Allergies (Verified Allergy, Unknown, 09/02/22) Patient Home Medication List Home Medication List Reviewed: Yes Amlodipine Besylate (Amlodipine Besylate) 5 Mg Tablet, 5 MG PO DAILY Prescribed by: ELISABETH STALEY on 09/12/222108 Aspirin (Aspirin EC) 81 Mg Tablet.dr, 81 MG PO DAILY Prescribed by: ELISABETH STALEY on 09/12/222108 Atorvastatin Calcium (Atorvastatin Calcium) 80 Mg Tablet, 80 MG PO DAILY Prescribed by: ELISABETH STALEY on 09/12/222108 Baclofen (Baclofen) 10 Mg Tablet, 5 MG PO Q4HR Prescribed by: ELISABETH STALEY on 09/12/222108 Clopidogrel Bisulfate (Clopidogrel) 75 Mg Tablet, 75 MG PO DAILY Prescribed by: ELISABETH STALEY on 09/12/222108 Docusate Sodium (Docusate Sodium) 100 Mg Capsule, 100 MG PO BID, (Reported) Entered as Reported by: VÍCTOR PRITCHETT on 08/31/2218 Lisinopril (Lisinopril) 40 Mg Tablet, 40 MG PO DAILY Prescribed by: ELISABETH STALEY on 09/12/222108 Loratadine (Loratadine) 10 Mg Tablet, 10 MG PO DAILY PRN for ALLERGY SYMPTOMS, (Reported) Entered as Reported by: RL GRIDER on 08/31/221539 Multivitamin (Multi-Vitamin Daily) 1 Each Tablet, 1 EACH PO DAILY, (Reported) Entered as Reported by: VÍCTOR PRITCHETT on 08/31/2218 Oxybutynin Chloride (Oxybutynin Chloride) 5 Mg Tablet, 5 MG PO TID PRN for URINARY URGENCY, (Reported) Entered as Reported by: VÍCTOR PRITCHETT on 08/31/2216 Tramadol HCl (Tramadol HCl) 50 Mg Tablet, 50-100 TAB PO Q6H PRN for PAIN- MODERATE (5-7) Prescribed by: ELISABETH STALEY on 09/12/222109 Review of Systems Review of Systems Constitutional: see HPI Respiratory: no symptoms reported Cardiovascular: no symptoms reported Gastrointestinal: no symptoms reported Genitourinary: other (catheter not draining; "razor blade feeling" when urine tries to pass) Musculoskeletal: no symptoms reported Skin: no symptoms reported Psychiatric/Neurological: No Symptoms Reported Past [id number]-Ubwtbd-Mtjjsu Hx Patient Social History Tobacco Use?: No Substance use?: No Alcohol Use?: No Immunizations Up To Date First/Initial COVID19 Vaccinat: RECEIVED, UNK WHEN Second COVID19 Vaccination Hpan: RECEIVED, UNK WHEN Third COVID19 Vaccination Date: RECEIVED, UNK WHEN Seasonal Allergies Seasonal Allergies: No Past Medical History Surgery/Hospitalization HX: PROSTATECTOMY HTN, PROSTATE CANCER Surgeries: Yes (L KNEE, L HYDROCELECTOMY, WISDOM TEETH) Adenoidectomy, Orthopedic, Prostatectomy, Tonsillectomy Respiratory: No Cardiac: Yes Hypertension Neurological: No Stroke Genitourinary: No Gastrointestinal: No Gall Bladder Disease Musculoskeletal: No Endocrine: No HEENT: No Psychosocial: No Integumentary: No Blood Disorders: No Physical Exam Vital Signs Vital Signs - First Documented 09/18/22 10:08 Temp 36.3 Pulse 86 Resp 16 B/P (MAP) 137/82 (100) Pulse Ox 98 Capillary Refill : Height, Weight, BMI Height: 5'11.00" Weight: 220lbs. oz. [id number]; 31.00 BMI Method:Stated General Appearance: WD/WN, no apparent distress, thin HEENT: PERRL/EOMI Cardiovascular: regular rate, rhythm Respiratory: lungs clear, normal breath sounds, no respiratory distress Gastrointestinal: non tender, soft Male: normal genitalia Extremities: normal range of motion, normal inspection Neurologic/Psychiatric: alert, oriented x 3 Skin: normal color, warm/dry Progress/Results/Core Measures Suspected Sepsis SIRS Temperature: Pulse: 86 Respiratory Rate: 16 Blood Pressure 137 /82 Mean: 100 Results/Orders Lab Results Laboratory Tests Test 09/18/22 10:55 Range/Units Urine Color RED H Urine Clarity TURBID Urine pH 8.5 5-9 Urine Specific [place] 1.010 L 1.016-1.022 Urine Protein 3+ H NEGATIVE Urine Glucose (UA) NEGATIVE NEGATIVE Urine Ketones TRACE H NEGATIVE Urine Nitrite POSITIVE H NEGATIVE Urine Bilirubin 1+ H NEGATIVE Urine Urobilinogen 1.0 < = 1.0 MG/DL Urine Leukocyte Esterase 3+ H NEGATIVE Urine RBC (Auto) 3+ H NEGATIVE Urine RBC >100 H /HPF Urine WBC >100 H /HPF Urine Crystals PRESENT H /LPF Urine Triple Phosphate Crystals FEW H /LPF Urine Bacteria LARGE H /HPF Urine Casts NONE /LPF Urine Mucus NEGATIVE /LPF Urine Culture Indicated YES My Orders Orders - ZURDO PONCE MD Ua Culture If Indicated (09/18/22 10:24) Urine Culture (09/18/22 10:55) Vital Signs/I&O 09/18/22 10:08 Temp 36.3 Pulse 86 Resp 16 B/P (MAP) 137/82 (100) Pulse Ox 98 Capillary Refill : Blood Pressure Mean: 100 Progress Note : Time: 11:50 Departure Impression Primary Impression: Avitia catheter problem Qualified Codes: T83.9XXA - Unspecified complication of genitourinary prosthetic device, implant and graft, initial encounter Additional Impression: Urinary tract infection Qualified Codes: T83.511A - Infection and inflammatory reaction due to indwelling urethral catheter, initial encounter; N39.0 - Urinary tract infection, site not specified Disposition: 01 HOME, SELF-CARE Condition: Stable Departure-Patient Inst. Decision time for Depature: 11:48 Referrals: ELISABETH STALEY DO (PCP/Family) Primary Care Physician Patient Instructions: How to Prevent Catheter Associated Urinary Tract Infections Add. Discharge Instructions: Start the antibiotics today, Cipro 500 mg twice a day for 10 days. Monitor yourself for fever, worsening pain, nausea vomiting. If any of these occur please return to the emergency department for reevaluation. Please keep your scheduled follow-up appointments with your primary care physician. Scripts Ciprofloxacin HCl (Ciprofloxacin HCl) 500 Mg Tablet 500 MG PO BID for 10 Days, #20 TAB Prov: ZURDO PONCE MD 09/18/22 Copy Copies To 1: ELISABETH STALEY KATHRYN M MD Sep 18, 2022 10:23
[2022-09-18 11:02] LABS: CLARITY,URINE TURBID; COLOR,URINE RED; GLUCOSE, URINE (UA) NEGATIVE (NEGATIVE); KETONES,URINE TRACE (NEGATIVE); LEUKOCYTE ESTERASE ,URINE 3+ (NEGATIVE); NITRITE,URINE POSITIVE (NEGATIVE); PH,URINE 8.5 (5-9); PROTEIN,URINE 3+ (NEGATIVE)
[2022-09-18 11:11] LABS: BACTERIA,URINE LARGE /HPF; BILIRUBIN,URINE 1+ (NEGATIVE); RBC,URINE >100 /HPF; WBC,URINE >100 /HPF
[2022-09-18 11:12] LABS: TRIPLE PHOSPHATE CRYSTAL,UR FEW /LPF
[2022-09-18] MEDS ORDERED: CIPR500T5 PO (11:49)
[2022-09-18 11:58] VITALS: BP 112/73
== END 2022-09-18 12:02 | disposition home or self-care (01) ==
LOC: EDUNIT# 09:59 → ER 10:02
DX: T83.518A Infection and inflammatory reaction due to other urinary catheter, initial encounter (principal); N39.0 Urinary tract infection, site not specified; Y82.9 Unspecified medical devices associated with adverse incidents
CPT/HCPCS: 51702; 81000; 87077; 87088; 87186

== ENCOUNTER → 2022-12-08 | Outpatient (CLI) | payer BC ==
[~2022-12-08] MED LIST changes: +CATHETER FLUSH 10 ML SYR IVP PRN; +CIPR500T5 PO; +REGADENOSON 0.4 MG/5 ML SYR IV ONE
[2022-12-08 08:59] VITALS: BP 151/97
--- NOTE | 2022-12-09 07:44 | Cardiology Stress Test Report ---
Stress Test Report Date of Procedure/Referring: Date of Procedure: Dec 08, 2022 PCP Maki Santiago DO Admitting Physician Admitting Physician: Attending Physician: Breann Jones Baseline Heart Rate: 68 Baseline Blood Pressure: Blood Pressure Systolic: 151 Blood Pressure Diastolic: 97 Baseline Vitals Vital Signs Date Time Temp Pulse Resp B/P (MAP) Pulse Ox O2 Delivery O2 Flow Rate FiO2 12/08/22 08:59 68 151/97 (115) Baseline EKG: Baseline EKG: NSR Summary After explaining the procedure to the patient, he signed a consent and then brought to the stress nuclear laboratory. Patient received 0.4 mg Lexiscan for stress test, ECG, heart rate and blood pressure were monitored continuously. Resting and stress dose of radio tracer were injected, imaging was acquired and reviewed in short axis, horizontal long axis and vertical long axis views. TID: 1.07 SSS: 0 SDS: 0 EF: 58 Patient tolerated Lexiscan well No significant ischemia or infarction noted on SPECT images Normal left ventricular size, ejection fraction 58% Copy Copies To 1: MAKI SANTIAGO BASHAR J MD Dec 09, 2022 07:44
== END ==
LOC: CARD 07:52
PROVIDERS: ATTEND Physician Assistant
DX: I10 Essential (primary) hypertension (principal)
CPT/HCPCS: 78452; 93017; A9502